=== PATIENT | female | born 1940 | race Caucasian/White ===

== ENCOUNTER → 2016-09-28 | Outpatient (CLI) | payer MEDICARE, OTHER ==
[2015-06-23 10:56] VITALS: BP 130/72
[~2016-09-28] MED LIST: APIX5TAB PO; ASPI-482 PO; BREO ELLIPTA 21 EACH IH; CLOP75TA PO; DILT120C97 PO; FLUT9.9S NS; HYDR12.58 PO; INSU100V8 SQ; LEVO112T4 PO; LOSA25TA4 PO; METF10002 PO; MULT-246 PO; NIAC250C2 PO; OMEG1CAP38 PO; SIMV40TA3 PO; VENL37.56 PO
--- NOTE | 2016-09-28 15:00 | KCIC ---
PROCEDURE Two-view chest. HISTORY Shortness of air, interstitial lung disease COMPARISON April 13, 2016 FINDINGS Two views of the chest are submitted. There again has been a median sternotomy. Pericardial cardiac silhouette is unchanged, borderline enlarged. There is atherosclerotic calcification near the aortic arch. There is again interstitial opacity of the mid to inferior hemithoraces bilaterally not convincingly changed. There is no new lobar infiltrate, pleural fluid, or pneumothorax. IMPRESSION Radiographic findings are similar, interstitial opacity bilaterally which may be due to the provided history of interstitial lung disease. Electronically signed by: Jagjit Beltran MD (Sep 28, 2016 14:58:50)
--- NOTE | 2016-09-28 21:33 | KCIC ---
Bilateral digital screening mammograms with CAD: HISTORY Routine screening. COMPARISON Comparison is made to previous studies dated 10/22/2014 and 08/08/2013. FINDINGS Breast density category B. The skin and nipples show no abnormalities. No abnormal lymph nodes are seen in the axilla. The breast parenchyma shows scattered fibroglandular density. There are no dominant masses, suspicious calcifications or architectural distortions. IMPRESSION No evidence of malignancy. Recommend routine annual mammographic screening. This study was interpreted with the benefit of Computerized Aided Detection (CAD). Mammography is not 100% sensitive in detecting breast cancer. Therefore, a self breast exam and a clinical breast exam are very important. A negative mammogram does not negate a clinically suspicious finding and should not result in a delay in biopsying a clinically suspicious abnormality. BI-RADS category 1. Negative. This patient's information has been entered into a reminder system for the patient to be notified with the results of this examination and a target date for her next mammograms. Electronically signed by: Slaina Mustafa MD (Sep 28, 2016 21:32:40)
== END | disposition home or self-care (01) ==
LOC: KCIC MAMMO 13:48
PROVIDERS: ATTEND Internal Medicine
DX: Z12.31 Encounter for screening mammogram for malignant neoplasm of breast (principal); R06.02 Shortness of breath; J84.9 Interstitial pulmonary disease, unspecified
CPT/HCPCS: 71020; G0202; 77067

== ENCOUNTER → 2016-09-28 | Outpatient (CLI) | payer MEDICARE, OTHER ==
[2015-06-23 10:56] VITALS: BP 130/72
--- NOTE | 2016-09-28 16:52 | CARD ---
APPROVED REPORT EXAM: Two-dimensional and M-mode echocardiogram with Doppler and color Doppler. Other Information Quality : GoodHR: 63bpm Rhythm : NSR INDICATION Cardiac Disease: CAD 2D DIMENSIONS RVDd3.5 (2.9-3.5cm)Left Atrium(2D)4.0 (1.6-4.0cm) IVSd0.9 (0.7-1.1cm)Aortic Root(2D)3.2 (2.0-3.7cm) LVDd4.9 (3.9-5.9cm)LVOT Diameter2.1 (1.8-2.4cm) PWd1.0 (0.7-1.1cm)LVDs3.5 (2.5-4.0cm) FS (%) 29.9 %SV65.3 ml LVEF(%)56.9 (>50%) Aortic Valve AoV Peak Winston.122.6cm/sAoV VTI28.1cm AO Peak GR.6.0mmHgLVOT Peak Winston.89.8cm/s LVOT VTI 21.30cmAO Mean GR.3mmHg SAEID (VMAX)2.95ri9FQV (VTI)2.67cm2 Mitral Valve MV E Uvfqrxou16.8cm/sMV DECEL ZSUX713ac MV A Zzsqjdwk75.2cm/sMV E Mean Gr.1mmHg MV IFI36lhY/A Ratio0.9 MV A Wpcgoxye671rxYLF (PHT)2.93cm2 TDI E/Lateral E'8.6E/Medial E'11.2 Pulmonary Valve PV Peak Zqcaokbu72.6cm/sPV Peak Grad.4mmHg RVOT VTI15.7cm Tricuspid Valve TR P. Gkfqsyxd734xl/sRAP HTXUEICY9liZd TR Peak Gr.54hzVsXEXK03tbBe Pulmonary Vein S1 Xnyfmotp07.3cm/sD2 Ltdjqmnc40.7cm/s PVa yunbvmlw637cjoc LEFT VENTRICLE The left ventricle is normal size. There is normal left ventricular wall thickness. Left ventricle sy stolic function is normal. The Ejection Fraction is 55-60%. There is normal LV segmental wall motion. Transmitral Doppler flow pattern is Grade I-abnormal relaxation pattern. There is no ventricular sep omega defect visualized. RIGHT VENTRICLE The right ventricle is normal size. There is normal right ventricular wall thickness. The right ventr icular systolic function is normal. Fat pad noted over right ventricular apex. ATRIA The left atrium size is normal. The right atrium size is normal. The interatrial septum is intact wit h no evidence for an atrial septal defect or patent foramen ovale as noted on 2-D or Doppler imaging. AORTIC VALVE The aortic valve is normal in structure and function. The aortic valve is trileaflet. Doppler and Col or Flow revealed no significant aortic regurgitation. There is no significant aortic valvular stenosi s. MITRAL VALVE The mitral valve is normal in structure. There is no evidence of mitral valve prolapse. There is no m itral valve stenosis. Doppler and Color Flow revealed mild mitral regurgitation. TRICUSPID VALVE The tricuspid valve is normal in structure. Doppler and Color Flow revealed mild tricuspid regurgitat ion. There is mild pulmonary hypertension. The PA pressure was estimated at 39 mmHg. There is no tric uspid valve stenosis. PULMONIC VALVE The pulmonary valve is normal in structure. Doppler and Color Flow revealed trace pulmonic valvular r egurgitation. There is no pulmonic valvular stenosis. GREAT VESSELS The aortic root is normal in size. The ascending aorta is normal in size. Normal pulmonary venous matthew w (Doppler). The IVC is normal in size and collapses >50% with inspiration. PERICARDIAL EFFUSION There is no pleural effusion. There is no evidence of significant pericardial effusion. Critical Notification Critical Value: No <Conclusion> Left ventricle systolic function is normal. The Ejection Fraction is 55-60%. There is normal LV segmental wall motion. Transmitral Doppler flow pattern is Grade I-abnormal relaxation pattern. Mild mitral regurgitation. Mild tricuspid regurgitation. The PA pressure was estimated at 39 mmHg. There is no evidence of significant pericardial effusion.
== END | disposition home or self-care (01) ==
LOC: ECHO 10:03
PROVIDERS: ATTEND Internal Medicine Cardiovascular Disease
DX: I25.10 Atherosclerotic heart disease of native coronary artery without angina pectoris (principal); I34.0 Nonrheumatic mitral (valve) insufficiency; I27.2 Other secondary pulmonary hypertension; I37.1 Nonrheumatic pulmonary valve insufficiency
CPT/HCPCS: 93306

== ENCOUNTER → 2016-10-10 | Outpatient (CLI) | payer MEDICARE, OTHER ==
[2015-06-23 10:56] VITALS: BP 130/72
== END | disposition home or self-care (01) ==
LOC: PF 07:53
PROVIDERS: ATTEND Internal Medicine Pulmonary Disease
DX: R06.00 Dyspnea, unspecified (principal)
CPT/HCPCS: 94010; 94729

== ENCOUNTER → 2016-10-19 | Outpatient (CLI) | payer MEDICARE, OTHER ==
[2015-06-23 10:56] VITALS: BP 130/72
[~2016-10-19] MED LIST changes: +CEFAZOLIN 1GM IVPB FOR OMNI 50 ML IV ONE; +REGADENOSON 0.4 MG/5 ML DISP.SYRIN. IV ONE
--- NOTE | 2016-10-19 12:38 | RAD ---
APPROVED REPORT Test Type: Pharmacological Stress Nurse/Tech: Cate Swan R.N. Test Indications: chest pain Cardiac History: cabg 2007, stents, htn Medications: see attached list Medical History: see ehr Resting ECG: SR Resting Heart Rate: 73 bpm Resting Blood Pressure: 143/65mmHg Pretest Chest Pain: No chest pain Nurse/Tech Notes lungs cta, heart tones regular, good radial pulse Consent: The procedure was explained to the patient in lay terms. Informed consent was witnessed. Raj eout was entered into [employer]. History and Stress Test performed by Cate Swan R.N. Pharm. Details Pharmacologic stress testing was performed using 0.4mg per 5ml of regadenoson given intravenously ove r 7-10 seconds. Stress Symptoms No chest pain or symptoms. pt c/o chest tightness in 3/10- during minute 4 of recovery, resolved POST EXERCISE Reason for Termination: Infusion complete Max HR: 96 bpm Max Blood Pressure: 155/66mmHg Chest Pain: Yes. see above Arrhythmia: No. ST Change: No. INTERPRETATION Stress EKG Conclusion: Baseline EKG showed sinus rhythm. No ischemic changes at peak stress. No arr hythmias. Imaging Protocol IMAGE PROTOCOL: Rest Tc-99m/stress Tc-99m 1 day Rest: Stress: Viability: Radiopharm.Tc99m HguohsjlgQt05a Sestamibi Vopd08lOt 33mCi Duration 15min. 10min. Img Date 10/19/2016 10/19/2016 Inj-Img Bnrb58tjr. 60min. Rest Admin Site:IV - Left HandAdministrator:CURTIS Padgett, ARRT (R)(N) Stress Admin Site: IV - Left HandAdministrator: CURTIS Padgett, ARRT (R)(N) STRESS DATA End Diast. Vol.68.0mlAv. Heart Rate77.0bpm End Syst. Vol.19.0mlCO Index BSA0.0L/min Myocardial Reot282.0gEject. Fbbxfohz21.0% Stress Rates Pk. Fill Rate3.50EDV/secLVtime Pk. Fill 213.73msec Pk. Empty Rate4.79ESV/secLVtime Pk. Blzqn785.98msec 08/02 Pk. Fill1.26EDV/sec Stress Scores Regional WT0.00Summed WT0.00 Regional WM0.00Summed WM0.00 Study quality was good. Left Ventricular size was Normal at Rest and Stress. Lung uptake was Normal. Left Ventricular ejection fraction is 72%. The rest and stress images show normal perfusion, normal contraction and thickening. LV Perf. Quant 17 Seg. SSS3.00 17 Seg. SRS2.00 17 Seg. SDS2.00 Stress Defect Extent (% LAD)0.00Rest Defect Extent (% LAD)0.00Rev. Defect Extent (% LAD)0.00 Stress Defect Extent (% LCX) 31.30Rest Defect Extent (% LCX)5.00Rev. Defect Extent (% LCX)22.50 Stress Defect Extent (% RCA)0.00Rest Defect Extent (% RCA)0.00Rev. Defect Extent (% RCA)0.00 Stress Defect Extent (% ANY)5.40Rest Defect Extent (% ANY)0.90Rev. Defect Extent (% ANY)3.90 Conclusion 1. Regadenoson cardioisotope stress test did not show any evidence of ischemia or infarct. 2. Normal left ventricular systolic function with ejection fraction calculated at 72%. 3. Low risk for cardiac events.
== END | disposition home or self-care (01) ==
LOC: NM 08:33
PROVIDERS: ATTEND Nurse Practitioner
DX: I25.10 Atherosclerotic heart disease of native coronary artery without angina pectoris (principal)
CPT/HCPCS: 78452; 93017; 96374; 96375; 96376; A9500; J2785

== ENCOUNTER 2017-07-29 17:28 | Inpatient (IN) | payer MEDICARE, OTHER ==
[2017-07-29 17:51] LABS: POC GLUCOSE 165 mg/dL (70-99)
[2017-07-29 18:20] LABS: ADD MAN DIFF? NO
[2017-07-29 18:22] LABS: BASO % 1 % (0-3); BILIRUBIN,URINE NEGATIVE (NEG); CLARITY,URINE CLEAR; COLOR,URINE YELLOW; EOS % 1 % (0-3); GLUCOSE,URINE NEGATIVE (NEG); HEMATOCRIT 40.5 % (36.0-47.0); HEMOGLOBIN 13.1 g/dL (12.0-15.5); LYMPH # 1.1 x10^3/uL (1.0-4.8); LYMPH % 19 % (24-48); MEAN CORPUSCULAR HEMOGLOBIN 29 pg (25-35); MEAN CORPUSCULAR HGB CONC 32 g/dL (31-37); MEAN CORPUSCULAR VOLUME 89 fL (79-100); MONO # 0.8 x10^3/uL (0.0-1.1); MONO % 15 % (0-9); NEUT # 3.5 x10^3uL (1.8-7.7); NEUT % 65 % (31-73); NITRITE,URINE NEGATIVE (NEG); PH,URINE 6.5; PLATELET COUNT 113 x10^3/uL (140-400); PROTEIN,URINE NEGATIVE (NEG-TRACE); RED BLOOD COUNT 4.53 x10^6/uL (3.50-5.40); RED CELL DISTRIBUTION WIDTH 14.4 % (11.5-14.5); UROBILINOGEN,URINE 0.2 mg/dL (0.2 mg/dL); WHITE BLOOD COUNT 5.5 x10^3/uL (4.0-11.0)
[2017-07-29 18:28] LABS: BACTERIA,URINE FEW /HPF (0-FEW); HYALINE CASTS, URINE FEW /HPF; SQUAMOUS EPITHELIAL CELL,UR FEW /LPF
[2017-07-29 18:32] LABS: ANION GAP 11 (6-14); BLOOD UREA NITROGEN 12 mg/dL (7-20); BUN/CREATININE RATIO 12 (6-20); CALCIUM 9.2 mg/dL (8.5-10.1); CARBON DIOXIDE 27 mmol/L (21-32); CHLORIDE 101 mmol/L (98-107); GFR 54.2; GLUCOSE 187 mg/dL (70-99); SODIUM 139 mmol/L (136-145)
[2017-07-29 18:38] LABS: ALBUMIN 3.7 g/dL (3.4-5.0); ALK PHOS 75 U/L (46-116); ALT (SGPT) 31 U/L (14-59); AST (SGOT) 51 U/L (15-37); TOTAL BILIRUBIN 0.4 mg/dL (0.2-1.0); TOTAL PROTEIN 7.4 g/dL (6.4-8.2)
[2017-07-29 18:42] LABS: TROPONINI < 0.017 ng/mL (0.000-0.055)
[2017-07-29] MEDS ORDERED: ACETAMINOPHEN 325 MG TABLET. PO (19:30)
[2017-07-29] MEDS ORDERED: ONDANSETRON PF 4 MG/2 ML VIAL. IV (19:30)
[2017-07-29 20:40] LABS: POC GLUCOSE 114 mg/dL (70-99)
[2017-07-30] MEDS ORDERED: FLUTICASONE 50MCG/NASAL SPRAY 16GM BOTTLE. NS
[2017-07-30] MEDS: INSULIN DETEMIR 300 UNITS/3 ML INSULN.PEN. SQ ×2 (01:36→21:00)
[2017-07-30 04:24] LABS: ADD MAN DIFF? NO
[2017-07-30 04:35] LABS: BASO % 1 % (0-3); EOS # 0.1 x10^3/uL (0.0-0.7); EOS % 1 % (0-3); HEMATOCRIT 39.5 % (36.0-47.0); HEMOGLOBIN 12.9 g/dL (12.0-15.5); LYMPH # 1.3 x10^3/uL (1.0-4.8); LYMPH % 22 % (24-48); MEAN CORPUSCULAR HEMOGLOBIN 29 pg (25-35); MEAN CORPUSCULAR HGB CONC 33 g/dL (31-37); MEAN CORPUSCULAR VOLUME 90 fL (79-100); MONO # 0.9 x10^3/uL (0.0-1.1); MONO % 16 % (0-9); NEUT # 3.5 x10^3uL (1.8-7.7); NEUT % 60 % (31-73); PLATELET COUNT 115 x10^3/uL (140-400); RED CELL DISTRIBUTION WIDTH 14.4 % (11.5-14.5); WHITE BLOOD COUNT 5.8 x10^3/uL (4.0-11.0)
[2017-07-30 04:57] LABS: ANION GAP 11 (6-14); BLOOD UREA NITROGEN 14 mg/dL (7-20); CALCIUM 8.6 mg/dL (8.5-10.1); CARBON DIOXIDE 27 mmol/L (21-32); CHLORIDE 103 mmol/L (98-107); CREATININE 0.9 mg/dL (0.6-1.0); GFR 61.2; GLUCOSE 129 mg/dL (70-99); POTASSIUM 3.8 mmol/L (3.5-5.1); SODIUM 141 mmol/L (136-145)
[2017-07-30] MEDS: fentaNYL PF VIAL 100 MCG/2 ML VIAL IV ×2 (05:16→12:55)
[2017-07-30] MEDS: LEVOTHYROXINE 112 MCG TABLET PO (06:07)
[2017-07-30] MEDS: ASPIRIN ENTERIC COATED 81 MG TABLET.DR. PO (08:03)
[2017-07-30] MEDS: VENLAFAXINE XR 37.5 MG CAP.ER.24H. PO (08:03)
[2017-07-30] MEDS: MULTIVITAMIN with MINERAL TABLET. PO (08:03)
[2017-07-30] MEDS: APIXABAN 5 MG TABLET. PO ×2 (08:03→21:32)
[2017-07-30] MEDS: LOSARTAN POTASSIUM 25 MG TABLET. PO (08:04)
[2017-07-30] MEDS: OMEGA-3 FATTY ACIDS/FISH OIL 1,000 MG CAPSULE. PO (08:04)
[2017-07-30] MEDS ORDERED: VILANTEROL IH (13:45)
[2017-07-30] MEDS ORDERED: DEXTROSE 50% 25 GM / 50ML DISP.SYRIN. IV (13:45)
[2017-07-30] MEDS ORDERED: ACETAMINOPHEN 500 MG TABLET PO (13:45)
[2017-07-30] MEDS ORDERED: FLUTICASONE IH (13:45)
[2017-07-30] MEDS ORDERED: ONDANSETRON PF 4 MG/2 ML VIAL. IV (13:45)
[2017-07-30] MEDS ORDERED: HYDROcodone/APAP 5/325MG 1 TAB TABLET PO (16:00)
[2017-07-30] MEDS: GABAPENTIN 400 MG CAPSULE. PO (16:04)
[2017-07-30] MEDS: ALLOPURINOL 100 MG TABLET. PO (16:06)
[2017-07-30] MEDS: ALBUTEROL SULFATE 2.5 MG/3 ML NEBU. NEB ×2 (16:18→19:24)
[2017-07-30] MEDS: INSULIN ASPART 300 UNITS/3 ML INSULN.PEN SQ (17:00)
[2017-07-30] MEDS: BUDESONIDE 0.5 MG/2 ML NEBU. NEB (19:24)
[2017-07-30] MEDS: NIACIN ER 250 MG TABLET.ER PO (21:31)
[2017-07-30] MEDS: SIMVASTATIN 40 MG TABLET. PO (21:32)
[2017-07-30 21:37] LABS: POC GLUCOSE 101 mg/dL (70-99)
[2017-07-31] MEDS: LEVOTHYROXINE 112 MCG TABLET PO ×2 (05:51→05:55)
[2017-07-31 07:35] LABS: POC GLUCOSE 125 mg/dL (70-99)
[2017-07-31] MEDS: INSULIN ASPART 300 UNITS/3 ML INSULN.PEN SQ ×3 (08:00→16:18)
[2017-07-31] MEDS: ALBUTEROL SULFATE 2.5 MG/3 ML NEBU. NEB ×4 (08:32→20:20)
[2017-07-31] MEDS: BUDESONIDE 0.5 MG/2 ML NEBU. NEB ×2 (08:33→20:20)
[2017-07-31] MEDS: GABAPENTIN 400 MG CAPSULE. PO (09:30)
[2017-07-31] MEDS: OMEGA-3 FATTY ACIDS/FISH OIL 1,000 MG CAPSULE. PO (09:31)
[2017-07-31] MEDS: ASPIRIN ENTERIC COATED 81 MG TABLET.DR. PO (09:31)
[2017-07-31] MEDS: MULTIVITAMIN with MINERAL TABLET. PO (09:31)
[2017-07-31] MEDS: APIXABAN 5 MG TABLET. PO ×2 (09:31→20:43)
[2017-07-31] MEDS: ALLOPURINOL 100 MG TABLET. PO (09:31)
[2017-07-31] MEDS: VENLAFAXINE XR 37.5 MG CAP.ER.24H. PO (09:31)
[2017-07-31] MEDS: LOSARTAN POTASSIUM 25 MG TABLET. PO (10:43)
[2017-07-31 11:34] LABS: POC GLUCOSE 120 mg/dL (70-99)
[2017-07-31] MEDS: guaiFENesin DM 200MG/20MG 10 ML SYRUP PO ×2 (15:22→23:40)
[2017-07-31] MEDS: CETIRIZINE HCL 10 MG TABLET. PO (15:22)
[2017-07-31 16:10] LABS: POC GLUCOSE 119 mg/dL (70-99)
[2017-07-31] MEDS: NIACIN ER 250 MG TABLET.ER PO (20:43)
[2017-07-31] MEDS: SIMVASTATIN 40 MG TABLET. PO (20:43)
[2017-07-31] MEDS: INSULIN DETEMIR 300 UNITS/3 ML INSULN.PEN. SQ (20:49)
[2017-07-31 20:51] LABS: POC GLUCOSE 111 mg/dL (70-99)
[2017-08-01 04:58] LABS: POC GLUCOSE 130 mg/dL (70-99)
[2017-08-01] MEDS: LEVOTHYROXINE 112 MCG TABLET PO (05:46)
[2017-08-01 07:43] LABS: POC GLUCOSE 122 mg/dL (70-99)
[2017-08-01] MEDS: BUDESONIDE 0.5 MG/2 ML NEBU. NEB (07:51)
[2017-08-01] MEDS: ALBUTEROL SULFATE 2.5 MG/3 ML NEBU. NEB ×2 (07:51→11:31)
[2017-08-01] MEDS: INSULIN ASPART 300 UNITS/3 ML INSULN.PEN SQ ×2 (08:00→12:00)
[2017-08-01] MEDS: MULTIVITAMIN with MINERAL TABLET. PO (08:25)
[2017-08-01] MEDS: ALLOPURINOL 100 MG TABLET. PO (08:26)
[2017-08-01] MEDS: ASPIRIN ENTERIC COATED 81 MG TABLET.DR. PO (08:27)
[2017-08-01] MEDS: GABAPENTIN 400 MG CAPSULE. PO (08:27)
[2017-08-01] MEDS: VENLAFAXINE XR 37.5 MG CAP.ER.24H. PO (08:27)
[2017-08-01] MEDS: LOSARTAN POTASSIUM 25 MG TABLET. PO (08:27)
[2017-08-01] MEDS: CETIRIZINE HCL 10 MG TABLET. PO (08:27)
[2017-08-01] MEDS: APIXABAN 5 MG TABLET. PO (08:28)
[2017-08-01] MEDS: OMEGA-3 FATTY ACIDS/FISH OIL 1,000 MG CAPSULE. PO (09:00)
[2017-08-01 11:51] LABS: POC GLUCOSE 122 mg/dL (70-99)
[2017-08-01] MEDS: ANTI-COAG MONITOR BY PHARMACY. MC (14:48)
== END 2017-08-01 16:07 | disposition home or self-care (01) | DRG 638 ==
LOC: ER 17:28 → 5 SOUTH 19:19
PROVIDERS: Internal Medicine Hematology & Oncology
DX: E11.65 Type 2 diabetes mellitus with hyperglycemia (principal); N39.0 Urinary tract infection, site not specified; I48.0 Paroxysmal atrial fibrillation; M48.02 Spinal stenosis, cervical region; E03.9 Hypothyroidism, unspecified; E78.5 Hyperlipidemia, unspecified; I10 Essential (primary) hypertension; I25.10 Atherosclerotic heart disease of native coronary artery without angina pectoris; M50.222 Other cervical disc displacement at C5-C6 level; E78.00 Pure hypercholesterolemia, unspecified; Z79.4 Long term (current) use of insulin; Z82.49 Family history of ischemic heart disease and other diseases of the circulatory system; Z87.891 Personal history of nicotine dependence; Z90.710 Acquired absence of both cervix and uterus; Z95.1 Presence of aortocoronary bypass graft; Z90.49 Acquired absence of other specified parts of digestive tract; Z90.89 Acquired absence of other organs
CPT/HCPCS: 36415; 70450; 71010; 72125; 80048; 80053; 81001; 82962; 84484; 85025; 87086; 93005; 94640; 94760; 97116-GP; 97161-GP; 97166-GO; 99285; 99285-25; J0690; J1815; J3010; J7613; J7626

== ENCOUNTER → 2017-08-22 | Outpatient (CLI) | payer MEDICARE, OTHER ==
[2017-08-22] MEDS: REGADENOSON 0.4 MG/5 ML DISP.SYRIN. IV (11:25)
== END | disposition home or self-care (01) ==
LOC: NM 09:26
DX: R06.00 Dyspnea, unspecified (principal)
CPT/HCPCS: 78452; 93017; 96374; 96375; 96376; A9500; J2785

== ENCOUNTER → 2017-11-22 | Outpatient (CLI) | payer MEDICARE, OTHER ==
[2017-11-22] MEDS: IOHEXOL 240 MG/ML 50ML VIAL. PO (13:18)
[2017-11-22] MEDS: IOHEXOL 300 MG/ML 100ML VIAL. IV (13:18)
== END | disposition home or self-care (01) ==
LOC: KCIC CT 11:45
DX: Z12.31 Encounter for screening mammogram for malignant neoplasm of breast (principal); I70.0 Atherosclerosis of aorta; R74.8 Abnormal levels of other serum enzymes
CPT/HCPCS: 74160; 77063; 77067; Q9966; Q9967

== ENCOUNTER 2018-01-12 10:46 | Emergency (ER) | payer MEDICARE, OTHER ==
[2018-01-12 11:13] LABS: BILIRUBIN,URINE NEGATIVE (NEG); CLARITY,URINE CLEAR; COLOR,URINE YELLOW; GLUCOSE,URINE NEGATIVE (NEG); NITRITE,URINE NEGATIVE (NEG); PH,URINE 5.5; PROTEIN,URINE 30 mg/dL (NEG-TRACE); UROBILINOGEN,URINE 0.2 mg/dL (0.2 mg/dL)
[2018-01-12 11:19] LABS: BACTERIA,URINE MODERATE /HPF (0-FEW); SQUAMOUS EPITHELIAL CELL,UR MOD /LPF
[2018-01-12 11:29] LABS: ADD MAN DIFF? NO
[2018-01-12] MEDS ORDERED: CONTRAST GIVEN. MC (11:30)
[2018-01-12 11:32] LABS: BASO # 0.1 x10^3/uL (0.0-0.2); BASO % 1 % (0-3); EOS # 0.1 x10^3/uL (0.0-0.7); EOS % 1 % (0-3); HEMATOCRIT 36.6 % (36.0-47.0); HEMOGLOBIN 12.4 g/dL (12.0-15.5); LYMPH # 1.9 x10^3/uL (1.0-4.8); LYMPH % 18 % (24-48); MEAN CORPUSCULAR HEMOGLOBIN 31 pg (25-35); MEAN CORPUSCULAR HGB CONC 34 g/dL (31-37); MEAN CORPUSCULAR VOLUME 91 fL (79-100); MONO # 0.9 x10^3/uL (0.0-1.1); MONO % 9 % (0-9); NEUT # 7.5 x10^3uL (1.8-7.7); NEUT % 72 % (31-73); PLATELET COUNT 135 x10^3/uL (140-400); RED BLOOD COUNT 4.04 x10^6/uL (3.50-5.40); RED CELL DISTRIBUTION WIDTH 13.7 % (11.5-14.5); WHITE BLOOD COUNT 10.5 x10^3/uL (4.0-11.0)
[2018-01-12 11:39] LABS: ANION GAP 8 (6-14); BLOOD UREA NITROGEN 14 mg/dL (7-20); BUN/CREATININE RATIO 16 (6-20); CARBON DIOXIDE 28 mmol/L (21-32); CHLORIDE 98 mmol/L (98-107); CREATININE 0.9 mg/dL (0.6-1.0); GLUCOSE 136 mg/dL (70-99); SODIUM 134 mmol/L (136-145)
[2018-01-12 11:47] LABS: ALBUMIN 3.5 g/dL (3.4-5.0); ALBUMIN/GLOBULIN RATIO 0.9 (1.0-1.7); ALK PHOS 79 U/L (46-116); ALT (SGPT) 27 U/L (14-59); AST (SGOT) 29 U/L (15-37); LIPASE 172 U/L (73-393); TOTAL BILIRUBIN 0.7 mg/dL (0.2-1.0); TOTAL PROTEIN 7.4 g/dL (6.4-8.2)
[2018-01-12] MEDS: IOHEXOL 300 MG/ML 100ML VIAL. IV (11:49)
== END 2018-01-12 13:00 | disposition home or self-care (01) ==
LOC: ER 10:46
DX: K52.9 Noninfective gastroenteritis and colitis, unspecified (principal); N39.0 Urinary tract infection, site not specified; E78.00 Pure hypercholesterolemia, unspecified; E03.9 Hypothyroidism, unspecified; E11.40 Type 2 diabetes mellitus with diabetic neuropathy, unspecified; E11.9 Type 2 diabetes mellitus without complications; I25.10 Atherosclerotic heart disease of native coronary artery without angina pectoris; Z90.49 Acquired absence of other specified parts of digestive tract; Z90.710 Acquired absence of both cervix and uterus; Z98.890 Other specified postprocedural states; Z95.5 Presence of coronary angioplasty implant and graft
CPT/HCPCS: 36415; 74177; 80053; 81001; 83690; 85025; 87086; 99285-25; Q9967

== ENCOUNTER 2018-10-16 06:56 | Outpatient (CLI) | payer MEDICARE, OTHER ==
[2018-10-16] VITALS (12 sets, daily range): BP systolic 123–163; BP diastolic 61–74
[~2018-10-16] VITALS: Ht 170.2 cm; Wt 85.3 kg
[~2018-10-16 06:56] MED LIST changes: +ALLO100T PO; -CEFAZOLIN 1GM IVPB FOR OMNI 50 ML IV ONE; +CIPR250T30 PO; +CIPR500T94 PO; +DILT120C85 PO; -DILT120C97 PO; +DILT30TA PO; +GABA-689 PO; -LOSA25TA4 PO; +LOSA25TA54 PO; -METF10002 PO; +METF10007 PO; +METR500T PO; -REGADENOSON 0.4 MG/5 ML DISP.SYRIN. IV ONE
[2018-10-16] MEDS ORDERED: LEVO200T5 PO (07:28)
[2018-10-16] MEDS ORDERED: DILT30TA26 PO (07:28)
[2018-10-16] MEDS ORDERED: INSU100I13 SQ (07:28)
[2018-10-16] MEDS ORDERED: METF500T16 PO (07:28)
[2018-10-16] MEDS ORDERED: IODIXANOL 320 MG/ML 100 ML VIAL. ONE ×2 (07:43→09:34)
[2018-10-16] MEDS ORDERED: HEPARIN for ARTERIAL LINE 1,500 ML ONE (07:43)
[2018-10-16] MEDS ORDERED: LIDOCAINE 1% PF 2 ML VIAL. ONE (07:43)
[2018-10-16 07:47] LABS: HEMATOCRIT 36.8 % (36.0-47.0); HEMOGLOBIN 12.2 g/dL (12.0-15.5); RED BLOOD COUNT 4.07 x10^6/uL (3.50-5.40); RED CELL DISTRIBUTION WIDTH 13.9 % (11.5-14.5); WHITE BLOOD COUNT 6.6 x10^3/uL (4.0-11.0)
[2018-10-16 07:58] LABS: PROTHROMBIN TIME PATIENT 14.1 SEC (11.7-14.0)
[2018-10-16] MEDS ORDERED: fentaNYL PF VIAL 100 MCG/2 ML VIAL ONE (08:32)
[2018-10-16] MEDS ORDERED: LIDOCAINE 1% Multi-Dose 20 ML VIAL. ONE (08:32)
[2018-10-16] MEDS ORDERED: MIDAZOLAM HCL/PF 2 MG/2 ML VIAL. ONE (08:32)
[2018-10-16 08:34] LABS: CALCIUM 8.9 mg/dL (8.5-10.1); CREATININE 0.8 mg/dL (0.6-1.0); GFR 69.7
[2018-10-16] MEDS ORDERED: LIDOCAINE 1% Multi-Dose 20 ML VIAL. INJ ONE (09:15)
[2018-10-16] MEDS ORDERED: IODIXANOL 320 MG/ML 100 ML VIAL. IART ONE (09:15)
[2018-10-16] MEDS ORDERED: MIDAZOLAM HCL/PF 2 MG/2 ML VIAL. IV ONE (09:15)
[2018-10-16] MEDS ORDERED: fentaNYL PF VIAL 100 MCG/2 ML VIAL IV ONE (09:15)
--- NOTE | 2018-10-16 11:05 | CARD ---
MR#: [id number] Date of Study: 10/16/2018 Ordering Physician: MARIE BALES, Referring Physician: MARIE BALES, Tech: YUNG TERRY RTR APPROVED REPORT Technologist: YUNG TERRY RTR Nurse: Cate Swan R.N. Procedure(s) performed: MODERATE SEDATION TIME: 55 MINUTES LHC, Coronary angiography, Bypass angiography HISTORY The patient is a 78 year-old female with a history of : coronary artery disease, tobacco history() , hypertension, dyslipidemia. INDICATION The indication(s) include : positive stress test, atypical chest pain . CSHA Clinical Frailty Scale CS Clinical Frailty Scale: Managing Well Heart Failure Heart Failure: No If Yes, Newly Diagnosed: No PROCEDURE NARRATIVE After explaining the risks and benefits of the procedure and alternatives, informed consent was obtai princess. The patient was brought electively to the cardiac catheterization lab in a fasting state. A sridhar eout was performed confirming the patient's name, date of , procedure, and site of procedure. A ll necessary personnel were wearing the appropriate protective equipment and radiation monitor device s. (See nursing notes for medications administered). The right groin was sterilely prepped and drap ed in the usual fashion. The right groin was infiltrated with 10 mL of 2% lidocaine for subcutaneous anesthesia. A 6 F sheath was inserted into the right femoral artery without difficulty. Right and left coronary angiography was performed using a JR4 and JL4 catheter. Bypass angiography was perform ed with a CRUZ, JR4 and AR1 catheters. Left ventricular end diastolic pressure was obtained with a p igtail catheter and pullback was performed. Next, a supravalvular aortography was performed. All cat heter exchanges and advancements were performed over a guidewire. At case completion the right femor al sheath was removed and hemostasis was achieved with an Angioseal Device after limited femoral juan ramon ography confirmed adequate vessel size and anatomy. There were no acute complications. HEMODYNAMICS: AO: 160/80 LVEDP 15 mm Hg No gradient on LV to aortic pullback. LEFT VENTRICULOGRAM: Deferred due to known normal EF. SUPRAVALVULAR AORTOGRAPHY: No significant dilation. No significant aortic insufficiency. CORONARY ANGIOGRAPHY: LM is a small to moderate sized vessel with a proximal to mid 50% stenosis. LAD is a large caliber vessel with an ostial 100% occlusion. The mid to distal vessel is seen to fill via a robust CRUZ graft. Ramus is a small caliber vessel with normal angiographic appearance. LCx is a small to moderate caliber non-dominant vessel with a proximal 50% stenosis. OM1 is a moderate caliber vessel with a proxmial 70% stenosis. The distal vessel is also seen to fill via a patent SVG graft. RCA is a large caliber dominant vessel with proximal to mid 70% stenosis. The distal RCA is occluded. RPDA and RPL are small caliber vessels that fill via SVG. BYPASS ANGIOGRAPHY: CRUZ to LAD - Widely patent without anastomotic stenosis. SVG to OM1 - Widely patent without anastomotic stenosis. SVG to RCA - Distal 90% stenosis at the RCA crux involving small caliber PDA/RPL vessels. Due to small caliber RPDA/RPL vessels and need for possible bifurcation stenting a discussion was hel d with the patient regarding her lifestyle limitations. 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 Will plan for medical therapy for next several weeks, determine life style limitations and consider complex PCI of the SVG graft in the future if symptoms are lifestyle l imiting. Conclusion 1. Normal left sided filling pressures. 2. Severe 3V CAD 3. 3/3 grafts patent with severe SVG to RCA distal anastomotic stenosis Recommendations See discussion above Plan for trial of medical therapy, if still with lifestyle symptoms, consider complex SVG PCI. Signed by : Marie Bales, Electronically Approved : 10/16/2018 11:04:24
--- NOTE | 2018-10-16 12:57 | NUR ---
Discharge Note: SARIKA HOLLEY [facility] Discharge instructions and discharge home medications reviewed with Patient and a copy given. All questions have been answered and understanding verbalized. The following instructions and handouts were given: education was given to patient regarding groin site care and moderate sedation. Pt was also instructed to continue home medications as directed. Pt and spouse verbalized understanding. Discontinued lines and drains: peripheral iv was discontinued with no complications. Catheter tip was intact. Patient discharged to home with self care via wheelchair. Pt was accompanied by spouse.
--- NOTE | 2018-10-16 17:28 | PDOC ---
MODERATE SEDATION ASSESSMENT RISKS/ALTERNATIVES Risks/Alternatives Risks and alternatives of this type of sedation and procedure discussed with: RISK/ALTERNATIVES: Patient H & P ON CHART H & P H & P on chart and reviewed for co-morbid conditions and appropriate labs. H&P ON CHART: Yes STATUS PREG STATUS ASSESSED: N/A MEDS/ALLERGIES REVIEWED Meds/Allergies Reviewed Medications and Allergies including time and route of recently administered narcotics and sedatives. MEDS/ALLERGIES REVIEWED: Yes ASA RATING ASA RATING: II AIRWAY ASSESSMENT Airway Assessment Airway patency, oral function limitations, presence of caps, crowns, dentures, partials, and ability to extend neck assessed. AIRWAY ASSESSMENT: Yes MALLAMPATI SCORE MALLAMPATI SCORE: II PRE-SEDATION ASSESSMENT PRE-SEDATION ASSESSMENT: Yes (late entry) MARIE SHARMA MD Oct 16, 2018 17:28
[2018-10-16] MEDS ORDERED: 0.9 % SODIUM CHLORIDE 10 ML DISP.SYRIN. IV PRN (17:30)
[2018-10-16] MEDS ORDERED: NITROGLYCERIN SUBLINGUAL 0.4 MG BOTTLE OF 25. SL PRN (17:30)
== END 2018-10-16 13:07 | disposition home or self-care (01) ==
LOC: CCL 06:56
PROVIDERS: ATTEND Internal Medicine Cardiovascular Disease
DX: I25.10 Atherosclerotic heart disease of native coronary artery without angina pectoris (principal); I10 Essential (primary) hypertension; E78.5 Hyperlipidemia, unspecified; F32.9 Major depressive disorder, single episode, unspecified; E11.9 Type 2 diabetes mellitus without complications; Z86.19 Personal history of other infectious and parasitic diseases; Z90.49 Acquired absence of other specified parts of digestive tract; Z90.710 Acquired absence of both cervix and uterus; Z98.890 Other specified postprocedural states; Z79.899 Other long term (current) drug therapy; Z79.84 Long term (current) use of oral hypoglycemic drugs; Z95.1 Presence of aortocoronary bypass graft; Z83.3 Family history of diabetes mellitus; Z82.49 Family history of ischemic heart disease and other diseases of the circulatory system; Z82.3 Family history of stroke; Z87.891 Personal history of nicotine dependence; Z72.89 Other problems related to lifestyle; I48.91 Unspecified atrial fibrillation
CPT/HCPCS: 36415; 80048; 85027; 85610; 93459; 93567; 99152; 99153; C1769; C1892; J1644; J2250; J3010; C1760; G0269; Q9967; C1771

== ENCOUNTER → 2018-11-20 | Outpatient (CLI) | payer MEDICARE, OTHER ==
[2018-10-16 12:35] VITALS: BP 123/61
[~2018-11-20] MED LIST changes: +DILT30TA26 PO; +INSU100I13 SQ; +LEVO200T5 PO; +METF500T16 PO
--- NOTE | 2018-11-21 10:36 | KCIC ---
Bilateral digital screening mammograms with 3-D tomosynthesis: Reason for examination: Routine screening. Comparison is made to previous studies dated 11/22/2017 and 09/28/2016. Bilateral mammograms in CC and oblique projections were obtained with 2-D imaging and 3-D tomosynthesis imaging on a Siemens Inspiration unit and reviewed on the workstation. Interpretation was made with the benefit of CAD. The skin and nipples show no abnormalities. No abnormal axillary lymph nodes are seen. The breast parenchyma shows scattered fatty and fibroglandular density. (Breast density: Category B.) There are no dominant masses, suspicious calcifications or architectural distortion. Benign calcifications are present. Impression: No evidence of malignancy. Recommend routine screening. BI-RAD Category 2: Benign. "Our facility is accredited by the [employer] Mammography Program." This patient's information has been entered into a reminder system for the patient to be notified with the results of her examination and a target date for the next mammogram. Electronically signed by: Haylie Mustafa MD (11/21/2018 10:32 AM) [id number]
== END | disposition home or self-care (01) ==
LOC: KCIC MAMMO 11:03
PROVIDERS: ATTEND Internal Medicine
DX: Z12.31 Encounter for screening mammogram for malignant neoplasm of breast (principal); R92.8 Other abnormal and inconclusive findings on diagnostic imaging of breast
CPT/HCPCS: 77063; 77067

== ENCOUNTER → 2019-05-27 | Outpatient (CLI) | payer MEDICARE, OTHER ==
[2018-10-16 12:35] VITALS: BP 123/61
[~2019-05-27] MED LIST changes: -DILT120C85 PO; +DILT120C99 PO; +IOHEXOL 240 MG/ML 50ML VIAL. PO ONE; +IOHEXOL 300 MG/ML 100ML VIAL. IV ONE
--- NOTE | 2019-05-28 11:09 | KCIC ---
CT ABD PELV W/ORAL IV CONTRAST Indication: Abdominal and pelvic pain, right lower quadrant pain for months Technique: Postcontrast CT imaging was performed of the abdomen pelvis, multiplanar reconstruction images submitted. Oral contrast was also given. One or more of the following individualized dose reduction techniques were utilized for this examination: 1. Automated exposure control 2. Adjustment of the mA and/or kV according to patient size 3. Use of iterative reconstruction technique. Comparison: January 12, 2018 Findings: There again has been a median sternotomy. There is again degree of septal thickening and groundglass density at the periphery of the visualized lung bases bilaterally, likely component of fibrotic change. There is probable hepatic steatosis. No new focal abnormality is identified of the liver, spleen, pancreas. There is similar mild splenomegaly. There again has been cholecystectomy. There is no right adrenal nodularity. There is similar somewhat nodular appearance of the left adrenal gland up to about 1.4 cm. Both kidneys enhance, no hydronephrosis. Bowel is not significantly dilated. There is no free fluid or free air. There is scattered colonic diverticulosis of the sigmoid and descending colon. Colon is not opacified with oral contrast during exam. There may be a degree of mild sigmoid colonic wall thickening of the poorly characterized on this exam. Normal appendix is believed to be visualized. 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 There is L4-5 degenerative disc disease and spondylosis. There is multilevel lumbar facet degenerative change. There is variable lateral recess stenosis of lumbar spine greatest on the left at L3-4. There is likely mlui-uk-ugctbotx narrowing the left L4-5 neural foramen, to lesser degree on the left at L5-S1. There are some similar foci of nonspecific density of the ventral abdominal pelvic subcutaneous fat greater on the right. There is some scattered plaque of the abdominal aorta and iliac arteries. There has been hysterectomy. IMPRESSION: 1. There is colonic diverticulosis greatest of the sigmoid colon, degree of mild sigmoid colonic wall thickening not excludable as could be seen with underlying inflammatory change such as from diverticulitis although poorly characterized as no oral contrast in the colon during exam. Otherwise no significant acute abnormality is identified. 2. There is likely hepatic steatosis. There is similar mild splenomegaly. Electronically signed by: Steve Beltran MD (05/28/2019 11:06 AM) [facility]
== END | disposition home or self-care (01) ==
LOC: KCIC CT 10:32
PROVIDERS: ATTEND Internal Medicine
DX: K57.30 Diverticulosis of large intestine without perforation or abscess without bleeding (principal); R16.1 Splenomegaly, not elsewhere classified; I70.0 Atherosclerosis of aorta; I70.8 Atherosclerosis of other arteries; M16.0 Bilateral primary osteoarthritis of hip; M51.36 Other intervertebral disc degeneration, lumbar region; M47.816 Spondylosis without myelopathy or radiculopathy, lumbar region; M48.061 Spinal stenosis, lumbar region without neurogenic claudication; Z90.710 Acquired absence of both cervix and uterus; Z90.49 Acquired absence of other specified parts of digestive tract
CPT/HCPCS: 74177; 82565; Q9966; Q9967

== ENCOUNTER 2019-10-03 06:53 | Day surgery (SDC) | payer MEDICARE, OTHER ==
[~2019-10-03 06:53] MED LIST changes: +ATOR40TA59 PO; +BENZOCAINE ONE 20% MUCOSAL SPRAY. MM; +GABA600T7 PO; -IOHEXOL 240 MG/ML 50ML VIAL. PO ONE; -IOHEXOL 300 MG/ML 100ML VIAL. IV ONE; +ISOS30TA4 PO; +LEVO150T PO; +LIDOCAINE 2% TOPICAL JELLY 30GM TUBE. TP ONE; +LIDOCAINE 2% VISCOUS 15 ML SOLUTION. SWSW ONE; +SIMV40TA18 PO; -SIMV40TA3 PO
[2019-10-03] MEDS ORDERED: MORPHINE SULFATE 2 MG/ML VIAL. IV PRN (07:00)
[2019-10-03] MEDS ORDERED: ONDANSETRON PF 4 MG/2 ML VIAL. IV PRN (07:00)
[2019-10-03] MEDS ORDERED: HYDROmorphone 2 MG/ML VIAL IV PRN (07:00)
[2019-10-03] MEDS ORDERED: IV RINGERS,LACTATED 1000ML 1,000 ML IV SCH (07:00)
[2019-10-03] MEDS ORDERED: PROCHLORPERAZINE 10 MG/2 ML VIAL. IV PRN (07:00)
[2019-10-03] MEDS ORDERED: LIDOCAINE 1% PF 2 ML VIAL. ID PRN (07:00)
[2019-10-03] MEDS ORDERED: fentaNYL PF VIAL 100 MCG/2 ML VIAL IV PRN ×2 (07:00)
[2019-10-03] MEDS ORDERED: FURO40TA4 PO (07:29)
[2019-10-03] MEDS ORDERED: LIDOCAINE 2% TOPICAL JELLY 30GM TUBE. TP ONE (07:53)
--- NOTE | 2019-10-03 07:54 | EKG ---
[facility] [address] [place] [address] Test Date: 2019-10-03 Test Time: 07:51:11 Pat Name: SARIKA HOLLEY Department: Room: Gender: F Instruction Assistant Principal: RUBIA : 1940 Requested By: MARIE SHARMA Order Number: [id number] Reading MD: Measurements Intervals Porter Rate: 97 P: IA: QRS: 30 QRSD: 82 T: 137 QT: 364 QTc: 467 Interpretive Statements IRREGULAR RHYTHM, NO P-WAVE FOUND ST & T ABNORMALITY, CONSIDER HIGH LATERAL ISCHEMIA OR LEFT VENTRICULAR STRAIN ABNORMAL ECG RI6.01 Compared to ECG 08/08/2019 13:55:57 T-wave abnormality now present Possible ischemia now present Atrial fibrillation no longer present
[2019-10-03] MEDS ORDERED: LIDOCAINE 2% PF 5 ML VIAL. ONE (08:05)
[2019-10-03] MEDS ORDERED: PHENYLEPHRINE in 0.9% NACL PF 1 MG/10 ML SYRINGE. IV ONE (08:05)
[2019-10-03] MEDS ORDERED: PROPOFOL 20 ML IV ONE (08:05)
[2019-10-03 08:07] LABS: HEMATOCRIT 37.2 % (36.0-47.0); HEMOGLOBIN 12.2 g/dL (12.0-15.5); RED BLOOD COUNT 4.27 x10^6/uL (3.50-5.40); RED CELL DISTRIBUTION WIDTH 14.8 % (11.5-14.5); WHITE BLOOD COUNT 7.8 x10^3/uL (4.0-11.0)
[2019-10-03 08:20] LABS: CALCIUM 9.1 mg/dL (8.5-10.1); GFR 53.8; POTASSIUM 3.7 mmol/L (3.5-5.1)
--- NOTE | 2019-10-03 09:00 | EKG ---
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
[2019-10-03] MEDS ORDERED: METO50TA4 PO (09:34)
[2019-10-03] MEDS ORDERED: SACU1TAB7 PO (09:36)
[2019-10-03 09:40] VITALS: BP 141/70
--- NOTE | 2019-10-03 11:03 | CARD ---
MR#: [id number] Date of Study: 10/03/2019 Ordering Physician: MARIE BALES, Referring Physician: MARIE BALES, Tech: Marianna Hughes APPROVED REPORT EXAM: Two-dimensional and M-mode echocardiogram with Doppler and color Doppler. INDICATION Atrial Fibrillation Convsersion RISK FACTORS Hypertension Hyperlipidemia Diabetes Tricuspid Valve TR P. Ilawhgyl632wx/sTR Peak Gr.43mmHg Reason For Test : Rule out Intracardiac Thrombus. PROCEDURE Type of Sedation : General Anesthesia Sedation was administered by Nataliya Franks. Sedation was achieved with Propofol 120mg intravenously. Transesophageal probe was inserted and advanced into esophagus by Seamus Bales MD. The PAWEL was performed without complications. Synchronized Cardioversion attempted: Successful Synchronized Cardioversion acheived with 200 Joules after 1 attempt(s). Rhythm following Synchronized Cardioversion: Normal Sinus Rhythm Throughout the procedure, the blood pressure, pulse oximetry, cardiac rhythm, and rate were monitored . The patient tolerated the procedure without adverse effects. Recovery from general anesthesia was une ventful and vital signs were stable. LEFT VENTRICLE The left ventricle is normal size. There is normal left ventricular wall thickness. The systolic func tion is moderately impaired. The Ejection Fraction is 35-40%. There is global hypokinesis of the left ventricle. No left ventricle thrombus noted on this study. RIGHT VENTRICLE The right ventricle is normal size. There is normal right ventricular wall thickness. The right ventr icular systolic function is normal. ATRIA The left atrium size is normal. The right atrium size is normal. The interatrial septum is intact wit h no evidence for an atrial septal defect or patent foramen ovale as noted on 2-D or Doppler imaging. There is no thrombus noted in the left atrial appendage. AORTIC VALVE The aortic valve is normal in structure and function. Doppler and Color Flow revealed trace aortic re gurgitation. There is no significant aortic valvular stenosis. MITRAL VALVE The posterior mitral leaflet is restricted. There is no mitral valve stenosis. Doppler and Color-flow revealed moderate to severe mitral regurgitation. TRICUSPID VALVE The tricuspid valve is normal in structure and function. Doppler and Color Flow revealed mild tricusp id regurgitation with an estimated PAP of 45 mmHg. There is no tricuspid valve stenosis. PULMONIC VALVE The pulmonic valve is not well visualized. Doppler and Color Flow revealed no pulmonic valvular regur gitation. There is no pulmonic valvular stenosis. GREAT VESSELS The aortic root is normal in size. The ascending aorta is normal in size. The IVC is normal in size a nd collapses >50% with inspiration. Critical Notification Critical Value: No <Conclusion> The systolic function is moderately impaired. The Ejection Fraction is 35-40%. There is global hypokinesis of the left ventricle. Doppler and Color-flow revealed moderate to severe mitral regurgitation. Doppler and Color Flow revealed mild tricuspid regurgitation with an estimated PAP of 45 mmHg. Successful CVN to SR Signed by : Marie Bales, Electronically Approved : 10/03/2019 11:03:23
== END 2019-10-03 10:05 | disposition home or self-care (01) ==
LOC: SURG 06:53
PROVIDERS: ATTEND Internal Medicine Cardiovascular Disease
DX: I48.91 Unspecified atrial fibrillation (principal); I08.3 Combined rheumatic disorders of mitral, aortic and tricuspid valves; I10 Essential (primary) hypertension; E78.00 Pure hypercholesterolemia, unspecified; I25.10 Atherosclerotic heart disease of native coronary artery without angina pectoris; I25.2 Old myocardial infarction; G47.30 Sleep apnea, unspecified; E03.9 Hypothyroidism, unspecified; D64.9 Anemia, unspecified; E66.9 Obesity, unspecified; E11.9 Type 2 diabetes mellitus without complications; Z79.84 Long term (current) use of oral hypoglycemic drugs; Z68.27 Body mass index [BMI] 27.0-27.9, adult; Z86.718 Personal history of other venous thrombosis and embolism; Z95.1 Presence of aortocoronary bypass graft; Z95.5 Presence of coronary angioplasty implant and graft; Z90.49 Acquired absence of other specified parts of digestive tract; Z87.440 Personal history of urinary (tract) infections; Z90.710 Acquired absence of both cervix and uterus; Z85.828 Personal history of other malignant neoplasm of skin
CPT/HCPCS: 36415; 76376; 80048; 85027; 85610; 92960; 93005; 93312; 93320; 93325; J2001; J2704; J2370; J3490

== ENCOUNTER 2019-12-11 16:48 | Emergency (ER) | payer MEDICARE, OTHER ==
[~2019-12-11] VITALS: Ht 170.2 cm; Wt 79.5 kg
[~2019-12-11 16:48] MED LIST changes: +AMOX1TAB10 PO; -BENZOCAINE ONE 20% MUCOSAL SPRAY. MM; +FURO40TA4 PO; +LACT1CAP19 PO; -LEVO112T4 PO; +LEVO112T49 PO; -LIDOCAINE 2% TOPICAL JELLY 30GM TUBE. TP ONE; -LIDOCAINE 2% VISCOUS 15 ML SOLUTION. SWSW ONE; +METO50TA4 PO; +SACU1TAB7 PO
[2019-12-11] MEDS ORDERED: IV NORMAL SALINE 1000ML BAG 1,000 ML IV ONE (17:30)
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
[2019-12-11 17:45] LABS: BILIRUBIN,URINE NEGATIVE (NEG); CLARITY,URINE CLEAR; COLOR,URINE YELLOW; NITRITE,URINE NEGATIVE (NEG); PH,URINE 5.5 (<5.0-8.0); PROTEIN,URINE NEGATIVE (NEG-TRACE); UROBILINOGEN,URINE 0.2 mg/dL (0.2 mg/dL)
[2019-12-11 17:46] LABS: BACTERIA,URINE 0 /HPF (0-FEW)
[2019-12-11 17:52] LABS: BASO # 0.1 x10^3/uL (0.0-0.2); BASO % 1 % (0-3); EOS # 0.1 x10^3/uL (0.0-0.7); EOS % 2 % (0-3); HEMATOCRIT 37.8 % (36.0-47.0); HEMOGLOBIN 12.5 g/dL (12.0-15.5); LYMPH # 0.6 x10^3/uL (1.0-4.8); LYMPH % 8 % (24-48); MEAN CORPUSCULAR HEMOGLOBIN 29 pg (25-35); MEAN CORPUSCULAR HGB CONC 33 g/dL (31-37); MEAN CORPUSCULAR VOLUME 86 fL (79-100); MONO # 0.6 x10^3/uL (0.0-1.1); MONO % 8 % (0-9); NEUT # 6.8 x10^3/uL (1.8-7.7); NEUT % 82 % (31-73); PLATELET COUNT 130 x10^3/uL (140-400); RED BLOOD COUNT 4.39 x10^6/uL (3.50-5.40); RED CELL DISTRIBUTION WIDTH 15.5 % (11.5-14.5); WHITE BLOOD COUNT 8.3 x10^3/uL (4.0-11.0)
[2019-12-11 18:10] VITALS: BP 177/81
[2019-12-11 18:11] LABS: ALBUMIN 3.5 g/dL (3.4-5.0); ALBUMIN/GLOBULIN RATIO 0.9 (1.0-1.7); CALCIUM 8.9 mg/dL (8.5-10.1); CREATININE 1.1 mg/dL (0.6-1.0); GFR 48.2; POTASSIUM 4.2 mmol/L (3.5-5.1); TOTAL BILIRUBIN 0.9 mg/dL (0.2-1.0); TOTAL PROTEIN 7.4 g/dL (6.4-8.2)
--- NOTE | 2019-12-12 06:30 | EKG ---
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
== END 2019-12-11 18:41 | disposition home or self-care (01) ==
LOC: ER 16:48
DX: N39.0 Urinary tract infection, site not specified (principal); R42 Dizziness and giddiness; I48.20 Chronic atrial fibrillation, unspecified; I11.9 Hypertensive heart disease without heart failure; E78.00 Pure hypercholesterolemia, unspecified; E03.9 Hypothyroidism, unspecified; E11.40 Type 2 diabetes mellitus with diabetic neuropathy, unspecified; Z90.49 Acquired absence of other specified parts of digestive tract; Z90.710 Acquired absence of both cervix and uterus; Z98.890 Other specified postprocedural states; Z87.891 Personal history of nicotine dependence
CPT/HCPCS: 36415; 80053; 81001; 82962; 84484; 85025; 87086; 93005; 96360; 99284; J7030

== ENCOUNTER 2020-01-03 06:02 | Inpatient (IN) | payer MEDICARE, OTHER ==
[2020-01-03] VITALS (17 sets, daily range): BP systolic 78–133; BP diastolic 46–73
[~2020-01-03] VITALS: Ht 170.2 cm; Wt 86.1 kg
[~2020-01-03 06:02] MED LIST changes: +LEVO137T3 PO; +NITR100C6 PO
--- NOTE | 2020-01-03 06:33 | EKG ---
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
[2020-01-03 06:52] LABS: BILIRUBIN,URINE NEGATIVE (NEG); CLARITY,URINE CLOUDY; COLOR,URINE YELLOW; NITRITE,URINE POSITIVE (NEG); PROTEIN,URINE 100 mg/dL (NEG-TRACE)
[2020-01-03] MEDS ORDERED: ONDANSETRON PF 4 MG/2 ML VIAL. IVP ONE (07:00)
[2020-01-03] MEDS ORDERED: IBUPROFEN 400 MG TABLET. PO ONE (07:00)
[2020-01-03] MEDS ORDERED: ACETAMINOPHEN 500 MG TABLET PO ONE (07:00)
[2020-01-03] MEDS ORDERED: IV NORMAL SALINE 1000ML BAG 1,000 ML IV ONE ×3 (07:00→09:00)
--- NOTE | 2020-01-03 07:12 | RAD ---
AP chest. HISTORY: Fever, suspected Covid 19 AP view was taken of the chest. The heart is enlarged. Patient had previous bypass. There is no effusion. There are mild interstitial changes which appear chronic. An acute infiltrate is not definitively identified. IMPRESSION: 1. Cardiomegaly. 2. Mild chronic interstitial changes. 3. No new infiltrates. Electronically signed by: Jonathan Whelan MD (01/03/2020 7:10 AM) [id number]
[2020-01-03 07:30] LABS: CALCIUM 8.7 mg/dL (8.5-10.1); CREATININE 1.5 mg/dL (0.6-1.0); GFR 33.7; POTASSIUM 3.2 mmol/L (3.5-5.1)
[2020-01-03 07:36] LABS: ALBUMIN 3.3 g/dL (3.4-5.0); ALBUMIN/GLOBULIN RATIO 0.9 (1.0-1.7); MAGNESIUM 1.2 mg/dL (1.8-2.4); TOTAL BILIRUBIN 0.6 mg/dL (0.2-1.0); TOTAL PROTEIN 6.9 g/dL (6.4-8.2)
[2020-01-03 07:37] LABS: AMORPHOUS SEDIMENT,UR PRESENT /HPF; BACTERIA,URINE MODERATE /HPF (0-FEW); GRANULAR CASTS,URINE FEW /HPF; HYALINE CASTS, URINE MODERATE /HPF
[2020-01-03 07:44] LABS: FREE T4 1.63 ng/dL (0.76-1.46); THYROID STIM HORMONE (TSH) 0.053 uIU/mL (0.358-3.74)
[2020-01-03] MEDS ORDERED: cefTRIAXone IV Push 1 GM VIAL. IVP ONE (07:45)
[2020-01-03 07:59] LABS: PROTHROMBIN TIME PATIENT 18.9 SEC (11.7-14.0)
[2020-01-03] MEDS ORDERED: MAGNESIUM SULFATE 2GM 50 ML IV ONE (08:00)
[2020-01-03 08:09] LABS: BASO % 0 % (0-3); EOS % 0 % (0-3); HEMATOCRIT 42.8 % (36.0-47.0); HEMOGLOBIN 14.1 g/dL (12.0-15.5); LYMPH # 0.1 x10^3/uL (1.0-4.8); LYMPH % 4 % (24-48); MEAN CORPUSCULAR HEMOGLOBIN 29 pg (25-35); MEAN CORPUSCULAR HGB CONC 33 g/dL (31-37); MEAN CORPUSCULAR VOLUME 87 fL (79-100); MONO % 1 % (0-9); NEUT # 2.8 x10^3/uL (1.8-7.7); NEUT % 94 % (31-73); PLATELET COUNT 134 x10^3/uL (140-400); RED BLOOD COUNT 4.94 x10^6/uL (3.50-5.40); RED CELL DISTRIBUTION WIDTH 15.7 % (11.5-14.5); WHITE BLOOD COUNT 2.9 x10^3/uL (4.0-11.0)
[2020-01-03 08:11] LABS: D-DIMER 1.21 ug/mlFEU (0.00-0.50)
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
[2020-01-03] MEDS ORDERED: IV NORMAL SALINE 1000ML BAG 1,860 ML IV SCH (09:19)
[2020-01-03] MEDS ORDERED: IV NORMAL SALINE 1000ML BAG 1,000 ML IV SCH (09:20)
[2020-01-03] MEDS ORDERED: MORPHINE SULFATE 2 MG/ML VIAL. IV PRN (09:30)
[2020-01-03] MEDS ORDERED: ONDANSETRON PF 4 MG/2 ML VIAL. IVP PRN (09:30)
[2020-01-03] MEDS ORDERED: ONDANSETRON PF 4 MG/2 ML VIAL. IV PRN (09:30)
[2020-01-03] MEDS ORDERED: 0.9 % SODIUM CHLORIDE 10 ML DISP.SYRIN. IV PRN (09:30)
[2020-01-03] MEDS ORDERED: LACTULOSE 20 GM/30 ML SOLUTION. PO PRN (09:30)
[2020-01-03] MEDS ORDERED: IV NORMAL SALINE 500ML BAG 500 ML IV PRN (09:30)
[2020-01-03] MEDS ORDERED: BISACODYL 10 MG SUPP.RECT. PR PRN (09:30)
[2020-01-03] MEDS ORDERED: ZOLPIDEM 5 MG TABLET. PO PRN (09:30)
[2020-01-03] MEDS ORDERED: ACETAMINOPHEN 325 MG TABLET. PO PRN (09:30)
[2020-01-03 11:00] LABS: % BANDS 32 % (0-9); % EOS 1 % (0-5); % LYMPHS 12 % (24-48); % SEGS 55 % (35-66); ANISOCYTOSIS PRESENT; PLT ESTIMATE DECREASED (ADEQUATE)
--- NOTE | 2020-01-03 11:12 | NUR ---
Patient admitted to ICU room 115 from ED w/ Ruma RN at bedside. RN called lab and verified that patient's LA repeat and COVID testing were done-- Darline in lab stated that both specimens were collected in ED. Patient is A/O, able to answer admission questions. Was here in late November. See assessments, VS.
[2020-01-03] MEDS ORDERED: PIPERACILLIN/TAZOBACTAM 2.25 GM in IV NORMAL SALINE 100ML 100 ML IV SCH (12:00)
[2020-01-03] MEDS: IV NORMAL SALINE 1000ML BAG 1,000 ML IV SCH (12:23)
[2020-01-03] MEDS ORDERED: NOREPINEPHRINE VIAL 8 MG in IV DEXTROSE 5% 250 ML IV PRN (12:30)
[2020-01-03] MEDS: PIPERACILLIN/TAZOBACTAM 2.25 GM in IV NORMAL SALINE 50ML 50 ML IV SCH ×3 (12:36→23:46)
[2020-01-03] MEDS: NOREPINEPHRINE VIAL 8 MG in IV DEXTROSE 5% 250 ML IV PRN (12:37)
--- NOTE | 2020-01-03 13:38 | NUR ---
Updated patient's daughter. She discussed with me patients hypotension. She expressed to me that the patient has been having low BP for awhile now. I will pass this onto the
[2020-01-03] MEDS: POTASSIUM CHLORIDE 10MEQ 100 ML IV SCH ×4 (14:27→18:29)
[2020-01-03] MEDS: ATORVASTATIN CALCIUM 40 MG TABLET. PO SCH (20:33)
[2020-01-03] MEDS: APIXABAN 5 MG TABLET. PO SCH (20:33)
[2020-01-03] MEDS: GABAPENTIN 300 MG CAPSULE. PO SCH (20:33)
[2020-01-03] MEDS: LACTOBACILLUS RHAMNOSUS GG 1 CAPSULE. PO SCH (20:33)
[2020-01-03] MEDS: INSULIN GLARGINE SYRINGE. SQ SCH (20:46)
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
[2020-01-03] MEDS ORDERED: METOPROLOL SUCC 24HR ER 50 MG TAB.ER.24H. PO SCH (21:00)
[2020-01-04] VITALS (24 sets, daily range): BP systolic 55–132; BP diastolic 41–91
[2020-01-04] MEDS: NOREPINEPHRINE VIAL 8 MG in IV DEXTROSE 5% 250 ML IV PRN (02:53)
[2020-01-04] MEDS: PIPERACILLIN/TAZOBACTAM 2.25 GM in IV NORMAL SALINE 50ML 50 ML IV SCH ×4 (05:41→23:40)
[2020-01-04] MEDS: LEVOTHYROXINE 137 MCG TABLET PO SCH ×2 (06:38→08:29)
[2020-01-04] MEDS: IV NORMAL SALINE 1000ML BAG 1,000 ML IV SCH ×2 (06:38→15:40)
[2020-01-04] MEDS: APIXABAN 5 MG TABLET. PO SCH ×2 (08:29→20:46)
[2020-01-04] MEDS: LACTOBACILLUS RHAMNOSUS GG 1 CAPSULE. PO SCH ×2 (08:29→20:46)
[2020-01-04] MEDS: ASPIRIN ENTERIC COATED 81 MG TABLET.DR. PO SCH (08:30)
[2020-01-04] MEDS: VENLAFAXINE 75 MG TABLET. PO SCH (08:30)
[2020-01-04] MEDS: ELECTROLYTE (ICU) PROTOCOL. MC SCH (09:00)
[2020-01-04] MEDS ORDERED: LOSARTAN POTASSIUM 25 MG TABLET. PO SCH (09:00)
--- NOTE | 2020-01-04 09:55 | CONS ---
DATE OF CONSULTATION: PULMONARY CONSULTATION ATTENDING PHYSICIAN: Mauro Medellin MD REASON FOR CONSULTATION: Urosepsis. HISTORY OF PRESENT ILLNESS: The patient is a 79-year-old female who has past medical history of chronic atrial fibrillation, on chronic anticoagulation; history of CAD; diabetes type 2. Very minimal tobacco history, quit 40 years ago. She was brought into the hospital with complaint of chills and had some diaphoresis. She denies any cough, no chest pain. She had some nausea and vomiting. The patient has been on chronic antibiotics for recurrent UTI. She had no focal weakness. She was hypotensive and despite receiving IV fluids, required a low-dose Levophed. The Levophed is currently off. She is on 2 liters nasal cannula with 100% saturations. Her chest x-ray was reviewed by me. There appears to be some faint chronic interstitial changes at the bases. No definite infiltrates seen. The patient was started on antibiotics for urosepsis and I have been asked to see her for further evaluation. PAST MEDICAL HISTORY: Significant for chronic atrial fibrillation, history of CAD, type 2 diabetes, dyslipidemia, hypertension, hypothyroidism, history of vertigo. PAST SURGICAL HISTORY: Cholecystectomy, coronary artery bypass surgery, hysterectomy, tonsillectomy, hernia repair and skin grafts. SOCIAL HISTORY: Quit tobacco 40 years ago. Rarely alcohol use. ALLERGIES: None. REVIEW OF SYSTEMS: Twelve-point system obtained. Pertinent positives discussed in my present illness, otherwise noncontributory. All systems that were negative were reviewed as well. MEDICATIONS: All reviewed as listed in the MRAD including antibiotic, Zosyn. FAMILY HISTORY: Noncontributory to lungs. PHYSICAL EXAMINATION: GENERAL: She is awake, following commands. VITAL SIGNS: Blood pressure in the 90s, afebrile, pulse ox 100% on 2 L. NECK: Supple, no JVD. LUNGS: With diminished breath sounds posteriorly. CARDIOVASCULAR: Irregular rate. ABDOMEN: Soft, nontender. EXTREMITIES: With no pitting edema. LABORATORY DATA: Reviewed. White cell count 2.9, hemoglobin 14.1 and platelets are 134. COVID-19 was negative. Her urine had moderate leukocyte esterase and bacteria. Cultures pending. Lactic acid was 5.0. D-dimer 1.21. INR 1.6. Her BUN and creatinine 19 and 1.5. IMPRESSION: 1. Septic shock secondary to urinary tract infection. 2. Lactic acidosis secondary to sepsis. 3. Abnormal chest x-ray with chronic mild interstitial changes. She had a previous CT abdomen and pelvis in July and it shows mild fibrotic changes at the bases. Clinically insignificant. We will continue to monitor with a CT in 6 months. 4. Acute kidney injury related to sepsis. 5. Chronic atrial fibrillation, on Eliquis. 6. Mild leukopenia. 7. COVID-19 negative. RECOMMENDATIONS: 1. The patient is currently off of Levophed and blood pressure is stable. We will monitor closely. 2. Keep saturation 92 and above. 3. Continue broad-spectrum antibiotics, Zosyn. 4. Follow urine culture. 5. Monitor renal function post IV fluids. 6. Monitor white cell count. 7. Continue Eliquis for chronic AFib. 8. The patient is currently stable, off the pressors and if she remains stable, she could move out of the ICU later today. Critical care time 35 minutes including review of the labs, chest x-rays and decision making. Discussed with RN. NIDA ROSE MD DR: CURRY/odalys JOB#: [id number] / [id number]
[2020-01-04 10:00] LABS: BASO # 0.1 x10^3/uL (0.0-0.2); BASO % 0 % (0-3); EOS # 0.1 x10^3/uL (0.0-0.7); EOS % 1 % (0-3); HEMATOCRIT 38.6 % (36.0-47.0); HEMOGLOBIN 12.3 g/dL (12.0-15.5); LYMPH # 0.7 x10^3/uL (1.0-4.8); LYMPH % 5 % (24-48); MEAN CORPUSCULAR HEMOGLOBIN 28 pg (25-35); MEAN CORPUSCULAR HGB CONC 32 g/dL (31-37); MEAN CORPUSCULAR VOLUME 89 fL (79-100); MONO # 0.3 x10^3/uL (0.0-1.1); MONO % 2 % (0-9); NEUT # 12.9 x10^3/uL (1.8-7.7); NEUT % 92 % (31-73); PLATELET COUNT 114 x10^3/uL (140-400); RED BLOOD COUNT 4.35 x10^6/uL (3.50-5.40); RED CELL DISTRIBUTION WIDTH 16.3 % (11.5-14.5)
[2020-01-04 10:04] LABS: CALCIUM 7.6 mg/dL (8.5-10.1); CREATININE 1.8 mg/dL (0.6-1.0); GFR 27.3; POTASSIUM 4.1 mmol/L (3.5-5.1)
--- NOTE | 2020-01-04 11:16 | PDOC ---
GENERAL General: Patient examined chart reviewed today is hospital day 2 for this patient with monthly admissions over the last several months with generalized decline at home. She was admitted with near syncope found to be hypotensive and tachycardic. She has chronic atrial fibrillation and chronic systolic congestive heart failure with an ejection fraction of 35% last measured in September of this year. She follows with Dr. Gilma Owens of [facility] and Dr. Nii velazquez at [place]. She has been dealing with recurrent urinary tract infection and was recently started on prolonged Macrobid 100 mg daily. She felt like she was tolerating that though did have increased nausea. She has not had any increase in urinary symptoms. She denies any chest pain. Her baseline functional status is poor with her chronic disease. She was read mitted last night with marked hypotension requiring pressors on top of intravenous fluids. She is feeling much better this morning and blood pressures are more stable now off of the pressors. She has not been up and moving about but tells me she had a good breakfast. She has no new complaints otherwise. I discussed case with nursing and we will move her to a telemetry bed upstairs if one is available. We will remove her Ruiz catheter and continue to follow cultures. She has been started on broad-spectrum antibiotic and we will continue those at this point. We have also consulted physical therapy, Occupational Therapy, and social work to help with discharge planning to hopefully avoid readmission. Total time today is 30 minutes with greater than 50% in counseling and coordination of care. Problems: (1) Hypotension (2) Atrial fibrillation with RVR (3) UTI (urinary tract infection) (4) Syncope VITAL SIGNS Vital Signs/I&O: Vital Signs Date Time Temp Pulse Resp B/P (MAP) Pulse Ox O2 Delivery O2 Flow Rate FiO2 01/04/20 08:30 106 16 87/62 (70) Room Air 01/04/20 08:00 98.2 100 98.2 01/04/20 07:00 2.0 I & O 01/03/20 01/03/20 01/04/20 15:00 23:00 07:00 Intake Total 3100 ml 1492 ml 1302 ml Output Total 195 ml 145 ml 765 ml Balance 2905 ml 1347 ml 537 ml In general the patient is pleasant alert and oriented x3 in no acute distress. HEENT exam is unremarkable Chest bilateral equal air entry though diminished throughout no crackles or wheezes are noted Heart S1-S2 normal irregularly irregular tachycardic no murmurs or gallops are noted Abdomen bowel sounds are present though diminished soft nontender nondistended no masses organomegaly noted Extremity exam is unremarkable for acute abnormality ALLERGIES Allergies: Allergies Coded Allergies Type Severity Reaction Last Updated Verified No Known Drug Allergies 10/03/19 No MEDS Medications: Current Medications Medications (Trade) Dose Ordered Sig/Ronal Route PRN Reason Start Time Stop Time Status Last Admin Dose Admin Apixaban (Eliquis) 5 mg BID PO 01/03/20 21:00 01/04/20 08:29 Aspirin (Ecotrin) 81 mg DAILY PO 01/04/20 09:00 01/04/20 08:30 Atorvastatin Calcium (Lipitor) 40 mg QHS PO 01/03/20 21:00 01/03/20 20:33 Lactobacillus Rhamnosus (Culturelle) 1 cap BID PO 01/03/20 21:00 01/04/20 08:29 Levothyroxine Sodium (Synthroid) 137 mcg DAILY07 PO 01/04/20 07:00 01/04/20 08:29 Gabapentin (Neurontin) 600 mg QHS PO 01/03/20 21:00 01/03/20 20:33 Insulin Glargine (Lantus Syringe) 12 unit QHS SQ 01/03/20 21:00 01/03/20 20:46 Venlafaxine HCl (Effexor) 37.5 mg DAILY PO 01/04/20 09:00 01/04/20 08:30 Piperacillin Sod/ Tazobactam Sod 2.25 gm/Sodium Chloride 50 ml @ 100 mls/hr Q6HRS IV 01/03/20 12:00 01/04/20 05:41 Potassium Chloride/Water 100 ml @ 100 mls/hr Q1H IV 01/03/20 15:00 01/03/20 18:59 DC 01/03/20 18:29 LAB Lab: Laboratory Tests Test 01/03/20 18:26 01/03/20 20:38 01/04/20 09:30 Glucose (Fingerstick) 177 mg/dL (70-99) H 165 mg/dL (70-99) H White Blood Count 14.0 x10^3/uL (4.0-11.0) H Red Blood Count 4.35 x10^6/uL (3.50-5.40) Hemoglobin 12.3 g/dL (12.0-15.5) Hematocrit 38.6 % (36.0-47.0) Mean Corpuscular Volume 89 fL (79-100) Mean Corpuscular Hemoglobin 28 pg (25-35) Mean Corpuscular Hemoglobin Concent 32 g/dL (31-37) Red Cell Distribution Width 16.3 % (11.5-14.5) H Platelet Count 114 x10^3/uL (140-400) L Neutrophils (%) (Auto) 92 % (31-73) H Lymphocytes (%) (Auto) 5 % (24-48) L Monocytes (%) (Auto) 2 % (0-9) Eosinophils (%) (Auto) 1 % (0-3) Basophils (%) (Auto) 0 % (0-3) Neutrophils # (Auto) 12.9 x10^3/uL (1.8-7.7) H Lymphocytes # (Auto) 0.7 x10^3/uL (1.0-4.8) L Monocytes # (Auto) 0.3 x10^3/uL (0.0-1.1) Eosinophils # (Auto) 0.1 x10^3/uL (0.0-0.7) Basophils # (Auto) 0.1 x10^3/uL (0.0-0.2) Sodium Level 139 mmol/L (136-145) Potassium Level 4.1 mmol/L (3.5-5.1) Chloride Level 109 mmol/L (98-107) H Carbon Dioxide Level 21 mmol/L (21-32) Anion Gap 9 (6-14) Blood Urea Nitrogen 25 mg/dL (7-20) H Creatinine 1.8 mg/dL (0.6-1.0) H Estimated GFR (Cockcroft-Gault) 27.3 Glucose Level 115 mg/dL (70-99) H Calcium Level 7.6 mg/dL (8.5-10.1) L Laboratory Tests 01/04/20 09:30 Laboratory Tests 01/04/20 09:30 IMAGING Imaging: PATIENT: SARIKA HOLLEY ACCOUNT: [id number] : 1940 LOCATION: ER AGE: 79 SEX: F EXAM STATUS: REG ER ORD. PHYSICIAN: YRIS HAWKINS DO REASON: fever,suspected COVID-19 INFECTION PROCEDURE: CHEST AP ONLY AP chest. HISTORY: Fever, suspected Covid 19 AP view was taken of the chest. The heart is enlarged. Patient had previous bypass. There is no effusion. There are mild interstitial changes which appear chronic. An acute infiltrate is not definitively identified. IMPRESSION: 1. Cardiomegaly. 2. Mild chronic interstitial changes. 3. No new infiltrates. Electronically signed by: Jonathan Whelan MD (01/03/2020 7:10 AM) [id number] DICTATED and SIGNED BY: JONATHAN WHELAN MD DATE: 01/03/20 0710 ASSESSMENT & PLAN A&P Plan as noted above Dictation was created using [employer] and there may be inconsistencies and errors due to the nature of real-time dictation Problem Qualifiers (1) Hypotension: Hypotension type: orthostatic hypotension Qualified Codes: I95.1 - Orthostatic hypotension (2) UTI (urinary tract infection): Urinary tract infection type: acute cystitis (3) Syncope: Encounter type: MARCUS Crowley MD Jan 04, 2020 11:16
[2020-01-04] MEDS: ALLOPURINOL 100 MG TABLET. PO SCH (12:06)
--- NOTE | 2020-01-04 13:15 | PDOC2 ---
CONSULT Date of Consult Date of Consult DATE: 01/04/20 TIME: 13:09 Reason for Consult Reason for Consult: Rapid atrial fibrillation Referring Physician Referring Physician: Dr. Medellin Identification/Chief Complaint Chief Complaint Nausea and vomiting Source Source: Chart review, Patient History of Present Illness Reason for Visit: The patient is a 79-year-old female with multiple medical problems who presented to the emergency room with episodes of nausea and vomiting as well as some mild abdominal pain. Patient had been recently treated for urinary tract infection and EKG on admission showed a rapid atrial fibrillation at 140. Chest x-ray showed cardiomegaly. Patient has been treated with fluids and antibiotics and this morning is feeling much better. She denies chest pain. Her nausea and vomiting have largely resolved. She has been treated overnight for sepsis secondary to urinary tract infection. Past Medical History Cardiovascular: AFIB, CAD, HTN, Hyperlipidemia, Other Pulmonary: Other CENTRAL NERVOUS SYSTEM: Periperal neuropathy GI: Other Heme/Onc: No pertinent hx Hepatobiliary: No pertinent hx Psych: Depression Musculoskeletal: Osteoarthritis Rheumatologic: Gout Infectious disease: No pertinent hx Renal/: UTI Endocrine: Diabetes, Hypothyroidism Past Surgical History Past Surgical History: Cholecystectomy, CABG, Cataract Removal, Hernia Repair, Tonsillectomy, Other Family History Family History: Diabetes Social History Quit ALCOHOL: rare Drugs: None Lives: with Family Current Problem List Problem List Problems Medical Problems: (1) Nausea & vomiting Status: Acute (2) Severe sepsis Status: Acute (3) UTI (urinary tract infection) Status: Acute Current Medications Current Medications Current Medications Sodium Chloride 1,000 ml @ 1,000 mls/hr 1X ONCE IV Last administered on 01/03/20at 06:35; Start 01/03/20 at 07:00; Stop 01/03/20 at 07:59; Status DC Acetaminophen (Tylenol) 1,000 mg 1X ONCE PO Last administered on 01/03/20at 06:48; Start 01/03/20 at 07:00; Stop 01/03/20 at 07:01; Status DC Ibuprofen (Motrin) 800 mg 1X ONCE PO Last administered on 01/03/20at 06:49; Start 01/03/20 at 07:00; Stop 01/03/20 at 07:01; Status DC Ondansetron HCl (Zofran) 8 mg 1X ONCE IVP Last administered on 01/03/20at 06:36; Start 01/03/20 at 07:00; Stop 01/03/20 at 07:01; Status DC Ceftriaxone Sodium (Rocephin) 1 gm 1X ONCE IVP Last administered on 01/03/20at 08:14; Start 01/03/20 at 07:45; Stop 01/03/20 at 07:46; Status DC Sodium Chloride 1,000 ml @ 1,000 mls/hr 1X ONCE IV Last administered on 01/03/20at 08:15; Start 01/03/20 at 08:00; Stop 01/03/20 at 08:59; Status DC Magnesium Sulfate 50 ml @ 25 mls/hr 1X ONCE IV Last administered on 01/03/20at 08:15; Start 01/03/20 at 08:00; Stop 01/03/20 at 09:59; Status DC Sodium Chloride 1,000 ml @ 1,000 mls/hr 1X ONCE IV Last administered on at 09:15; Start 01/03/20 at 09:00; Stop 01/03/20 at 09:59; Status DC Ondansetron HCl (Zofran) 4 mg PRN Q8HRS PRN IV NAUSEA/VOMITING; Start 01/03/20 at 09:30; Stop 01/03/20 at 14:48; Status DC Sodium Chloride 1,000 ml @ 125 mls/hr Q8H IV ; Start 01/03/20 at 09:20; Stop 01/04/20 at 09:19; Status DC Acetaminophen (Tylenol) 650 mg PRN Q6HRS PRN PO Headaches, Temp > 101.5'; Start 01/03/20 at 09:30 Lorazepam (Ativan Inj) 0.5 mg PRN Q6HRS PRN IVP ANXIETY / AGITATION; Start 01/03/20 at 09:30 Ondansetron HCl (Zofran) 4 mg PRN Q6HRS PRN IVP NAUSEA/VOMITING; Start 01/03/20 at 09:30 Zolpidem Tartrate (Ambien) 5 mg PRN QHS PRN PO INSOMNIA, MAY REPEAT IN 1HR; Start 01/03/20 at 09:30 Info ([facility] Electrolyte Protocol) 1 ea DAILY MC ; Start 01/04/20 at 09:00 Sodium Chloride (Normal Saline Flush) 3 ml QSHIFT PRN IV AFTER MEDS AND BLOOD DRAWS; Start 01/03/20 at 09:30 Sodium Chloride 1,000 ml @ 100 mls/hr Q10H IV Last administered on 01/04/20at 06:38; Start 01/03/20 at 09:19 Oxycodone/ Acetaminophen (Percocet 5/325) 1 tab PRN Q4HRS PRN PO PAIN; Start 01/03/20 at 09:30 Morphine Sulfate (Morphine Sulfate) 2 mg PRN Q1HR PRN IV PAIN; Start 01/03/20 at 09:30 Lactulose (Lactulose) 20 gm PRN Q12HR PRN PO CONSTIPATION; Start 01/03/20 at 09:30 Bisacodyl (Dulcolax Supp) 10 mg PRN DAILY PRN PA CONSTIPATION; Start 01/03/20 at 09:30 Sodium Chloride 1,860 ml @ 1,860 mls/hr Q1H IV ; Start 01/03/20 at 09:19; Stop 01/04/20 at 11:12; Status DC Sodium Chloride 500 ml @ 1,000 mls/hr PRN Q30MIN PRN IV MAP less than 65; Start 01/03/20 at 09:30 Piperacillin Sod/ Tazobactam Sod 2.25 gm/Sodium Chloride 100 ml @ 200 mls/hr Q6HRS IV ; Start 01/03/20 at 12:00; Stop 01/03/20 at 12:28; Status DC Norepinephrine Bitartrate 8 mg/ Dextrose 258 ml @ 0 mls/hr CONT PRN IV map less than 65 Last administered on 01/04/20at 02:53; Start 01/03/20 at 09:30 Dobutamine HCl/ Dextrose 250 ml @ 0 mls/hr CONT PRN IV map less than 65; Start 01/03/20 at 09:30 Allopurinol (Zyloprim) 100 mg DAILY PO Last administered on 01/04/20at 12:06; Start 01/04/20 at 09:00 Apixaban (Eliquis) 5 mg BID PO Last administered on 01/04/20at 08:29; Start 01/03/20 at 21:00 Aspirin (Ecotrin) 81 mg DAILY PO Last administered on 01/04/20at 08:30; Start 01/04/20 at 09:00 Atorvastatin Calcium (Lipitor) 40 mg QHS PO Last administered on 01/03/20at 20:33; Start 01/03/20 at 21:00 Lactobacillus Rhamnosus (Culturelle) 1 cap BID PO Last administered on 01/04/20at 08:29; Start 01/03/20 at 21:00 Levothyroxine Sodium (Synthroid) 137 mcg DAILY07 PO Last administered on 01/04/20at 08:29; Start 01/04/20 at 07:00 Losartan Potassium (Cozaar) 25 mg DAILY PO ; Start 01/04/20 at 09:00; Stop 01/03/20 at 14:37; Status DC Metoprolol Succinate (Toprol Xl) 50 mg HS PO ; Start 01/03/20 at 21:00; Stop 01/03/20 at 14:37; Status DC Gabapentin (Neurontin) 600 mg QHS PO Last administered on 01/03/20at 20:33; Start 01/03/20 at 21:00 Insulin Glargine (Lantus Syringe) 12 unit QHS SQ Last administered on 01/03/20at 20:46; Start 01/03/20 at 21:00 Venlafaxine HCl (Effexor) 37.5 mg DAILY PO Last administered on 01/04/20at 08:30; Start 01/04/20 at 09:00 Norepinephrine Bitartrate 8 mg/ Dextrose 258 ml @ 14.571 mls/ hr CONT PRN IV PER PROTOCOL; Start 01/03/20 at 12:30; Status UNV Piperacillin Sod/ Tazobactam Sod 2.25 gm/Sodium Chloride 50 ml @ 100 mls/hr Q6HRS IV Last administered on 01/04/20at 12:06; Start 01/03/20 at 12:00 Potassium Chloride/Water 100 ml @ 100 mls/hr Q1H IV Last administered on 01/03/20at 18:29; Start 01/03/20 at 15:00; Stop 01/03/20 at 18:59; Status DC Active Scripts Active Culturelle (Lactobacillus Rhamnosus Gg) 1 Each Cap.sprink 1 Cap PO BID 30 Days Losartan Potassium (Losartan Potassium) 25 Mg Tablet 25 Mg PO DAILY 30 Days Reported Toprol XL (Metoprolol Succinate) 50 Mg Tab.er.24h 50 Mg PO HS Levothyroxine Sodium 137 Mcg Tablet 1 Tab PO DAILY Atorvastatin Calcium 40 Mg Tablet 1 Tab PO QHS Gabapentin 600 Mg Tablet 600 Mg PO HS Lantus Solostar (Insulin Glargine,Hum.rec.anlog) 100 Unit/1 Ml Insuln.pen 12 Unit SQ QHS Allopurinol 100 Mg Tablet 1 Tab PO DAILY Eliquis (Apixaban) 5 Mg Tablet 5 Mg PO BID Venlafaxine Hcl 37.5 Mg Tablet 1 Tab PO DAILY Aspir 81 (Aspirin) 81 Mg Tablet.dr 1 Tab PO DAILY Allergies Allergies: Coded Allergies: No Known Drug Allergies (Unverified , 10/03/19) ROS General: YES: Fatigue Gastrointestinal: Yes Nausea, Yes Vomiting Physical Exam General: mild distress HEENT: Atraumatic Lungs: Other (Mildly decreased breath sounds) Heart: Other (Irregularly irregular) Abdomen: Normal bowel sounds Vitals VITALS Vital Signs Date Time Temp Pulse Resp B/P (MAP) Pulse Ox O2 Delivery O2 Flow Rate FiO2 01/04/20 12:00 Room Air 01/04/20 12:00 116 20 95/54 (68) 98 01/04/20 08:00 98.2 98.2 01/04/20 07:00 2.0 Labs Labs Laboratory Tests Test 01/03/20 06:30 01/03/20 06:48 01/03/20 10:45 01/03/20 18:26 Urine Collection Type Unknown Urine Color Yellow Urine Clarity Cloudy Urine pH 5.0 (<5.0-8.0) Urine Specific Elroy 1.015 (1.000-1.030) Urine Protein 100 mg/dL (NEG-TRACE) Urine Glucose (UA) Negative mg/dL (NEG) Urine Ketones (Stick) Negative mg/dL (NEG) Urine Blood Moderate (NEG) Urine Nitrite Positive (NEG) Urine Bilirubin Negative (NEG) Urine Urobilinogen Dipstick 1.0 mg/dL (0.2 mg/dL) Urine Leukocyte Esterase Moderate (NEG) Urine RBC 3-5 /HPF (0-2) Urine WBC 11-20 /HPF (0-4) Urine Amorphous Sediment Present /HPF Urine Bacteria Moderate /HPF (0-FEW) Urine Hyaline Casts Moderate /HPF Urine Granular Casts Few /HPF Coronavirus (COVID-19)(PCR) Not detected (NOT DETECT.) White Blood Count 2.9 x10^3/uL (4.0-11.0) Red Blood Count 4.94 x10^6/uL (3.50-5.40) Hemoglobin 14.1 g/dL (12.0-15.5) Hematocrit 42.8 % (36.0-47.0) Mean Corpuscular Volume 87 fL (79-100) Mean Corpuscular Hemoglobin 29 pg (25-35) Mean Corpuscular Hemoglobin Concent 33 g/dL (31-37) Red Cell Distribution Width 15.7 % (11.5-14.5) Platelet Count 134 x10^3/uL (140-400) Neutrophils (%) (Auto) 94 % (31-73) Lymphocytes (%) (Auto) 4 % (24-48) Monocytes (%) (Auto) 1 % (0-9) Eosinophils (%) (Auto) 0 % (0-3) Basophils (%) (Auto) 0 % (0-3) Neutrophils # (Auto) 2.8 x10^3/uL (1.8-7.7) Lymphocytes # (Auto) 0.1 x10^3/uL (1.0-4.8) Monocytes # (Auto) 0.0 x10^3/uL (0.0-1.1) Eosinophils # (Auto) 0.0 x10^3/uL (0.0-0.7) Basophils # (Auto) 0.0 x10^3/uL (0.0-0.2) Segmented Neutrophils % 55 % (35-66) Band Neutrophils % 32 % (0-9) Lymphocytes % 12 % (24-48) Eosinophils % 1 % (0-5) Platelet Estimate Decreased (ADEQUATE) Large Platelets Occ Anisocytosis Present Prothrombin Time 18.9 SEC (11.7-14.0) Prothromb Time International Ratio 1.6 (0.8-1.1) Activated Partial Thromboplast Time 31 SEC (24-38) Fibrinogen 400 mg/dL (200-440) D-Dimer (Brittany) 1.21 ug/mlFEU (0.00-0.50) Sodium Level 139 mmol/L (136-145) Potassium Level 3.2 mmol/L (3.5-5.1) Chloride Level 102 mmol/L (98-107) Carbon Dioxide Level 29 mmol/L (21-32) Anion Gap 8 (6-14) Blood Urea Nitrogen 19 mg/dL (7-20) Creatinine 1.5 mg/dL (0.6-1.0) Estimated GFR (Cockcroft-Gault) 33.7 BUN/Creatinine Ratio 13 (6-20) Glucose Level 159 mg/dL (70-99) Lactic Acid Level 5.0 mmol/L (0.4-2.0) 5.0 mmol/L (0.4-2.0) Calcium Level 8.7 mg/dL (8.5-10.1) Magnesium Level 1.2 mg/dL (1.8-2.4) Total Bilirubin 0.6 mg/dL (0.2-1.0) Aspartate Amino Transf (AST/SGOT) 226 U/L (15-37) Alanine Aminotransferase (ALT/SGPT) 86 U/L (14-59) Alkaline Phosphatase 161 U/L (46-116) Troponin I Quantitative 0.059 ng/mL (0.000-0.055) XB-Ist-P-Type Natriuretic Peptide 2840 pg/mL (0-449) Total Protein 6.9 g/dL (6.4-8.2) Albumin 3.3 g/dL (3.4-5.0) Albumin/Globulin Ratio 0.9 (1.0-1.7) Lipase 140 U/L (73-393) Procalcitonin 4.00 ng/mL (0.00-0.10) Thyroid Stimulating Hormone (TSH) 0.053 uIU/mL (0.358-3.74) Free Thyroxine 1.63 ng/dL (0.76-1.46) Glucose (Fingerstick) 177 mg/dL (70-99) Test 01/03/20 20:38 01/04/20 09:30 Glucose (Fingerstick) 165 mg/dL (70-99) White Blood Count 14.0 x10^3/uL (4.0-11.0) Red Blood Count 4.35 x10^6/uL (3.50-5.40) Hemoglobin 12.3 g/dL (12.0-15.5) Hematocrit 38.6 % (36.0-47.0) Mean Corpuscular Volume 89 fL (79-100) Mean Corpuscular Hemoglobin 28 pg (25-35) Mean Corpuscular Hemoglobin Concent 32 g/dL (31-37) Red Cell Distribution Width 16.3 % (11.5-14.5) Platelet Count 114 x10^3/uL (140-400) Neutrophils (%) (Auto) 92 % (31-73) Lymphocytes (%) (Auto) 5 % (24-48) Monocytes (%) (Auto) 2 % (0-9) Eosinophils (%) (Auto) 1 % (0-3) Basophils (%) (Auto) 0 % (0-3) Neutrophils # (Auto) 12.9 x10^3/uL (1.8-7.7) Lymphocytes # (Auto) 0.7 x10^3/uL (1.0-4.8) Monocytes # (Auto) 0.3 x10^3/uL (0.0-1.1) Eosinophils # (Auto) 0.1 x10^3/uL (0.0-0.7) Basophils # (Auto) 0.1 x10^3/uL (0.0-0.2) Sodium Level 139 mmol/L (136-145) Potassium Level 4.1 mmol/L (3.5-5.1) Chloride Level 109 mmol/L (98-107) Carbon Dioxide Level 21 mmol/L (21-32) Anion Gap 9 (6-14) Blood Urea Nitrogen 25 mg/dL (7-20) Creatinine 1.8 mg/dL (0.6-1.0) Estimated GFR (Cockcroft-Gault) 27.3 Glucose Level 115 mg/dL (70-99) Calcium Level 7.6 mg/dL (8.5-10.1) Laboratory Tests Test 01/03/20 18:26 01/03/20 20:38 01/04/20 09:30 Glucose (Fingerstick) 177 mg/dL (70-99) 165 mg/dL (70-99) White Blood Count 14.0 x10^3/uL (4.0-11.0) Red Blood Count 4.35 x10^6/uL (3.50-5.40) Hemoglobin 12.3 g/dL (12.0-15.5) Hematocrit 38.6 % (36.0-47.0) Mean Corpuscular Volume 89 fL (79-100) Mean Corpuscular Hemoglobin 28 pg (25-35) Mean Corpuscular Hemoglobin Concent 32 g/dL (31-37) Red Cell Distribution Width 16.3 % (11.5-14.5) Platelet Count 114 x10^3/uL (140-400) Neutrophils (%) (Auto) 92 % (31-73) Lymphocytes (%) (Auto) 5 % (24-48) Monocytes (%) (Auto) 2 % (0-9) Eosinophils (%) (Auto) 1 % (0-3) Basophils (%) (Auto) 0 % (0-3) Neutrophils # (Auto) 12.9 x10^3/uL (1.8-7.7) Lymphocytes # (Auto) 0.7 x10^3/uL (1.0-4.8) Monocytes # (Auto) 0.3 x10^3/uL (0.0-1.1) Eosinophils # (Auto) 0.1 x10^3/uL (0.0-0.7) Basophils # (Auto) 0.1 x10^3/uL (0.0-0.2) Sodium Level 139 mmol/L (136-145) Potassium Level 4.1 mmol/L (3.5-5.1) Chloride Level 109 mmol/L (98-107) Carbon Dioxide Level 21 mmol/L (21-32) Anion Gap 9 (6-14) Blood Urea Nitrogen 25 mg/dL (7-20) Creatinine 1.8 mg/dL (0.6-1.0) Estimated GFR (Cockcroft-Gault) 27.3 Glucose Level 115 mg/dL (70-99) Calcium Level 7.6 mg/dL (8.5-10.1) Images Images Chest x-ray with cardiomegaly. Assessment/Plan Assessment/Plan 1. Sepsis secondary to urinary tract infection. Treated with antibiotics and fluids overnight. Improved today. Nausea and vomiting has resolved. We will continue present treatment. 2. Atrial fibrillation. Chronic atrial fibrillation with the patient on anticoagulation. Rate is under much better control today. We will continue present treatment with monitoring. 3. History of coronary artery disease/CABG. No chest pain. Minimally elevated troponin at 0.059. We will continue to treat underlying condition. 4. Hyperlipidemia. Will check lab. Thank you for allowing us to participate in the care of your patient. RAMILA SARAH MD Jan 04, 2020 13:15
[2020-01-04] MEDS: oxyCODONE/APAP 5/325 1 TAB TABLET PO PRN (15:41)
[2020-01-04] MEDS: ATORVASTATIN CALCIUM 40 MG TABLET. PO SCH (20:46)
[2020-01-04] MEDS: GABAPENTIN 300 MG CAPSULE. PO SCH (20:46)
[2020-01-04] MEDS: INSULIN GLARGINE SYRINGE. SQ SCH (20:53)
[2020-01-05] VITALS (17 sets, daily range): BP systolic 90–184; BP diastolic 54–85
[2020-01-05] MEDS: IV NORMAL SALINE 1000ML BAG 1,000 ML IV SCH ×3 (03:35→22:43)
[2020-01-05] MEDS: PIPERACILLIN/TAZOBACTAM 2.25 GM in IV NORMAL SALINE 50ML 50 ML IV SCH (05:39)
[2020-01-05 05:43] LABS: BASO % 1 % (0-3); EOS # 0.3 x10^3/uL (0.0-0.7); EOS % 4 % (0-3); HEMATOCRIT 35.4 % (36.0-47.0); HEMOGLOBIN 11.5 g/dL (12.0-15.5); LYMPH # 1.1 x10^3/uL (1.0-4.8); LYMPH % 16 % (24-48); MEAN CORPUSCULAR HEMOGLOBIN 29 pg (25-35); MEAN CORPUSCULAR HGB CONC 32 g/dL (31-37); MEAN CORPUSCULAR VOLUME 89 fL (79-100); MONO # 0.3 x10^3/uL (0.0-1.1); MONO % 5 % (0-9); NEUT # 5.2 x10^3/uL (1.8-7.7); NEUT % 75 % (31-73); PLATELET COUNT 81 x10^3/uL (140-400)
[2020-01-05 06:03] LABS: ALBUMIN/GLOBULIN RATIO 0.7 (1.0-1.7); CALCIUM 8.1 mg/dL (8.5-10.1); GFR 24.2; POTASSIUM 4.6 mmol/L (3.5-5.1); TOTAL BILIRUBIN 0.8 mg/dL (0.2-1.0)
[2020-01-05] MEDS: ELECTROLYTE (ICU) PROTOCOL. MC SCH (09:00)
--- NOTE | 2020-01-05 09:06 | PDOC ---
PULMONARY PROGRESS NOTES Subjective Pt. is feeling much better today, on room air. Denies SOA or cough Wants to know when she can go home Vitals Vital Signs Date Time Temp Pulse Resp B/P (MAP) Pulse Ox O2 Delivery O2 Flow Rate FiO2 01/05/20 07:00 113 14 115/75 (88) 96 Room Air 01/05/20 04:00 98.2 98.2 01/04/20 07:00 2.0 ROS: No Nausea, No Chest Pain, No Abdominal Pain, No Increase Cough General: Alert, Oriented X4 Lungs: Clear Cardiovascular: Other (afib ) Abdomen: Soft Neuro Exam: Alert, Oriented Extremities: No Edema Skin: Warm, Dry Labs Laboratory Tests Test 01/03/20 10:45 01/03/20 18:26 01/03/20 20:38 01/04/20 09:30 Lactic Acid Level 5.0 mmol/L (0.4-2.0) Glucose (Fingerstick) 177 mg/dL (70-99) 165 mg/dL (70-99) White Blood Count 14.0 x10^3/uL (4.0-11.0) Red Blood Count 4.35 x10^6/uL (3.50-5.40) Hemoglobin 12.3 g/dL (12.0-15.5) Hematocrit 38.6 % (36.0-47.0) Mean Corpuscular Volume 89 fL (79-100) Mean Corpuscular Hemoglobin 28 pg (25-35) Mean Corpuscular Hemoglobin Concent 32 g/dL (31-37) Red Cell Distribution Width 16.3 % (11.5-14.5) Platelet Count 114 x10^3/uL (140-400) Neutrophils (%) (Auto) 92 % (31-73) Lymphocytes (%) (Auto) 5 % (24-48) Monocytes (%) (Auto) 2 % (0-9) Eosinophils (%) (Auto) 1 % (0-3) Basophils (%) (Auto) 0 % (0-3) Neutrophils # (Auto) 12.9 x10^3/uL (1.8-7.7) Lymphocytes # (Auto) 0.7 x10^3/uL (1.0-4.8) Monocytes # (Auto) 0.3 x10^3/uL (0.0-1.1) Eosinophils # (Auto) 0.1 x10^3/uL (0.0-0.7) Basophils # (Auto) 0.1 x10^3/uL (0.0-0.2) Sodium Level 139 mmol/L (136-145) Potassium Level 4.1 mmol/L (3.5-5.1) Chloride Level 109 mmol/L (98-107) Carbon Dioxide Level 21 mmol/L (21-32) Anion Gap 9 (6-14) Blood Urea Nitrogen 25 mg/dL (7-20) Creatinine 1.8 mg/dL (0.6-1.0) Estimated GFR (Cockcroft-Gault) 27.3 Glucose Level 115 mg/dL (70-99) Calcium Level 7.6 mg/dL (8.5-10.1) Test 01/04/20 20:49 01/05/20 05:00 Glucose (Fingerstick) 105 mg/dL (70-99) White Blood Count 7.0 x10^3/uL (4.0-11.0) Red Blood Count 4.00 x10^6/uL (3.50-5.40) Hemoglobin 11.5 g/dL (12.0-15.5) Hematocrit 35.4 % (36.0-47.0) Mean Corpuscular Volume 89 fL (79-100) Mean Corpuscular Hemoglobin 29 pg (25-35) Mean Corpuscular Hemoglobin Concent 32 g/dL (31-37) Red Cell Distribution Width 17.0 % (11.5-14.5) Platelet Count 81 x10^3/uL (140-400) Neutrophils (%) (Auto) 75 % (31-73) Lymphocytes (%) (Auto) 16 % (24-48) Monocytes (%) (Auto) 5 % (0-9) Eosinophils (%) (Auto) 4 % (0-3) Basophils (%) (Auto) 1 % (0-3) Neutrophils # (Auto) 5.2 x10^3/uL (1.8-7.7) Lymphocytes # (Auto) 1.1 x10^3/uL (1.0-4.8) Monocytes # (Auto) 0.3 x10^3/uL (0.0-1.1) Eosinophils # (Auto) 0.3 x10^3/uL (0.0-0.7) Basophils # (Auto) 0.0 x10^3/uL (0.0-0.2) Sodium Level 138 mmol/L (136-145) Potassium Level 4.6 mmol/L (3.5-5.1) Chloride Level 106 mmol/L (98-107) Carbon Dioxide Level 23 mmol/L (21-32) Anion Gap 9 (6-14) Blood Urea Nitrogen 30 mg/dL (7-20) Creatinine 2.0 mg/dL (0.6-1.0) Estimated GFR (Cockcroft-Gault) 24.2 BUN/Creatinine Ratio 15 (6-20) Glucose Level 85 mg/dL (70-99) Lactic Acid Level 2.2 mmol/L (0.4-2.0) Calcium Level 8.1 mg/dL (8.5-10.1) Total Bilirubin 0.8 mg/dL (0.2-1.0) Aspartate Amino Transf (AST/SGOT) 84 U/L (15-37) Alanine Aminotransferase (ALT/SGPT) 75 U/L (14-59) Alkaline Phosphatase 144 U/L (46-116) Total Protein 5.0 g/dL (6.4-8.2) Albumin 2.0 g/dL (3.4-5.0) Albumin/Globulin Ratio 0.7 (1.0-1.7) Laboratory Tests Test 01/04/20 09:30 01/04/20 20:49 01/05/20 05:00 White Blood Count 14.0 x10^3/uL (4.0-11.0) 7.0 x10^3/uL (4.0-11.0) Red Blood Count 4.35 x10^6/uL (3.50-5.40) 4.00 x10^6/uL (3.50-5.40) Hemoglobin 12.3 g/dL (12.0-15.5) 11.5 g/dL (12.0-15.5) Hematocrit 38.6 % (36.0-47.0) 35.4 % (36.0-47.0) Mean Corpuscular Volume 89 fL (79-100) 89 fL (79-100) Mean Corpuscular Hemoglobin 28 pg (25-35) 29 pg (25-35) Mean Corpuscular Hemoglobin Concent 32 g/dL (31-37) 32 g/dL (31-37) Red Cell Distribution Width 16.3 % (11.5-14.5) 17.0 % (11.5-14.5) Platelet Count 114 x10^3/uL (140-400) 81 x10^3/uL (140-400) Neutrophils (%) (Auto) 92 % (31-73) 75 % (31-73) Lymphocytes (%) (Auto) 5 % (24-48) 16 % (24-48) Monocytes (%) (Auto) 2 % (0-9) 5 % (0-9) Eosinophils (%) (Auto) 1 % (0-3) 4 % (0-3) Basophils (%) (Auto) 0 % (0-3) 1 % (0-3) Neutrophils # (Auto) 12.9 x10^3/uL (1.8-7.7) 5.2 x10^3/uL (1.8-7.7) Lymphocytes # (Auto) 0.7 x10^3/uL (1.0-4.8) 1.1 x10^3/uL (1.0-4.8) Monocytes # (Auto) 0.3 x10^3/uL (0.0-1.1) 0.3 x10^3/uL (0.0-1.1) Eosinophils # (Auto) 0.1 x10^3/uL (0.0-0.7) 0.3 x10^3/uL (0.0-0.7) Basophils # (Auto) 0.1 x10^3/uL (0.0-0.2) 0.0 x10^3/uL (0.0-0.2) Sodium Level 139 mmol/L (136-145) 138 mmol/L (136-145) Potassium Level 4.1 mmol/L (3.5-5.1) 4.6 mmol/L (3.5-5.1) Chloride Level 109 mmol/L (98-107) 106 mmol/L (98-107) Carbon Dioxide Level 21 mmol/L (21-32) 23 mmol/L (21-32) Anion Gap 9 (6-14) 9 (6-14) Blood Urea Nitrogen 25 mg/dL (7-20) 30 mg/dL (7-20) Creatinine 1.8 mg/dL (0.6-1.0) 2.0 mg/dL (0.6-1.0) Estimated GFR (Cockcroft-Gault) 27.3 24.2 Glucose Level 115 mg/dL (70-99) 85 mg/dL (70-99) Calcium Level 7.6 mg/dL (8.5-10.1) 8.1 mg/dL (8.5-10.1) Glucose (Fingerstick) 105 mg/dL (70-99) BUN/Creatinine Ratio 15 (6-20) Lactic Acid Level 2.2 mmol/L (0.4-2.0) Total Bilirubin 0.8 mg/dL (0.2-1.0) Aspartate Amino Transf (AST/SGOT) 84 U/L (15-37) Alanine Aminotransferase (ALT/SGPT) 75 U/L (14-59) Alkaline Phosphatase 144 U/L (46-116) Total Protein 5.0 g/dL (6.4-8.2) Albumin 2.0 g/dL (3.4-5.0) Albumin/Globulin Ratio 0.7 (1.0-1.7) Medications Active Scripts Medications Dose Route/Sig Max Daily Dose Days Date Category Toprol XL (Metoprolol Succinate) 50 Mg Tab.er.24h 50 Mg PO HS 12/15/19 Reported Levothyroxine Sodium 137 Mcg Tablet 1 Tab PO DAILY 12/15/19 Reported Culturelle (Lactobacillus Rhamnosus Gg) 1 Each Cap.sprink 1 Cap PO BID 30 11/15/19 Rx Losartan Potassium (Losartan Potassium) 25 Mg Tablet 25 Mg PO DAILY 30 11/15/19 Rx Atorvastatin Calcium 40 Mg Tablet 1 Tab PO QHS 08/08/19 Reported Gabapentin 600 Mg Tablet 600 Mg PO HS 08/08/19 Reported Lantus Solostar (Insulin Glargine,Hum.rec.anlog) 100 Unit/1 Ml Insuln.pen 12 Unit SQ QHS 10/16/18 Reported Allopurinol 100 Mg Tablet 1 Tab PO DAILY 07/30/17 Reported Eliquis (Apixaban) 5 Mg Tablet 5 Mg PO BID 06/23/15 Reported Venlafaxine Hcl 37.5 Mg Tablet 1 Tab PO DAILY 06/21/15 Reported Aspir 81 (Aspirin) 81 Mg Tablet.dr 1 Tab PO DAILY 06/21/15 Reported Impression . IMPRESSION: 1. Septic shock secondary to urinary tract infection. 100,000 CFU/ML GRAM NEGATIVE RODS on 01/04/20 at 0917 FINAL ID= [KLEBSIELLA [email or web address]] 2. Lactic acidosis secondary to sepsis-- improved 3. Abnormal chest x-ray with chronic mild interstitial changes. She had a previous CT abdomen and pelvis in July and it shows mild fibrotic changes at the bases. Clinically insignificant. We will continue to monitor with a CT in 6 months. 4. Acute kidney injury related to sepsis-- worsening 5. Chronic atrial fibrillation, on Eliquis. 6. Mild leukopenia. 7. COVID-19 negative. Plan . RECOMMENDATIONS: Covid-19 (-) Continue broad-spectrum antibiotics, Zosyn.-- follow cultures for sensitivity, consult ID to manage ABX Follow urine culture--- 100,000 CFU/ML GRAM NEGATIVE RODS on 01/04/20 at 0917 FINAL ID= [KLEBSIELLA [email or web address]] Monitor renal function post IV fluids-- cr. is worsening today now cr. 2.0will consult nephrology Continue Eliquis for chronic AFib. PT/OT OOB as tolerated Recommended to repeat CT in 6 months. Critical care time 35 minutes including review of the labs, chest x-rays and decision making. Discussed with RN. Sony to transfer out of ICU today if ok with other consults NIDA ROSE MD Jan 05, 2020 09:06
[2020-01-05] MEDS: APIXABAN 5 MG TABLET. PO SCH ×2 (09:30→22:48)
[2020-01-05] MEDS: LACTOBACILLUS RHAMNOSUS GG 1 CAPSULE. PO SCH ×2 (09:30→22:48)
[2020-01-05] MEDS: ASPIRIN ENTERIC COATED 81 MG TABLET.DR. PO SCH (09:30)
[2020-01-05] MEDS: VENLAFAXINE 75 MG TABLET. PO SCH (09:30)
[2020-01-05] MEDS: ALLOPURINOL 100 MG TABLET. PO SCH (09:30)
--- NOTE | 2020-01-05 11:30 | PDOC ---
GENERAL General: Patient examined chart reviewed she is feeling a little stronger today but still overall weak and her biggest complaint remains ongoing dizziness. She has not had any hypotension since her admission 48 hours ago blood pressure has been stable in the 1 teens and 120s. She remains tachycardic but does not claim to feel symptomatic when her heart rate is high. She has started working with physical therapy and Occupational Therapy and their assistance is appreciated. Perhaps a stay in rehab would help to optimize her situation. She does occasio tru feel like she is having double vision did have an eye exam recently that she believes was on target. She has not had an eyeglasses prescription change in some time. CT head on the October admission was unremarkable. We appreciate subspecialty support. She can move out of the intensive care unit. We will switch her antibiotics to oral Cipro which has the best sensitivity profile for this Klebsiella. She may need a urology consult as an outpatient to help curb the frequency of these infections. Certainly do appear to be impacting her functional status along with her other chronic issues. Total time today is 30 minutes with greater than 50% in counseling and coordination of care most of which in discussion with patient and nursing at bedside. We will defer to cardiology on this decision but the Eliquis should probably be decreased to 2.5 twice daily in light of her stage III renal failure baseline creatinine appears to stay around 1.8-2. Problems: (1) Stage 3 chronic kidney disease (2) UTI (urinary tract infection) (3) Hypotension (4) Atrial fibrillation with RVR VITAL SIGNS Vital Signs/I&O: Vital Signs Date Time Temp Pulse Resp B/P (MAP) Pulse Ox O2 Delivery O2 Flow Rate FiO2 01/05/20 11:00 100 14 123/66 (85) 99 Room Air 01/05/20 08:00 98.2 98.2 01/04/20 07:00 2.0 I & O 01/04/20 01/04/20 01/05/20 15:00 23:00 07:00 Intake Total 50 ml 1456 ml 1280 ml Output Total 110 ml 625 ml 660 ml Balance -60 ml 831 ml 620 ml In general the patient is pleasant alert and oriented x3 no acute distress other than feeling weak Neck is soft and supple no adenopathy or thyromegaly noted Chest is clear to auscultation Heart S1-S2 normal irregularly irregular tachycardic no murmurs or gallops are noted Abdomen is soft nontender nondistended no masses organomegaly noted Extremity exam is unremarkable for acute abnormality ALLERGIES Allergies: Allergies Coded Allergies Type Severity Reaction Last Updated Verified No Known Drug Allergies 10/03/19 No MEDS Medications: Current Medications Medications (Trade) Dose Ordered Sig/Ronal Start Time Stop Time Status Last Admin Dose Admin Acetaminophen (Tylenol) 650 mg PRN Q6HRS PRN 01/03/20 09:30 Allopurinol (Zyloprim) 100 mg DAILY 01/04/20 09:00 01/05/20 09:30 Apixaban (Eliquis) 5 mg BID 01/03/20 21:00 01/05/20 09:30 Aspirin (Ecotrin) 81 mg DAILY 01/04/20 09:00 01/05/20 09:30 Atorvastatin Calcium (Lipitor) 40 mg QHS 01/03/20 21:00 01/04/20 20:46 Bisacodyl (Dulcolax Supp) 10 mg PRN DAILY PRN 01/03/20 09:30 Ceftriaxone Sodium (Rocephin) 1 gm 1X ONCE 01/03/20 07:45 01/03/20 07:46 DC 01/03/20 08:14 Ciprofloxacin (Cipro) 250 mg BID 01/05/20 21:00 Dobutamine HCl/ Dextrose 250 ml @ 0 mls/hr CONT PRN 01/03/20 09:30 01/05/20 08:59 DC Gabapentin (Neurontin) 600 mg QHS 01/03/20 21:00 01/04/20 20:46 Ibuprofen (Motrin) 800 mg 1X ONCE 01/03/20 07:00 01/03/20 07:01 DC 01/03/20 06:49 Info (Icu Electrolyte Protocol) 1 ea DAILY 01/04/20 09:00 Insulin Glargine (Lantus Syringe) 12 unit QHS 01/03/20 21:00 01/04/20 20:53 Lactobacillus Rhamnosus (Culturelle) 1 cap BID 01/03/20 21:00 01/05/20 09:30 Lactulose (Lactulose) 20 gm PRN Q12HR PRN 01/03/20 09:30 Levothyroxine Sodium (Synthroid) 137 mcg DAILY07 01/04/20 07:00 01/04/20 08:29 Lorazepam (Ativan Inj) 0.5 mg PRN Q6HRS PRN 01/03/20 09:30 Losartan Potassium (Cozaar) 25 mg DAILY 01/04/20 09:00 01/03/20 14:37 DC Magnesium Sulfate 50 ml @ 25 mls/hr 1X ONCE 01/03/20 08:00 01/03/20 09:59 DC 01/03/20 08:15 Metoprolol Succinate (Toprol Xl) 50 mg HS 01/03/20 21:00 01/03/20 14:37 DC Morphine Sulfate (Morphine Sulfate) 2 mg PRN Q1HR PRN 01/03/20 09:30 01/05/20 08:59 DC 01/04/20 16:23 Norepinephrine Bitartrate 8 mg/ Dextrose 258 ml @ 14.571 mls/ hr CONT PRN 01/03/20 12:30 UNV Ondansetron HCl (Zofran) 4 mg PRN Q6HRS PRN 01/03/20 09:30 Oxycodone/ Acetaminophen (Percocet 5/325) 1 tab PRN Q4HRS PRN 01/03/20 09:30 01/04/20 15:41 Piperacillin Sod/ Tazobactam Sod 2.25 gm/Sodium Chloride 50 ml @ 100 mls/hr Q6HRS 01/03/20 12:00 01/05/20 11:06 DC 01/05/20 05:39 Potassium Chloride/Water 100 ml @ 100 mls/hr Q1H 01/03/20 15:00 01/03/20 18:59 DC 01/03/20 18:29 Sodium Chloride 500 ml @ 1,000 mls/hr PRN Q30MIN PRN 01/03/20 09:30 Sodium Chloride (Normal Saline Flush) 3 ml QSHIFT PRN 01/03/20 09:30 Venlafaxine HCl (Effexor) 37.5 mg DAILY 01/04/20 09:00 01/05/20 09:30 Zolpidem Tartrate (Ambien) 5 mg PRN QHS PRN 01/03/20 09:30 LAB Lab: Laboratory Tests Test 01/04/20 20:49 01/05/20 05:00 01/05/20 09:45 Glucose (Fingerstick) 105 mg/dL (70-99) H White Blood Count 7.0 x10^3/uL (4.0-11.0) Red Blood Count 4.00 x10^6/uL (3.50-5.40) Hemoglobin 11.5 g/dL (12.0-15.5) L Hematocrit 35.4 % (36.0-47.0) L Mean Corpuscular Volume 89 fL (79-100) Mean Corpuscular Hemoglobin 29 pg (25-35) Mean Corpuscular Hemoglobin Concent 32 g/dL (31-37) Red Cell Distribution Width 17.0 % (11.5-14.5) H Platelet Count 81 x10^3/uL (140-400) L Neutrophils (%) (Auto) 75 % (31-73) H Lymphocytes (%) (Auto) 16 % (24-48) L Monocytes (%) (Auto) 5 % (0-9) Eosinophils (%) (Auto) 4 % (0-3) H Basophils (%) (Auto) 1 % (0-3) Neutrophils # (Auto) 5.2 x10^3/uL (1.8-7.7) Lymphocytes # (Auto) 1.1 x10^3/uL (1.0-4.8) Monocytes # (Auto) 0.3 x10^3/uL (0.0-1.1) Eosinophils # (Auto) 0.3 x10^3/uL (0.0-0.7) Basophils # (Auto) 0.0 x10^3/uL (0.0-0.2) Sodium Level 138 mmol/L (136-145) Potassium Level 4.6 mmol/L (3.5-5.1) Chloride Level 106 mmol/L (98-107) Carbon Dioxide Level 23 mmol/L (21-32) Anion Gap 9 (6-14) Blood Urea Nitrogen 30 mg/dL (7-20) H Creatinine 2.0 mg/dL (0.6-1.0) H Estimated GFR (Cockcroft-Gault) 24.2 BUN/Creatinine Ratio 15 (6-20) Glucose Level 85 mg/dL (70-99) Lactic Acid Level 2.2 mmol/L (0.4-2.0) H 2.5 mmol/L (0.4-2.0) H Calcium Level 8.1 mg/dL (8.5-10.1) L Total Bilirubin 0.8 mg/dL (0.2-1.0) Aspartate Amino Transferase (AST) 84 U/L (15-37) H Alanine Aminotransferase (ALT) 75 U/L (14-59) H Alkaline Phosphatase 144 U/L (46-116) H Total Protein 5.0 g/dL (6.4-8.2) L Albumin 2.0 g/dL (3.4-5.0) L Albumin/Globulin Ratio 0.7 (1.0-1.7) L Laboratory Tests 01/05/20 05:00 Laboratory Tests 01/05/20 05:00 ASSESSMENT & PLAN A&P Plan as noted above This note was created using Proviation and may have omissions and/or errors due to the nature of real-time voice screen stretcher. Problem Qualifiers (1) UTI (urinary tract infection): Urinary tract infection type: acute cystitis (2) Hypotension: Hypotension type: orthostatic hypotension Qualified Codes: I95.1 - Orthostat ic hypotension MARCUS ZELAYA MD Jan 05, 2020 11:30
--- NOTE | 2020-01-05 12:19 | PDOC2 ---
CONSULT Date of Consult Date of Consult DATE: 01/05/20 TIME: 12:12 Reason for Consult Reason for Consult: DEMETRIUS Referring Physician Referring Physician: OSMAN Identification/Chief Complaint Chief Complaint WEAKNESS Source Source: Chart review, Patient History of Present Illness Reason for Visit: THIS IS A 79 YR OLD WF WITH C/O CHILLS, N/V AND RIGHT FLANK PAIN. NOTED TO HAVE AN UTI. SHE IS ALSO HYPOTENSIVE ON ADMIT. HAS HAD UTI IN THE PAST BUT NEVER ANY FLANK PAINS. PT UNAWARE OF ANY CKD BUT CR OF 1.1 IN THE PAST AND FGR C/W STAGE 3 A CKD. CR OF 2.0 NOW. UO ADEQUATE. URINE IS RED TINGED BUT ONLY AFTER FRIAS INSERTION. NO OTHER HX REPORTED Past Medical History Cardiovascular: AFIB, CAD, HTN, Hyperlipidemia, Other Pulmonary: Other CENTRAL NERVOUS SYSTEM: Periperal neuropathy GI: Other Heme/Onc: No pertinent hx Hepatobiliary: No pertinent hx Psych: Depression Musculoskeletal: Osteoarthritis Rheumatologic: Gout Infectious disease: No pertinent hx Renal/: Chronic renal insuff, UTI Endocrine: Diabetes, Hypothyroidism Past Surgical History Past Surgical History: Cholecystectomy, CABG, Cataract Removal, Hernia Repair, Tonsillectomy, Other Family History Family History: Diabetes Social History Quit ALCOHOL: rare Drugs: None Lives: with Family Current Problem List Problem List Problems Medical Problems: (1) Nausea & vomiting Status: Acute (2) Severe sepsis Status: Acute (3) UTI (urinary tract infection) Status: Acute Current Medications Current Medications Current Medications Sodium Chloride 1,000 ml @ 1,000 mls/hr 1X ONCE IV Last administered on 01/03/20at 06:35; Start 01/03/20 at 07:00; Stop 01/03/20 at 07:59; Status DC Acetaminophen (Tylenol) 1,000 mg 1X ONCE PO Last administered on 01/03/20at 06:48; Start 01/03/20 at 07:00; Stop 01/03/20 at 07:01; Status DC Ibuprofen (Motrin) 800 mg 1X ONCE PO Last administered on 01/03/20at 06:49; Start 01/03/20 at 07:00; Stop 01/03/20 at 07:01; Status DC Ondansetron HCl (Zofran) 8 mg 1X ONCE IVP Last administered on 01/03/20at 06:36; Start 01/03/20 at 07:00; Stop 01/03/20 at 07:01; Status DC Ceftriaxone Sodium (Rocephin) 1 gm 1X ONCE IVP Last administered on 01/03/20at 08:14; Start 01/03/20 at 07:45; Stop 01/03/20 at 07:46; Status DC Sodium Chloride 1,000 ml @ 1,000 mls/hr 1X ONCE IV Last administered on 01/03/20at 08:15; Start 01/03/20 at 08:00; Stop 01/03/20 at 08:59; Status DC Magnesium Sulfate 50 ml @ 25 mls/hr 1X ONCE IV Last administered on 01/03/20at 08:15; Start 01/03/20 at 08:00; Stop 01/03/20 at 09:59; Status DC Sodium Chloride 1,000 ml @ 1,000 mls/hr 1X ONCE IV Last administered on 01/03/20at 09:15; Start 01/03/20 at 09:00; Stop 01/03/20 at 09:59; Status DC Ondansetron HCl (Zofran) 4 mg PRN Q8HRS PRN IV NAUSEA/VOMITING; Start 01/03/20 at 09:30; Stop 01/03/20 at 14:48; Status DC Sodium Chloride 1,000 ml @ 125 mls/hr Q8H IV ; Start 01/03/20 at 09:20; Stop 01/04/20 at 09:19; Status DC Acetaminophen (Tylenol) 650 mg PRN Q6HRS PRN PO Headaches, Temp > 101.5'; S tart 01/03/20 at 09:30 Lorazepam (Ativan Inj) 0.5 mg PRN Q6HRS PRN IVP ANXIETY / AGITATION; Start 01/03/20 at 09:30 Ondansetron HCl (Zofran) 4 mg PRN Q6HRS PRN IVP NAUSEA/VOMITING; Start 01/03/20 at 09:30 Zolpidem Tartrate (Ambien) 5 mg PRN QHS PRN PO INSOMNIA, MAY REPEAT IN 1HR; Start 01/03/20 at 09:30 Info (Icu Electrolyte Protocol) 1 ea DAILY MC ; Start 01/04/20 at 09:00 Sodium Chloride (Normal Saline Flush) 3 ml QSHIFT PRN IV AFTER MEDS AND BLOOD DRAWS; Start 01/03/20 at 09:30 Sodium Chloride 1,000 ml @ 100 mls/hr Q10H IV Last administered on 01/05/20at 03:35; Start 01/03/20 at 09:19 Oxycodone/ Acetaminophen (Percocet 5/325) 1 tab PRN Q4HRS PRN PO PAIN Last administered on 01/04/20at 15:41; Start 01/03/20 at 09:30 Morphine Sulfate (Morphine Sulfate) 2 mg PRN Q1HR PRN IV PAIN Last administered on 01/04/20at 16:23; Start 01/03/20 at 09:30; Stop 01/05/20 at 08:59; Status DC Lactulose (Lactulose) 20 gm PRN Q12HR PRN PO CONSTIPATION; Start 01/03/20 at 09:30 Bisacodyl (Dulcolax Supp) 10 mg PRN DAILY PRN OR CONSTIPATION; Start 01/03/20 at 09:30 Sodium Chloride 1,860 ml @ 1,860 mls/hr Q1H IV ; Start 01/03/20 at 09:19; Stop 01/04/20 at 11:12; Status DC Sodium Chloride 500 ml @ 1,000 mls/hr PRN Q30MIN PRN IV MAP less than 65; Start 01/03/20 at 09:30 Piperacillin Sod/ Tazobactam Sod 2.25 gm/Sodium Chloride 100 ml @ 200 mls/hr Q6HRS IV ; Start 01/03/20 at 12:00; Stop 01/03/20 at 12:28; Status DC Norepinephrine Bitartrate 8 mg/ Dextrose 258 ml @ 0 mls/hr CONT PRN IV map less than 65 Last administered on 01/04/20at 02:53; Start 01/03/20 at 09:30; Stop 01/05/20 at 08:59; Status DC Dobutamine HCl/ Dextrose 250 ml @ 0 mls/hr CONT PRN IV map less than 65; Start 01/03/20 at 09:30; Stop 01/05/20 at 08:59; Status DC Allopurinol (Zyloprim) 100 mg DAILY PO Last administered on 01/05/20at 09:30; Start 01/04/20 at 09:00 Apixaban (Eliquis) 5 mg BID PO Last administered on 01/05/20 09:30; Start 01/03/20 at 21:00 Aspirin (Ecotrin) 81 mg DAILY PO Last administered on 01/05/20 09:30; Start 01/04/20 at 09:00 Atorvastatin Calcium (Lipitor) 40 mg QHS PO Last administered on 01/04/20 20:46; Start 01/03/20 at 21:00 Lactobacillus Rhamnosus (Culturelle) 1 cap BID PO Last administered on 01/05/20 09:30; Start 01/03/20 at 21:00 Levothyroxine Sodium (Synthroid) 137 mcg DAILY07 PO Last administered on 01/04/20 08:29; Start 01/04/20 at 07:00 Losartan Potassium (Cozaar) 25 mg DAILY PO ; Start 01/04/20 at 09:00; Stop 01/03/20 at 14:37; Status DC Metoprolol Succinate (Toprol Xl) 50 mg HS PO ; Start 01/03/20 at 21:00; Stop 01/03/20 at 14:37; Status DC Gabapentin (Neurontin) 600 mg QHS PO Last administered on 01/04/20 20:46; Start 01/03/20 at 21:00 Insulin Glargine (Lantus Syringe) 12 unit QHS SQ Last administered on 01/04/20 20:53; Start 01/03/20 at 21:00 Venlafaxine HCl (Effexor) 37.5 mg DAILY PO Last administered on 01/05/20 09:30; Start 01/04/20 at 09:00 Norepinephrine Bitartrate 8 mg/ Dextrose 258 ml @ 14.571 mls/ hr CONT PRN IV PER PROTOCOL; Start 01/03/20 at 12:30; Status UNV Piperacillin Sod/ Tazobactam Sod 2.25 gm/Sodium Chloride 50 ml @ 100 mls/hr Q6HRS IV Last administered on 01/05/20 05:39; Start 01/03/20 at 12:00; Stop 01/05/20 at 11:06; Status DC Potassium Chloride/Water 100 ml @ 100 mls/hr Q1H IV Last administered on 01/03/20 18:29; Start 01/03/20 at 15:00; Stop 01/03/20 at 18:59; Status DC Ciprofloxacin (Cipro) 250 mg BID PO ; Start 01/05/20 at 21:00 Active Scripts Active Culturelle (Lactobacillus Rhamnosus Gg) 1 Each Cap.sprink 1 Cap PO BID 30 Days Losartan Potassium (Losartan Potassium) 25 Mg Tablet 25 Mg PO DAILY 30 Days Reported Toprol XL (Metoprolol Succinate) 50 Mg Tab.er.24h 50 Mg PO HS Levothyroxine Sodium 137 Mcg Tablet 1 Tab PO DAILY Atorvastatin Calcium 40 Mg Tablet 1 Tab PO QHS Gabapentin 600 Mg Tablet 600 Mg PO HS Lantus Solostar (Insulin Glargine,Hum.rec.anlog) 100 Unit/1 Ml Insuln.pen 12 Unit SQ QHS Allopurinol 100 Mg Tablet 1 Tab PO DAILY Eliquis (Apixaban) 5 Mg Tablet 5 Mg PO BID Venlafaxine Hcl 37.5 Mg Tablet 1 Tab PO DAILY Aspir 81 (Aspirin) 81 Mg Tablet.dr 1 Tab PO DAILY Allergies Allergies: Coded Allergies: No Known Drug Allergies (Unverified , 10/03/19) ROS General: YES: Fatigue, Malaise PSYCHOLOGICAL ROS: YES: Anxiety Eyes: Yes Decreased vision ALLERGY AND IMMUNOLOGY: YES: Seasonal Allergies Respiratory: YES: Cough Gastrointestinal: Yes Nausea, Yes Vomiting Genitourinary: YES Flank Pain Musculoskeletal: Yes Muscular Weakness Neurological: Yes Weakness Skin: Yes Dry Skin Physical Exam General: Alert, Oriented X3, Cooperative, No acute distress HEENT: Atraumatic Lungs: Clear to auscultation Heart: Regular rate, Normal S1 Abdomen: Normal bowel sounds, Soft, No tenderness Skin: No rashes Neuro: Normal speech, Sensation intact Psych/Mental Status: Mental status NL, Mood NL MUSCULOSKELETAL: No joint tenderness, No deformity, No swelling Vitals VITALS Vital Signs Date Time Temp Pulse Resp B/P (MAP) Pulse Ox O2 Delivery O2 Flow Rate FiO2 01/05/20 11:00 100 14 123/66 (85) 99 Room Air 01/05/20 08:00 98.2 98.2 01/04/20 07:00 2.0 Labs Labs Laboratory Tests Test 01/03/20 18:26 01/03/20 20:38 01/04/20 09:30 01/04/20 20:49 Glucose (Fingerstick) 177 mg/dL (70-99) 165 mg/dL (70-99) 105 mg/dL (70-99) White Blood Count 14.0 x10^3/uL (4.0-11.0) Red Blood Count 4.35 x10^6/uL (3.50-5.40) Hemoglobin 12.3 g/dL (12.0-15.5) Hematocrit 38.6 % (36.0-47.0) Mean Corpuscular Volume 89 fL (79-100) Mean Corpuscular Hemoglobin 28 pg (25-35) Mean Corpuscular Hemoglobin Concent 32 g/dL (31-37) Red Cell Distribution Width 16.3 % (11.5-14.5) Platelet Count 114 x10^3/uL (140-400) Neutrophils (%) (Auto) 92 % (31-73) Lymphocytes (%) (Auto) 5 % (24-48) Monocytes (%) (Auto) 2 % (0-9) Eosinophils (%) (Auto) 1 % (0-3) Basophils (%) (Auto) 0 % (0-3) Neutrophils # (Auto) 12.9 x10^3/uL (1.8-7.7) Lymphocytes # (Auto) 0.7 x10^3/uL (1.0-4.8) Monocytes # (Auto) 0.3 x10^3/uL (0.0-1.1) Eosinophils # (Auto) 0.1 x10^3/uL (0.0-0.7) Basophils # (Auto) 0.1 x10^3/uL (0.0-0.2) Sodium Level 139 mmol/L (136-145) Potassium Level 4.1 mmol/L (3.5-5.1) Chloride Level 109 mmol/L (98-107) Carbon Dioxide Level 21 mmol/L (21-32) Anion Gap 9 (6-14) Blood Urea Nitrogen 25 mg/dL (7-20) Creatinine 1.8 mg/dL (0.6-1.0) Estimated GFR (Cockcroft-Gault) 27.3 Glucose Level 115 mg/dL (70-99) Calcium Level 7.6 mg/dL (8.5-10.1) Test 01/05/20 05:00 01/05/20 09:45 White Blood Count 7.0 x10^3/uL (4.0-11.0) Red Blood Count 4.00 x10^6/uL (3.50-5.40) Hemoglobin 11.5 g/dL (12.0-15.5) Hematocrit 35.4 % (36.0-47.0) Mean Corpuscular Volume 89 fL (79-100) Mean Corpuscular Hemoglobin 29 pg (25-35) Mean Corpuscular Hemoglobin Concent 32 g/dL (31-37) Red Cell Distribution Width 17.0 % (11.5-14.5) Platelet Count 81 x10^3/uL (140-400) Neutrophils (%) (Auto) 75 % (31-73) Lymphocytes (%) (Auto) 16 % (24-48) Monocytes (%) (Auto) 5 % (0-9) Eosinophils (%) (Auto) 4 % (0-3) Basophils (%) (Auto) 1 % (0-3) Neutrophils # (Auto) 5.2 x10^3/uL (1.8-7.7) Lymphocytes # (Auto) 1.1 x10^3/uL (1.0-4.8) Monocytes # (Auto) 0.3 x10^3/uL (0.0-1.1) Eosinophils # (Auto) 0.3 x10^3/uL (0.0-0.7) Basophils # (Auto) 0.0 x10^3/uL (0.0-0.2) Sodium Level 138 mmol/L (136-145) Potassium Level 4.6 mmol/L (3.5-5.1) Chloride Level 106 mmol/L (98-107) Carbon Dioxide Level 23 mmol/L (21-32) Anion Gap 9 (6-14) Blood Urea Nitrogen 30 mg/dL (7-20) Creatinine 2.0 mg/dL (0.6-1.0) Estimated GFR (Cockcroft-Gault) 24.2 BUN/Creatinine Ratio 15 (6-20) Glucose Level 85 mg/dL (70-99) Lactic Acid Level 2.2 mmol/L (0.4-2.0) 2.5 mmol/L (0.4-2.0) Calcium Level 8.1 mg/dL (8.5-10.1) Total Bilirubin 0.8 mg/dL (0.2-1.0) Aspartate Amino Transf (AST/SGOT) 84 U/L (15-37) Alanine Aminotransferase (ALT/SGPT) 75 U/L (14-59) Alkaline Phosphatase 144 U/L (46-116) Total Protein 5.0 g/dL (6.4-8.2) Albumin 2.0 g/dL (3.4-5.0) Albumin/Globulin Ratio 0.7 (1.0-1.7) Laboratory Tests Test 01/04/20 20:49 01/05/20 05:00 01/05/20 09:45 Glucose (Fingerstick) 105 mg/dL (70-99) White Blood Count 7.0 x10^3/uL (4.0-11.0) Red Blood Count 4.00 x10^6/uL (3.50-5.40) Hemoglobin 11.5 g/dL (12.0-15.5) Hematocrit 35.4 % (36.0-47.0) Mean Corpuscular Volume 89 fL (79-100) Mean Corpuscular Hemoglobin 29 pg (25-35) Mean Corpuscular Hemoglobin Concent 32 g/dL (31-37) Red Cell Distribution Width 17.0 % (11.5-14.5) Platelet Count 81 x10^3/uL (140-400) Neutrophils (%) (Auto) 75 % (31-73) Lymphocytes (%) (Auto) 16 % (24-48) Monocytes (%) (Auto) 5 % (0-9) Eosinophils (%) (Auto) 4 % (0-3) Basophils (%) (Auto) 1 % (0-3) Neutrophils # (Auto) 5.2 x10^3/uL (1.8-7.7) Lymphocytes # (Auto) 1.1 x10^3/uL (1.0-4.8) Monocytes # (Auto) 0.3 x10^3/uL (0.0-1.1) Eosinophils # (Auto) 0.3 x10^3/uL (0.0-0.7) Basophils # (Auto) 0.0 x10^3/uL (0.0-0.2) Sodium Level 138 mmol/L (136-145) Potassium Level 4.6 mmol/L (3.5-5.1) Chloride Level 106 mmol/L (98-107) Carbon Dioxide Level 23 mmol/L (21-32) Anion Gap 9 (6-14) Blood Urea Nitrogen 30 mg/dL (7-20) Creatinine 2.0 mg/dL (0.6-1.0) Estimated GFR (Cockcroft-Gault) 24.2 BUN/Creatinine Ratio 15 (6-20) Glucose Level 85 mg/dL (70-99) Lactic Acid Level 2.2 mmol/L (0.4-2.0) 2.5 mmol/L (0.4-2.0) Calcium Level 8.1 mg/dL (8.5-10.1) Total Bilirubin 0.8 mg/dL (0.2-1.0) Aspartate Amino Transf (AST/SGOT) 84 U/L (15-37) Alanine Aminotransferase (ALT/SGPT) 75 U/L (14-59) Alkaline Phosphatase 144 U/L (46-116) Total Protein 5.0 g/dL (6.4-8.2) Albumin 2.0 g/dL (3.4-5.0) Albumin/Globulin Ratio 0.7 (1.0-1.7) Assessment/Plan Assessment/Plan IMP DEMETRIUS-CR OF 2.0 HYPOKALEMIA CKD STAGE 3 WITH CR OF 1.1 UTI-PROB PYELONEPHRITIS SEPSIS HYPOTENSION DEHYDRATION DIARRHEA HEMATURIA DUE TO FRIAS PLAN HYDRATION ANTIBIOTICS PRESSORS NEEDED MONITOR UO WILL FOLLOW GRUPO WOODS MD Jan 05, 2020 12:19
--- NOTE | 2020-01-05 13:15 | PDOC ---
PROGRESS NOTES Subjective Subjective Patient seen and examined Objective Objective Vital Signs Date Time Temp Pulse Resp B/P (MAP) Pulse Ox O2 Delivery O2 Flow Rate FiO2 01/05/20 11:00 100 14 123/66 (85) 99 Room Air 01/05/20 08:00 98.2 98.2 01/04/20 07:00 2.0 Intake and Output 01/05/20 07:00 Intake Total 2786 ml Output Total 1395 ml Balance 1391 ml IV Total 2786 ml Output Urine Total 1395 ml Physical Exam Abdomen: Normal bowel sounds Heart: Other (Irregular rhythm) General: mild distress Lungs: Other (Mildly decreased breath sounds) Assessment Assessment Problems Medical Problems: (1) Nausea & vomiting Status: Acute (2) Severe sepsis Status: Acute (3) UTI (urinary tract infection) Status: Acute 1. Sepsis. Improved. Continuing on antibiotics and fluids. Nausea and vomiting has resolved. Treated with antibiotics and fluids. 2. Atrial fibrillation. Chronic atrial fibrillation with the patient on anticoagulation. Rate is under much better control today. We will continue present treatment with monitoring. 3. History of coronary artery disease/CABG. No chest pain. Minimally elevated troponin at 0.059. We will continue to treat underlying condition. 4. Hyperlipidemia. Continue medications. Comment Review of Relevant I have reviewed the following items priyank (where applicable) has been applied. Labs Laboratory Tests Test 01/03/20 18:26 01/03/20 20:38 01/04/20 09:30 01/04/20 20:49 Glucose (Fingerstick) 177 mg/dL (70-99) 165 mg/dL (70-99) 105 mg/dL (70-99) White Blood Count 14.0 x10^3/uL (4.0-11.0) Red Blood Count 4.35 x10^6/uL (3.50-5.40) Hemoglobin 12.3 g/dL (12.0-15.5) Hematocrit 38.6 % (36.0-47.0) Mean Corpuscular Volume 89 fL (79-100) Mean Corpuscular Hemoglobin 28 pg (25-35) Mean Corpuscular Hemoglobin Concent 32 g/dL (31-37) Red Cell Distribution Width 16.3 % (11.5-14.5) Platelet Count 114 x10^3/uL (140-400) Neutrophils (%) (Auto) 92 % (31-73) Lymphocytes (%) (Auto) 5 % (24-48) Monocytes (%) (Auto) 2 % (0-9) Eosinophils (%) (Auto) 1 % (0-3) Basophils (%) (Auto) 0 % (0-3) Neutrophils # (Auto) 12.9 x10^3/uL (1.8-7.7) Lymphocytes # (Auto) 0.7 x10^3/uL (1.0-4.8) Monocytes # (Auto) 0.3 x10^3/uL (0.0-1.1) Eosinophils # (Auto) 0.1 x10^3/uL (0.0-0.7) Basophils # (Auto) 0.1 x10^3/uL (0.0-0.2) Sodium Level 139 mmol/L (136-145) Potassium Level 4.1 mmol/L (3.5-5.1) Chloride Level 109 mmol/L (98-107) Carbon Dioxide Level 21 mmol/L (21-32) Anion Gap 9 (6-14) Blood Urea Nitrogen 25 mg/dL (7-20) Creatinine 1.8 mg/dL (0.6-1.0) Estimated GFR (Cockcroft-Gault) 27.3 Glucose Level 115 mg/dL (70-99) Calcium Level 7.6 mg/dL (8.5-10.1) Test 01/05/20 05:00 01/05/20 09:45 White Blood Count 7.0 x10^3/uL (4.0-11.0) Red Blood Count 4.00 x10^6/uL (3.50-5.40) Hemoglobin 11.5 g/dL (12.0-15.5) Hematocrit 35.4 % (36.0-47.0) Mean Corpuscular Volume 89 fL (79-100) Mean Corpuscular Hemoglobin 29 pg (25-35) Mean Corpuscular Hemoglobin Concent 32 g/dL (31-37) Red Cell Distribution Width 17.0 % (11.5-14.5) Platelet Count 81 x10^3/uL (140-400) Neutrophils (%) (Auto) 75 % (31-73) Lymphocytes (%) (Auto) 16 % (24-48) Monocytes (%) (Auto) 5 % (0-9) Eosinophils (%) (Auto) 4 % (0-3) Basophils (%) (Auto) 1 % (0-3) Neutrophils # (Auto) 5.2 x10^3/uL (1.8-7.7) Lymphocytes # (Auto) 1.1 x10^3/uL (1.0-4.8) Monocytes # (Auto) 0.3 x10^3/uL (0.0-1.1) Eosinophils # (Auto) 0.3 x10^3/uL (0.0-0.7) Basophils # (Auto) 0.0 x10^3/uL (0.0-0.2) Sodium Level 138 mmol/L (136-145) Potassium Level 4.6 mmol/L (3.5-5.1) Chloride Level 106 mmol/L (98-107) Carbon Dioxide Level 23 mmol/L (21-32) Anion Gap 9 (6-14) Blood Urea Nitrogen 30 mg/dL (7-20) Creatinine 2.0 mg/dL (0.6-1.0) Estimated GFR (Cockcroft-Gault) 24.2 BUN/Creatinine Ratio 15 (-20) Glucose Level 85 mg/dL (70-99) Lactic Acid Level 2.2 mmol/L (0.4-2.0) 2.5 mmol/L (0.4-2.0) Calcium Level 8.1 mg/dL (8.5-10.1) Total Bilirubin 0.8 mg/dL (0.2-1.0) Aspartate Amino Transf (AST/SGOT) 84 U/L (15-37) Alanine Aminotransferase (ALT/SGPT) 75 U/L (14-59) Alkaline Phosphatase 144 U/L (46-116) Total Protein 5.0 g/dL (6.4-8.2) Albumin 2.0 g/dL (3.4-5.0) Albumin/Globulin Ratio 0.7 (1.0-1.7) Laboratory Tests Test 01/04/20 20:49 01/05/20 05:00 01/05/20 09:45 Glucose (Fingerstick) 105 mg/dL (70-99) White Blood Count 7.0 x10^3/uL (4.0-11.0) Red Blood Count 4.00 x10^6/uL (3.50-5.40) Hemoglobin 11.5 g/dL (12.0-15.5) Hematocrit 35.4 % (36.0-47.0) Mean Corpuscular Volume 89 fL (79-100) Mean Corpuscular Hemoglobin 29 pg (25-35) Mean Corpuscular Hemoglobin Concent 32 g/dL (31-37) Red Cell Distribution Width 17.0 % (11.5-14.5) Platelet Count 81 x10^3/uL (140-400) Neutrophils (%) (Auto) 75 % (31-73) Lymphocytes (%) (Auto) 16 % (24-48) Monocytes (%) (Auto) 5 % (0-9) Eosinophils (%) (Auto) 4 % (0-3) Basophils (%) (Auto) 1 % (0-3) Neutrophils # (Auto) 5.2 x10^3/uL (1.8-7.7) Lymphocytes # (Auto) 1.1 x10^3/uL (1.0-4.8) Monocytes # (Auto) 0.3 x10^3/uL (0.0-1.1) Eosinophils # (Auto) 0.3 x10^3/uL (0.0-0.7) Basophils # (Auto) 0.0 x10^3/uL (0.0-0.2) Sodium Level 138 mmol/L (136-145) Potassium Level 4.6 mmol/L (3.5-5.1) Chloride Level 106 mmol/L (98-107) Carbon Dioxide Level 23 mmol/L (21-32) Anion Gap 9 (6-14) Blood Urea Nitrogen 30 mg/dL (7-20) Creatinine 2.0 mg/dL (0.6-1.0) Estimated GFR (Cockcroft-Gault) 24.2 BUN/Creatinine Ratio 15 (6-20) Glucose Level 85 mg/dL (70-99) Lactic Acid Level 2.2 mmol/L (0.4-2.0) 2.5 mmol/L (0.4-2.0) Calcium Level 8.1 mg/dL (8.5-10.1) Total Bilirubin 0.8 mg/dL (0.2-1.0) Aspartate Amino Transf (AST/SGOT) 84 U/L (15-37) Alanine Aminotransferase (ALT/SGPT) 75 U/L (14-59) Alkaline Phosphatase 144 U/L (46-116) Total Protein 5.0 g/dL (6.4-8.2) Albumin 2.0 g/dL (3.4-5.0) Albumin/Globulin Ratio 0.7 (1.0-1.7) Microbiology 01/03/20 Urine Culture - Final, Complete 01/03/20 Antimicrobic Susceptibility - Final, Complete 01/03/20 Blood Culture - Preliminary, Resulted NO GROWTH AFTER 2 DAYS Medications Current Medications Sodium Chloride 1,000 ml @ 1,000 mls/hr 1X ONCE IV Last administered on 01/03/20at 06:35; Start 01/03/20 at 07:00; Stop 01/03/20 at 07:59; Status DC Acetaminophen (Tylenol) 1,000 mg 1X ONCE PO Last administered on 01/03/20at 06:48; Start 01/03/20 at 07:00; Stop 01/03/20 at 07:01; Status DC Ibuprofen (Motrin) 800 mg 1X ONCE PO Last administered on 01/03/20at 06:49; Start 01/03/20 at 07:00; Stop 01/03/20 at 07:01; Status DC Ondansetron HCl (Zofran) 8 mg 1X ONCE IVP Last administered on 01/03/20at 06:36; Start 01/03/20 at 07:00; Stop 01/03/20 at 07:01; Status DC Ceftriaxone Sodium (Rocephin) 1 gm 1X ONCE IVP Last administered on 01/03/20at 08:14; Start 01/03/20 at 07:45; Stop 01/03/20 at 07:46; Status DC Sodium Chloride 1,000 ml @ 1,000 mls/hr 1X ONCE IV Last administered on 01/03/20at 08:15; Start 01/03/20 at 08:00; Stop 01/03/20 at 08:59; Status DC Magnesium Sulfate 50 ml @ 25 mls/hr 1X ONCE IV Last administered on 01/03/20at 08:15; Start 01/03/20 at 08:00; Stop 01/03/20 at 09:59; Status DC Sodium Chloride 1,000 ml @ 1,000 mls/hr 1X ONCE IV Last administered on 01/03/20at 09:15; Start 01/03/20 at 09:00; Stop 01/03/20 at 09:59; Status DC Ondansetron HCl (Zofran) 4 mg PRN Q8HRS PRN IV NAUSEA/VOMITING; Start 01/03/20 at 09:30; Stop 01/03/20 at 14:48; Status DC Sodium Chloride 1,000 ml @ 125 mls/hr Q8H IV ; Start 01/03/20 at 09:20; Stop 01/04/20 at 09:19; Status DC Acetaminophen (Tylenol) 650 mg PRN Q6HRS PRN PO Headaches, Temp > 101.5'; Start 01/03/20 at 09:30 Lorazepam (Ativan Inj) 0.5 mg PRN Q6HRS PRN IVP ANXIETY / AGITATION; Start 01/03/20 at 09:30 Ondansetron HCl (Zofran) 4 mg PRN Q6HRS PRN IVP NAUSEA/VOMITING; Start 01/03/20 at 09:30 Zolpidem Tartrate (Ambien) 5 mg PRN QHS PRN PO INSOMNIA, MAY REPEAT IN 1HR; Start 01/03/20 at 09:30 Info (Icu Electrolyte Protocol) 1 ea DAILY MC ; Start 01/04/20 at 09:00 Sodium Chloride (Normal Saline Flush) 3 ml QSHIFT PRN IV AFTER MEDS AND BLOOD DRAWS; Start 01/03/20 at 09:30 Sodium Chloride 1,000 ml @ 100 mls/hr Q10H IV Last administered on 01/05/20at 03:35; Start 01/03/20 at 09:19 Oxycodone/ Acetaminophen (Percocet 5/325) 1 tab PRN Q4HRS PRN PO PAIN Last administered on 01/04/20at 15:41; Start 01/03/20 at 09:30 Morphine Sulfate (Morphine Sulfate) 2 mg PRN Q1HR PRN IV PAIN Last administered on 01/04/20at 16:23; Start 01/03/20 at 09:30; Stop 01/05/20 at 08:59; Status DC Lactulose (Lactulose) 20 gm PRN Q12HR PRN PO CONSTIPATION; Start 01/03/20 at 09:30 Bisacodyl (Dulcolax Supp) 10 mg PRN DAILY PRN SD CONSTIPATION; Start 01/03/20 at 09:30 Sodium Chloride 1,860 ml @ 1,860 mls/hr Q1H IV ; Start 01/03/20 at 09:19; Stop 01/04/20 at 11:12; Status DC Sodium Chloride 500 ml @ 1,000 mls/hr PRN Q30MIN PRN IV MAP less than 65; Start 01/03/20 at 09:30 Piperacillin Sod/ Tazobactam Sod 2.25 gm/Sodium Chloride 100 ml @ 200 mls/hr Q6HRS IV ; Start 01/03/20 at 12:00; Stop 01/03/20 at 12:28; Status DC Norepinephrine Bitartrate 8 mg/ Dextrose 258 ml @ 0 mls/hr CONT PRN IV map less than 65 Last administered on 01/04/20at 02:53; Start 01/03/20 at 09:30; Stop 01/05/20 at 08:59; Status DC Dobutamine HCl/ Dextrose 250 ml @ 0 mls/hr CONT PRN IV map less than 65; Start 01/03/20 at 09:30; Stop 01/05/20 at 08:59; Status DC Allopurinol (Zyloprim) 100 mg DAILY PO Last administered on 01/05/20at 09:30; Start 01/04/20 at 09:00 Apixaban (Eliquis) 5 mg BID PO Last administered on 01/05/20at 09:30; Start 01/03/20 at 21:00 Aspirin (Ecotrin) 81 mg DAILY PO Last administered on 01/05/20at 09:30; Start 01/04/20 at 09:00 Atorvastatin Calcium (Lipitor) 40 mg QHS PO Last administered on 01/04/20at 20:46; Start 01/03/20 at 21:00 Lactobacillus Rhamnosus (Culturelle) 1 cap BID PO Last administered on 01/05/20at 09:30; Start 01/03/20 at 21:00 Levothyroxine Sodium (Synthroid) 137 mcg DAILY07 PO Last administered on 01/04/20at 08:29; Start 01/04/20 at 07:00 Losartan Potassium (Cozaar) 25 mg DAILY PO ; Start 01/04/20 at 09:00; Stop 01/03/20 at 14:37; Status DC Metoprolol Succinate (Toprol Xl) 50 mg HS PO ; Start 01/03/20 at 21:00; Stop 01/03/20 at 14:37; Status DC Gabapentin (Neurontin) 600 mg QHS PO Last administered on 01/04/20at 20:46; Start 01/03/20 at 21:00 Insulin Glargine (Lantus Syringe) 12 unit QHS SQ Last administered on 01/04/20at 20:53; Start 01/03/20 at 21:00 Venlafaxine HCl (Effexor) 37.5 mg DAILY PO Last administered on 01/05/20at 09:30; Start 01/04/20 at 09:00 Norepinephrine Bitartrate 8 mg/ Dextrose 258 ml @ 14.571 mls/ hr CONT PRN IV PER PROTOCOL; Start 01/03/20 at 12:30; Status UNV Piperacillin Sod/ Tazobactam Sod 2.25 gm/Sodium Chloride 50 ml @ 100 mls/hr Q6HRS IV Last administered on 01/05/20at 05:39; Start 01/03/20 at 12:00; Stop 01/05/20 at 11:06; Status DC Potassium Chloride/Water 100 ml @ 100 mls/hr Q1H IV Last administered on 01/03/20at 18:29; Start 01/03/20 at 15:00; Stop 01/03/20 at 18:59; Status DC Ciprofloxacin (Cipro) 250 mg BID PO ; Start 01/05/20 at 21:00 Active Scripts Active Culturelle (Lactobacillus Rhamnosus Gg) 1 Each Cap.sprink 1 Cap PO BID 30 Days Losartan Potassium (Losartan Potassium) 25 Mg Tablet 25 Mg PO DAILY 30 Days Reported Toprol XL (Metoprolol Succinate) 50 Mg Tab.er.24h 50 Mg PO HS Levothyroxine Sodium 137 Mcg Tablet 1 Tab PO DAILY Atorvastatin Calcium 40 Mg Tablet 1 Tab PO QHS Gabapentin 600 Mg Tablet 600 Mg PO HS Lantus Solostar (Insulin Glargine,Hum.rec.anlog) 100 Unit/1 Ml Insuln.pen 12 Unit SQ QHS Allopurinol 100 Mg Tablet 1 Tab PO DAILY Eliquis (Apixaban) 5 Mg Tablet 5 Mg PO BID Venlafaxine Hcl 37.5 Mg Tablet 1 Tab PO DAILY Aspir 81 (Aspirin) 81 Mg Tablet. 1 Tab PO DAILY Vitals/I & O Vital Sign - Last 24 Hours 01/04/20 01/04/20 01/04/20 01/04/20 14:00 15:00 15:41 15:43 Pulse 118 105 Resp 18 20 22 B/P (MAP) 78/59 (65) 94/51 (65) Pulse Ox 98 97 98 O2 Delivery Room Air Room Air Room Air Room Air 01/04/20 01/04/20 01/04/20 01/04/20 16:00 16:23 16:41 16:53 Temp 98.4 98.4 Pulse 106 Resp 16 18 18 20 B/P (MAP) 120/65 (83) Pulse Ox 98 96 97 98 O2 Delivery Room Air Room Air Room Air Room Air 01/04/20 01/04/20 01/04/20 01/04/20 17:00 18:00 19:00 20:00 Temp 97.8 97.8 Pulse 117 114 107 Resp 20 18 17 B/P (MAP) 94/50 (65) 71/41 (51) 103/61 (75) Pulse Ox 96 96 97 O2 Delivery Room Air Room Air Room Air Room Air 01/04/20 01/04/20 01/04/20 01/04/20 20:00 21:00 22:00 23:00 Temp 98.2 98.2 Pulse 124 114 107 107 Resp 22 14 15 16 B/P (MAP) 110/65 (80) 132/68 (89) 109/67 (81) 119/73 (88) Pulse Ox 95 96 98 98 O2 Delivery Room Air Room Air Room Air Room Air 01/05/20 01/05/20 01/05/20 01/05/20 00:00 00:00 01:00 02:00 Pulse 107 109 118 Resp 18 17 18 B/P (MAP) 124/85 (98) 125/71 (89) 150/71 (97) Pulse Ox 97 96 97 O2 Delivery Room Air Room Air Room Air Room Air 01/05/20 01/05/20 01/05/20 01/05/20 03:00 04:00 04:00 05:00 Temp 98.2 98.2 Pulse 109 120 115 Resp 15 22 17 B/P (MAP) 115/72 (86) 90/63 (72) 91/61 (71) Pulse Ox 97 97 98 O2 Delivery Room Air Room Air Room Air Room Air 01/05/20 01/05/20 01/05/20 01/05/20 06:00 07:00 08:00 08:00 Temp 98.2 98.2 Pulse 108 113 108 Resp 14 14 22 B/P (MAP) 111/56 (74) 115/75 (88) 117/54 (75) Pulse Ox 96 96 97 O2 Delivery Room Air Room Air Room Air Room Air 01/05/20 01/05/20 01/05/20 09:00 10:03 11:00 Pulse 110 105 100 Resp 14 14 14 B/P (MAP) 113/61 (78) 117/57 (77) 123/66 (85) Pulse Ox 99 96 99 O2 Delivery Room Air Room Air Room Air Intake and Output 01/04/20 01/04/20 01/05/20 15:00 23:00 07:00 Intake Total 50 ml 1456 ml 1280 ml Output Total 110 ml 625 ml 660 ml Balance -60 ml 831 ml 620 ml RAMILA SARAH MD Jan 05, 2020 13:15
[2020-01-05] MEDS ORDERED: DIGOXIN IV 500 MCG/2 ML AMPUL. IV ONE ×2 (18:30→21:30)
[2020-01-05] MEDS: oxyCODONE/APAP 5/325 1 TAB TABLET PO PRN (18:42)
[2020-01-05] MEDS: GABAPENTIN 300 MG CAPSULE. PO SCH (22:47)
[2020-01-05] MEDS: CIPROFLOXACIN HCL 250 MG TABLET. PO SCH (22:49)
[2020-01-05] MEDS: ATORVASTATIN CALCIUM 40 MG TABLET. PO SCH (22:49)
[2020-01-05] MEDS: INSULIN GLARGINE SYRINGE. SQ SCH (23:04)
[2020-01-06 03:00] VITALS: BP 142/89
[2020-01-06] MEDS: IV NORMAL SALINE 1000ML BAG 1,000 ML IV SCH ×2 (04:16→22:12)
[2020-01-06] MEDS: LEVOTHYROXINE 137 MCG TABLET PO SCH (06:30)
[2020-01-06] MEDS: ELECTROLYTE (ICU) PROTOCOL. MC SCH (07:36)
[2020-01-06 07:47] LABS: BASO % 0 % (0-3); EOS # 0.2 x10^3/uL (0.0-0.7); EOS % 5 % (0-3); HEMATOCRIT 35.6 % (36.0-47.0); HEMOGLOBIN 11.5 g/dL (12.0-15.5); LYMPH # 0.9 x10^3/uL (1.0-4.8); LYMPH % 20 % (24-48); MEAN CORPUSCULAR HEMOGLOBIN 28 pg (25-35); MEAN CORPUSCULAR HGB CONC 32 g/dL (31-37); MEAN CORPUSCULAR VOLUME 88 fL (79-100); MONO # 0.2 x10^3/uL (0.0-1.1); MONO % 5 % (0-9); NEUT % 70 % (31-73); PLATELET COUNT 68 x10^3/uL (140-400); RED BLOOD COUNT 4.07 x10^6/uL (3.50-5.40); RED CELL DISTRIBUTION WIDTH 16.4 % (11.5-14.5); WHITE BLOOD COUNT 4.3 x10^3/uL (4.0-11.0)
[2020-01-06 07:48] LABS: MAGNESIUM 1.6 mg/dL (1.8-2.4); PHOSPHORUS 3.7 mg/dL (2.6-4.7)
[2020-01-06 07:50] LABS: ALBUMIN/GLOBULIN RATIO 0.6 (1.0-1.7); CALCIUM 8.5 mg/dL (8.5-10.1); CREATININE 1.7 mg/dL (0.6-1.0); GFR 29.1; POTASSIUM 4.7 mmol/L (3.5-5.1); TOTAL BILIRUBIN 0.7 mg/dL (0.2-1.0); TOTAL PROTEIN 5.2 g/dL (6.4-8.2)
[2020-01-06 08:41] VITALS: BP 171/80
[2020-01-06] MEDS ORDERED: LOSARTAN POTASSIUM 25 MG TABLET. PO SCH (09:30)
[2020-01-06] MEDS: METOPROLOL TART IMMED RELEASE 25 MG TABLET. PO SCH ×2 (10:48→20:23)
[2020-01-06] MEDS: LACTOBACILLUS RHAMNOSUS GG 1 CAPSULE. PO SCH ×2 (10:48→20:22)
[2020-01-06] MEDS: ASPIRIN ENTERIC COATED 81 MG TABLET.DR. PO SCH (10:48)
[2020-01-06] MEDS: VENLAFAXINE 75 MG TABLET. PO SCH (10:49)
[2020-01-06] MEDS: APIXABAN 5 MG TABLET. PO SCH ×2 (10:49→20:22)
[2020-01-06] MEDS: ALLOPURINOL 100 MG TABLET. PO SCH (10:49)
[2020-01-06] MEDS: CIPROFLOXACIN HCL 250 MG TABLET. PO SCH ×2 (10:49→20:23)
--- NOTE | 2020-01-06 11:31 | NUR ---
MAAME following for discharge planning. Reviewed pt's record. Met with pt. Pt a/o and able to make needs known. pt stated she lives with her and would like to return home when stronger. Pt stated she does have [facility] but would like a referral sent for SNU. MAAME completed Patient Choice of Vendor form. MAAME phoned and faxed a referral to [facility], , (fax) per approval from patient. Pt on room air. MAAME to continue following. Addendum: 01/06/20 at 1234 by TREVON ISABEL Spoke with Kelsie from [facility]. Pt accepted at [facility] SNU when ready for discharge. MAAME notified Dr. Alfaro. Pt's COVID results are negative. Addendum: 01/06/20 at 1638 by TREVON ISABEL Discharge orders faxed to [facility]. [facility] to coordinate transfer. SW to continue following. RN notified.
--- NOTE | 2020-01-06 11:33 | PDOC ---
Renal-Progress Notes Subjective Notes Notes FEELING BETTER History of Present Illness Hx of present illness STABLE Vitals Vitals Vital Signs Date Time Temp Pulse Resp B/P (MAP) Pulse Ox O2 Delivery O2 Flow Rate FiO2 01/06/20 10:48 101 171/80 01/06/20 08:41 97.9 18 96 Room Air 97.9 Weight Weight [ ] I.O. Intake and Output Intake and Output 01/06/20 07:00 Intake Total 1100 ml Output Total 2175 ml Balance -1075 ml Intake Oral 1100 ml Output Urine Total 2175 ml # Voids 1 Labs Labs Laboratory Tests Test 01/05/20 21:32 01/06/20 05:45 01/06/20 07:21 Glucose (Fingerstick) 79 mg/dL (70-99) 72 mg/dL (70-99) White Blood Count 4.3 x10^3/uL (4.0-11.0) Red Blood Count 4.07 x10^6/uL (3.50-5.40) Hemoglobin 11.5 g/dL (12.0-15.5) Hematocrit 35.6 % (36.0-47.0) Mean Corpuscular Volume 88 fL (79-100) Mean Corpuscular Hemoglobin 28 pg (25-35) Mean Corpuscular Hemoglobin Concent 32 g/dL (31-37) Red Cell Distribution Width 16.4 % (11.5-14.5) Platelet Count 68 x10^3/uL (140-400) Neutrophils (%) (Auto) 70 % (31-73) Lymphocytes (%) (Auto) 20 % (24-48) Monocytes (%) (Auto) 5 % (0-9) Eosinophils (%) (Auto) 5 % (0-3) Basophils (%) (Auto) 0 % (0-3) Neutrophils # (Auto) 3.0 x10^3/uL (1.8-7.7) Lymphocytes # (Auto) 0.9 x10^3/uL (1.0-4.8) Monocytes # (Auto) 0.2 x10^3/uL (0.0-1.1) Eosinophils # (Auto) 0.2 x10^3/uL (0.0-0.7) Basophils # (Auto) 0.0 x10^3/uL (0.0-0.2) Sodium Level 141 mmol/L (136-145) Potassium Level 4.7 mmol/L (3.5-5.1) Chloride Level 111 mmol/L (98-107) Carbon Dioxide Level 20 mmol/L (21-32) Anion Gap 10 (6-14) Blood Urea Nitrogen 32 mg/dL (7-20) Creatinine 1.7 mg/dL (0.6-1.0) Estimated GFR (Cockcroft-Gault) 29.1 BUN/Creatinine Ratio 19 (6-20) Glucose Level 78 mg/dL (70-99) Calcium Level 8.5 mg/dL (8.5-10.1) Phosphorus Level 3.7 mg/dL (2.6-4.7) Magnesium Level 1.6 mg/dL (1.8-2.4) Total Bilirubin 0.7 mg/dL (0.2-1.0) Aspartate Amino Transf (AST/SGOT) 50 U/L (15-37) Alanine Aminotransferase (ALT/SGPT) 54 U/L (14-59) Alkaline Phosphatase 175 U/L (46-116) Total Protein 5.2 g/dL (6.4-8.2) Albumin 2.0 g/dL (3.4-5.0) Albumin/Globulin Ratio 0.6 (1.0-1.7) Micro Micro Microbiology 01/03/20 Urine Culture - Final, Complete 01/03/20 Antimicrobic Susceptibility - Final, Complete 01/03/20 Blood Culture - Preliminary, Resulted NO GROWTH AFTER 3 DAYS Physical Exam Musculoskeletal: Osteoarthritis Assessment Assessment IMP DEMETRIUS-CR DOWN TO 1.1 HYPOKALEMIA-BETTER LOW MAG CKD STAGE 3 WITH CR OF 1.1 UTI-PROB PYELONEPHRITIS SEPSIS HYPOTENSION DEHYDRATION DIARRHEA HEMATURIA DUE TO FRIAS-BETTER PLAN HYDRATION ANTIBIOTICS MONITOR UO REPLACE MG WILL FOLLOW GRUPO WOODS MD Jan 06, 2020 11:32
[2020-01-06] MEDS ORDERED: MAGNESIUM SULFATE 2GM 50 ML IV ONE (12:00)
[2020-01-06 12:07] VITALS: BP 166/90
--- NOTE | 2020-01-06 12:29 | PDOC ---
PULMONARY PROGRESS NOTES Subjective Pt. is feeling much better today, on room air. Denies SOA or cough Wants to know when she can go home Vitals Vital Signs Date Time Temp Pulse Resp B/P (MAP) Pulse Ox O2 Delivery O2 Flow Rate FiO2 01/06/20 12:07 98.6 124 18 166/90 (115) 96 Room Air 98.6 ROS: No Nausea, No Chest Pain, No Abdominal Pain, No Increase Cough General: Alert, Oriented X4 Lungs: Clear Cardiovascular: Other (afib ) Abdomen: Soft Neuro Exam: Alert, Oriented Extremities: No Edema Skin: Warm, Dry Labs Laboratory Tests Test 01/04/20 20:49 01/05/20 05:00 01/05/20 09:45 01/05/20 21:32 Glucose (Fingerstick) 105 mg/dL (70-99) 79 mg/dL (70-99) White Blood Count 7.0 x10^3/uL (4.0-11.0) Red Blood Count 4.00 x10^6/uL (3.50-5.40) Hemoglobin 11.5 g/dL (12.0-15.5) Hematocrit 35.4 % (36.0-47.0) Mean Corpuscular Volume 89 fL (79-100) Mean Corpuscular Hemoglobin 29 pg (25-35) Mean Corpuscular Hemoglobin Concent 32 g/dL (31-37) Red Cell Distribution Width 17.0 % (11.5-14.5) Platelet Count 81 x10^3/uL (140-400) Neutrophils (%) (Auto) 75 % (31-73) Lymphocytes (%) (Auto) 16 % (24-48) Monocytes (%) (Auto) 5 % (0-9) Eosinophils (%) (Auto) 4 % (0-3) Basophils (%) (Auto) 1 % (0-3) Neutrophils # (Auto) 5.2 x10^3/uL (1.8-7.7) Lymphocytes # (Auto) 1.1 x10^3/uL (1.0-4.8) Monocytes # (Auto) 0.3 x10^3/uL (0.0-1.1) Eosinophils # (Auto) 0.3 x10^3/uL (0.0-0.7) Basophils # (Auto) 0.0 x10^3/uL (0.0-0.2) Sodium Level 138 mmol/L (136-145) Potassium Level 4.6 mmol/L (3.5-5.1) Chloride Level 106 mmol/L (98-107) Carbon Dioxide Level 23 mmol/L (21-32) Anion Gap 9 (6-14) Blood Urea Nitrogen 30 mg/dL (7-20) Creatinine 2.0 mg/dL (0.6-1.0) Estimated GFR (Cockcroft-Gault) 24.2 BUN/Creatinine Ratio 15 (6-20) Glucose Level 85 mg/dL (70-99) Lactic Acid Level 2.2 mmol/L (0.4-2.0) 2.5 mmol/L (0.4-2.0) Calcium Level 8.1 mg/dL (8.5-10.1) Total Bilirubin 0.8 mg/dL (0.2-1.0) Aspartate Amino Transf (AST/SGOT) 84 U/L (15-37) Alanine Aminotransferase (ALT/SGPT) 75 U/L (14-59) Alkaline Phosphatase 144 U/L (46-116) Total Protein 5.0 g/dL (6.4-8.2) Albumin 2.0 g/dL (3.4-5.0) Albumin/Globulin Ratio 0.7 (1.0-1.7) Test 01/06/20 05:45 01/06/20 07:21 01/06/20 10:48 White Blood Count 4.3 x10^3/uL (4.0-11.0) Red Blood Count 4.07 x10^6/uL (3.50-5.40) Hemoglobin 11.5 g/dL (12.0-15.5) Hematocrit 35.6 % (36.0-47.0) Mean Corpuscular Volume 88 fL (79-100) Mean Corpuscular Hemoglobin 28 pg (25-35) Mean Corpuscular Hemoglobin Concent 32 g/dL (31-37) Red Cell Distribution Width 16.4 % (11.5-14.5) Platelet Count 68 x10^3/uL (140-400) Neutrophils (%) (Auto) 70 % (31-73) Lymphocytes (%) (Auto) 20 % (24-48) Monocytes (%) (Auto) 5 % (0-9) Eosinophils (%) (Auto) 5 % (0-3) Basophils (%) (Auto) 0 % (0-3) Neutrophils # (Auto) 3.0 x10^3/uL (1.8-7.7) Lymphocytes # (Auto) 0.9 x10^3/uL (1.0-4.8) Monocytes # (Auto) 0.2 x10^3/uL (0.0-1.1) Eosinophils # (Auto) 0.2 x10^3/uL (0.0-0.7) Basophils # (Auto) 0.0 x10^3/uL (0.0-0.2) Sodium Level 141 mmol/L (136-145) Potassium Level 4.7 mmol/L (3.5-5.1) Chloride Level 111 mmol/L (98-107) Carbon Dioxide Level 20 mmol/L (21-32) Anion Gap 10 (6-14) Blood Urea Nitrogen 32 mg/dL (7-20) Creatinine 1.7 mg/dL (0.6-1.0) Estimated GFR (Cockcroft-Gault) 29.1 BUN/Creatinine Ratio 19 (6-20) Glucose Level 78 mg/dL (70-99) Calcium Level 8.5 mg/dL (8.5-10.1) Phosphorus Level 3.7 mg/dL (2.6-4.7) Magnesium Level 1.6 mg/dL (1.8-2.4) Total Bilirubin 0.7 mg/dL (0.2-1.0) Aspartate Amino Transf (AST/SGOT) 50 U/L (15-37) Alanine Aminotransferase (ALT/SGPT) 54 U/L (14-59) Alkaline Phosphatase 175 U/L (46-116) Total Protein 5.2 g/dL (6.4-8.2) Albumin 2.0 g/dL (3.4-5.0) Albumin/Globulin Ratio 0.6 (1.0-1.7) Glucose (Fingerstick) 72 mg/dL (70-99) 103 mg/dL (70-99) Laboratory Tests Test 01/05/20 21:32 01/06/20 05:45 01/06/20 07:21 01/06/20 10:48 Glucose (Fingerstick) 79 mg/dL (70-99) 72 mg/dL (70-99) 103 mg/dL (70-99) White Blood Count 4.3 x10^3/uL (4.0-11.0) Red Blood Count 4.07 x10^6/uL (3.50-5.40) Hemoglobin 11.5 g/dL (12.0-15.5) Hematocrit 35.6 % (36.0-47.0) Mean Corpuscular Volume 88 fL (79-100) Mean Corpuscular Hemoglobin 28 pg (25-35) Mean Corpuscular Hemoglobin Concent 32 g/dL (31-37) Red Cell Distribution Width 16.4 % (11.5-14.5) Platelet Count 68 x10^3/uL (140-400) Neutrophils (%) (Auto) 70 % (31-73) Lymphocytes (%) (Auto) 20 % (24-48) Monocytes (%) (Auto) 5 % (0-9) Eosinophils (%) (Auto) 5 % (0-3) Basophils (%) (Auto) 0 % (0-3) Neutrophils # (Auto) 3.0 x10^3/uL (1.8-7.7) Lymphocytes # (Auto) 0.9 x10^3/uL (1.0-4.8) Monocytes # (Auto) 0.2 x10^3/uL (0.0-1.1) Eosinophils # (Auto) 0.2 x10^3/uL (0.0-0.7) Basophils # (Auto) 0.0 x10^3/uL (0.0-0.2) Sodium Level 141 mmol/L (136-145) Potassium Level 4.7 mmol/L (3.5-5.1) Chloride Level 111 mmol/L (98-107) Carbon Dioxide Level 20 mmol/L (21-32) Anion Gap 10 (6-14) Blood Urea Nitrogen 32 mg/dL (7-20) Creatinine 1.7 mg/dL (0.6-1.0) Estimated GFR (Cockcroft-Gault) 29.1 BUN/Creatinine Ratio 19 (6-20) Glucose Level 78 mg/dL (70-99) Calcium Level 8.5 mg/dL (8.5-10.1) Phosphorus Level 3.7 mg/dL (2.6-4.7) Magnesium Level 1.6 mg/dL (1.8-2.4) Total Bilirubin 0.7 mg/dL (0.2-1.0) Aspartate Amino Transf (AST/SGOT) 50 U/L (15-37) Alanine Aminotransferase (ALT/SGPT) 54 U/L (14-59) Alkaline Phosphatase 175 U/L (46-116) Total Protein 5.2 g/dL (6.4-8.2) Albumin 2.0 g/dL (3.4-5.0) Albumin/Globulin Ratio 0.6 (1.0-1.7) Medications Active Scripts Medications Dose Route/Sig Max Daily Dose Days Date Category Toprol XL (Metoprolol Succinate) 50 Mg Tab.er.24h 50 Mg PO HS 12/15/19 Reported Levothyroxine Sodium 137 Mcg Tablet 1 Tab PO DAILY 12/15/19 Reported Culturelle (Lactobacillus Rhamnosus Gg) 1 Each Cap.sprink 1 Cap PO BID 30 11/15/19 Rx Losartan Potassium (Losartan Potassium) 25 Mg Tablet 25 Mg PO DAILY 30 11/15/19 Rx Atorvastatin Calcium 40 Mg Tablet 1 Tab PO QHS 08/08/19 Reported Gabapentin 600 Mg Tablet 600 Mg PO HS 08/08/19 Reported Lantus Solostar (Insulin Glargine,Hum.rec.anlog) 100 Unit/1 Ml Insuln.pen 12 Unit SQ QHS 10/16/18 Reported Allopurinol 100 Mg Tablet 1 Tab PO DAILY 07/30/17 Reported Eliquis (Apixaban) 5 Mg Tablet 5 Mg PO BID 06/23/15 Reported Venlafaxine Hcl 37.5 Mg Tablet 1 Tab PO DAILY 06/21/15 Reported Aspir 81 (Aspirin) 81 Mg Tablet.dr 1 Tab PO DAILY 06/21/15 Reported Comments MICRO CHARGES KLEBSIELLA OXYTOCA RAOULTELLA KLEBSIELLA OXYTOCA ANTIMICROBIAL SUSCEPTIBILITY Final Comment NEG MICHAEL 56 KLEBSIELLA OXYTOCA RAOULTELLA ANTIBIOTIC RESULT INTERPRETATION AMPICILLIN/SULBACTAM 8/4 S AMIKACIN <=16 S AMPICILLIN >16 R AMOXICILLIN/K CLAVULANATE <=8/4 S AZTREONAM <=4 S CEFTRIAXONE <=1 S CEFTAZIDIME <=1 S CEFOTAXIME <=2 S CEFOXITIN <=8 S CIPROFLOXACIN <=0.25 S CEFEPIME <=2 S CEFUROXIME <=4 S ERTAPENEM <=0.5 S NITROFURANTOIN <=32 S GENTAMICIN <=2 S LEVOFLOXACIN <=0.5 S MEROPENEM <=1 S PIPERACILLIN/TAZOBACTAM <=8 S TRIMETHOPRIM/SULFAMETHOXAZOLE <=0.5/9.5 S TETRACYCLINE <=4 S TOBRAMYCIN <=2 S Unless otherwise specified, Testing Performed by: Impression . IMPRESSION: 1. Septic shock secondary to urinary tract infection. 100,000 CFU/ML GRAM NEGATIVE RODS on 01/04/20 at 0917 FINAL ID= [KLEBSIELLA OXYTOCA] 2. Lactic acidosis secondary to sepsis-- improved 3. Abnormal chest x-ray with chronic mild interstitial changes. She had a previous CT abdomen and pelvis in July and it shows mild fibrotic changes at the bases. Clinically insignificant. We will continue to monitor with a CT in 6 months. 4. Acute kidney injury related to sepsis-- improving on IVF 5. Chronic atrial fibrillation, on Eliquis. 6. Mild leukopenia. 7. COVID-19 negative. Plan . RECOMMENDATIONS: Covid-19 (-) Continue cipro.-- PCP managing abx Follow urine culture--- 100,000 CFU/ML GRAM NEGATIVE RODS on 01/04/20 at 0917 FINAL ID= [KLEBSIELLA OXYTOCA] Monitor renal function post IV fluids-- cr. is improving Continue Eliquis for chronic AFib. PT/OT OOB as tolerated Recommended to repeat CT in 6 months. NIDA ROSE MD Jan 06, 2020 12:29
--- NOTE | 2020-01-06 13:51 | PDOC3 ---
Discharge Summary Visit Information Date of Admission: Jan 03, 2020 Date of Discharge: Jan 06, 2020 Admitting Diagnosis Comment: Sepsis secondary to UTI Diarrhea, patient has been on chronic antibiotics. Will test for C diff History of atrial fibrillation on chronic anticoagulation Transaminitis secondary to sepsis picture Thrombocytopenia secondary to sepsis picture elevated troponin secondary to demand ischemia, NSTEMI type 2, will treat underlying etiology of septic picture Essential hypertension CAD currently asymptomatic Diabetes-Type II, Dyslidpidemia Hypothyroidism acquired. CKD stage 3a Final Diagnosis Problems Medical Problems: Sepsis secondary to UTI, resolved UTI secondary to Klebsiella oxytoca Acute renal failure vasomotor etiology most likely Diarrhea, resolved History of atrial fibrillation on chronic anticoagulation Transaminitis secondary to sepsis picture Thrombocytopenia secondary to sepsis elevated troponin secondary to demand ischemia, NSTEMI type 2, will treat underlying etiology of septic picture Essential hypertension CAD currently asymptomatic Diabetes-Type II, Dyslidpidemia Hypothyroidism acquired. CKD stage 3a Brief Hospital Course Allergies Allergies Coded Allergies Type Severity Reaction Last Updated Verified No Known Drug Allergies 10/03/19 No Vital Signs Vital Signs Date Time Temp Pulse Resp B/P (MAP) Pulse Ox O2 Delivery O2 Flow Rate FiO2 01/06/20 12:07 98.6 124 18 166/90 (115) 96 Room Air 98.6 Lab Results Laboratory Tests Test 01/04/20 20:49 01/05/20 05:00 01/05/20 09:45 01/05/20 21:32 Glucose (Fingerstick) 105 mg/dL (70-99) 79 mg/dL (70-99) White Blood Count 7.0 x10^3/uL (4.0-11.0) Red Blood Count 4.00 x10^6/uL (3.50-5.40) Hemoglobin 11.5 g/dL (12.0-15.5) Hematocrit 35.4 % (36.0-47.0) Mean Corpuscular Volume 89 fL (79-100) Mean Corpuscular Hemoglobin 29 pg (25-35) Mean Corpuscular Hemoglobin Concent 32 g/dL (31-37) Red Cell Distribution Width 17.0 % (11.5-14.5) Platelet Count 81 x10^3/uL (140-400) Neutrophils (%) (Auto) 75 % (31-73) Lymphocytes (%) (Auto) 16 % (24-48) Monocytes (%) (Auto) 5 % (0-9) Eosinophils (%) (Auto) 4 % (0-3) Basophils (%) (Auto) 1 % (0-3) Neutrophils # (Auto) 5.2 x10^3/uL (1.8-7.7) Lymphocytes # (Auto) 1.1 x10^3/uL (1.0-4.8) Monocytes # (Auto) 0.3 x10^3/uL (0.0-1.1) Eosinophils # (Auto) 0.3 x10^3/uL (0.0-0.7) Basophils # (Auto) 0.0 x10^3/uL (0.0-0.2) Sodium Level 138 mmol/L (136-145) Potassium Level 4.6 mmol/L (3.5-5.1) Chloride Level 106 mmol/L (98-107) Carbon Dioxide Level 23 mmol/L (21-32) Anion Gap 9 (6-14) Blood Urea Nitrogen 30 mg/dL (7-20) Creatinine 2.0 mg/dL (0.6-1.0) Estimated GFR (Cockcroft-Gault) 24.2 BUN/Creatinine Ratio 15 (6-20) Glucose Level 85 mg/dL (70-99) Lactic Acid Level 2.2 mmol/L (0.4-2.0) 2.5 mmol/L (0.4-2.0) Calcium Level 8.1 mg/dL (8.5-10.1) Total Bilirubin 0.8 mg/dL (0.2-1.0) Aspartate Amino Transf (AST/SGOT) 84 U/L (15-37) Alanine Aminotransferase (ALT/SGPT) 75 U/L (14-59) Alkaline Phosphatase 144 U/L (46-116) Total Protein 5.0 g/dL (6.4-8.2) Albumin 2.0 g/dL (3.4-5.0) Albumin/Globulin Ratio 0.7 (1.0-1.7) Test 01/06/20 05:45 01/06/20 07:21 01/06/20 10:48 White Blood Count 4.3 x10^3/uL (4.0-11.0) Red Blood Count 4.07 x10^6/uL (3.50-5.40) Hemoglobin 11.5 g/dL (12.0-15.5) Hematocrit 35.6 % (36.0-47.0) Mean Corpuscular Volume 88 fL (79-100) Mean Corpuscular Hemoglobin 28 pg (25-35) Mean Corpuscular Hemoglobin Concent 32 g/dL (31-37) Red Cell Distribution Width 16.4 % (11.5-14.5) Platelet Count 68 x10^3/uL (140-400) Neutrophils (%) (Auto) 70 % (31-73) Lymphocytes (%) (Auto) 20 % (24-48) Monocytes (%) (Auto) 5 % (0-9) Eosinophils (%) (Auto) 5 % (0-3) Basophils (%) (Auto) 0 % (0-3) Neutrophils # (Auto) 3.0 x10^3/uL (1.8-7.7) Lymphocytes # (Auto) 0.9 x10^3/uL (1.0-4.8) Monocytes # (Auto) 0.2 x10^3/uL (0.0-1.1) Eosinophils # (Auto) 0.2 x10^3/uL (0.0-0.7) Basophils # (Auto) 0.0 x10^3/uL (0.0-0.2) Sodium Level 141 mmol/L (136-145) Potassium Level 4.7 mmol/L (3.5-5.1) Chloride Level 111 mmol/L (98-107) Carbon Dioxide Level 20 mmol/L (21-32) Anion Gap 10 (6-14) Blood Urea Nitrogen 32 mg/dL (7-20) Creatinine 1.7 mg/dL (0.6-1.0) Estimated GFR (Cockcroft-Gault) 29.1 BUN/Creatinine Ratio 19 (6-20) Glucose Level 78 mg/dL (70-99) Calcium Level 8.5 mg/dL (8.5-10.1) Phosphorus Level 3.7 mg/dL (2.6-4.7) Magnesium Level 1.6 mg/dL (1.8-2.4) Total Bilirubin 0.7 mg/dL (0.2-1.0) Aspartate Amino Transf (AST/SGOT) 50 U/L (15-37) Alanine Aminotransferase (ALT/SGPT) 54 U/L (14-59) Alkaline Phosphatase 175 U/L (46-116) Total Protein 5.2 g/dL (6.4-8.2) Albumin 2.0 g/dL (3.4-5.0) Albumin/Globulin Ratio 0.6 (1.0-1.7) Glucose (Fingerstick) 72 mg/dL (70-99) 103 mg/dL (70-99) Laboratory Tests Test 01/05/20 21:32 01/06/20 05:45 01/06/20 07:21 01/06/20 10:48 Glucose (Fingerstick) 79 mg/dL (70-99) 72 mg/dL (70-99) 103 mg/dL (70-99) White Blood Count 4.3 x10^3/uL (4.0-11.0) Red Blood Count 4.07 x10^6/uL (3.50-5.40) Hemoglobin 11.5 g/dL (12.0-15.5) Hematocrit 35.6 % (36.0-47.0) Mean Corpuscular Volume 88 fL (79-100) Mean Corpuscular Hemoglobin 28 pg (25-35) Mean Corpuscular Hemoglobin Concent 32 g/dL (31-37) Red Cell Distribution Width 16.4 % (11.5-14.5) Platelet Count 68 x10^3/uL (140-400) Neutrophils (%) (Auto) 70 % (31-73) Lymphocytes (%) (Auto) 20 % (24-48) Monocytes (%) (Auto) 5 % (0-9) Eosinophils (%) (Auto) 5 % (0-3) Basophils (%) (Auto) 0 % (0-3) Neutrophils # (Auto) 3.0 x10^3/uL (1.8-7.7) Lymphocytes # (Auto) 0.9 x10^3/uL (1.0-4.8) Monocytes # (Auto) 0.2 x10^3/uL (0.0-1.1) Eosinophils # (Auto) 0.2 x10^3/uL (0.0-0.7) Basophils # (Auto) 0.0 x10^3/uL (0.0-0.2) Sodium Level 141 mmol/L (136-145) Potassium Level 4.7 mmol/L (3.5-5.1) Chloride Level 111 mmol/L (98-107) Carbon Dioxide Level 20 mmol/L (21-32) Anion Gap 10 (6-14) Blood Urea Nitrogen 32 mg/dL (7-20) Creatinine 1.7 mg/dL (0.6-1.0) Estimated GFR (Cockcroft-Gault) 29.1 BUN/Creatinine Ratio 19 (6-20) Glucose Level 78 mg/dL (70-99) Calcium Level 8.5 mg/dL (8.5-10.1) Phosphorus Level 3.7 mg/dL (2.6-4.7) Magnesium Level 1.6 mg/dL (1.8-2.4) Total Bilirubin 0.7 mg/dL (0.2-1.0) Aspartate Amino Transf (AST/SGOT) 50 U/L (15-37) Alanine Aminotransferase (ALT/SGPT) 54 U/L (14-59) Alkaline Phosphatase 175 U/L (46-116) Total Protein 5.2 g/dL (6.4-8.2) Albumin 2.0 g/dL (3.4-5.0) Albumin/Globulin Ratio 0.6 (1.0-1.7) Brief Hospital Course Mrs Negro was admitted to the intensive care unit due to the sepsis that was reported upon admission. She was started on broad-spectrum antibiotics, and remained in the ICU for 2 days Patient examined chart reviewed she is feeling a little stronger today but still overall weak and her biggest complaint remains ongoing dizziness. She has not had any hypotension since her admission 48 hours ago blood pressure has been stable in the 1 teens and 120s. She remains tachycardic but does not claim to feel symptomatic when her heart rate is high. She has started working with physical therapy and Occupational Therapy and their assistance is appreciated. Perhaps a stay in rehab would help to optimize her situation. She does occasionally feel like she is having double vision did have an eye exam recently that she believes was on target. She has not had an eyeglasses prescription change in some time. CT head on the October admission was unremarkable. We appreciate subspecialty support. She can move out of the intensive care unit. We will switch her antibiotics to oral Cipro which has the best sensitivity profile for this Klebsiella. She may need a urology consult as an outpatient to help curb the frequency of these infections. Certainly do appear to be impacting her functional status along with her other chronic issues. Total time today is 30 minutes with greater than 50% in counseling and coordination of care most of which in discussion with patient and nursing at bedside. We will defer to cardiology on this decision but the Eliquis should probably be decreased to 2.5 twice daily in light of her stage III renal failure baseline creatinine appears to stay around 1.8-2.. She was given Rocephin at the beginning of her hospital stay and transitioned to ciprofloxacin 250 mg p.o. twice daily on the evening prior to her discharge. The patient was moved to the regular floor where she had no acute events overnight and given her debilitated status the patient will require care home facility prior to returning to her usual household. She was in no acute distress on the day of discharge no fevers overnight hemodynamically stable. Discharge Information Condition at Discharge: Improved Follow Up: Weeks Disposition/Orders: D/C to Another Facility Scheduled Allopurinol (Allopurinol) 100 Mg Tablet, 1 TAB PO DAILY, #30 Ref 5 (Reported) Entered as Reported by: JUDAH DO on 07/30/17 1431 Last Action: Continued on 01/03/20926 by RANJEET BREWER MD Apixaban (Eliquis) 5 Mg Tablet, 5 MG PO BID, (Reported) Entered as Reported by: PACO HART on 06/23/15 1146 Last Action: Continued on 01/03/20926 by RANJEET BREWER MD Aspirin (Aspir 81) 81 Mg Tablet.dr, 1 TAB PO DAILY, #30 Ref 5 (Reported) Entered as Reported by: HORACIO CUELLO on 06/21/15 1900 Last Action: Continued on 01/03/20928 by RANJEET BREWER MD Atorvastatin Calcium (Atorvastatin Calcium) 40 Mg Tablet, 1 TAB PO QHS for HLD, #90 Ref 3 (Reported) Entered as Reported by: ELIAS SKY on 08/08/192017 Last Action: Continued on 01/03/20928 by RANJEET BREWER MD Gabapentin (Gabapentin) 600 Mg Tablet, 600 MG PO HS for NEUROGENIC PAIN, (Reported) Entered as Reported by: ELIAS SKY on 08/08/192017 Last Action: Converted on 01/03/20928 by RANJEET BREWER MD Insulin Glargine,Hum.rec.anlog (Lantus Solostar) 100 Unit/1 Ml Insuln.pen, 12 UNIT SQ QHS for DM, #15 Ref 3 (Reported) Entered as Reported by: JULIAN STACEY on 10/16/18727 Last Action: Converted on 01/03/20928 by RANJEET BREWER MD Lactobacillus Rhamnosus Gg (Culturelle) 1 Each Cap.sprink, 1 CAP PO BID for SUPPLEMENT for 30 Days, #60 Prescribed by: ELIAS VILLARREAL MD on 11/15/191346 Last Action: Continued on 01/03/20928 by RANJEET BREWER MD Levothyroxine Sodium (Levothyroxine Sodium) 137 Mcg Tablet, 1 TAB PO DAILY for Hypothyroid, #30 Ref 5 (Reported) Entered as Reported by: LUIS FERRARO on 12/15/191727 Last Action: Continued on 01/03/20928 by RANJEET BREWER MD Losartan Potassium (Losartan Potassium ) 25 Mg Tablet, 25 MG PO DAILY for HEART for 30 Days, #30 Prescribed by: ELIAS VILLARREAL MD on 11/15/191346 Last Action: Continued on 01/03/20928 by RANJEET BREWER MD Metoprolol Succinate (Toprol XL) 50 Mg Tab.er.24h, 50 MG PO HS for FOR HYPERTENSION, (Reported) Entered as Reported by: Felix Mims on 12/15/192030 Last Action: Continued on 01/03/20928 by RANJEET BREWER MD Venlafaxine Hcl (Venlafaxine Hcl) 37.5 Mg Tablet, 1 TAB PO DAILY, #60 Ref 1 (Reported) Entered as Reported by: HORACIO CUELLO on 06/21/151899 Last Action: Converted on 01/03/20928 by RANJEET BREWER MD Justicifation of Admission Dx: Justifications for Admission: Justification of Admission Dx: Yes Sepsis: Infection RANJEET BREWER MD Jan 06, 2020 13:51
[2020-01-06 16:04] VITALS: BP 143/75
[2020-01-06] MEDS ORDERED: CIPR250T30 PO (16:04)
--- NOTE | 2020-01-06 16:05 | SNU/HH DC ---
DISCHARGE ORDERS DISCHARGE INFORMATION: DISCHARGE DATE: Jan 06, 2020 FINAL DIAGNOSIS Problems Medical Problems: (1) Nausea & vomiting Status: Acute (2) Severe sepsis Status: Acute (3) UTI (urinary tract infection) Status: Acute CONDITION ON DISCHARGE: Stable CODE STATUS: Code Status: Full [facility]: SNF STAY <30 DAYS: Yes POST DISCHARGE ORDERS: ACTIVITY ORDERS: Activity as tolerated WEIGHT BEARING STATUS: As tolerated DIET AFTER DISCHARGE: ADA WOUND/INCISION CARE: Keep wound/cast CDI CHECKS AFTER DISCHARGE: CHECKS AFTER DISCHARGE: Check blood press - daily, Check blood sugar, ac/hs TREATMENT/EQUIPMENT ORDERS: ADAPTIVE EQUIPMENT NEEDED: None Physical Therapy For: Evalulation/Treatment Occupational Therapy For: Evaluation/Treatment Speech Language Pathology For: Evaluation/Treatment DISCHARGE MEDICATIONS: Home Meds Active Scripts Ciprofloxacin Hcl (CIPRO) 250 Mg Tablet, 250 MG PO BID for UTI for 5 Days, #10 TAB Prov:RANJEET BREWER MD 01/06/20 Lactobacillus Rhamnosus Gg (CULTURELLE) 1 Each Cap.sprink, 1 CAP PO BID for SUPPLEMENT for 30 Days, #60 CAP Prov:ELIAS VILLARREAL MD 11/15/19 Losartan Potassium (LOSARTAN POTASSIUM ) 25 Mg Tablet, 25 MG PO DAILY for HEART for 30 Days, #30 TAB Prov:ELIAS VILLARREAL MD 11/15/19 Reported Medications Metoprolol Succinate (Toprol XL) 50 Mg Tab.er.24h, 50 MG PO HS for FOR HYPERTENSION, TAB.SR 12/15/19 Levothyroxine Sodium (LEVOTHYROXINE SODIUM) 137 Mcg Tablet, 1 TAB PO DAILY for Hypothyroid, #30 TAB 5 Refills 12/15/19 Atorvastatin Calcium (ATORVASTATIN CALCIUM) 40 Mg Tablet, 1 TAB PO QHS for HLD, #90 TAB 3 Refills 08/08/19 Gabapentin (GABAPENTIN) 600 Mg Tablet, 600 MG PO HS for NEUROGENIC PAIN, TAB 08/08/19 Insulin Glargine,Hum.rec.anlog (LANTUS SOLOSTAR) 100 Unit/1 Ml Insuln.pen, 12 UNIT SQ QHS for DM, #15 ML 3 Refills 10/16/18 Allopurinol (ALLOPURINOL) 100 Mg Tablet, 1 TAB PO DAILY, #30 TAB 5 Refills 07/30/17 Apixaban (ELIQUIS) 5 Mg Tablet, 5 MG PO BID 11/24/15 Venlafaxine Hcl (VENLAFAXINE HCL) 37.5 Mg Tablet, 1 TAB PO DAILY, #60 TAB 1 Refi ll 06/21/15 Aspirin (ASPIR 81) 81 Mg Tablet., 1 TAB PO DAILY, #30 TAB 5 Refills 06/21/15 RANJEET BREWER MD Jan 06, 2020 16:05
[2020-01-06 19:00] VITALS: BP 164/94
[2020-01-06] MEDS: ATORVASTATIN CALCIUM 40 MG TABLET. PO SCH (20:22)
[2020-01-06] MEDS: GABAPENTIN 300 MG CAPSULE. PO SCH (20:22)
[2020-01-06] MEDS: INSULIN GLARGINE SYRINGE. SQ SCH (20:29)
[2020-01-06 23:00] VITALS: BP 164/76
--- NOTE | 2020-01-06 23:30 | PDOC ---
CARDIOLOGY PROGRESS NOTE SUBJECTIVE: Feels tired. Denies any cardiac symptoms. No palpitations or chest pain. No syncope or PND. OBJECTIVE: Vital Signs/I&O: Vital Signs Date Time Temp Pulse Resp B/P (MAP) Pulse Ox O2 Delivery O2 Flow Rate FiO2 01/06/20 20:23 92 164/94 01/06/20 20:00 Room Air 01/06/20 19:00 98.3 18 98 98.3 01/06/20 08:30 2.0 I & O 01/05/20 01/05/20 01/06/20 15:00 23:00 07:00 Intake Total 500 ml 600 ml Output Total 250 ml 600 ml 1325 ml Balance 250 ml -600 ml -725 ml Objective: she has edema of the right arm > left 1+ LE edema. Irregular heart tones. Lungs clr Soft abd CURRENT MEDICATIONS: Current Medications Medications (Trade) Dose Ordered Sig/Ronal Route PRN Reason Start Time Stop Time Status Last Admin Dose Admin Metoprolol Tartrate (Lopressor) 25 mg BID PO 01/06/20 09:30 01/06/20 20:23 Losartan Potassium (Cozaar) 25 mg DAILY PO 01/06/20 09:30 01/06/20 10:48 Magnesium Sulfate 50 ml @ 25 mls/hr 1X ONCE IV 01/06/20 12:00 01/06/20 13:59 DC 01/06/20 12:21 DIAGNOSTIC TESTING: Labs: Laboratory Tests 01/06/20 05:45 Laboratory Tests Test 01/06/20 05:45 01/06/20 07:21 01/06/20 10:48 01/06/20 16:54 White Blood Count 4.3 x10^3/uL (4.0-11.0) Red Blood Count 4.07 x10^6/uL (3.50-5.40) Hemoglobin 11.5 g/dL (12.0-15.5) L Hematocrit 35.6 % (36.0-47.0) L Mean Corpuscular Volume 88 fL (79-100) Mean Corpuscular Hemoglobin 28 pg (25-35) Mean Corpuscular Hemoglobin Concent 32 g/dL (31-37) Red Cell Distribution Width 16.4 % (11.5-14.5) H Platelet Count 68 x10^3/uL (140-400) L Neutrophils (%) (Auto) 70 % (31-73) Lymphocytes (%) (Auto) 20 % (24-48) L Monocytes (%) (Auto) 5 % (0-9) Eosinophils (%) (Auto) 5 % (0-3) H Basophils (%) (Auto) 0 % (0-3) Neutrophils # (Auto) 3.0 x10^3/uL (1.8-7.7) Lymphocytes # (Auto) 0.9 x10^3/uL (1.0-4.8) L Monocytes # (Auto) 0.2 x10^3/uL (0.0-1.1) Eosinophils # (Auto) 0.2 x10^3/uL (0.0-0.7) Basophils # (Auto) 0.0 x10^3/uL (0.0-0.2) Sodium Level 141 mmol/L (136-145) Potassium Level 4.7 mmol/L (3.5-5.1) Chloride Level 111 mmol/L (98-107) H Carbon Dioxide Level 20 mmol/L (21-32) L Anion Gap 10 (6-14) Blood Urea Nitrogen 32 mg/dL (7-20) H Creatinine 1.7 mg/dL (0.6-1.0) H Estimated GFR (Cockcroft-Gault) 29.1 BUN/Creatinine Ratio 19 (6-20) Glucose Level 78 mg/dL (70-99) Calcium Level 8.5 mg/dL (8.5-10.1) Phosphorus Level 3.7 mg/dL (2.6-4.7) Total Bilirubin 0.7 mg/dL (0.2-1.0) Aspartate Amino Transf (AST/SGOT) 50 U/L (15-37) H Alkaline Phosphatase 175 U/L (46-116) H Total Protein 5.2 g/dL (6.4-8.2) L Albumin 2.0 g/dL (3.4-5.0) L Albumin/Globulin Ratio 0.6 (1.0-1.7) L Glucose (Fingerstick) 72 mg/dL (70-99) 103 mg/dL (70-99) H 111 mg/dL (70-99) H Test 01/06/20 19:39 Glucose (Fingerstick) 136 mg/dL (70-99) H ASSESSMENT: 1. CAD s/p CABG 2. Chronic atrial fibrillation 3. HTN 4. DLP 5. Tachy-dong syndrome. 6. Acute sepsis from UTI, POA PLAN: 1. Continue asa, atorvastatin, eliquis, losartan and metoprolol 2. Will re-evaluate renal function on an outpt basis and redose eliquis prn. Ok to DC home on 2.5mg bid. Stable from CV perspective. Thanks Justicifation of Admission Dx: Justifications for Admission: Justification of Admission Dx: Yes Sepsis: Infection MARIE SHARMA MD Jan 06, 2020 23:30
[2020-01-07 03:00] VITALS: BP 176/99
[2020-01-07] MEDS: IV NORMAL SALINE 1000ML BAG 1,000 ML IV SCH (03:19)
[2020-01-07 05:06] LABS: CALCIUM 8.6 mg/dL (8.5-10.1); CREATININE 1.5 mg/dL (0.6-1.0); GFR 33.7; MAGNESIUM 2.1 mg/dL (1.8-2.4); POTASSIUM 5.3 mmol/L (3.5-5.1)
[2020-01-07 07:20] VITALS: BP 174/95
[2020-01-07] MEDS: ELECTROLYTE (ICU) PROTOCOL. MC SCH (09:00)
[2020-01-07 09:23] VITALS: BP 174/95
[2020-01-07] MEDS: ALLOPURINOL 100 MG TABLET. PO SCH (09:23)
[2020-01-07] MEDS: METOPROLOL TART IMMED RELEASE 25 MG TABLET. PO SCH (09:23)
[2020-01-07] MEDS: LACTOBACILLUS RHAMNOSUS GG 1 CAPSULE. PO SCH (09:23)
[2020-01-07] MEDS: APIXABAN 5 MG TABLET. PO SCH (09:23)
[2020-01-07] MEDS: ASPIRIN ENTERIC COATED 81 MG TABLET.DR. PO SCH (09:23)
[2020-01-07] MEDS: VENLAFAXINE 75 MG TABLET. PO SCH (09:24)
[2020-01-07] MEDS: LEVOTHYROXINE 137 MCG TABLET PO SCH (09:24)
[2020-01-07] MEDS: CIPROFLOXACIN HCL 250 MG TABLET. PO SCH (09:24)
--- NOTE | 2020-01-07 09:45 | NUR ---
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 SALINE LOCKS REMOVED FROM LEFT AC AND RIGHT AC AREAS, DIRECT PRESSURE APPLIED AND GAUZE/ COBAN APPLIED DUE TO BLEEDING (PATIENT TAKES ELIQUIS).
--- NOTE | 2020-01-07 10:00 | NUR ---
MAAME following for discharge planning. MAAME reviewed chart. Pt to discharge via w[facility] transport to [facility]. Confirmed discharge with Kelsie from [facility]. MAAME phoned and faxed final discharge orders, , (fax). MAAME met with pt who communicated understanding and acceptance of the discharge plan. Family notified of discharge per RN. Coordinated discharge with RN and Dr. Medellin. No additional SW needs at this time. Addendum: 01/07/20 at 1032 by TREVON ISABEL Confirmed transport time of 10:20am with RN and Kelsie and [facility]
--- NOTE | 2020-01-07 10:15 | NUR ---
REPORT CALLED TO GALLITO AT [facility], QUESTIONS AND CONCERNS ANSWERED, TRANSPORT HER TO TRANSPORT PATIENT, PATIENT LEAVES THE UNIT PER W/C, EMOTIONAL SUPPORT GIVEN, FOLLOW UP APPOINTMENTS ENCOURAGED.
[2020-01-07] MEDS ORDERED: APIX2.5T PO (11:21)
--- NOTE | 2020-01-07 11:21 | PDOC3 ---
Discharge Summary Visit Information Date of Admission: Jan 03, 2020 Date of Discharge: Jan 07, 2020 Admitting Diagnosis Comment: Sepsis secondary to UTI Diarrhea, patient has been on chronic antibiotics. Will test for C diff History of atrial fibrillation on chronic anticoagulation Transaminitis secondary to sepsis picture Thrombocytopenia secondary to sepsis picture elevated troponin secondary to demand ischemia, NSTEMI type 2, will treat underlying etiology of septic picture Essential hypertension CAD currently asymptomatic Diabetes-Type II, Dyslidpidemia Hypothyroidism acquired. CKD stage 3a Final Diagnosis Problems Medical Problems: (1) Nausea & vomiting Status: Acute (2) Severe sepsis Status: Acute (3) UTI (urinary tract infection) Status: Acute Sepsis secondary to UTI, resolved UTI secondary to Klebsiella oxytoca Acute renal failure vasomotor etiology most likely Diarrhea, resolved History of atrial fibrillation on chronic anticoagulation Transaminitis secondary to sepsis picture Thrombocytopenia secondary to sepsis elevated troponin secondary to demand ischemia, NSTEMI type 2, will treat underlying etiology of septic picture Essential hypertension CAD currently asymptomatic Diabetes-Type II, Dyslidpidemia Hypothyroidism acquired. CKD stage 3a Brief Hospital Course Allergies Allergies Coded Allergies Type Severity Reaction Last Updated Verified No Known Drug Allergies 10/03/19 No Vital Signs Vital Signs Date Time Temp Pulse Resp B/P (MAP) Pulse Ox O2 Delivery O2 Flow Rate FiO2 01/07/20 09:23 81 174/95 01/07/20 08:00 Room Air 01/07/20 07:20 98.1 16 98 98.1 01/06/20 08:30 2.0 Lab Results Laboratory Tests Test 01/05/20 21:32 01/06/20 05:45 01/06/20 07:21 01/06/20 10:48 Glucose (Fingerstick) 79 mg/dL (70-99) 72 mg/dL (70-99) 103 mg/dL (70-99) White Blood Count 4.3 x10^3/uL (4.0-11.0) Red Blood Count 4.07 x10^6/uL (3.50-5.40) Hemoglobin 11.5 g/dL (12.0-15.5) Hematocrit 35.6 % (36.0-47.0) Mean Corpuscular Volume 88 fL (79-100) Mean Corpuscular Hemoglobin 28 pg (25-35) Mean Corpuscular Hemoglobin Concent 32 g/dL (31-37) Red Cell Distribution Width 16.4 % (11.5-14.5) Platelet Count 68 x10^3/uL (140-400) Neutrophils (%) (Auto) 70 % (31-73) Lymphocytes (%) (Auto) 20 % (24-48) Monocytes (%) (Auto) 5 % (0-9) Eosinophils (%) (Auto) 5 % (0-3) Basophils (%) (Auto) 0 % (0-3) Neutrophils # (Auto) 3.0 x10^3/uL (1.8-7.7) Lymphocytes # (Auto) 0.9 x10^3/uL (1.0-4.8) Monocytes # (Auto) 0.2 x10^3/uL (0.0-1.1) Eosinophils # (Auto) 0.2 x10^3/uL (0.0-0.7) Basophils # (Auto) 0.0 x10^3/uL (0.0-0.2) Sodium Level 141 mmol/L (136-145) Potassium Level 4.7 mmol/L (3.5-5.1) Chloride Level 111 mmol/L (98-107) Carbon Dioxide Level 20 mmol/L (21-32) Anion Gap 10 (6-14) Blood Urea Nitrogen 32 mg/dL (7-20) Creatinine 1.7 mg/dL (0.6-1.0) Estimated GFR (Cockcroft-Gault) 29.1 BUN/Creatinine Ratio 19 (6-20) Glucose Level 78 mg/dL (70-99) Calcium Level 8.5 mg/dL (8.5-10.1) Phosphorus Level 3.7 mg/dL (2.6-4.7) Magnesium Level 1.6 mg/dL (1.8-2.4) Total Bilirubin 0.7 mg/dL (0.2-1.0) Aspartate Amino Transf (AST/SGOT) 50 U/L (15-37) Alanine Aminotransferase (ALT/SGPT) 54 U/L (14-59) Alkaline Phosphatase 175 U/L (46-116) Total Protein 5.2 g/dL (6.4-8.2) Albumin 2.0 g/dL (3.4-5.0) Albumin/Globulin Ratio 0.6 (1.0-1.7) Test 01/06/20 16:54 01/06/20 19:39 01/07/20 03:20 01/07/20 07:22 Glucose (Fingerstick) 111 mg/dL (70-99) 136 mg/dL (70-99) 96 mg/dL (70-99) Sodium Level 141 mmol/L (136-145) Potassium Level 5.3 mmol/L (3.5-5.1) Chloride Level 111 mmol/L (98-107) Carbon Dioxide Level 20 mmol/L (21-32) Anion Gap 10 (6-14) Blood Urea Nitrogen 27 mg/dL (7-20) Creatinine 1.5 mg/dL (0.6-1.0) Estimated GFR (Cockcroft-Gault) 33.7 Glucose Level 115 mg/dL (70-99) Calcium Level 8.6 mg/dL (8.5-10.1) Magnesium Level 2.1 mg/dL (1.8-2.4) Laboratory Tests Test 01/06/20 16:54 01/06/20 19:39 01/07/20 03:20 01/07/20 07:22 Glucose (Fingerstick) 111 mg/dL (70-99) 136 mg/dL (70-99) 96 mg/dL (70-99) Sodium Level 141 mmol/L (136-145) Potassium Level 5.3 mmol/L (3.5-5.1) Chloride Level 111 mmol/L (98-107) Carbon Dioxide Level 20 mmol/L (21-32) Anion Gap 10 (6-14) Blood Urea Nitrogen 27 mg/dL (7-20) Creatinine 1.5 mg/dL (0.6-1.0) Estimated GFR (Cockcroft-Gault) 33.7 Glucose Level 115 mg/dL (70-99) Calcium Level 8.6 mg/dL (8.5-10.1) Magnesium Level 2.1 mg/dL (1.8-2.4) Brief Hospital Course Mrs Negro was admitted to the intensive care unit due to the sepsis that was reported upon admission. She was started on broad-spectrum antibiotics, and remained in the ICU for 2 days Patient examined chart reviewed she is feeling a little stronger today but still overall weak and her biggest complaint remains ongoing dizziness. She has not had any hypotension since her admission 48 hours ago blood pressure has been stable in the 1 teens and 120s. She remains tachycardic but does not claim to feel symptomatic when her heart rate is high. She has started working with physical therapy and Occupational Therapy and their assistance is appreciated. Perhaps a stay in rehab would help to optimize her situation. She does occasionally feel like she is having double vision did have an eye exam recently that she believes was on target. She has not had an eyeglasses prescription change in some time. CT head on the October admission was unremarkable. We appreciate subspecialty support. She can move out of the intensive care unit. We will switch her antibiotics to oral Cipro which has the best sensitivity profile for this Klebsiella. She may need a urology consult as an outpatient to help curb the frequency of these infections. Certainly do appear to be impacting her functional status along with her other chronic issues. Total time today is 30 minutes with greater than 50% in counseling and coordination of care most of which in discussion with patient and nursing at bedside. We will defer to cardiology on this decision but the Eliquis should probably be decreased to 2.5 twice daily in light of her stage III renal failure baseline creatinine appears to stay around 1.8-2.. She was given Rocephin at the beginning of her hospital stay and transitioned to ciprofloxacin 250 mg p.o. twice daily on the evening prior to her discharge. The patient was moved to the regular floor where she had no acute events overnight and given her debilitated status the patient will require snf facility prior to returning to her usual household. She was in no acute distress on the day of discharge no fevers overnight hemodynamically stable. Discharge Information Condition at Discharge: Improved Follow Up: Weeks Disposition/Orders: D/C to Another Facility Scheduled Allopurinol (Allopurinol) 100 Mg Tablet, 1 TAB PO DAILY, #30 Ref 5 (Reported) Entered as Reported by: JUDAH DO on 07/30/17 1431 Last Action: Continued on 01/03/20926 by RANJEET BREWER MD Apixaban (Eliquis) 5 Mg Tablet, 5 MG PO BID, (Reported) Entered as Reported by: PACO HART on 06/23/15 1146 Last Action: Continued on 01/03/20926 by RANJEET BREWER MD Aspirin (Aspir 81) 81 Mg Tablet., 1 TAB PO DAILY, #30 Ref 5 (Reported) Entered as Reported by: HORACIO CUELLO on 06/21/15 1900 Last Action: Continued on 01/03/20928 by RANJEET BREWER MD Atorvastatin Calcium (Atorvastatin Calcium) 40 Mg Tablet, 1 TAB PO QHS for HLD, #90 Ref 3 (Reported) Entered as Reported by: ELIAS SKY on 08/08/192017 Last Action: Continued on 01/03/20928 by RANJEET BREWER MD Ciprofloxacin Hcl (Cipro) 250 Mg Tablet, 250 MG PO BID for UTI for 5 Days, #10 Prescribed by: RANJEET BREWER MD on 01/06/20 1604 Gabapentin (Gabapentin) 600 Mg Tablet, 600 MG PO HS for NEUROGENIC PAIN, (Reported) Entered as Reported by: ELIAS SKY on 08/08/192017 Last Action: Converted on 01/03/20928 by RANJEET BREWER MD Insulin Glargine,Hum.rec.anlog (Lantus Solostar) 100 Unit/1 Ml Insuln.pen, 12 UNIT SQ QHS for DM, #15 Ref 3 (Reported) Entered as Reported by: JULIAN IBARRA on 10/16/18727 Last Action: Converted on 01/03/20928 by RANJEET BREWER MD Lactobacillus Rhamnosus Gg (Culturelle) 1 Each Cap.sprink, 1 CAP PO BID for SUPPLEMENT for 30 Days, #60 Prescribed by: ELIAS VILLARREAL MD on 11/15/19 1347 Last Action: Continued on 01/03/20928 by RANJEET BREWER MD Levothyroxine Sodium (Levothyroxine Sodium) 137 Mcg Tablet, 1 TAB PO DAILY for Hypothyroid, #30 Ref 5 (Reported) Entered as Reported by: LUIS FERRARO on 12/15/19 1728 Last Action: Continued on 01/03/20928 by RANJEET BREWER MD Losartan Potassium (Losartan Potassium ) 25 Mg Tablet, 25 MG PO DAILY for HEART for 30 Days, #30 Prescribed by: ELIAS VILLARREAL MD on 11/15/19 1347 Last Action: Continued on 01/03/20928 by RANJEET BREWER MD Metoprolol Succinate (Toprol XL) 50 Mg Tab.er.24h, 50 MG PO HS for FOR HYPER TENSION, (Reported) Entered as Reported by: Felix Mims on 12/15/192030 Last Action: Continued on 01/03/20928 by RANJEET BREWER MD Venlafaxine Hcl (Venlafaxine Hcl) 37.5 Mg Tablet, 1 TAB PO DAILY, #60 Ref 1 (Reported) Entered as Reported by: HORACIO CUELLO on 06/21/151899 Last Action: Converted on 01/03/20928 by RANJEET BREWER MD Justicifation of Admission Dx: Justifications for Admission: Justification of Admission Dx: Yes Sepsis: Infection RANJEET BREWER MD Jan 07, 2020 11:21
== END 2020-01-07 10:35 | DRG 871 ==
LOC: ER 06:02 → 1 WEST ICU 11:08 → 6 SOUTH 01-05 17:25
PROVIDERS: ADMIT Internal Medicine; ATTEND Internal Medicine
DX: A41.9 Sepsis, unspecified organism (principal); I21.A1 Myocardial infarction type 2; R65.21 Severe sepsis with septic shock; I48.20 Chronic atrial fibrillation, unspecified; N12 Tubulo-interstitial nephritis, not specified as acute or chronic; N17.9 Acute kidney failure, unspecified; B96.1 Klebsiella pneumoniae [K. pneumoniae] as the cause of diseases classified elsewhere; D69.59 Other secondary thrombocytopenia; E03.9 Hypothyroidism, unspecified; E11.22 Type 2 diabetes mellitus with diabetic chronic kidney disease; E78.00 Pure hypercholesterolemia, unspecified; R31.9 Hematuria, unspecified; E78.5 Hyperlipidemia, unspecified; E86.0 Dehydration; E87.6 Hypokalemia; I13.10 Hypertensive heart and chronic kidney disease without heart failure, with stage 1 through stage 4 chronic kidney disease, or unspecified chronic kidney disease; I25.10 Atherosclerotic heart disease of native coronary artery without angina pectoris; I49.5 Sick sinus syndrome; N18.3 Chronic kidney disease, stage 3 (moderate); Z20.828 Contact with and (suspected) exposure to other viral communicable diseases; Z79.2 Long term (current) use of antibiotics; Z79.01 Long term (current) use of anticoagulants; Z83.3 Family history of diabetes mellitus; Z87.440 Personal history of urinary (tract) infections; Z87.891 Personal history of nicotine dependence; Z90.710 Acquired absence of both cervix and uterus; Z95.1 Presence of aortocoronary bypass graft; F32.9 Major depressive disorder, single episode, unspecified; M10.9 Gout, unspecified; M19.90 Unspecified osteoarthritis, unspecified site
CPT/HCPCS: 36415; 71045; 80048; 80053; 81001; 82962; 83605; 83690; 83735; 83880; 84100; 84145; 84439; 84443; 84484; 85007; 85025; 85379; 85384; 85610; 85730; 87040; 87086; 93005; 96365; 96366; 96375; 99285; J0696; J1160; J1815; J2270; J2405; J2543; J3475; J3480; J3490; J7030; J7060; 97110-GP; 97116-GP; 97530-GP; G0378; U0003-CS

== ENCOUNTER → 2020-01-28 | Outpatient (CLI) | payer MEDICARE ==
[2020-01-07 09:23] VITALS: BP 174/95
[~2020-01-28] MED LIST changes: +APIX2.5T PO; +LEVO150T5 PO; +POTA10TA12 PO
--- NOTE | 2020-01-28 16:27 | CARD ---
MR#: [id number] Date of Study: 01/28/2020 Ordering Physician: MARIE SHARMA, Referring Physician: MARIE SHARMA, Tech: APPROVED REPORT Please see separate report in [facility]. <Conclusion> THIS IS A LINQ Signed by : Marie Sharma, Electronically Approved : 01/28/2020 16:26:22
== END ==
LOC: LINQ 10:49
PROVIDERS: ATTEND Internal Medicine Cardiovascular Disease
DX: Z45.09 Encounter for adjustment and management of other cardiac device (principal)
CPT/HCPCS: 33285; C1764

== ENCOUNTER 2020-02-04 07:54 | Inpatient (IN) | payer MEDICARE ==
[~2020-02-04] VITALS: Ht 170.2 cm; Wt 79.8 kg
[2020-02-04] VITALS (11 sets, daily range): BP systolic 72–111; BP diastolic 44–67
[~2020-02-04 07:54] MED LIST changes: -LEVO150T5 PO; -POTA10TA12 PO
[2020-02-04] MEDS ORDERED: IV NORMAL SALINE 1000ML BAG 1,000 ML IV ONE ×2 (08:15→08:30)
[2020-02-04] MEDS ORDERED: ACETAMINOPHEN 500 MG TABLET PO ONE (08:15)
[2020-02-04] MEDS ORDERED: ONDANSETRON PF 4 MG/2 ML VIAL. ONE (08:21)
[2020-02-04 08:26] LABS: BASO % 0 % (0-3); EOS % 0 % (0-3); HEMOGLOBIN 12.7 g/dL (12.0-15.5); LYMPH # 0.2 x10^3/uL (1.0-4.8); LYMPH % 2 % (24-48); MEAN CORPUSCULAR HEMOGLOBIN 29 pg (25-35); MEAN CORPUSCULAR HGB CONC 33 g/dL (31-37); MEAN CORPUSCULAR VOLUME 89 fL (79-100); MONO # 0.4 x10^3/uL (0.0-1.1); MONO % 3 % (0-9); NEUT # 11.3 x10^3/uL (1.8-7.7); NEUT % 95 % (31-73); PLATELET COUNT 88 x10^3/uL (140-400); RED BLOOD COUNT 4.39 x10^6/uL (3.50-5.40); RED CELL DISTRIBUTION WIDTH 16.6 % (11.5-14.5); WHITE BLOOD COUNT 11.8 x10^3/uL (4.0-11.0)
[2020-02-04 08:35] LABS: CALCIUM 8.7 mg/dL (8.5-10.1); CREATININE 1.8 mg/dL (0.6-1.0); GFR 27.3; POTASSIUM 3.6 mmol/L (3.5-5.1)
[2020-02-04 08:38] LABS: PROTHROMBIN TIME PATIENT 21.1 SEC (11.7-14.0)
[2020-02-04 08:40] LABS: ALBUMIN 3.2 g/dL (3.4-5.0); TOTAL BILIRUBIN 0.9 mg/dL (0.2-1.0); TOTAL PROTEIN 6.4 g/dL (6.4-8.2)
[2020-02-04 08:47] LABS: BILIRUBIN,URINE SMALL (NEG); CLARITY,URINE CLOUDY; COLOR,URINE AMBER; NITRITE,URINE NEGATIVE (NEG); PROTEIN,URINE 30 mg/dL (NEG-TRACE)
--- NOTE | 2020-02-04 08:58 | RAD ---
PORTABLE CHEST 1V History: Reason: SOA / Spl. Instructions: / History: Comparison: January 03, 2020 Findings: Increased patchy left basilar opacity. Bilateral interstitial thickening, unchanged and may relate to chronic interstitial changes. No pleural effusion. Enlarged cardiac size. Prior median sternotomy. Cardiac monitoring device noted. No pneumothorax. Impression: 1. Increased patchy left basilar opacity, may represent atelectasis or developing consolidation. Recommend follow-up. Electronically signed by: Tj Acuna DO (02/04/2020 8:56 AM) [id number]
[2020-02-04 08:59] LABS: BACTERIA,URINE FEW /HPF (0-FEW); RBC,URINE 20-40 /HPF (0-2); SQUAMOUS EPITHELIAL CELL,UR OCC /LPF
[2020-02-04 09:00] LABS: HYALINE CASTS, URINE FEW /HPF
[2020-02-04] MEDS ORDERED: PIPERACILLIN/TAZOBACTAM 3.375 GM in IV NORMAL SALINE 50ML 50 ML IV ONE (09:00)
--- NOTE | 2020-02-04 10:03 | EKG ---
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
[2020-02-04] MEDS ORDERED: IV NORMAL SALINE 1000ML BAG 1,000 ML IV SCH (10:10)
[2020-02-04 10:13] LABS: % BANDS 2 % (0-9); % LYMPHS 1 % (24-48); % MONOS 3 % (0-10); % SEGS 94 % (35-66); PLT ESTIMATE DECREASED (ADEQUATE)
[2020-02-04 10:14] LABS: POLYCHROMASIA SLIGHT
[2020-02-04] MEDS ORDERED: MAGNESIUM SULFATE 2GM 50 ML IV ONE (10:15)
[2020-02-04] MEDS ORDERED: PIP/TAZO PER PHARMACY MC PRN (10:15)
[2020-02-04] MEDS ORDERED: ONDANSETRON PF 4 MG/2 ML VIAL. IV PRN (10:15)
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
--- NOTE | 2020-02-04 12:41 | RAD ---
CT ABDOMEN PELVIS WO CONTRAST History: Reason: n/v, abdmominal pain, constipation / Spl. Instructions: / History: Technique: Noncontrast examination of the abdomen and pelvis. Coronal and sagittal reconstructions were performed. Exposure: One or more of the following individualized dose reduction techniques were utilized for this examination: 1. Automated exposure control 2. Adjustment of the mA and/or kV according to patient size 3. Use of iterative reconstruction technique. Comparison: August 08, 2019 Findings: Lower chest: Right basilar chronic interstitial changes. No pleural effusion. Coronary artery calcification. Abdomen and pelvis: Nodular contour of the liver. The spleen is mildly enlarged measures 13.5 cm. The adrenal glands and pancreas are unremarkable. Prior cholecystectomy. Biliary ducts within normal limits for post cholecystectomy state. Bilateral perinephric stranding compared to prior. No hydronephrosis. Punctate nonobstructing left renal calculus. Mild edema and unorganized fluid within the region of the gallbladder fossa and along the right inferior edge of the liver. Colonic diverticulosis. Normal appendix. No evidence of bowel obstruction. No pathologic lymphadenopathy. No ascites. Atheromatous plaque throughout the nonaneurysmal abdominal aorta. Prior hysterectomy. Bones: No pathologic osseous lesions. Impression: 1. New bilateral perinephric stranding, concerning for pyelonephritis. No hydronephrosis. 2. Small nonspecific fluid within the region of the gallbladder fossa. 3. Nodular morphology of the liver, may indicate chronic liver disease. 4. Mild splenomegaly. 5. Punctate nonobstructing left renal calculus. 6. Prior cholecystectomy. Electronically signed by: Tj Acuna DO (02/04/2020 12:38 PM) [id number]
--- NOTE | 2020-02-04 13:13 | NUR ---
SW following. SW notified by Dustin CROFT, , (fax) that pt is a current HH patient and will want resumption of HH on discharge.
--- NOTE | 2020-02-04 13:43 | PDOC1 ---
History and Physical Date of Admission Date of Admission DATE: 02/04/20 TIME: 13:43 History of Present Illness History of Present Illness Ms. Craft is a 79 year old female admit for sepsis, was brought for weakness, confusion, fever, nausea and constipation. Patient had not have a bowel movement for a week. Patient also has nonproductive cough for several days. Patient was recently admitted to the hospital due to severe sepsis, atrial fibrillation, had a loop recorder placed. Patient had neuropathy in her leg so she been having bilateral legs pain, denies any leg swelling. Past Medical History Cardiovascular: AFIB, CAD, HTN, Hyperlipidemia, Other Pulmonary: Other CENTRAL NERVOUS SYSTEM: Periperal neuropathy GI: Other Heme/Onc: No pertinent hx Hepatobiliary: No pertinent hx Psych: Depression Musculoskeletal: Osteoarthritis Rheumatologic: Gout Infectious disease: No pertinent hx Renal/: Chronic renal insuff, UTI Endocrine: Diabetes, Hypothyroidism Past Surgical History Past Surgical History: Cholecystectomy, CABG, Cataract Removal, Hernia Repair, Tonsillectomy, Other Family History Family History: Diabetes Social History Smoke: No ALCOHOL: rare Drugs: None Current Problem List Problem List Problems Medical Problems: (1) Afib Status: Acute (2) Hypomagnesemia Status: Acute (3) Pneumonia Status: Acute (4) Severe sepsis Status: Acute (5) Suspected 2019-nCoV infection Status: Acute (6) UTI (urinary tract infection) Status: Acute Current Medications Current Medications Current Medications Acetaminophen (Tylenol) 1,000 mg 1X ONCE PO Last administered on 02/04/20at 08:25; Start 02/04/20 at 08:15; Stop 02/04/20 at 08:19; Status DC Sodium Chloride 1,000 ml @ 1,000 mls/hr 1X ONCE IV Last administered on 02/04/20at 08:26; Start 02/04/20 at 08:15; Stop 02/04/20 at 09:14; Status DC Ondansetron HCl (Zofran) 4 mg STK-MED ONCE .ROUTE ; Start 02/04/20 at 08:21; Stop 02/04/20 at 08:21; Status DC Sodium Chloride 1,000 ml @ 1,000 mls/hr 1X ONCE IV Last administered on 02/04/20at 08:26; Start 02/04/20 at 08:30; Stop 02/04/20 at 09:29; Status DC Piperacillin Sod/ Tazobactam Sod 3.375 gm/Sodium Chloride 50 ml @ 100 mls/hr 1X ONCE IV Last administered on 02/04/20at 09:34; Start 02/04/20 at 09:00; Stop 02/04/20 at 09:29; Status DC Magnesium Sulfate 50 ml @ 25 mls/hr 1X ONCE IV Last administered on 02/04/20at 11:06; Start 02/04/20 at 10:15; Stop 02/04/20 at 12:14; Status DC Ondansetron HCl (Zofran) 4 mg PRN Q8HRS PRN IV NAUSEA/VOMITING; Start 02/04/20 at 10:15; Stop 02/05/20 at 10:14 Sodium Chloride 1,000 ml @ 125 mls/hr Q8H IV Last administered on 02/04/20at 11:06; Start 02/04/20 at 10:10; Stop 02/05/20 at 10:09 Piperacillin Sod/ Tazobactam Sod (Zosyn Per Pharmacy) 1 each PRN DAILY PRN MC SEE COMMENTS; Start 02/04/20 at 10:15 Piperacillin Sod/ Tazobactam Sod 3.375 gm/Sodium Chloride 50 ml @ 100 mls/hr Q6HRS IV ; Start 02/04/20 at 18:00 Active Scripts Active Eliquis (Apixaban) 2.5 Mg Tablet 2.5 Mg PO BID 30 Days Cipro (Ciprofloxacin Hcl) 250 Mg Tablet 250 Mg PO BID 5 Days Culturelle (Lactobacillus Rhamnosus Gg) 1 Each Cap.sprink 1 Cap PO BID 30 Days Losartan Potassium (Losartan Potassium) 25 Mg Tablet 25 Mg PO DAILY 30 Days Reported Toprol XL (Metoprolol Succinate) 50 Mg Tab.er.24h 50 Mg PO HS Levothyroxine Sodium 137 Mcg Tablet 1 Tab PO DAILY Atorvastatin Calcium 40 Mg Tablet 1 Tab PO QHS Gabapentin 600 Mg Tablet 600 Mg PO HS Lantus Solostar (Insulin Glargine,Hum.rec.anlog) 100 Unit/1 Ml Insuln.pen 12 Unit SQ QHS Allopurinol 100 Mg Tablet 1 Tab PO DAILY Venlafaxine Hcl 37.5 Mg Tablet 1 Tab PO DAILY Aspir 81 (Aspirin) 81 Mg Tablet.dr 1 Tab PO DAILY Allergies Allergies: Coded Allergies: No Known Drug Allergies (Unverified , 3/5/20) ROS General: YES: Chills, Fatigue, Malaise; No: Night Sweats, Appetite, Other PSYCHOLOGICAL ROS: No: Anxiety, Behavioral Disorder, Concentration difficultie, Decreased libido, Depression, Disorientation, Hallucinations, Hostility, Irritablity, Memory difficulties, Mood Swings, Obsessive thoughts, Other Eyes: No Blurry vision, No Decreased vision, No Double vision, No Dry eyes, No Excessive tearing, No Eye Pain, No Itchy Eyes, No Loss of vision, No Photophobia, No Scotomata, No Uses contacts, No Uses glasses, No Other HEENT: No: Heacaches, Visual Changes, Hearing change, Nasal congestion, Nasal discharge, Oral lesions, Sinus pain, Sore Throat, Epistaxis, Sneezing, Snoring, Tinnitus, Vertigo, Vocal changes, Other Respiratory: YES: Shortness of breath, SOB with excertion, Tachypnea; No: Cough, Hemoptysis, Orthopnea, Pleuritic Pain, Sputum Changes, Stridor, Wheezing, Other Cardiovascular: No Chest Pain, No Palpitations, No Orthopnea, No Paroxysmal Noc. Dyspnea, No Edema, No Lt Headedness, No Other Gastrointestinal: Yes Nausea; No Vomiting, No Abdominal Pain, No Diarrhea, No Constipation, No Melena, No Hematochezia, No Other Genitourinary: No Dysuria, No Frequency, No Incontinence, No Hematuria, No Retention, No Discharge, No Urgency, No Pain, No Flank Pain, No Other, No , No , No , No , No , No , No Musculoskeletal: Yes Joint Pain, Yes Joint Stiffness Neurological: No Behavorial Changes, No Bowel/Bladder ControlChng, No Confusi on, No Dizziness, No Gait Disturbance, No Headaches, No Impaired Coord/balance, No Memory Loss, No Numbness/Tingling, No Seizures, No Speech Problems, No Tremors, No Visual Changes, No Weakness, No Other Skin: No Dry Skin, No Eczema, No Hair Changes, No Lumps, No Mole Changes, No Mottling, No Nail Changes, No Pruritus, No Rash, No Skin Lesion Changes, No Other, No Acne Physical Exam General: Alert, Oriented X3, Cooperative, mild distress HEENT: PERRLA, EOMI Lungs: Clear to auscultation, Normal air movement Heart: S1S2 Abdomen: Normal bowel sounds, Soft Extremities: No clubbing, No edema Skin: No rashes, No breakdown Neuro: Normal speech, Sensation intact Psych/Mental Status: Mood NL Vitals Vitals Vital Signs Date Time Temp Pulse Resp B/P (MAP) Pulse Ox O2 Delivery O2 Flow Rate FiO2 02/04/20 12:52 94 20 90/54 (66) 100 Nasal Cannula 2.0 02/04/20 11:05 100.2 100.2 Labs Labs Laboratory Tests Test 02/04/20 07:59 02/04/20 08:10 02/04/20 08:40 02/04/20 12:10 Glucose (Fingerstick) 179 mg/dL (70-99) White Blood Count 11.8 x10^3/uL (4.0-11.0) Red Blood Count 4.39 x10^6/uL (3.50-5.40) Hemoglobin 12.7 g/dL (12.0-15.5) Hematocrit 39.0 % (36.0-47.0) Mean Corpuscular Volume 89 fL (79-100) Mean Corpuscular Hemoglobin 29 pg (25-35) Mean Corpuscular Hemoglobin Concent 33 g/dL (31-37) Red Cell Distribution Width 16.6 % (11.5-14.5) Platelet Count 88 x10^3/uL (140-400) Neutrophils (%) (Auto) 95 % (31-73) Lymphocytes (%) (Auto) 2 % (24-48) Monocytes (%) (Auto) 3 % (0-9) Eosinophils (%) (Auto) 0 % (0-3) Basophils (%) (Auto) 0 % (0-3) Neutrophils # (Auto) 11.3 x10^3/uL (1.8-7.7) Lymphocytes # (Auto) 0.2 x10^3/uL (1.0-4.8) Monocytes # (Auto) 0.4 x10^3/uL (0.0-1.1) Eosinophils # (Auto) 0.0 x10^3/uL (0.0-0.7) Basophils # (Auto) 0.0 x10^3/uL (0.0-0.2) Segmented Neutrophils % 94 % (35-66) Band Neutrophils % 2 % (0-9) Lymphocytes % 1 % (24-48) Monocytes % 3 % (0-10) Platelet Estimate Decreased (ADEQUATE) Large Platelets Few Polychromasia Slight Prothrombin Time 21.1 SEC (11.7-14.0) Prothromb Time International Ratio 1.9 (0.8-1.1) Activated Partial Thromboplast Time 32 SEC (24-38) Sodium Level 139 mmol/L (136-145) Potassium Level 3.6 mmol/L (3.5-5.1) Chloride Level 102 mmol/L (98-107) Carbon Dioxide Level 19 mmol/L (21-32) Anion Gap 18 (6-14) Blood Urea Nitrogen 21 mg/dL (7-20) Creatinine 1.8 mg/dL (0.6-1.0) Estimated GFR (Cockcroft-Gault) 27.3 BUN/Creatinine Ratio 12 (6-20) Glucose Level 187 mg/dL (70-99) Lactic Acid Level 5.7 mmol/L (0.4-2.0) 4.2 mmol/L (0.4-2.0) Calcium Level 8.7 mg/dL (8.5-10.1) Magnesium Level 1.4 mg/dL (1.8-2.4) Total Bilirubin 0.9 mg/dL (0.2-1.0) Aspartate Amino Transf (AST/SGOT) 246 U/L (15-37) Alanine Aminotransferase (ALT/SGPT) 104 U/L (14-59) Alkaline Phosphatase 141 U/L (46-116) Troponin I Quantitative < 0.017 ng/mL (0.000-0.055) Total Protein 6.4 g/dL (6.4-8.2) Albumin 3.2 g/dL (3.4-5.0) Albumin/Globulin Ratio 1.0 (1.0-1.7) Urine Collection Type U cath Urine Color [place] Urine Clarity Cloudy Urine pH 5.0 (<5.0-8.0) Urine Specific [place] 1.015 (1.000-1.030) Urine Protein 30 mg/dL (NEG-TRACE) Urine Glucose (UA) Negative mg/dL (NEG) Urine Ketones (Stick) Trace mg/dL (NEG) Urine Blood Large (NEG) Urine Nitrite Negative (NEG) Urine Bilirubin Small (NEG) Urine Urobilinogen Dipstick 1.0 mg/dL (0.2 mg/dL) Urine Leukocyte Esterase Small (NEG) Urine RBC 20-40 /HPF (0-2) Urine WBC 1-4 /HPF (0-4) Urine Squamous Epithelial Cells Occ /LPF Urine Bacteria Few /HPF (0-FEW) Urine Hyaline Casts Few /HPF Test 02/04/20 13:02 Glucose (Fingerstick) 173 mg/dL (70-99) Laboratory Tests Test 02/04/20 07:59 02/04/20 08:10 02/04/20 08:40 02/04/20 12:10 Glucose (Fingerstick) 179 mg/dL (70-99) White Blood Count 11.8 x10^3/uL (4.0-11.0) Red Blood Count 4.39 x10^6/uL (3.50-5.40) Hemoglobin 12.7 g/dL (12.0-15.5) Hematocrit 39.0 % (36.0-47.0) Mean Corpuscular Volume 89 fL (79-100) Mean Corpuscular Hemoglobin 29 pg (25-35) Mean Corpuscular Hemoglobin Concent 33 g/dL (31-37) Red Cell Distribution Width 16.6 % (11.5-14.5) Platelet Count 88 x10^3/uL (140-400) Neutrophils (%) (Auto) 95 % (31-73) Lymphocytes (%) (Auto) 2 % (24-48) Monocytes (%) (Auto) 3 % (0-9) Eosinophils (%) (Auto) 0 % (0-3) Basophils (%) (Auto) 0 % (0-3) Neutrophils # (Auto) 11.3 x10^3/uL (1.8-7.7) Lymphocytes # (Auto) 0.2 x10^3/uL (1.0-4.8) Monocytes # (Auto) 0.4 x10^3/uL (0.0-1.1) Eosinophils # (Auto) 0.0 x10^3/uL (0.0-0.7) Basophils # (Auto) 0.0 x10^3/uL (0.0-0.2) Segmented Neutrophils % 94 % (35-66) Band Neutrophils % 2 % (0-9) Lymphocytes % 1 % (24-48) Monocytes % 3 % (0-10) Platelet Estimate Decreased (ADEQUATE) Large Platelets Few Polychromasia Slight Prothrombin Time 21.1 SEC (11.7-14.0) Prothromb Time International Ratio 1.9 (0.8-1.1) Activated Partial Thromboplast Time 32 SEC (24-38) Sodium Level 139 mmol/L (136-145) Potassium Level 3.6 mmol/L (3.5-5.1) Chloride Level 102 mmol/L (98-107) Carbon Dioxide Level 19 mmol/L (21-32) Anion Gap 18 (6-14) Blood Urea Nitrogen 21 mg/dL (7-20) Creatinine 1.8 mg/dL (0.6-1.0) Estimated GFR (Cockcroft-Gault) 27.3 BUN/Creatinine Ratio 12 (6-20) Glucose Level 187 mg/dL (70-99) Lactic Acid Level 5.7 mmol/L (0.4-2.0) 4.2 mmol/L (0.4-2.0) Calcium Level 8.7 mg/dL (8.5-10.1) Magnesium Level 1.4 mg/dL (1.8-2.4) Total Bilirubin 0.9 mg/dL (0.2-1.0) Aspartate Amino Transf (AST/SGOT) 246 U/L (15-37) Alanine Aminotransferase (ALT/SGPT) 104 U/L (14-59) Alkaline Phosphatase 141 U/L (46-116) Troponin I Quantitative < 0.017 ng/mL (0.000-0.055) Total Protein 6.4 g/dL (6.4-8.2) Albumin 3.2 g/dL (3.4-5.0) Albumin/Globulin Ratio 1.0 (1.0-1.7) Urine Collection Type U cath Urine Color [place] Urine Clarity Cloudy Urine pH 5.0 (<5.0-8.0) Urine Specific [place] 1.015 (1.000-1.030) Urine Protein 30 mg/dL (NEG-TRACE) Urine Glucose (UA) Negative mg/dL (NEG) Urine Ketones (Stick) Trace mg/dL (NEG) Urine Blood Large (NEG) Urine Nitrite Negative (NEG) Urine Bilirubin Small (NEG) Urine Urobilinogen Dipstick 1.0 mg/dL (0.2 mg/dL) Urine Leukocyte Esterase Small (NEG) Urine RBC 20-40 /HPF (0-2) Urine WBC 1-4 /HPF (0-4) Urine Squamous Epithelial Cells Occ /LPF Urine Bacteria Few /HPF (0-FEW) Urine Hyaline Casts Few /HPF Test 02/04/20 13:02 Glucose (Fingerstick) 173 mg/dL (70-99) VTE Prophylaxis Ordered VTE Prophylaxis Devices: Yes VTE Pharmacological Prophylaxi: Yes Assessment/Plan Assessment/Plan hypoxia sepsis, severe sepsis, IV fluid given, r/o COVID19 weakness History of atrial fibrillation on chronic anticoagulation Diabetes-Type II, htn, dm2, lipids Hypothyroidism CKD 3 Justicifation of Admission Dx: Justifications for Admission: Justification of Admission Dx: Yes Sepsis: Infection ELSA BAILEY MD Feb 04, 2020 13:43
--- NOTE | 2020-02-04 14:18 | PDOC ---
PULMONARY PROGRESS NOTES Vitals Vital Signs Date Time Temp Pulse Resp B/P (MAP) Pulse Ox O2 Delivery O2 Flow Rate FiO2 02/04/20 12:52 94 20 90/54 (66) 100 Nasal Cannula 2.0 02/04/20 11:05 100.2 100.2 General: Alert, Oriented X4 Lungs: Clear Cardiovascular: Other Abdomen: Soft Extremities: No Edema Labs Laboratory Tests Test 02/04/20 07:59 02/04/20 08:10 02/04/20 08:40 02/04/20 12:10 Glucose (Fingerstick) 179 mg/dL (70-99) White Blood Count 11.8 x10^3/uL (4.0-11.0) Red Blood Count 4.39 x10^6/uL (3.50-5.40) Hemoglobin 12.7 g/dL (12.0-15.5) Hematocrit 39.0 % (36.0-47.0) Mean Corpuscular Volume 89 fL (79-100) Mean Corpuscular Hemoglobin 29 pg (25-35) Mean Corpuscular Hemoglobin Concent 33 g/dL (31-37) Red Cell Distribution Width 16.6 % (11.5-14.5) Platelet Count 88 x10^3/uL (140-400) Neutrophils (%) (Auto) 95 % (31-73) Lymphocytes (%) (Auto) 2 % (24-48) Monocytes (%) (Auto) 3 % (0-9) Eosinophils (%) (Auto) 0 % (0-3) Basophils (%) (Auto) 0 % (0-3) Neutrophils # (Auto) 11.3 x10^3/uL (1.8-7.7) Lymphocytes # (Auto) 0.2 x10^3/uL (1.0-4.8) Monocytes # (Auto) 0.4 x10^3/uL (0.0-1.1) Eosinophils # (Auto) 0.0 x10^3/uL (0.0-0.7) Basophils # (Auto) 0.0 x10^3/uL (0.0-0.2) Segmented Neutrophils % 94 % (35-66) Band Neutrophils % 2 % (0-9) Lymphocytes % 1 % (24-48) Monocytes % 3 % (0-10) Platelet Estimate Decreased (ADEQUATE) Large Platelets Few Polychromasia Slight Prothrombin Time 21.1 SEC (11.7-14.0) Prothromb Time International Ratio 1.9 (0.8-1.1) Activated Partial Thromboplast Time 32 SEC (24-38) Sodium Level 139 mmol/L (136-145) Potassium Level 3.6 mmol/L (3.5-5.1) Chloride Level 102 mmol/L (98-107) Carbon Dioxide Level 19 mmol/L (21-32) Anion Gap 18 (6-14) Blood Urea Nitrogen 21 mg/dL (7-20) Creatinine 1.8 mg/dL (0.6-1.0) Estimated GFR (Cockcroft-Gault) 27.3 BUN/Creatinine Ratio 12 (6-20) Glucose Level 187 mg/dL (70-99) Lactic Acid Level 5.7 mmol/L (0.4-2.0) 4.2 mmol/L (0.4-2.0) Calcium Level 8.7 mg/dL (8.5-10.1) Magnesium Level 1.4 mg/dL (1.8-2.4) Total Bilirubin 0.9 mg/dL (0.2-1.0) Aspartate Amino Transf (AST/SGOT) 246 U/L (15-37) Alanine Aminotransferase (ALT/SGPT) 104 U/L (14-59) Alkaline Phosphatase 141 U/L (46-116) Troponin I Quantitative < 0.017 ng/mL (0.000-0.055) Total Protein 6.4 g/dL (6.4-8.2) Albumin 3.2 g/dL (3.4-5.0) Albumin/Globulin Ratio 1.0 (1.0-1.7) Urine Collection Type U cath Urine Color [place] Urine Clarity Cloudy Urine pH 5.0 (<5.0-8.0) Urine Specific [place] 1.015 (1.000-1.030) Urine Protein 30 mg/dL (NEG-TRACE) Urine Glucose (UA) Negative mg/dL (NEG) Urine Ketones (Stick) Trace mg/dL (NEG) Urine Blood Large (NEG) Urine Nitrite Negative (NEG) Urine Bilirubin Small (NEG) Urine Urobilinogen Dipstick 1.0 mg/dL (0.2 mg/dL) Urine Leukocyte Esterase Small (NEG) Urine RBC 20-40 /HPF (0-2) Urine WBC 1-4 /HPF (0-4) Urine Squamous Epithelial Cells Occ /LPF Urine Bacteria Few /HPF (0-FEW) Urine Hyaline Casts Few /HPF Test 02/04/20 13:02 Glucose (Fingerstick) 173 mg/dL (70-99) Laboratory Tests Test 02/04/20 07:59 02/04/20 08:10 02/04/20 08:40 02/04/20 12:10 Glucose (Fingerstick) 179 mg/dL (70-99) White Blood Count 11.8 x10^3/uL (4.0-11.0) Red Blood Count 4.39 x10^6/uL (3.50-5.40) Hemoglobin 12.7 g/dL (12.0-15.5) Hematocrit 39.0 % (36.0-47.0) Mean Corpuscular Volume 89 fL (79-100) Mean Corpuscular Hemoglobin 29 pg (25-35) Mean Corpuscular Hemoglobin Concent 33 g/dL (31-37) Red Cell Distribution Width 16.6 % (11.5-14.5) Platelet Count 88 x10^3/uL (140-400) Neutrophils (%) (Auto) 95 % (31-73) Lymphocytes (%) (Auto) 2 % (24-48) Monocytes (%) (Auto) 3 % (0-9) Eosinophils (%) (Auto) 0 % (0-3) Basophils (%) (Auto) 0 % (0-3) Neutrophils # (Auto) 11.3 x10^3/uL (1.8-7.7) Lymphocytes # (Auto) 0.2 x10^3/uL (1.0-4.8) Monocytes # (Auto) 0.4 x10^3/uL (0.0-1.1) Eosinophils # (Auto) 0.0 x10^3/uL (0.0-0.7) Basophils # (Auto) 0.0 x10^3/uL (0.0-0.2) Segmented Neutrophils % 94 % (35-66) Band Neutrophils % 2 % (0-9) Lymphocytes % 1 % (24-48) Monocytes % 3 % (0-10) Platelet Estimate Decreased (ADEQUATE) Large Platelets Few Polychromasia Slight Prothrombin Time 21.1 SEC (11.7-14.0) Prothromb Time International Ratio 1.9 (0.8-1.1) Activated Partial Thromboplast Time 32 SEC (24-38) Sodium Level 139 mmol/L (136-145) Potassium Level 3.6 mmol/L (3.5-5.1) Chloride Level 102 mmol/L (98-107) Carbon Dioxide Level 19 mmol/L (21-32) Anion Gap 18 (6-14) Blood Urea Nitrogen 21 mg/dL (7-20) Creatinine 1.8 mg/dL (0.6-1.0) Estimated GFR (Cockcroft-Gault) 27.3 BUN/Creatinine Ratio 12 (6-20) Glucose Level 187 mg/dL (70-99) Lactic Acid Level 5.7 mmol/L (0.4-2.0) 4.2 mmol/L (0.4-2.0) Calcium Level 8.7 mg/dL (8.5-10.1) Magnesium Level 1.4 mg/dL (1.8-2.4) Total Bilirubin 0.9 mg/dL (0.2-1.0) Aspartate Amino Transf (AST/SGOT) 246 U/L (15-37) Alanine Aminotransferase (ALT/SGPT) 104 U/L (14-59) Alkaline Phosphatase 141 U/L (46-116) Troponin I Quantitative < 0.017 ng/mL (0.000-0.055) Total Protein 6.4 g/dL (6.4-8.2) Albumin 3.2 g/dL (3.4-5.0) Albumin/Globulin Ratio 1.0 (1.0-1.7) Urine Collection Type U cath Urine Color [place] Urine Clarity Cloudy Urine pH 5.0 (<5.0-8.0) Urine Specific [place] 1.015 (1.000-1.030) Urine Protein 30 mg/dL (NEG-TRACE) Urine Glucose (UA) Negative mg/dL (NEG) Urine Ketones (Stick) Trace mg/dL (NEG) Urine Blood Large (NEG) Urine Nitrite Negative (NEG) Urine Bilirubin Small (NEG) Urine Urobilinogen Dipstick 1.0 mg/dL (0.2 mg/dL) Urine Leukocyte Esterase Small (NEG) Urine RBC 20-40 /HPF (0-2) Urine WBC 1-4 /HPF (0-4) Urine Squamous Epithelial Cells Occ /LPF Urine Bacteria Few /HPF (0-FEW) Urine Hyaline Casts Few /HPF Test 02/04/20 13:02 Glucose (Fingerstick) 173 mg/dL (70-99) Medications Active Scripts Medications Dose Route/Sig Max Daily Dose Days Date Category Eliquis (Apixaban) 2.5 Mg Tablet 2.5 Mg PO BID 30 01/07/20 Rx Cipro (Ciprofloxacin Hcl) 250 Mg Tablet 250 Mg PO BID 5 01/06/20 Rx Toprol XL (Metoprolol Succinate) 50 Mg Tab.er.24h 50 Mg PO HS 12/15/19 Reported Levothyroxine Sodium 137 Mcg Tablet 1 Tab PO DAILY 12/15/19 Reported Culturelle (Lactobacillus Rhamnosus Gg) 1 Each Cap.sprink 1 Cap PO BID 30 11/15/19 Rx Losartan Potassium (Losartan Potassium) 25 Mg Tablet 25 Mg PO DAILY 30 11/15/19 Rx Atorvastatin Calcium 40 Mg Tablet 1 Tab PO QHS 08/08/19 Reported Gabapentin 600 Mg Tablet 600 Mg PO HS 08/08/19 Reported Lantus Solostar (Insulin Glargine,Hum.rec.anlog) 100 Unit/1 Ml Insuln.pen 12 Unit SQ QHS 10/16/18 Reported Allopurinol 100 Mg Tablet 1 Tab PO DAILY 07/30/17 Reported Venlafaxine Hcl 37.5 Mg Tablet 1 Tab PO DAILY 06/21/15 Reported Aspir 81 (Aspirin) 81 Mg Tablet. 1 Tab PO DAILY 06/21/15 Reported Impression . Full note dictated sepsis etiology of sepsis unclear at this time COVID-19 suspect JUSTINE GARCIA MD Feb 04, 2020 14:18
[2020-02-04] MEDS ORDERED: ENOXAPARIN 40 MG/0.4 ML SYRINGE. SQ SCH (14:30)
--- NOTE | 2020-02-04 14:44 | CONS ---
DATE OF CONSULTATION: 02/04/2020 ATTENDING PHYSICIAN: Rubina Hdz MD REASON FOR CONSULTATION: The patient seen in pulmonary consultation at the request of Dr. Hdz for hypoxemia, acute hypoxemic respiratory failure. HISTORY OF PRESENT ILLNESS: The patient is a 79-year-old that was admitted approximately a month ago with sepsis related to urinary tract infection. Yesterday, she had fever. Last night, she had some shaking chills. She presented with weakness, confusion, fever, nausea, and constipation. Apparently, the patient has not had a BM in the past week. She had a nonproductive cough for approximately several days. She presented and had a T-max of 100.2. Chest x-ray revealed some basilar opacity on the left side. She also had a CT abdomen and pelvis, which revealed new bilateral perinephric stranding concerning for pyelonephritis. There was nonspecific fluid within the region of the gallbladder fossa. I was asked to see her as a consequence of her hypoxemia. The patient denies any productive cough. She quit tobacco several years ago. No exposures to anyone with COVID-19. She was tested for [id number] virus last admission and was negative. PAST MEDICAL HISTORY: Remarkable for chronic AFib, coronary artery disease, type 2 diabetes, dyslipidemia, hypertension, hypothyroidism, history of vertigo. PAST SURGICAL HISTORY: Status post coronary artery bypass grafting, cholecystectomy, hysterectomy, tonsillectomy, hernia repair, skin graft. SOCIAL HISTORY: She quit tobacco many years ago. Rarely uses alcohol. ALLERGIES: No known drug allergies. REVIEW OF SYSTEMS: As indicated above, otherwise, a 10-point system was reviewed and negative. Of note, the patient kept falling asleep throughout my evaluation, but was able to answer questions appropriately. FAMILY HISTORY: Noncontributory to the lungs. PHYSICAL EXAMINATION: GENERAL: The patient was in no respiratory distress. VITAL SIGNS: Blood pressure was in the low range of normal. She was given some IV fluids. T-max as indicated above was 100.2. HEENT: Eyes, the sclerae were nonicteric. NECK: Jugular venous distention was not elevated. No lymphadenopathy. CHEST: Full expansion. LUNGS: Adequate flow, no wheezes. CARDIOVASCULAR: Regular rate and rhythm with S1, S2, no S3. ABDOMEN: Soft, nontender. EXTREMITIES: No clubbing, cyanosis or edema. LABORATORY DATA: White count 11,000, hemoglobin and hematocrit were noted. She had an elevated lactic acid level. BUN was 21, creatinine was 1.8. AST and ALT were elevated. Alkaline phosphatase was elevated. IMPRESSION: 1. Acute hypoxemic respiratory failure. 2. Abnormal x-ray, possible pneumonia, gram-negative, possible gram-positive. 3. Leukocytosis. 4. Lactic acidosis from possible sepsis. 5. Metabolic toxic encephalopathy. 6. Fever. 7. COVID-19 suspect. PLAN: 1. IV fluids. 2. Empiric antibiotics. 3. Follow up on [id number] testing. 4. Cultures for both gram-positive and gram-negative organisms. 5. Check blood cultures. 6. UA. I do appreciate the privilege in sharing in the patient's care. JUSTINE GARCIA MD DR: MAXIME/odalys JOB#: [id number] / [id number]
[2020-02-04] MEDS ORDERED: VANCOMYCIN 1.75 GM in IV NORMAL SALINE 500ML BAG 500 ML IV ONE (16:00)
--- NOTE | 2020-02-04 16:03 | PDOC2 ---
CAMERON HERNANDEZ HVAC JOURNEYMAN 02/04/20 1603: CARDIAC CONSULT DATE OF CONSULT Date of Consult DATE: 02/04/20 TIME: 15:48 REASON FOR CONSULT Reason for Consult: AFIB REFERRING PHYSICIAN Referring Physician: Juvenal SOURCE Source: Chart review, Patient HISTORY OF PRESENT ILLNESS HISTORY OF PRESENT ILLNESS This is a pleasant 79 yo female admitted for complains of weakness, dizziness and right side abdominal pain. She just started having fever and has not been drinking well and no appetite. No chest pain, palpitations or SOA. She has been compliant with her medications. No leg edema. She lives with her spouse and recently had an ILR due to syncope, no further episodes. Presently she is on AFIB and was on RVR and now rate controlled. PAST MEDICAL HISTORY Past Medical History Cardiovascular: AFIB, CAD, HTN, Hyperlipidemia, cardiomyopathy, syncope Pulmonary: Other (GLADIS) GI: Diverticulosis Heme/Onc: No pertinent hx Hepatobiliary: No pertinent hx Psych: Depression Musculoskeletal: Osteoarthritis Rheumatologic: Gout Infectious disease: urosepsis ENT: No pertinent hx Renal/: UTI Endocrine: Diabetes (2), Hypothyroidism Dermatology: No pertinent hx PAST SURGICAL HISTORY Past Surgical History Cholecystectomy, CABG, Hernia Repair, Hysterectomy, Other (skin grafting; LHC; laminectomy), 01/28/20 ILR FAMILY HISTORY Family History: Diabetes SOCIAL HISTORY Social History Smoke: Quit ALCOHOL: occasional Drugs: None Lives: with Family (spouse) CURRENT MEDICATIONS CURRENT MEDICATIONS Current Medications Medications (Trade) Dose Ordered Sig/Ronal Route PRN Reason Start Time Stop Time Status Last Admin Dose Admin Acetaminophen (Tylenol) 1,000 mg 1X ONCE PO 02/04/20 08:15 02/04/20 08:19 DC 02/04/20 08:25 Sodium Chloride 1,000 ml @ 1,000 mls/hr 1X ONCE IV 02/04/20 08:15 02/04/20 09:14 DC 02/04/20 08:26 Sodium Chloride 1,000 ml @ 1,000 mls/hr 1X ONCE IV 02/04/20 08:30 02/04/20 09:29 DC 02/04/20 08:26 Piperacillin Sod/ Tazobactam Sod 3.375 gm/Sodium Chloride 50 ml @ 100 mls/hr 1X ONCE IV 02/04/20 09:00 02/04/20 09:29 DC 02/04/20 09:34 Magnesium Sulfate 50 ml @ 25 mls/hr 1X ONCE IV 02/04/20 10:15 02/04/20 12:14 DC 02/04/20 11:06 Sodium Chloride 1,000 ml @ 125 mls/hr Q8H IV 02/04/20 10:10 02/05/20 10:09 02/04/20 11:06 ALLERGIES ALLERGIES: Coded Allergies: No Known Drug Allergies (Unverified , 10/03/19) ROS Review of System 14 point ROS evaluated with pertinent positives noted per HPI PHYSICAL EXAM General: Alert, Oriented X3, Cooperative, No acute distress HEENT: Atraumatic, Mucous membr. moist/pink Lungs: Other (diminished) Heart: Other (AFIB) Abdomen: Soft Extremities: No cyanosis, No edema Skin: No breakdown Neuro: Normal speech, Sensation intact Psych/Mental Status: Mental status NL, Mood NL MUSCULOSKELETAL: Osteoarthritic changes both hands VITALS/I&O VITALS/I&O: Vital Signs Date Time Temp Pulse Resp B/P (MAP) Pulse Ox O2 Delivery O2 Flow Rate FiO2 02/04/20 12:52 94 20 90/54 (66) 100 Nasal Cannula 2.0 02/04/20 11:05 100.2 100.2 LABS Lab: Laboratory Tests Test 02/04/20 07:59 02/04/20 08:10 02/04/20 08:40 02/04/20 12:10 Glucose (Fingerstick) 179 mg/dL (70-99) H White Blood Count 11.8 x10^3/uL (4.0-11.0) H Red Blood Count 4.39 x10^6/uL (3.50-5.40) Hemoglobin 12.7 g/dL (12.0-15.5) Hematocrit 39.0 % (36.0-47.0) Mean Corpuscular Volume 89 fL (79-100) Mean Corpuscular Hemoglobin 29 pg (25-35) Mean Corpuscular Hemoglobin Concent 33 g/dL (31-37) Red Cell Distribution Width 16.6 % (11.5-14.5) H Platelet Count 88 x10^3/uL (140-400) L Neutrophils (%) (Auto) 95 % (31-73) H Lymphocytes (%) (Auto) 2 % (24-48) L Monocytes (%) (Auto) 3 % (0-9) Eosinophils (%) (Auto) 0 % (0-3) Basophils (%) (Auto) 0 % (0-3) Neutrophils # (Auto) 11.3 x10^3/uL (1.8-7.7) H Lymphocytes # (Auto) 0.2 x10^3/uL (1.0-4.8) L Monocytes # (Auto) 0.4 x10^3/uL (0.0-1.1) Eosinophils # (Auto) 0.0 x10^3/uL (0.0-0.7) Basophils # (Auto) 0.0 x10^3/uL (0.0-0.2) Segmented Neutrophils % 94 % (35-66) H Band Neutrophils % 2 % (0-9) Lymphocytes % 1 % (24-48) L Monocytes % 3 % (0-10) Platelet Estimate Decreased (ADEQUATE) Large Platelets Few Polychromasia Slight Prothrombin Time 21.1 SEC (11.7-14.0) H Prothrombin Time INR 1.9 (0.8-1.1) H Activated Partial Thromboplast Time 32 SEC (24-38) Sodium Level 139 mmol/L (136-145) Potassium Level 3.6 mmol/L (3.5-5.1) Chloride Level 102 mmol/L (98-107) Carbon Dioxide Level 19 mmol/L (21-32) L Anion Gap 18 (6-14) H Blood Urea Nitrogen 21 mg/dL (7-20) H Creatinine 1.8 mg/dL (0.6-1.0) H Estimated GFR (Cockcroft-Gault) 27.3 BUN/Creatinine Ratio 12 (6-20) Glucose Level 187 mg/dL (70-99) H Lactic Acid Level 5.7 mmol/L (0.4-2.0) *H 4.2 mmol/L (0.4-2.0) *H Calcium Level 8.7 mg/dL (8.5-10.1) Magnesium Level 1.4 mg/dL (1.8-2.4) L Total Bilirubin 0.9 mg/dL (0.2-1.0) Aspartate Amino Transferase (AST) 246 U/L (15-37) H Alanine Aminotransferase (ALT) 104 U/L (14-59) H Alkaline Phosphatase 141 U/L (46-116) H Troponin I Quantitative < 0.017 ng/mL (0.000-0.055) Total Protein 6.4 g/dL (6.4-8.2) Albumin 3.2 g/dL (3.4-5.0) L Albumin/Globulin Ratio 1.0 (1.0-1.7) Urine Collection Type U cath Urine Color [place] Urine Clarity Cloudy Urine pH 5.0 (<5.0-8.0) Urine Specific [place] 1.015 (1.000-1.030) Urine Protein 30 mg/dL (NEG-TRACE) Urine Glucose (UA) Negative mg/dL (NEG) Urine Ketones (Stick) Trace mg/dL (NEG) Urine Blood Large (NEG) Urine Nitrite Negative (NEG) Urine Bilirubin Small (NEG) Urine Urobilinogen Dipstick 1.0 mg/dL (0.2 mg/dL) Urine Leukocyte Esterase Small (NEG) Urine RBC 20-40 /HPF (0-2) Urine WBC 1-4 /HPF (0-4) Urine Squamous Epithelial Cells Occ /LPF Urine Bacteria Few /HPF (0-FEW) Urine Hyaline Casts Few /HPF Test 02/04/20 13:02 Glucose (Fingerstick) 173 mg/dL (70-99) H Laboratory Tests 02/04/20 08:10 Laboratory Tests 02/04/20 08:10 ECHOCARDIOGRAM ECHOCARDIOGRAM <Conclusion> The systolic function is moderately impaired. The Ejection Fraction is 35-40%. There is global hypokinesis of the left ventricle. Doppler and Color-flow revealed moderate to severe mitral regurgitation. Doppler and Color Flow revealed mild tricuspid regurgitation with an estimated PAP of 45 mmHg. Successful CVN to SR DATE: 10/03/19 1042 HEART CATH HEART CATH CORONARY ANGIOGRAPHY: LM is a small to moderate sized vessel with a proximal to mid 50% stenosis. LAD is a large caliber vessel with an ostial 100% occlusion. The mid to distal vessel is seen to fill via a robust CRUZ graft. Ramus is a small caliber vessel with normal angiographic appearance. LCx is a small to moderate caliber non-dominant vessel with a proximal 50% stenosis. OM1 is a moderate caliber vessel with a proxmial 70% stenosis. The distal vessel is also seen to fill via a patent SVG graft. RCA is a large caliber dominant vessel with proximal to mid 70% stenosis. The distal RCA is occluded. RPDA and RPL are small caliber vessels that fill via SVG. BYPASS ANGIOGRAPHY: CRUZ to LAD - Widely patent without anastomotic stenosis. SVG to OM1 - Widely patent without anastomotic stenosis. SVG to RCA - Distal 90% stenosis at the RCA crux involving small caliber PDA/RPL vessels. Due to small caliber RPDA/RPL vessels and need for possible bifurcation stenting a discussion was held with the patient regarding her lifestyle limitations. She does not have excellent CASINO ASSISTANT MANAGER recanalization options as her re-entry site is at a bifurcation and retrograde approach would be through a CRUZ graft as there is also an LAD CASINO ASSISTANT MANAGER. Will plan for medical therapy for next several weeks, determine lifestyle limitations and consider complex PCI of the SVG graft in the future if symptoms are lifestyle limiting. Conclusion 1. Normal left sided filling pressures. 2. Severe 3V CAD 3. 3/3 grafts patent with severe SVG to RCA distal anastomotic stenosis Recommendations See discussion above Plan for trial of medical therapy, if still with lifestyle symptoms, consider complex SVG PCI. DATE: 10/16/18 1104 ASSESSMENT/PLAN ASSESSMENT/PLAN 1. Sepsis/fever: likely due to pyelo 2. Persistent UTI with possible pyelonephritis and left nonobstructive calculi 3. Recent ILR placement: Medtr[employer] placed due to syncope. 01/28/2020. ILR site with no s/s of infection 4. DEMETRIUS 5. Hypomagnesemia 6. AFIB RVR: paroxysmal by hx. now rate controlled 7. PUI 8. CAD: past CABG, clincially stable. CP free. 9. Chronic systolic CHF: appears compensated 10. Cardiomyopathy: possibly combined ICM/NICM 11. Hx of GLADIS with CPAP use 12. DM2 13. Hypothyroidism: on replacement recently noted supratherapeutic per PCP Recommendations 1. On low dose eliquis. INR is at 1.9. Will obtain INR tomorrow. 2. IV hydration with caution 3. Replace Mg. Antibiotics per PCP 4. Will resume secondary prevention measures as tolerated. May hold BP meds if BP is low marginal until pt is euvolemic. MARIE SHARMA MD 02/05/20 2251: CARDIAC CONSULT ASSESSMENT/PLAN ASSESSMENT/PLAN Late entry for 02/04/2020. Pt. seen and examined. Agree with above AMMONIA DISTILLER note. CAMERON HERNANDEZ APRN Feb 04, 2020 16:03 MARIE SHARMA MD Feb 05, 2020 22:51
[2020-02-04] MEDS: POLYETHYLENE GLYCOL 3350 17 GM PACKET. PO SCH (16:51)
[2020-02-04] MEDS: ASCORBIC ACID 500 MG TABLET PO SCH (16:52)
[2020-02-04] MEDS: VENLAFAXINE 75 MG TABLET. PO SCH (16:52)
[2020-02-04] MEDS: ZINC SULFATE 220 MG CAPSULE. PO SCH (16:52)
--- NOTE | 2020-02-04 17:10 | NUR ---
Admission: Patient admitted to 6th floor from ER. [place] alert and oriented. Oriented patient to room. Vitals assessed, blood pressure reported to physician. Home medication list provided by [facility]
[2020-02-04] MEDS ORDERED: PHENYLEPHRINE INJ 50 MG in IV NORMAL SALINE 250ML 250 ML IV PRN (17:15)
--- NOTE | 2020-02-04 17:16 | NUR ---
Transfer: Patient transferred to ICU. Belongings with patient. JUAN A Pratt to complete admission.
[2020-02-04] MEDS: PIPERACILLIN/TAZOBACTAM 3.375 GM in IV NORMAL SALINE 50ML 50 ML IV SCH (18:35)
[2020-02-04] MEDS: VANCOMYCIN PER PHARMACY MC PRN (18:48)
--- NOTE | 2020-02-04 18:58 | NUR ---
Pharmacy Vancomycin Dosing Note S:Consulted to monitor and dose vancomycin started 02/04/20. O:SARIKA HOLLEY is a 79 year old F with HCAP . Height: 5 feet, 7 inches Weight: 75.0 kg Alexander Body Weight: 61.60 Adjusted Body Weight: 66.96 Dosing Weight: Actual Other Antibiotics: ZOSYN LABS: Last BUN: 21 Last Creatinine: 1.8 Creatinine Clearance: 28 mL/min Last WBC: 11.8 Last Procalcitonin: Tmax (past 24 hours): Microbiology: I/O: Drug Levels: Last level: on at Last dose given at Vancomycin Dosing: Loading Dose: 1750 mg x1 Dosing Weight: Actual Target Trough: 15-20 A: Based on: HT, WT AND RENAL FUNCTION P: 1. Begin Vancomycin 750 mg IV q24h 2. Follow up Trough level on 02/06/20 at 1630 3. Pharmacy will continue to monitor, follow and adjust therapy as needed. MIR ESCALANTE, [facility], 02/04/20 [id number]
[2020-02-04] MEDS ORDERED: FURO40TA4 PO (19:21)
[2020-02-04] MEDS ORDERED: POTA10TA12 PO (19:21)
[2020-02-04] MEDS ORDERED: LEVO150T5 PO (19:21)
[2020-02-04] MEDS ORDERED: APIX5TAB PO (19:21)
--- NOTE | 2020-02-04 19:21 | NUR ---
Patient arrived to unit at 1630 with JUAN A Curtis. Patient was hypotensive and drowsy upon arrival but oxygen was WNL on 2L NC. Patient appeared to look comfortable and stated she had some mild discomfort to her right abdomen that was radiating to her back but did not say she had pain. Patients has been notified of her transfer and her current status. Patient is now sleeping comfortably. Patients BP ran a little low when Dr. Bales was at bedside. I asked him what his thoughts were if her BP stayed low. He gave an order to start her on phenylepherine if her MAP was <65. He also did not want to give her anymore fluid after the current bag running was complete. After an hour her MAP was sustaining in the mid 50's so she was started on phenylepherine. MAP is now above 65 on the medication. Report given to JUAN A Beck. Patients asked if we could get a consultation to Dr. Mcdaniel for symptoms relating to increasing dementia at home. I told him that I would pass along his wishes but that it was not for certain that Dr. Mcdaniel would be consulted on her case. He acknowledged this and had no more further questions for me. Patients VS are now WNL and she is comfortably resting.
[2020-02-04] MEDS: ATORVASTATIN CALCIUM 40 MG TABLET. PO SCH (20:35)
[2020-02-04] MEDS: METOPROLOL SUCC 24HR ER 50 MG TAB.ER.24H. PO SCH (20:36)
[2020-02-04] MEDS: LACTOBACILLUS RHAMNOSUS GG 1 CAPSULE. PO SCH (20:36)
[2020-02-04] MEDS: INSULIN GLARGINE SYRINGE. SQ SCH (20:37)
[2020-02-04] MEDS ORDERED: APIXABAN 2.5 MG TABLET. PO SCH (21:00)
[2020-02-05] VITALS (24 sets, daily range): BP systolic 85–116; BP diastolic 52–77
[2020-02-05] MEDS: PIPERACILLIN/TAZOBACTAM 3.375 GM in IV NORMAL SALINE 50ML 50 ML IV SCH ×4 (00:14→18:18)
[2020-02-05] MEDS: LEVOTHYROXINE 137 MCG TABLET PO SCH (06:08)
[2020-02-05 06:28] LABS: CREATININE 1.5 mg/dL (0.6-1.0); GFR 33.7
[2020-02-05 08:31] LABS: HEMATOCRIT 32.8 % (36.0-47.0); HEMOGLOBIN 10.9 g/dL (12.0-15.5); RED BLOOD COUNT 3.71 x10^6/uL (3.50-5.40); RED CELL DISTRIBUTION WIDTH 16.1 % (11.5-14.5); WHITE BLOOD COUNT 10.6 x10^3/uL (4.0-11.0)
[2020-02-05] MEDS: VANCOMYCIN PER PHARMACY MC PRN (08:39)
--- NOTE | 2020-02-05 08:39 | PDOC ---
PULMONARY PROGRESS NOTES Subjective Patient with no new complaints feels better Vitals Vital Signs Date Time Temp Pulse Resp B/P (MAP) Pulse Ox O2 Delivery O2 Flow Rate FiO2 02/05/20 07:00 98.5 99 92/59 (70) 95 Room Air 2.0 98.5 02/04/20 18:00 12 Comments Patient seen the COVID- pandemic visual exam no respiratory distress, no change in mental status Labs Laboratory Tests Test 02/04/20 07:59 02/04/20 08:10 02/04/20 08:40 02/04/20 12:10 Glucose (Fingerstick) 179 mg/dL (70-99) White Blood Count 11.8 x10^3/uL (4.0-11.0) Red Blood Count 4.39 x10^6/uL (3.50-5.40) Hemoglobin 12.7 g/dL (12.0-15.5) Hematocrit 39.0 % (36.0-47.0) Mean Corpuscular Volume 89 fL (79-100) Mean Corpuscular Hemoglobin 29 pg (25-35) Mean Corpuscular Hemoglobin Concent 33 g/dL (31-37) Red Cell Distribution Width 16.6 % (11.5-14.5) Platelet Count 88 x10^3/uL (140-400) Neutrophils (%) (Auto) 95 % (31-73) Lymphocytes (%) (Auto) 2 % (24-48) Monocytes (%) (Auto) 3 % (0-9) Eosinophils (%) (Auto) 0 % (0-3) Basophils (%) (Auto) 0 % (0-3) Neutrophils # (Auto) 11.3 x10^3/uL (1.8-7.7) Lymphocytes # (Auto) 0.2 x10^3/uL (1.0-4.8) Monocytes # (Auto) 0.4 x10^3/uL (0.0-1.1) Eosinophils # (Auto) 0.0 x10^3/uL (0.0-0.7) Basophils # (Auto) 0.0 x10^3/uL (0.0-0.2) Segmented Neutrophils % 94 % (35-66) Band Neutrophils % 2 % (0-9) Lymphocytes % 1 % (24-48) Monocytes % 3 % (0-10) Platelet Estimate Decreased (ADEQUATE) Large Platelets Few Polychromasia Slight Prothrombin Time 21.1 SEC (11.7-14.0) Prothromb Time International Ratio 1.9 (0.8-1.1) Activated Partial Thromboplast Time 32 SEC (24-38) Sodium Level 139 mmol/L (136-145) Potassium Level 3.6 mmol/L (3.5-5.1) Chloride Level 102 mmol/L (98-107) Carbon Dioxide Level 19 mmol/L (21-32) Anion Gap 18 (6-14) Blood Urea Nitrogen 21 mg/dL (7-20) Creatinine 1.8 mg/dL (0.6-1.0) Estimated GFR (Cockcroft-Gault) 27.3 BUN/Creatinine Ratio 12 (6-20) Glucose Level 187 mg/dL (70-99) Lactic Acid Level 5.7 mmol/L (0.4-2.0) 4.2 mmol/L (0.4-2.0) Calcium Level 8.7 mg/dL (8.5-10.1) Magnesium Level 1.4 mg/dL (1.8-2.4) Total Bilirubin 0.9 mg/dL (0.2-1.0) Aspartate Amino Transf (AST/SGOT) 246 U/L (15-37) Alanine Aminotransferase (ALT/SGPT) 104 U/L (14-59) Alkaline Phosphatase 141 U/L (46-116) Troponin I Quantitative < 0.017 ng/mL (0.000-0.055) Total Protein 6.4 g/dL (6.4-8.2) Albumin 3.2 g/dL (3.4-5.0) Albumin/Globulin Ratio 1.0 (1.0-1.7) Urine Collection Type U cath Urine Color [place] Urine Clarity Cloudy Urine pH 5.0 (<5.0-8.0) Urine Specific [place] 1.015 (1.000-1.030) Urine Protein 30 mg/dL (NEG-TRACE) Urine Glucose (UA) Negative mg/dL (NEG) Urine Ketones (Stick) Trace mg/dL (NEG) Urine Blood Large (NEG) Urine Nitrite Negative (NEG) Urine Bilirubin Small (NEG) Urine Urobilinogen Dipstick 1.0 mg/dL (0.2 mg/dL) Urine Leukocyte Esterase Small (NEG) Urine RBC 20-40 /HPF (0-2) Urine WBC 1-4 /HPF (0-4) Urine Squamous Epithelial Cells Occ /LPF Urine Bacteria Few /HPF (0-FEW) Urine Hyaline Casts Few /HPF Test 02/04/20 13:02 02/05/20 05:50 Glucose (Fingerstick) 173 mg/dL (70-99) Sodium Level 142 mmol/L (136-145) Potassium Level 4.0 mmol/L (3.5-5.1) Chloride Level 110 mmol/L (98-107) Carbon Dioxide Level 25 mmol/L (21-32) Anion Gap 7 (6-14) Blood Urea Nitrogen 24 mg/dL (7-20) Creatinine 1.5 mg/dL (0.6-1.0) Estimated GFR (Cockcroft-Gault) 33.7 Glucose Level 107 mg/dL (70-99) Calcium Level 8.0 mg/dL (8.5-10.1) Procalcitonin 17.40 ng/mL (0.00-0.10) Laboratory Tests Test 02/04/20 08:40 02/04/20 12:10 02/04/20 13:02 02/05/20 05:50 Urine Collection Type U cath Urine Color [place] Urine Clarity Cloudy Urine pH 5.0 (<5.0-8.0) Urine Specific [place] 1.015 (1.000-1.030) Urine Protein 30 mg/dL (NEG-TRACE) Urine Glucose (UA) Negative mg/dL (NEG) Urine Ketones (Stick) Trace mg/dL (NEG) Urine Blood Large (NEG) Urine Nitrite Negative (NEG) Urine Bilirubin Small (NEG) Urine Urobilinogen Dipstick 1.0 mg/dL (0.2 mg/dL) Urine Leukocyte Esterase Small (NEG) Urine RBC 20-40 /HPF (0-2) Urine WBC 1-4 /HPF (0-4) Urine Squamous Epithelial Cells Occ /LPF Urine Bacteria Few /HPF (0-FEW) Urine Hyaline Casts Few /HPF Lactic Acid Level 4.2 mmol/L (0.4-2.0) Glucose (Fingerstick) 173 mg/dL (70-99) Sodium Level 142 mmol/L (136-145) Potassium Level 4.0 mmol/L (3.5-5.1) Chloride Level 110 mmol/L (98-107) Carbon Dioxide Level 25 mmol/L (21-32) Anion Gap 7 (6-14) Blood Urea Nitrogen 24 mg/dL (7-20) Creatinine 1.5 mg/dL (0.6-1.0) Estimated GFR (Cockcroft-Gault) 33.7 Glucose Level 107 mg/dL (70-99) Calcium Level 8.0 mg/dL (8.5-10.1) Procalcitonin 17.40 ng/mL (0.00-0.10) Medications Active Scripts Medications Dose Route/Sig Max Daily Dose Days Date Category Eliquis (Apixaban) 2.5 Mg Tablet 2.5 Mg PO BID 30 01/07/20 Rx Cipro (Ciprofloxacin Hcl) 250 Mg Tablet 250 Mg PO BID 5 01/06/20 Rx Toprol XL (Metoprolol Succinate) 50 Mg Tab.er.24h 50 Mg PO HS 12/15/19 Reported Levothyroxine Sodium 137 Mcg Tablet 1 Tab PO DAILY 12/15/19 Reported Culturelle (Lactobacillus Rhamnosus Gg) 1 Each Cap.sprink 1 Cap PO BID 30 11/15/19 Rx Losartan Potassium (Losartan Potassium) 25 Mg Tablet 25 Mg PO DAILY 30 11/15/19 Rx Atorvastatin Calcium 40 Mg Tablet 1 Tab PO QHS 08/08/19 Reported Gabapentin 600 Mg Tablet 600 Mg PO HS 08/08/19 Reported Lantus Solostar (Insulin Glargine,Hum.rec.anlog) 100 Unit/1 Ml Insuln.pen 12 Unit SQ QHS 10/16/18 Reported Allopurinol 100 Mg Tablet 1 Tab PO DAILY 07/30/17 Reported Venlafaxine Hcl 37.5 Mg Tablet 1 Tab PO DAILY 06/21/15 Reported Aspir 81 (Aspirin) 81 Mg Tablet.dr 1 Tab PO DAILY 06/21/15 Reported Impression . IMPRESSION: 1. Acute hypoxemic respiratory failure. 2. Abnormal x-ray, possible pneumonia, gram-negative, possible gram-positive. 3. Leukocytosis. 4. Lactic acidosis from possible sepsis. 5. Metabolic toxic encephalopathy. 6. Fever. 7. COVID-19 suspect. Plan . We will continue current support 1. IV fluids. 2. Empiric antibiotics. 3. Follow up on [id number] testing. 4. Cultures for both gram-positive and gram-negative organisms. 5. Check blood cultures. 6. UA. JUSTINE GARCIA MD Feb 05, 2020 08:39
[2020-02-05] MEDS: ANTI-COAG MONITOR BY PHARMACY. MC PRN ×2 (08:47→08:52)
[2020-02-05] MEDS ORDERED: APIXABAN 5 MG TABLET. PO SCH (09:00)
[2020-02-05] MEDS ORDERED: LOSARTAN POTASSIUM 25 MG TABLET. PO SCH (09:00)
[2020-02-05] MEDS: POLYETHYLENE GLYCOL 3350 17 GM PACKET. PO SCH (09:03)
[2020-02-05] MEDS: LACTOBACILLUS RHAMNOSUS GG 1 CAPSULE. PO SCH ×2 (09:03→21:50)
[2020-02-05] MEDS: ZINC SULFATE 220 MG CAPSULE. PO SCH (09:03)
[2020-02-05] MEDS: ASCORBIC ACID 500 MG TABLET PO SCH (09:03)
[2020-02-05] MEDS: DOCUSATE SODIUM 100 MG CAPSULE. PO SCH (09:04)
[2020-02-05] MEDS: ALLOPURINOL 100 MG TABLET. PO SCH (09:04)
[2020-02-05] MEDS: VENLAFAXINE 75 MG TABLET. PO SCH (09:04)
[2020-02-05 09:13] LABS: PROTHROMBIN TIME PATIENT 23.1 SEC (11.7-14.0)
[2020-02-05] MEDS: ASPIRIN ENTERIC COATED 81 MG TABLET.DR. PO SCH (11:45)
--- NOTE | 2020-02-05 12:54 | PDOC ---
PROGRESS NOTES Chief Complaint Chief Complaint A/P: Hypoxia Severe sepsis Thrombocytopenia weakness History of atrial fibrillation on chronic anticoagulation, rate controlled Diabetes-Type II, htn, dm2, lipids Hypothyroidism CKD 3 Persistent UTI with possible pyelonephritis and left nonobstructive calculi Recent ILR placement: Medtronic placed due to syncope. 01/28/2020. ILR site with no s/s of infection DEMETRIUS - likely vasomotor nephropathy Hypomagnesemia AFIB RVR: paroxysmal by hx. now rate controlled CAD: past CABG, clincially stable. CP free. 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 Patient had not have a bowel movement for a week. Patient also has nonproductive cough for several days. With elevated creatinine and elevated transaminases lactate 5.7 hypotensive, admitted to ICU Patient was recently admitted to the hospital due to severe sepsis, atrial fibrillation, had a loop recorder placed. Patient had neuropathy in her leg so she been having bilateral legs pain, denies any leg swelling. Lactate down from 5.7, LFTs improved creatinine improved. Still somewhat co nfused Vitals Vitals Vital Signs Date Time Temp Pulse Resp B/P (MAP) Pulse Ox O2 Delivery O2 Flow Rate FiO2 02/05/20 12:00 Nasal Cannula 2.0 02/05/20 12:00 99 18 102/55 (71) 100 02/05/20 11:00 97.9 97.9 Physical Exam General: Alert, Oriented X3, Cooperative, No acute distress Heart: Other (AFIB) Lungs: Clear Abdomen: Soft Extremities: No cyanosis, No edema Skin: No breakdown Labs LABS Laboratory Tests Test 02/04/20 13:02 02/05/20 05:50 02/05/20 08:55 02/05/20 09:19 Glucose (Fingerstick) 173 mg/dL (70-99) 99 mg/dL (70-99) White Blood Count 10.6 x10^3/uL (4.0-11.0) Red Blood Count 3.71 x10^6/uL (3.50-5.40) Hemoglobin 10.9 g/dL (12.0-15.5) Hematocrit 32.8 % (36.0-47.0) Mean Corpuscular Volume 89 fL (79-100) Mean Corpuscular Hemoglobin 29 pg (25-35) Mean Corpuscular Hemoglobin Concent 33 g/dL (31-37) Red Cell Distribution Width 16.1 % (11.5-14.5) Platelet Count 70 x10^3/uL (140-400) Sodium Level 142 mmol/L (136-145) Potassium Level 4.0 mmol/L (3.5-5.1) Chloride Level 110 mmol/L (98-107) Carbon Dioxide Level 25 mmol/L (21-32) Anion Gap 7 (6-14) Blood Urea Nitrogen 24 mg/dL (7-20) Creatinine 1.5 mg/dL (0.6-1.0) Estimated GFR (Cockcroft-Gault) 33.7 Glucose Level 107 mg/dL (70-99) Calcium Level 8.0 mg/dL (8.5-10.1) Magnesium Level 2.2 mg/dL (1.8-2.4) Procalcitonin 17.40 ng/mL (0.00-0.10) Prothrombin Time 23.1 SEC (11.7-14.0) Prothromb Time International Ratio 2.1 (0.8-1.1) Lactic Acid Level 2.5 mmol/L (0.4-2.0) Test 02/05/20 11:49 Glucose (Fingerstick) 151 mg/dL (70-99) Assessment and Plan Assessmemt and Plan Problems Medical Problems: (1) Afib Status: Acute (2) Hypomagnesemia Status: Acute (3) Pneumonia Status: Acute (4) Severe sepsis Status: Acute (5) Suspected 2019-nCoV infection Status: Acute (6) UTI (urinary tract infection) Status: Acute Comment Review of Relevant I have reviewed the following items priyank (where applicable) has been applied. Labs Laboratory Tests Test 02/04/20 07:59 02/04/20 08:10 02/04/20 08:40 02/04/20 12:10 Glucose (Fingerstick) 179 mg/dL (70-99) White Blood Count 11.8 x10^3/uL (4.0-11.0) Red Blood Count 4.39 x10^6/uL (3.50-5.40) Hemoglobin 12.7 g/dL (12.0-15.5) Hematocrit 39.0 % (36.0-47.0) Mean Corpuscular Volume 89 fL (79-100) Mean Corpuscular Hemoglobin 29 pg (25-35) Mean Corpuscular Hemoglobin Concent 33 g/dL (31-37) Red Cell Distribution Width 16.6 % (11.5-14.5) Platelet Count 88 x10^3/uL (140-400) Neutrophils (%) (Auto) 95 % (31-73) Lymphocytes (%) (Auto) 2 % (24-48) Monocytes (%) (Auto) 3 % (0-9) Eosinophils (%) (Auto) 0 % (0-3) Basophils (%) (Auto) 0 % (0-3) Neutrophils # (Auto) 11.3 x10^3/uL (1.8-7.7) Lymphocytes # (Auto) 0.2 x10^3/uL (1.0-4.8) Monocytes # (Auto) 0.4 x10^3/uL (0.0-1.1) Eosinophils # (Auto) 0.0 x10^3/uL (0.0-0.7) Basophils # (Auto) 0.0 x10^3/uL (0.0-0.2) Segmented Neutrophils % 94 % (35-66) Band Neutrophils % 2 % (0-9) Lymphocytes % 1 % (24-48) Monocytes % 3 % (0-10) Platelet Estimate Decreased (ADEQUATE) Large Platelets Few Polychromasia Slight Prothrombin Time 21.1 SEC (11.7-14.0) Prothromb Time International Ratio 1.9 (0.8-1.1) Activated Partial Thromboplast Time 32 SEC (24-38) Sodium Level 139 mmol/L (136-145) Potassium Level 3.6 mmol/L (3.5-5.1) Chloride Level 102 mmol/L (98-107) Carbon Dioxide Level 19 mmol/L (21-32) Anion Gap 18 (6-14) Blood Urea Nitrogen 21 mg/dL (7-20) Creatinine 1.8 mg/dL (0.6-1.0) Estimated GFR (Cockcroft-Gault) 27.3 BUN/Creatinine Ratio 12 (6-20) Glucose Level 187 mg/dL (70-99) Lactic Acid Level 5.7 mmol/L (0.4-2.0) 4.2 mmol/L (0.4-2.0) Calcium Level 8.7 mg/dL (8.5-10.1) Magnesium Level 1.4 mg/dL (1.8-2.4) Total Bilirubin 0.9 mg/dL (0.2-1.0) Aspartate Amino Transf (AST/SGOT) 246 U/L (15-37) Alanine Aminotransferase (ALT/SGPT) 104 U/L (14-59) Alkaline Phosphatase 141 U/L (46-116) Troponin I Quantitative < 0.017 ng/mL (0.000-0.055) Total Protein 6.4 g/dL (6.4-8.2) Albumin 3.2 g/dL (3.4-5.0) Albumin/Globulin Ratio 1.0 (1.0-1.7) Urine Collection Type U cath Urine Color [place] Urine Clarity Cloudy Urine pH 5.0 (<5.0-8.0) Urine Specific [place] 1.015 (1.000-1.030) Urine Protein 30 mg/dL (NEG-TRACE) Urine Glucose (UA) Negative mg/dL (NEG) Urine Ketones (Stick) Trace mg/dL (NEG) Urine Blood Large (NEG) Urine Nitrite Negative (NEG) Urine Bilirubin Small (NEG) Urine Urobilinogen Dipstick 1.0 mg/dL (0.2 mg/dL) Urine Leukocyte Esterase Small (NEG) Urine RBC 20-40 /HPF (0-2) Urine WBC 1-4 /HPF (0-4) Urine Squamous Epithelial Cells Occ /LPF Urine Bacteria Few /HPF (0-FEW) Urine Hyaline Casts Few /HPF Test 02/04/20 13:02 02/05/20 05:50 02/05/20 08:55 02/05/20 09:19 Glucose (Fingerstick) 173 mg/dL (70-99) 99 mg/dL (70-99) White Blood Count 10.6 x10^3/uL (4.0-11.0) Red Blood Count 3.71 x10^6/uL (3.50-5.40) Hemoglobin 10.9 g/dL (12.0-15.5) Hematocrit 32.8 % (36.0-47.0) Mean Corpuscular Volume 89 fL (79-100) Mean Corpuscular Hemoglobin 29 pg (25-35) Mean Corpuscular Hemoglobin Concent 33 g/dL (31-37) Red Cell Distribution Width 16.1 % (11.5-14.5) Platelet Count 70 x10^3/uL (140-400) Sodium Level 142 mmol/L (136-145) Potassium Level 4.0 mmol/L (3.5-5.1) Chloride Level 110 mmol/L (98-107) Carbon Dioxide Level 25 mmol/L (21-32) Anion Gap 7 (6-14) Blood Urea Nitrogen 24 mg/dL (7-20) Creatinine 1.5 mg/dL (0.6-1.0) Estimated GFR (Cockcroft-Gault) 33.7 Glucose Level 107 mg/dL (70-99) Calcium Level 8.0 mg/dL (8.5-10.1) Magnesium Level 2.2 mg/dL (1.8-2.4) Procalcitonin 17.40 ng/mL (0.00-0.10) Prothrombin Time 23.1 SEC (11.7-14.0) Prothromb Time International Ratio 2.1 (0.8-1.1) Lactic Acid Level 2.5 mmol/L (0.4-2.0) Test 02/05/20 11:49 Glucose (Fingerstick) 151 mg/dL (70-99) Laboratory Tests Test 02/04/20 13:02 02/05/20 05:50 02/05/20 08:55 02/05/20 09:19 Glucose (Fingerstick) 173 mg/dL (70-99) 99 mg/dL (70-99) White Blood Count 10.6 x10^3/uL (4.0-11.0) Red Blood Count 3.71 x10^6/uL (3.50-5.40) Hemoglobin 10.9 g/dL (12.0-15.5) Hematocrit 32.8 % (36.0-47.0) Mean Corpuscular Volume 89 fL (79-100) Mean Corpuscular Hemoglobin 29 pg (25-35) Mean Corpuscular Hemoglobin Concent 33 g/dL (31-37) Red Cell Distribution Width 16.1 % (11.5-14.5) Platelet Count 70 x10^3/uL (140-400) Sodium Level 142 mmol/L (136-145) Potassium Level 4.0 mmol/L (3.5-5.1) Chloride Level 110 mmol/L (98-107) Carbon Dioxide Level 25 mmol/L (21-32) Anion Gap 7 (6-14) Blood Urea Nitrogen 24 mg/dL (7-20) Creatinine 1.5 mg/dL (0.6-1.0) Estimated GFR (Cockcroft-Gault) 33.7 Glucose Level 107 mg/dL (70-99) Calcium Level 8.0 mg/dL (8.5-10.1) Magnesium Level 2.2 mg/dL (1.8-2.4) Procalcitonin 17.40 ng/mL (0.00-0.10) Prothrombin Time 23.1 SEC (11.7-14.0) Prothromb Time International Ratio 2.1 (0.8-1.1) Lactic Acid Level 2.5 mmol/L (0.4-2.0) Test 02/05/20 11:49 Glucose (Fingerstick) 151 mg/dL (70-99) Microbiology 02/04/20 Blood Culture - Preliminary, Resulted NO GROWTH AFTER 1 DAY Medications Current Medications Acetaminophen (Tylenol) 1,000 mg 1X ONCE PO Last administered on 02/04/20at 08:25; Start 02/04/20 at 08:15; Stop 02/04/20 at 08:19; Status DC Sodium Chloride 1,000 ml @ 1,000 mls/hr 1X ONCE IV Last administered on 02/04/20at 08:26; Start 02/04/20 at 08:15; Stop 02/04/20 at 09:14; Status DC Ondansetron HCl (Zofran) 4 mg STK-MED ONCE .ROUTE ; Start 02/04/20 at 08:21; Stop 02/04/20 at 08:21; Status DC Sodium Chloride 1,000 ml @ 1,000 mls/hr 1X ONCE IV Last administered on 02/04/20at 08:26; Start 02/04/20 at 08:30; Stop 02/04/20 at 09:29; Status DC Piperacillin Sod/ Tazobactam Sod 3.375 gm/Sodium Chloride 50 ml @ 100 mls/hr 1X ONCE IV Last administered on 02/04/20at 09:34; Start 02/04/20 at 09:00; Stop 02/04/20 at 09:29; Status DC Magnesium Sulfate 50 ml @ 25 mls/hr 1X ONCE IV Last administered on 02/04/20at 11:06; Start 02/04/20 at 10:15; Stop 02/04/20 at 12:14; Status DC Ondansetron HCl (Zofran) 4 mg PRN Q8HRS PRN IV NAUSEA/VOMITING; Start 02/04/20 at 10:15; Stop 02/05/20 at 10:14; Status DC Sodium Chloride 1,000 ml @ 125 mls/hr Q8H IV Last administered on 02/04/20at 11:06; Start 02/04/20 at 10:10; Stop 02/04/20 at 18:35; Status DC Piperacillin Sod/ Tazobactam Sod (Zosyn Per Pharmacy) 1 each PRN DAILY PRN MC SEE COMMENTS; Start 02/04/20 at 10:15 Piperacillin Sod/ Tazobactam Sod 3.375 gm/Sodium Chloride 50 ml @ 100 mls/hr Q6HRS IV Last administered on 02/05/20at 11:45; Start 02/04/20 at 18:00 Zinc Sulfate (Orazinc) 220 mg DAILY PO Last administered on 02/05/20at 09:03; Start 02/04/20 at 14:00 Ascorbic Acid (Vitamin C) 500 mg DAILY PO Last administered on 02/05/20at 09:03; Start 02/04/20 at 14:00 Allopurinol (Zyloprim) 100 mg DAILY PO Last administered on 02/05/20at 09:04; Start 02/05/20 at 09:00 Apixaban (Eliquis) 2.5 mg BID PO Last administered on 02/04/20at 20:35; Start 02/04/20 at 21:00; Stop 02/05/20 at 08:45; Status DC Aspirin (Ecotrin) 81 mg DAILY PO Last administered on 02/05/20at 11:45; Start 02/05/20 at 09:00 Atorvastatin Calcium (Lipitor) 40 mg QHS PO Last administered on 02/04/20 20:35; Start 02/04/20 at 21:00 Lactobacillus Rhamnosus (Culturelle) 1 cap BID PO Last administered on 02/05/20 09:03; Start 02/04/20 at 21:00 Levothyroxine Sodium (Synthroid) 137 mcg DAILY06 PO Last administered on 02/04 06:08; Start 02/05/20 at 06:00 Losartan Potassium (Cozaar) 25 mg DAILY PO ; Start 02/05/20 at 09:00; Stop 02/04/20 at 16:57; Status DC Metoprolol Succinate (Toprol Xl) 50 mg HS PO Last administered on 02/04/20at 20:36; Start 02/04/20 at 21:00 Insulin Glargine (Lantus Syringe) 12 unit QHS SQ Last administered on 02/04/20 20:37; Start 02/04/20 at 21:00 Venlafaxine HCl (Effexor) 37.5 mg DAILY PO Last administered on 02/05/20 09:04; Start 02/04/20 at 14:45 Polyethylene Glycol (miraLAX PACKET) 17 gm DAILY PO Last administered on 02/05/20 09:03; Start 02/04/20 at 15:00 Docusate Sodium (Colace) 100 mg DAILY PO Last administered on 02/05/20 09:04; Start 02/05/20 at 09:00 Vancomycin HCl (Vanco Per Pharmacy) 1 each PRN DAILY PRN MC SEE COMMENTS Last administered on 02/05/20at 08:39; Start 02/04/20 at 14:15 Enoxaparin Sodium (Lovenox 40mg Syringe) 40 mg BID SQ ; Start 02/04/20 at 14:30; Stop 02/04/20 at 16:21; Status DC Vancomycin HCl 1.75 gm/Sodium Chloride 500 ml @ 250 mls/hr 1X ONCE IV Last administered on 02/04/20at 16:52; Start 02/04/20 at 16:00; Stop 02/04/20 at 17:59; Status DC Phenylephrine HCl 50 mg/Sodium Chloride 255 ml @ 11.475 mls/ hr CONT PRN IV SEE I/O RECORD Last administered on 02/04/20at 17:51; Start 02/04/20 at 17:15 Vancomycin HCl 750 mg/Sodium Chloride 250 ml @ 250 mls/hr Q24H IV ; Start 02/05/20 at 17:00 Vancomycin HCl (Vancomycin Trough Level) 1 each 1X ONCE MC ; Start 02/06/20 at 16:30; Stop 02/06/20 at 16:31 Info (Anti-Coagulation Monitoring By Pharmacy) 1 each PRN DAILY PRN MC SEE COMMENTS Last administered on 02/05/20at 08:52; Start 02/05/20 at 08:00; Stop 02/05/20 at 12:22; Status DC Apixaban (Eliquis) 5 mg BID PO Last administered on 02/05/20at 09:06; Start 02/05/20 at 09:00; Stop 02/05/20 at 12:21; Status DC Active Scripts Active Culturelle (Lactobacillus Rhamnosus Gg) 1 Each Cap.sprink 1 Cap PO BID 30 Days Reported Klor-Con 10 (Potassium Chloride) 10 Meq Tablet.er 1 Tab PO DAILY 30 Days Furosemide 40 Mg Tablet 40 Mg PO QMWFSA Levothyroxine Sodium 150 Mcg Tablet 1 Tab PO DAILY Eliquis (Apixaban) 5 Mg Tablet 5 Mg PO BID Toprol XL (Metoprolol Succinate) 50 Mg Tab.er.24h 50 Mg PO HS Atorvastatin Calcium 40 Mg Tablet 1 Tab PO QHS Gabapentin 600 Mg Tablet 600 Mg PO HS Lantus Solostar (Insulin Glargine,Hum.rec.anlog) 100 Unit/1 Ml Insuln.pen 12 Unit SQ QHS Allopurinol 100 Mg Tablet 1 Tab PO DAILY Venlafaxine Hcl 37.5 Mg Tablet 1 Tab PO DAILY Aspir 81 (Aspirin) 81 Mg Tablet. 1 Tab PO DAILY Vitals/I & O Vital Sign - Last 24 Hours 02/04/20 02/04/20 02/04/20 02/04/20 12:52 16:15 16:15 17:00 Temp 97.8 97.8 Pulse 94 82 84 Resp 20 16 14 B/P (MAP) 90/54 (66) 92/50 (64) 73/44 (54) Pulse Ox 100 97 97 O2 Delivery Nasal Cannula Nasal Cannula Nasal Cannula Nasal Cannula O2 Flow Rate 2.0 2.0 2.0 2.0 02/04/20 02/04/20 02/04/20 02/04/20 17:30 17:45 18:00 18:15 Pulse 91 86 84 82 Resp 12 12 B/P (MAP) 72/48 (56) 86/50 (62) 85/51 (62) 90/54 (66) Pulse Ox 100 99 O2 Delivery Nasal Cannula Nasal Cannula O2 Flow Rate 2.0 2.0 02/04/20 02/04/20 02/04/20 02/04/20 18:30 20:00 20:03 20:36 Temp 97.6 97.6 Pulse 82 85 85 B/P (MAP) 91/51 (64) 105/60 (75) 105/60 Pulse Ox 96 O2 Delivery Nasal Cannula Nasal Cannula O2 Flow Rate 2.0 2.0 02/04/20 02/04/20 02/04/20 02/05/20 21:00 22:00 23:00 00:00 Temp 97.8 97.8 Pulse 97 92 114 99 B/P (MAP) 111/67 (82) 100/59 (73) 106/64 (78) 97/54 (68) Pulse Ox 96 96 98 96 O2 Delivery Nasal Cannula Nasal Cannula Nasal Cannula Nasal Cannula O2 Flow Rate 2.0 2.0 2.0 2.0 02/05/20 02/05/20 02/05/20 02/05/20 00:00 01:06 02:00 03:03 Pulse 114 93 100 B/P (MAP) 85/59 (68) 101/57 (72) 96/59 (71) Pulse Ox 98 98 98 O2 Delivery Nasal Cannula Nasal Cannula Nasal Cannula Nasal Cannula O2 Flow Rate 2.0 2.0 2.0 2.0 02/05/20 02/05/20 02/05/20 02/05/20 04:00 04:03 05:03 06:10 Temp 98.5 98.5 Pulse 98 98 91 B/P (MAP) 92/54 (67) 108/57 (74) 110/60 (77) Pulse Ox 98 98 98 O2 Delivery Nasal Cannula Nasal Cannula Nasal Cannula Nasal Cannula O2 Flow Rate 2.0 2.0 2.0 2.0 02/05/20 02/05/20 02/05/20 02/05/20 07:00 08:00 08:00 09:00 Temp 98.5 98.5 98.5 98.5 Pulse 99 99 88 Resp 20 18 B/P (MAP) 92/59 (70) 101/54 (70) 104/58 (73) Pulse Ox 95 100 100 O2 Delivery Room Air Nasal Cannula Nasal Cannula Nasal Cannula O2 Flow Rate 2.0 2.0 2.0 2.0 02/05/20 02/05/20 02/05/20 02/05/20 10:00 11:00 12:00 12:00 Temp 97.9 97.9 Pulse 88 88 99 Resp 18 18 18 B/P (MAP) 106/52 (70) 96/57 (70) 102/55 (71) Pulse Ox 100 100 100 O2 Delivery Nasal Cannula Nasal Cannula Nasal Cannula Nasal Cannula O2 Flow Rate 2.0 2.0 2.0 2.0 Intake and Output 02/04/20 02/04/20 02/05/20 15:00 23:00 07:00 Intake Total 2100 ml 630 ml 180 ml Balance 2100 ml 630 ml 180 ml Justicifation of Admission Dx: Justifications for Admission: Justification of Admission Dx: Yes Sepsis: Infection RADHA WEBB MD Feb 05, 2020 12:54
--- NOTE | 2020-02-05 13:57 | NUR ---
SS following for discharge planning. SS reviewed pt chart and discussed with pt RN. Pt is from home and is currently requiring oxygen. Pt on IV Vancomycin and Zosyn. COVID19 test pending. Pt was on services with [facility], [place], ; fax [phone]. SS will continue to follow for discharge planning.
--- NOTE | 2020-02-05 14:56 | PDOC ---
RAE JENSEN [employer] 02/05/20 1456: CARDIO Progress Notes Date and Time Date of Service 02/05/20 Time of Evaluation 1145 Subjective Subjective: No Chest Pain, No Palpitations, No Dizziness Vitals Vitals Vital Signs Date Time Temp Pulse Resp B/P (MAP) Pulse Ox O2 Delivery O2 Flow Rate FiO2 02/05/20 14:17 83 18 95/58 (70) 94 Nasal Cannula 2.0 02/05/20 11:00 97.9 97.9 Weight Weight [ ] Input and Output Intake and Output Intake and Output 02/05/20 07:00 Intake Total 2910 ml Balance 2910 ml Intake Oral 810 ml IV Total 2100 ml # Voids 4 # Bowel Movements 1 Laboratory Labs Laboratory Tests Test 02/05/20 05:50 02/05/20 08:55 02/05/20 09:19 02/05/20 11:49 White Blood Count 10.6 x10^3/uL (4.0-11.0) Red Blood Count 3.71 x10^6/uL (3.50-5.40) Hemoglobin 10.9 g/dL (12.0-15.5) Hematocrit 32.8 % (36.0-47.0) Mean Corpuscular Volume 89 fL (79-100) Mean Corpuscular Hemoglobin 29 pg (25-35) Mean Corpuscular Hemoglobin Concent 33 g/dL (31-37) Red Cell Distribution Width 16.1 % (11.5-14.5) Platelet Count 70 x10^3/uL (140-400) Sodium Level 142 mmol/L (136-145) Potassium Level 4.0 mmol/L (3.5-5.1) Chloride Level 110 mmol/L (98-107) Carbon Dioxide Level 25 mmol/L (21-32) Anion Gap 7 (6-14) Blood Urea Nitrogen 24 mg/dL (7-20) Creatinine 1.5 mg/dL (0.6-1.0) Estimated GFR (Cockcroft-Gault) 33.7 Glucose Level 107 mg/dL (70-99) Calcium Level 8.0 mg/dL (8.5-10.1) Magnesium Level 2.2 mg/dL (1.8-2.4) Procalcitonin 17.40 ng/mL (0.00-0.10) Prothrombin Time 23.1 SEC (11.7-14.0) Prothromb Time International Ratio 2.1 (0.8-1.1) Lactic Acid Level 2.5 mmol/L (0.4-2.0) Glucose (Fingerstick) 99 mg/dL (70-99) 151 mg/dL (70-99) Test 02/05/20 12:20 Lactic Acid Level 2.4 mmol/L (0.4-2.0) Microbiology Micro Microbiology 02/04/20 Blood Culture - Preliminary, Resulted NO GROWTH AFTER 1 DAY Physical Exam HEENT: Neck Supple W Full Motion Chest: Symmetric LUNGS: Other (diminished ) Heart: S1S2, irregularly irregular (AFIB, rate controlled) Abdomen: Soft N/T Extremities: Other (1+ bilateral LE edema ) Neurology: alert, oriented, follow commands Assessment Assessment 1. Sepsis/fever/lactic acidosis. Off pressor support. COVID pending 2. Recurrent UTI with possible pyelonephritis and left nonobstructive calculi 3. Recent ILR placement: Medtronic placed due to syncope. 01/28/2020. 4. DEMETRIUS 5. Hypomagnesemia; replaced 6. AFIB RVR: paroxysmal by hx. now rate controlled 7. CAD: past CABG, clincially stable. CP free. 8. Chronic systolic CHF: appears compensated 9. 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 Hx of GLADIS with CPAP use 11. Diabetes, II 12. Hypothyroidism 13. Coagulopathy, thrombocytopenia Recommendations Discontinue Eliquis with #13 Continue with ASA. Monitor PLTs Metoprolol for rate control Antibiotic therapy. Follow cultures Secondary prevention measures as tolerated. Supportive care Justicifation of Admission Dx: Justifications for Admission: Justification of Admission Dx: Yes Sepsis: Infection MARIE SHARMA MD 02/05/20 2254: CARDIO Progress Notes Attending Co-Sign The patient was seen and interviewed as well as examined at the bedside. The chart was reviewed. The case was discussed. Agree with the plan of care. RAE JENSEN APRN Feb 05, 2020 14:56 MARIE SHARMA MD Feb 05, 2020 22:54
[2020-02-05] MEDS ORDERED: VANCOMYCIN 750 MG in IV NORMAL SALINE 250ML 250 ML IV SCH (17:00)
[2020-02-05] MEDS: ATORVASTATIN CALCIUM 40 MG TABLET. PO SCH (21:49)
[2020-02-05] MEDS: INSULIN GLARGINE SYRINGE. SQ SCH (21:49)
[2020-02-05] MEDS: METOPROLOL SUCC 24HR ER 50 MG TAB.ER.24H. PO SCH (21:49)
[2020-02-06] VITALS (20 sets, daily range): BP systolic 101–142; BP diastolic 49–82
[2020-02-06] MEDS: PIPERACILLIN/TAZOBACTAM 3.375 GM in IV NORMAL SALINE 50ML 50 ML IV SCH ×4 (00:03→18:26)
[2020-02-06 05:37] LABS: BASO % 1 % (0-3); EOS # 0.3 x10^3/uL (0.0-0.7); EOS % 4 % (0-3); HEMATOCRIT 35.4 % (36.0-47.0); HEMOGLOBIN 11.5 g/dL (12.0-15.5); LYMPH # 1.7 x10^3/uL (1.0-4.8); LYMPH % 19 % (24-48); MEAN CORPUSCULAR HEMOGLOBIN 29 pg (25-35); MEAN CORPUSCULAR HGB CONC 33 g/dL (31-37); MEAN CORPUSCULAR VOLUME 89 fL (79-100); MONO # 0.5 x10^3/uL (0.0-1.1); MONO % 5 % (0-9); NEUT # 6.6 x10^3/uL (1.8-7.7); NEUT % 72 % (31-73); PLATELET COUNT 80 x10^3/uL (140-400); RED BLOOD COUNT 3.98 x10^6/uL (3.50-5.40); RED CELL DISTRIBUTION WIDTH 17.4 % (11.5-14.5); WHITE BLOOD COUNT 9.2 x10^3/uL (4.0-11.0)
[2020-02-06 05:45] LABS: PROTHROMBIN TIME PATIENT 17.6 SEC (11.7-14.0)
[2020-02-06] MEDS: LEVOTHYROXINE 137 MCG TABLET PO SCH (05:53)
[2020-02-06 05:56] LABS: ALBUMIN 2.5 g/dL (3.4-5.0); ALBUMIN/GLOBULIN RATIO 0.7 (1.0-1.7); CALCIUM 8.5 mg/dL (8.5-10.1); CREATININE 1.5 mg/dL (0.6-1.0); GFR 33.7; POTASSIUM 4.2 mmol/L (3.5-5.1); TOTAL BILIRUBIN 0.5 mg/dL (0.2-1.0); TOTAL PROTEIN 6.1 g/dL (6.4-8.2)
--- NOTE | 2020-02-06 08:26 | PDOC ---
PROGRESS NOTES Chief Complaint Chief Complaint A/P: Hypoxia Severe sepsis Recurrent UTI with possible pyelonephritis and left nonobstructive calculi Thrombocytopenia weakness History of atrial fibrillation on chronic anticoagulation, rate controlled Diabetes-Type II, htn, dm2, lipids Hypothyroidism CKD 3 Recent ILR placement: Medtronic placed due to syncope. 01/28/2020. ILR site with no s/s of infection DEMETRIUS - likely vasomotor nephropathy Hypomagnesemia AFIB RVR: paroxysmal by hx. now rate controlled CAD: past CABG, clincially stable. CP free. 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 Patient had not have a bowel movement for a week. Patient also has nonproductive cough for several days. With elevated creatinine and elevated transaminases lactate 5.7 hypotensive, admitted to ICU Patient was recently admitted to the hospital due to severe sepsis, atrial fibrillation, had a loop recorder placed. Patient had neuropathy in her leg so she been having bilateral legs pain, denies any leg swelling. 02/04: Lactate down from 5.7, LFTs improved creatinine improved. Still somewhat confused Down to 2 L O2 overnight. Lactate down to 2.4. WBC 9.2, afebrile platelets stable at 80 INR 1.5, AST 63. She notes bilateral lower extremity weakness. Plan: Follow-up urine culture Can downgrade to CVC Continue antibiotics and eliquis Vitals Vitals Vital Signs Date Time Temp Pulse Resp B/P (MAP) Pulse Ox O2 Delivery O2 Flow Rate FiO2 02/06/20 07:32 81 20 142/82 (102) 99 Nasal Cannula 2.0 02/06/20 04:00 98.3 98.3 Physical Exam General: Alert, Cooperative, No acute distress Heart: Other (AFIB) Abdomen: Soft Extremities: No cyanosis, No edema Skin: No breakdown Labs LABS Laboratory Tests Test 02/05/20 08:55 02/05/20 09:19 02/05/20 11:49 02/05/20 12:20 Prothrombin Time 23.1 SEC (11.7-14.0) Prothromb Time International Ratio 2.1 (0.8-1.1) Lactic Acid Level 2.5 mmol/L (0.4-2.0) 2.4 mmol/L (0.4-2.0) Glucose (Fingerstick) 99 mg/dL (70-99) 151 mg/dL (70-99) Test 02/05/20 21:53 02/06/20 04:40 Glucose (Fingerstick) 98 mg/dL (70-99) White Blood Count 9.2 x10^3/uL (4.0-11.0) Red Blood Count 3.98 x10^6/uL (3.50-5.40) Hemoglobin 11.5 g/dL (12.0-15.5) Hematocrit 35.4 % (36.0-47.0) Mean Corpuscular Volume 89 fL (79-100) Mean Corpuscular Hemoglobin 29 pg (25-35) Mean Corpuscular Hemoglobin Concent 33 g/dL (31-37) Red Cell Distribution Width 17.4 % (11.5-14.5) Platelet Count 80 x10^3/uL (140-400) Neutrophils (%) (Auto) 72 % (31-73) Lymphocytes (%) (Auto) 19 % (24-48) Monocytes (%) (Auto) 5 % (0-9) Eosinophils (%) (Auto) 4 % (0-3) Basophils (%) (Auto) 1 % (0-3) Neutrophils # (Auto) 6.6 x10^3/uL (1.8-7.7) Lymphocytes # (Auto) 1.7 x10^3/uL (1.0-4.8) Monocytes # (Auto) 0.5 x10^3/uL (0.0-1.1) Eosinophils # (Auto) 0.3 x10^3/uL (0.0-0.7) Basophils # (Auto) 0.0 x10^3/uL (0.0-0.2) Prothrombin Time 17.6 SEC (11.7-14.0) Prothromb Time International Ratio 1.5 (0.8-1.1) Sodium Level 141 mmol/L (136-145) Potassium Level 4.2 mmol/L (3.5-5.1) Chloride Level 108 mmol/L (98-107) Carbon Dioxide Level 23 mmol/L (21-32) Anion Gap 10 (6-14) Blood Urea Nitrogen 24 mg/dL (7-20) Creatinine 1.5 mg/dL (0.6-1.0) Estimated GFR (Cockcroft-Gault) 33.7 BUN/Creatinine Ratio 16 (6-20) Glucose Level 95 mg/dL (70-99) Calcium Level 8.5 mg/dL (8.5-10.1) Total Bilirubin 0.5 mg/dL (0.2-1.0) Aspartate Amino Transf (AST/SGOT) 63 U/L (15-37) Alanine Aminotransferase (ALT/SGPT) 55 U/L (14-59) Alkaline Phosphatase 115 U/L (46-116) Total Protein 6.1 g/dL (6.4-8.2) Albumin 2.5 g/dL (3.4-5.0) Albumin/Globulin Ratio 0.7 (1.0-1.7) Assessment and Plan Assessmemt and Plan Problems Medical Problems: (1) Afib Status: Acute (2) Hypomagnesemia Status: Acute (3) Pneumonia Status: Acute (4) Severe sepsis Status: Acute (5) Suspected 2019-nCoV infection Status: Acute (6) UTI (urinary tract infection) Status: Acute Comment Review of Relevant I have reviewed the following items priyank (where applicable) has been applied. Labs Laboratory Tests Test 02/04/20 08:40 02/04/20 12:10 02/04/20 13:02 02/05/20 05:50 Urine Collection Type U cath Urine Color [place] Urine Clarity Cloudy Urine pH 5.0 (<5.0-8.0) Urine Specific [place] 1.015 (1.000-1.030) Urine Protein 30 mg/dL (NEG-TRACE) Urine Glucose (UA) Negative mg/dL (NEG) Urine Ketones (Stick) Trace mg/dL (NEG) Urine Blood Large (NEG) Urine Nitrite Negative (NEG) Urine Bilirubin Small (NEG) Urine Urobilinogen Dipstick 1.0 mg/dL (0.2 mg/dL) Urine Leukocyte Esterase Small (NEG) Urine RBC 20-40 /HPF (0-2) Urine WBC 1-4 /HPF (0-4) Urine Squamous Epithelial Cells Occ /LPF Urine Bacteria Few /HPF (0-FEW) Urine Hyaline Casts Few /HPF Lactic Acid Level 4.2 mmol/L (0.4-2.0) Glucose (Fingerstick) 173 mg/dL (70-99) White Blood Count 10.6 x10^3/uL (4.0-11.0) Red Blood Count 3.71 x10^6/uL (3.50-5.40) Hemoglobin 10.9 g/dL (12.0-15.5) Hematocrit 32.8 % (36.0-47.0) Mean Corpuscular Volume 89 fL (79-100) Mean Corpuscular Hemoglobin 29 pg (25-35) Mean Corpuscular Hemoglobin Concent 33 g/dL (31-37) Red Cell Distribution Width 16.1 % (11.5-14.5) Platelet Count 70 x10^3/uL (140-400) Sodium Level 142 mmol/L (136-145) Potassium Level 4.0 mmol/L (3.5-5.1) Chloride Level 110 mmol/L (98-107) Carbon Dioxide Level 25 mmol/L (21-32) Anion Gap 7 (6-14) Blood Urea Nitrogen 24 mg/dL (7-20) Creatinine 1.5 mg/dL (0.6-1.0) Estimated GFR (Cockcroft-Gault) 33.7 Glucose Level 107 mg/dL (70-99) Calcium Level 8.0 mg/dL (8.5-10.1) Magnesium Level 2.2 mg/dL (1.8-2.4) Procalcitonin 17.40 ng/mL (0.00-0.10) Test 02/05/20 08:55 02/05/20 09:19 02/05/20 11:49 02/05/20 12:20 Prothrombin Time 23.1 SEC (11.7-14.0) Prothromb Time International Ratio 2.1 (0.8-1.1) Lactic Acid Level 2.5 mmol/L (0.4-2.0) 2.4 mmol/L (0.4-2.0) Glucose (Fingerstick) 99 mg/dL (70-99) 151 mg/dL (70-99) Test 02/05/20 21:53 02/06/20 04:40 Glucose (Fingerstick) 98 mg/dL (70-99) White Blood Count 9.2 x10^3/uL (4.0-11.0) Red Blood Count 3.98 x10^6/uL (3.50-5.40) Hemoglobin 11.5 g/dL (12.0-15.5) Hematocrit 35.4 % (36.0-47.0) Mean Corpuscular Volume 89 fL (79-100) Mean Corpuscular Hemoglobin 29 pg (25-35) Mean Corpuscular Hemoglobin Concent 33 g/dL (31-37) Red Cell Distribution Width 17.4 % (11.5-14.5) Platelet Count 80 x10^3/uL (140-400) Neutrophils (%) (Auto) 72 % (31-73) Lymphocytes (%) (Auto) 19 % (24-48) Monocytes (%) (Auto) 5 % (0-9) Eosinophils (%) (Auto) 4 % (0-3) Basophils (%) (Auto) 1 % (0-3) Neutrophils # (Auto) 6.6 x10^3/uL (1.8-7.7) Lymphocytes # (Auto) 1.7 x10^3/uL (1.0-4.8) Monocytes # (Auto) 0.5 x10^3/uL (0.0-1.1) Eosinophils # (Auto) 0.3 x10^3/uL (0.0-0.7) Basophils # (Auto) 0.0 x10^3/uL (0.0-0.2) Prothrombin Time 17.6 SEC (11.7-14.0) Prothromb Time International Ratio 1.5 (0.8-1.1) Sodium Level 141 mmol/L (136-145) Potassium Level 4.2 mmol/L (3.5-5.1) Chloride Level 108 mmol/L (98-107) Carbon Dioxide Level 23 mmol/L (21-32) Anion Gap 10 (6-14) Blood Urea Nitrogen 24 mg/dL (7-20) Creatinine 1.5 mg/dL (0.6-1.0) Estimated GFR (Cockcroft-Gault) 33.7 BUN/Creatinine Ratio 16 (6-20) Glucose Level 95 mg/dL (70-99) Calcium Level 8.5 mg/dL (8.5-10.1) Total Bilirubin 0.5 mg/dL (0.2-1.0) Aspartate Amino Transf (AST/SGOT) 63 U/L (15-37) Alanine Aminotransferase (ALT/SGPT) 55 U/L (14-59) Alkaline Phosphatase 115 U/L (46-116) Total Protein 6.1 g/dL (6.4-8.2) Albumin 2.5 g/dL (3.4-5.0) Albumin/Globulin Ratio 0.7 (1.0-1.7) Laboratory Tests Test 02/05/20 08:55 02/05/20 09:19 02/05/20 11:49 02/05/20 12:20 Prothrombin Time 23.1 SEC (11.7-14.0) Prothromb Time International Ratio 2.1 (0.8-1.1) Lactic Acid Level 2.5 mmol/L (0.4-2.0) 2.4 mmol/L (0.4-2.0) Glucose (Fingerstick) 99 mg/dL (70-99) 151 mg/dL (70-99) Test 02/05/20 21:53 02/06/20 04:40 Glucose (Fingerstick) 98 mg/dL (70-99) White Blood Count 9.2 x10^3/uL (4.0-11.0) Red Blood Count 3.98 x10^6/uL (3.50-5.40) Hemoglobin 11.5 g/dL (12.0-15.5) Hematocrit 35.4 % (36.0-47.0) Mean Corpuscular Volume 89 fL (79-100) Mean Corpuscular Hemoglobin 29 pg (25-35) Mean Corpuscular Hemoglobin Concent 33 g/dL (31-37) Red Cell Distribution Width 17.4 % (11.5-14.5) Platelet Count 80 x10^3/uL (140-400) Neutrophils (%) (Auto) 72 % (31-73) Lymphocytes (%) (Auto) 19 % (24-48) Monocytes (%) (Auto) 5 % (0-9) Eosinophils (%) (Auto) 4 % (0-3) Basophils (%) (Auto) 1 % (0-3) Neutrophils # (Auto) 6.6 x10^3/uL (1.8-7.7) Lymphocytes # (Auto) 1.7 x10^3/uL (1.0-4.8) Monocytes # (Auto) 0.5 x10^3/uL (0.0-1.1) Eosinophils # (Auto) 0.3 x10^3/uL (0.0-0.7) Basophils # (Auto) 0.0 x10^3/uL (0.0-0.2) Prothrombin Time 17.6 SEC (11.7-14.0) Prothromb Time International Ratio 1.5 (0.8-1.1) Sodium Level 141 mmol/L (136-145) Potassium Level 4.2 mmol/L (3.5-5.1) Chloride Level 108 mmol/L (98-107) Carbon Dioxide Level 23 mmol/L (21-32) Anion Gap 10 (6-14) Blood Urea Nitrogen 24 mg/dL (7-20) Creatinine 1.5 mg/dL (0.6-1.0) Estimated GFR (Cockcroft-Gault) 33.7 BUN/Creatinine Ratio 16 (6-20) Glucose Level 95 mg/dL (70-99) Calcium Level 8.5 mg/dL (8.5-10.1) Total Bilirubin 0.5 mg/dL (0.2-1.0) Aspartate Amino Transf (AST/SGOT) 63 U/L (15-37) Alanine Aminotransferase (ALT/SGPT) 55 U/L (14-59) Alkaline Phosphatase 115 U/L (46-116) Total Protein 6.1 g/dL (6.4-8.2) Albumin 2.5 g/dL (3.4-5.0) Albumin/Globulin Ratio 0.7 (1.0-1.7) Microbiology 02/04/20 Blood Culture - Preliminary, Resulted NO GROWTH AFTER 1 DAY Medications Current Medications Acetaminophen (Tylenol) 1,000 mg 1X ONCE PO Last administered on 02/04/20at 08:25; Start 02/04/20 at 08:15; Stop 02/04/20 at 08:19; Status DC Sodium Chloride 1,000 ml @ 1,000 mls/hr 1X ONCE IV Last administered on 02/04/20at 08:26; Start 02/04/20 at 08:15; Stop 02/04/20 at 09:14; Status DC Ondansetron HCl (Zofran) 4 mg STK-MED ONCE .ROUTE ; Start 02/04/20 at 08:21; Stop 02/04/20 at 08:21; Status DC Sodium Chloride 1,000 ml @ 1,000 mls/hr 1X ONCE IV Last administered on 02/04/20at 08:26; Start 02/04/20 at 08:30; Stop 02/04/20 at 09:29; Status DC Piperacillin Sod/ Tazobactam Sod 3.375 gm/Sodium Chloride 50 ml @ 100 mls/hr 1X ONCE IV Last administered on 02/04/20at 09:34; Start 02/04/20 at 09:00; Stop 02/04/20 at 09:29; Status DC Magnesium Sulfate 50 ml @ 25 mls/hr 1X ONCE IV Last administered on 02/04/20at 11:06; Start 02/04/20 at 10:15; Stop 02/04/20 at 12:14; Status DC Ondansetron HCl (Zofran) 4 mg PRN Q8HRS PRN IV NAUSEA/VOMITING; Start 02/04/20 at 10:15; Stop 02/05/20 at 10:14; Status DC Sodium Chloride 1,000 ml @ 125 mls/hr Q8H IV Last administered on 02/04/20at 11:06; Start 02/04/20 at 10:10; Stop 02/04/20 at 18:35; Status DC Piperacillin Sod/ Tazobactam Sod (Zosyn Per Pharmacy) 1 each PRN DAILY PRN MC SEE COMMENTS; Start 02/04/20 at 10:15 Piperacillin Sod/ Tazobactam Sod 3.375 gm/Sodium Chloride 50 ml @ 100 mls/hr Q6HRS IV Last administered on 02/06/20at 05:52; Start 02/04/20 at 18:00 Zinc Sulfate (Orazinc) 220 mg DAILY PO Last administered on 02/05/20at 09:03; Start 02/04/20 at 14:00 Ascorbic Acid (Vitamin C) 500 mg DAILY PO Last administered on 02/05/20at 09:03; Start 02/04/20 at 14:00 Allopurinol (Zyloprim) 100 mg DAILY PO Last administered on 02/05/20 09:04; Start 02/05/20 at 09:00 Apixaban (Eliquis) 2.5 mg BID PO Last administered on 02/04/20at 20:35; Start 02/04/20 at 21:00; Stop 02/05/20 at 08:45; Status DC Aspirin (Ecotrin) 81 mg DAILY PO Last administered on 02/05/20 11:45; Start 02/05/20 at 09:00 Atorvastatin Calcium (Lipitor) 40 mg QHS PO Last administered on 02/05/20 21:49; Start 02/04/20 at 21:00 Lactobacillus Rhamnosus (Culturelle) 1 cap BID PO Last administered on 02/05/20 21:50; Start 02/04/20 at 21:00 Levothyroxine Sodium (Synthroid) 137 mcg DAILY06 PO Last administered on 02/06/20 05:53; Start 02/05/20 at 06:00 Losartan Potassium (Cozaar) 25 mg DAILY PO ; Start 02/05/20 at 09:00; Stop 02/04/20 at 16:57; Status DC Metoprolol Succinate (Toprol Xl) 50 mg HS PO Last administered on 02/05/20 21:49; Start 02/04/20 at 21:00 Insulin Glargine (Lantus Syringe) 12 unit QHS SQ Last administered on 02/05/20 21:49; Start 02/04/20 at 21:00 Venlafaxine HCl (Effexor) 37.5 mg DAILY PO Last administered on 02/05/20 09:04; Start 02/04/20 at 14:45 Polyethylene Glycol (miraLAX PACKET) 17 gm DAILY PO Last administered on 02/05/20 09:03; Start 02/04/20 at 15:00 Docusate Sodium (Colace) 100 mg DAILY PO Last administered on 02/05/20 09:04; Start 02/05/20 at 09:00 Vancomycin HCl (Vanco Per Pharmacy) 1 each PRN DAILY PRN MC SEE COMMENTS Last administered on 02/05/20 08:39; Start 02/04/20 at 14:15 Enoxaparin Sodium (Lovenox 40mg Syringe) 40 mg BID SQ ; Start 02/04/20 at 14:30; Stop 02/04/20 at 16:21; Status DC Vancomycin HCl 1.75 gm/Sodium Chloride 500 ml @ 250 mls/hr 1X ONCE IV Last administered on 02/04/20at 16:52; Start 02/04/20 at 16:00; Stop 02/04/20 at 17:59; Status DC Phenylephrine HCl 50 mg/Sodium Chloride 255 ml @ 11.475 mls/ hr CONT PRN IV SEE I/O RECORD Last administered on 02/04/20at 17:51; Start 02/04/20 at 17:15 Vancomycin HCl 750 mg/Sodium Chloride 250 ml @ 250 mls/hr Q24H IV Last administered on 02/05/20at 16:53; Start 02/05/20 at 17:00 Vancomycin HCl (Vancomycin Trough Level) 1 each 1X ONCE MC ; Start 02/06/20 at 16:30; Stop 02/06/20 at 16:31 Info (Anti-Coagulation Monitoring By Pharmacy) 1 each PRN DAILY PRN MC SEE C OMMENTS Last administered on 02/05/20at 08:52; Start 02/05/20 at 08:00; Stop 02/05/20 at 12:22; Status DC Apixaban (Eliquis) 5 mg BID PO Last administered on 02/05/20at 09:06; Start 02/05/20 at 09:00; Stop 02/05/20 at 12:21; Status DC Active Scripts Active Culturelle (Lactobacillus Rhamnosus Gg) 1 Each Cap.sprink 1 Cap PO BID 30 Days Reported Klor-Con 10 (Potassium Chloride) 10 Meq Tablet.er 1 Tab PO DAILY 30 Days Furosemide 40 Mg Tablet 40 Mg PO QMWFSA Levothyroxine Sodium 150 Mcg Tablet 1 Tab PO DAILY Eliquis (Apixaban) 5 Mg Tablet 5 Mg PO BID Toprol XL (Metoprolol Succinate) 50 Mg Tab.er.24h 50 Mg PO HS Atorvastatin Calcium 40 Mg Tablet 1 Tab PO QHS Gabapentin 600 Mg Tablet 600 Mg PO HS Lantus Solostar (Insulin Glargine,Hum.rec.anlog) 100 Unit/1 Ml Insuln.pen 12 Unit SQ QHS Allopurinol 100 Mg Tablet 1 Tab PO DAILY Venlafaxine Hcl 37.5 Mg Tablet 1 Tab PO DAILY Aspir 81 (Aspirin) 81 Mg Tablet.dr 1 Tab PO DAILY Vitals/I & O Vital Sign - Last 24 Hours 02/05/20 02/05/20 02/05/20 02/05/20 09:00 10:00 11:00 12:00 Temp 97.9 97.9 Pulse 88 88 88 99 Resp 18 18 18 18 B/P (MAP) 104/58 (73) 106/52 (70) 96/57 (70) 102/55 (71) Pulse Ox 100 100 100 100 O2 Delivery Nasal Cannula Nasal Cannula Nasal Cannula Nasal Cannula O2 Flow Rate 2.0 2.0 2.0 2.0 02/05/20 02/05/20 02/05/20 02/05/20 12:00 13:05 14:17 14:57 Pulse 95 83 91 Resp 18 18 18 B/P (MAP) 96/62 (73) 95/58 (70) 96/58 (71) Pulse Ox 96 94 95 O2 Delivery Nasal Cannula Nasal Cannula Nasal Cannula Nasal Cannula O2 Flow Rate 2.0 2.0 2.0 2.0 02/05/20 02/05/20 02/05/20 02/05/20 16:00 16:00 17:11 18:18 Temp 98.0 98.0 Pulse 89 88 118 Resp 18 18 18 B/P (MAP) 107/62 (77) 95/55 (68) 111/66 (81) Pulse Ox 100 100 100 O2 Delivery Nasal Cannula Nasal Cannula Nasal Cannula Nasal Cannula O2 Flow Rate 2.0 2.0 2.0 2.0 02/05/20 02/05/20 02/05/20 02/05/20 19:04 20:00 20:00 21:00 Temp 98.2 98.2 Pulse 72 114 107 Resp 18 16 20 B/P (MAP) 103/52 (69) 96/64 (75) 98/61 (73) Pulse Ox 100 100 100 O2 Delivery Nasal Cannula Nasal Cannula Nasal Cannula Nasal Cannula O2 Flow Rate 2.0 2.0 2.0 2.0 02/05/20 02/05/20 02/05/20 02/06/20 21:49 22:00 23:00 00:00 Pulse 114 112 102 Resp 20 20 B/P (MAP) 96/64 111/77 (88) 116/70 (85) Pulse Ox 100 100 O2 Delivery Nasal Cannula Nasal Cannula Nasal Cannula O2 Flow Rate 2.0 2.0 2.0 02/06/20 02/06/20 02/06/20 02/06/20 00:00 01:00 02:00 03:00 Temp 98.4 98.4 Pulse 116 95 124 108 Resp 20 16 16 16 B/P (MAP) 127/70 (89) 124/66 (85) 101/60 (74) 118/68 (85) Pulse Ox 100 100 100 100 O2 Delivery Nasal Cannula Nasal Cannula Nasal Cannula Nasal Cannula O2 Flow Rate 2.0 2.0 2.0 2.0 02/06/20 02/06/20 02/06/20 02/06/20 04:00 04:00 05:00 06:00 Temp 98.3 98.3 Pulse 96 99 105 Resp 20 20 16 B/P (MAP) 116/72 (87) 117/66 (83) 108/72 (84) Pulse Ox 99 98 100 O2 Delivery Nasal Cannula Nasal Cannula Nasal Cannula Nasal Cannula O2 Flow Rate 2.0 2.0 2.0 2.0 02/06/20 07:32 Pulse 81 Resp 20 B/P (MAP) 142/82 (102) Pulse Ox 99 O2 Delivery Nasal Cannula O2 Flow Rate 2.0 Intake and Output 02/05/20 02/05/20 02/06/20 15:00 23:00 07:00 Intake Total 530 ml 1644 ml 600 ml Output Total 600 ml 300 ml Balance -70 ml 1344 ml 600 ml Justicifation of Admission Dx: Justifications for Admission: Justification of Admission Dx: Yes Sepsis: Infection RADHA WEBB MD Feb 06, 2020 08:26
--- NOTE | 2020-02-06 08:41 | PDOC ---
PULMONARY PROGRESS NOTES Subjective Davis awake alert no respiratory distress Vitals Vital Signs Date Time Temp Pulse Resp B/P (MAP) Pulse Ox O2 Delivery O2 Flow Rate FiO2 02/06/20 08:31 Nasal Cannula 2.0 02/06/20 08:23 98.3 93 20 114/68 (83) 87 98.3 General: Alert Lungs: Clear Cardiovascular: S1, S2 Abdomen: Soft Neuro Exam: Alert Extremities: No Edema Skin: Warm Labs Laboratory Tests Test 02/04/20 12:10 02/04/20 13:02 02/05/20 05:50 02/05/20 08:55 Lactic Acid Level 4.2 mmol/L (0.4-2.0) 2.5 mmol/L (0.4-2.0) Glucose (Fingerstick) 173 mg/dL (70-99) White Blood Count 10.6 x10^3/uL (4.0-11.0) Red Blood Count 3.71 x10^6/uL (3.50-5.40) Hemoglobin 10.9 g/dL (12.0-15.5) Hematocrit 32.8 % (36.0-47.0) Mean Corpuscular Volume 89 fL (79-100) Mean Corpuscular Hemoglobin 29 pg (25-35) Mean Corpuscular Hemoglobin Concent 33 g/dL (31-37) Red Cell Distribution Width 16.1 % (11.5-14.5) Platelet Count 70 x10^3/uL (140-400) Sodium Level 142 mmol/L (136-145) Potassium Level 4.0 mmol/L (3.5-5.1) Chloride Level 110 mmol/L (98-107) Carbon Dioxide Level 25 mmol/L (21-32) Anion Gap 7 (6-14) Blood Urea Nitrogen 24 mg/dL (7-20) Creatinine 1.5 mg/dL (0.6-1.0) Estimated GFR (Cockcroft-Gault) 33.7 Glucose Level 107 mg/dL (70-99) Calcium Level 8.0 mg/dL (8.5-10.1) Magnesium Level 2.2 mg/dL (1.8-2.4) Procalcitonin 17.40 ng/mL (0.00-0.10) Prothrombin Time 23.1 SEC (11.7-14.0) Prothromb Time International Ratio 2.1 (0.8-1.1) Test 02/05/20 09:19 02/05/20 11:49 02/05/20 12:20 02/05/20 21:53 Glucose (Fingerstick) 99 mg/dL (70-99) 151 mg/dL (70-99) 98 mg/dL (70-99) Lactic Acid Level 2.4 mmol/L (0.4-2.0) Test 02/06/20 04:40 White Blood Count 9.2 x10^3/uL (4.0-11.0) Red Blood Count 3.98 x10^6/uL (3.50-5.40) Hemoglobin 11.5 g/dL (12.0-15.5) Hematocrit 35.4 % (36.0-47.0) Mean Corpuscular Volume 89 fL (79-100) Mean Corpuscular Hemoglobin 29 pg (25-35) Mean Corpuscular Hemoglobin Concent 33 g/dL (31-37) Red Cell Distribution Width 17.4 % (11.5-14.5) Platelet Count 80 x10^3/uL (140-400) Neutrophils (%) (Auto) 72 % (31-73) Lymphocytes (%) (Auto) 19 % (24-48) Monocytes (%) (Auto) 5 % (0-9) Eosinophils (%) (Auto) 4 % (0-3) Basophils (%) (Auto) 1 % (0-3) Neutrophils # (Auto) 6.6 x10^3/uL (1.8-7.7) Lymphocytes # (Auto) 1.7 x10^3/uL (1.0-4.8) Monocytes # (Auto) 0.5 x10^3/uL (0.0-1.1) Eosinophils # (Auto) 0.3 x10^3/uL (0.0-0.7) Basophils # (Auto) 0.0 x10^3/uL (0.0-0.2) Prothrombin Time 17.6 SEC (11.7-14.0) Prothromb Time International Ratio 1.5 (0.8-1.1) Sodium Level 141 mmol/L (136-145) Potassium Level 4.2 mmol/L (3.5-5.1) Chloride Level 108 mmol/L (98-107) Carbon Dioxide Level 23 mmol/L (21-32) Anion Gap 10 (6-14) Blood Urea Nitrogen 24 mg/dL (7-20) Creatinine 1.5 mg/dL (0.6-1.0) Estimated GFR (Cockcroft-Gault) 33.7 BUN/Creatinine Ratio 16 (6-20) Glucose Level 95 mg/dL (70-99) Calcium Level 8.5 mg/dL (8.5-10.1) Total Bilirubin 0.5 mg/dL (0.2-1.0) Aspartate Amino Transf (AST/SGOT) 63 U/L (15-37) Alanine Aminotransferase (ALT/SGPT) 55 U/L (14-59) Alkaline Phosphatase 115 U/L (46-116) Total Protein 6.1 g/dL (6.4-8.2) Albumin 2.5 g/dL (3.4-5.0) Albumin/Globulin Ratio 0.7 (1.0-1.7) Laboratory Tests Test 02/05/20 08:55 02/05/20 09:19 02/05/20 11:49 02/05/20 12:20 Prothrombin Time 23.1 SEC (11.7-14.0) Prothromb Time International Ratio 2.1 (0.8-1.1) Lactic Acid Level 2.5 mmol/L (0.4-2.0) 2.4 mmol/L (0.4-2.0) Glucose (Fingerstick) 99 mg/dL (70-99) 151 mg/dL (70-99) Test 02/05/20 21:53 02/06/20 04:40 Glucose (Fingerstick) 98 mg/dL (70-99) White Blood Count 9.2 x10^3/uL (4.0-11.0) Red Blood Count 3.98 x10^6/uL (3.50-5.40) Hemoglobin 11.5 g/dL (12.0-15.5) Hematocrit 35.4 % (36.0-47.0) Mean Corpuscular Volume 89 fL (79-100) Mean Corpuscular Hemoglobin 29 pg (25-35) Mean Corpuscular Hemoglobin Concent 33 g/dL (31-37) Red Cell Distribution Width 17.4 % (11.5-14.5) Platelet Count 80 x10^3/uL (140-400) Neutrophils (%) (Auto) 72 % (31-73) Lymphocytes (%) (Auto) 19 % (24-48) Monocytes (%) (Auto) 5 % (0-9) Eosinophils (%) (Auto) 4 % (0-3) Basophils (%) (Auto) 1 % (0-3) Neutrophils # (Auto) 6.6 x10^3/uL (1.8-7.7) Lymphocytes # (Auto) 1.7 x10^3/uL (1.0-4.8) Monocytes # (Auto) 0.5 x10^3/uL (0.0-1.1) Eosinophils # (Auto) 0.3 x10^3/uL (0.0-0.7) Basophils # (Auto) 0.0 x10^3/uL (0.0-0.2) Prothrombin Time 17.6 SEC (11.7-14.0) Prothromb Time International Ratio 1.5 (0.8-1.1) Sodium Level 141 mmol/L (136-145) Potassium Level 4.2 mmol/L (3.5-5.1) Chloride Level 108 mmol/L (98-107) Carbon Dioxide Level 23 mmol/L (21-32) Anion Gap 10 (6-14) Blood Urea Nitrogen 24 mg/dL (7-20) Creatinine 1.5 mg/dL (0.6-1.0) Estimated GFR (Cockcroft-Gault) 33.7 BUN/Creatinine Ratio 16 (6-20) Glucose Level 95 mg/dL (70-99) Calcium Level 8.5 mg/dL (8.5-10.1) Total Bilirubin 0.5 mg/dL (0.2-1.0) Aspartate Amino Transf (AST/SGOT) 63 U/L (15-37) Alanine Aminotransferase (ALT/SGPT) 55 U/L (14-59) Alkaline Phosphatase 115 U/L (46-116) Total Protein 6.1 g/dL (6.4-8.2) Albumin 2.5 g/dL (3.4-5.0) Albumin/Globulin Ratio 0.7 (1.0-1.7) Medications Active Scripts Medications Dose Route/Sig Max Daily Dose Days Date Category Eliquis (Apixaban) 2.5 Mg Tablet 2.5 Mg PO BID 30 01/07/20 Rx Cipro (Ciprofloxacin Hcl) 250 Mg Tablet 250 Mg PO BID 5 01/06/20 Rx Toprol XL (Metoprolol Succinate) 50 Mg Tab.er.24h 50 Mg PO HS 12/15/19 Reported Levothyroxine Sodium 137 Mcg Tablet 1 Tab PO DAILY 12/15/19 Reported Culturelle (Lactobacillus Rhamnosus Gg) 1 Each Cap.sprink 1 Cap PO BID 30 11/15/19 Rx Losartan Potassium (Losartan Potassium) 25 Mg Tablet 25 Mg PO DAILY 30 11/15/19 Rx Atorvastatin Calcium 40 Mg Tablet 1 Tab PO QHS 08/08/19 Reported Gabapentin 600 Mg Tablet 600 Mg PO HS 08/08/19 Reported Lantus Solostar (Insulin Glargine,Hum.rec.anlog) 100 Unit/1 Ml Insuln.pen 12 Unit SQ QHS 10/16/18 Reported Allopurinol 100 Mg Tablet 1 Tab PO DAILY 07/30/17 Reported Venlafaxine Hcl 37.5 Mg Tablet 1 Tab PO DAILY 06/21/15 Reported Aspir 81 (Aspirin) 81 Mg Tablet.dr 1 Tab PO DAILY 06/21/15 Reported Impression . IMPRESSION: 1. Acute hypoxemic respiratory failure. 2. Abnormal x-ray, possible pneumonia, gram-negative, possible gram-positive. 3. Leukocytosis. 4. Lactic acidosis from possible sepsis. 5. Metabolic toxic encephalopathy., Improved 6. Fever. 7. COVID-19 suspect. Plan . Awaiting SARS-CoV-2 results IV fluids Empiric antibiotics Check blood cultures, follow-up Advance diet JUSTINE GARCIA MD Feb 06, 2020 08:41
[2020-02-06] MEDS: POLYETHYLENE GLYCOL 3350 17 GM PACKET. PO SCH (09:00)
[2020-02-06] MEDS: DOCUSATE SODIUM 100 MG CAPSULE. PO SCH (10:55)
[2020-02-06] MEDS: LACTOBACILLUS RHAMNOSUS GG 1 CAPSULE. PO SCH ×2 (10:56→21:12)
[2020-02-06] MEDS: ASPIRIN ENTERIC COATED 81 MG TABLET.DR. PO SCH (10:56)
[2020-02-06] MEDS: ASCORBIC ACID 500 MG TABLET PO SCH (10:56)
[2020-02-06] MEDS: ZINC SULFATE 220 MG CAPSULE. PO SCH (10:56)
[2020-02-06] MEDS: VENLAFAXINE 75 MG TABLET. PO SCH (10:56)
[2020-02-06] MEDS: ANTI-COAG MONITOR BY PHARMACY. MC PRN (11:12)
--- NOTE | 2020-02-06 12:25 | NUR ---
SS following up with discharge planning. SS reviewed pt chart and discussed with pt RN. Pt COVID19 test still pending. Pt is currently requiring oxygen. Pt on IV Zosyn. SS will continue to follow for discharge planning.
[2020-02-06] MEDS: ALLOPURINOL 100 MG TABLET. PO SCH (13:35)
[2020-02-06] MEDS: APIXABAN 2.5 MG TABLET. PO SCH ×2 (13:35→21:12)
--- NOTE | 2020-02-06 14:38 | PDOC ---
RAE JENSEN SENIOR ACTUARIAL ANALYST 02/06/20 1438: CARDIO Progress Notes Date and Time Date of Service 02/06/20 Time of Evaluation 1410 Subjective Subjective: No Chest Pain, No Palpitations, No Dizziness Vitals Vitals Vital Signs Date Time Temp Pulse Resp B/P (MAP) Pulse Ox O2 Delivery O2 Flow Rate FiO2 02/06/20 08:31 Nasal Cannula 2.0 02/06/20 08:23 98.3 93 20 114/68 (83) 87 98.3 Weight Weight [ ] Input and Output Intake and Output Intake and Output 02/06/20 07:00 Intake Total 3074 ml Output Total 900 ml Balance 2174 ml Intake Oral 1980 ml IV Total 350 ml Tube Feeding 444 ml Other 300 ml Output Urine Total 900 ml # Voids 4 # Bowel Movements 1 Laboratory Labs Laboratory Tests Test 02/05/20 21:53 02/06/20 04:40 Glucose (Fingerstick) 98 mg/dL (70-99) White Blood Count 9.2 x10^3/uL (4.0-11.0) Red Blood Count 3.98 x10^6/uL (3.50-5.40) Hemoglobin 11.5 g/dL (12.0-15.5) Hematocrit 35.4 % (36.0-47.0) Mean Corpuscular Volume 89 fL (79-100) Mean Corpuscular Hemoglobin 29 pg (25-35) Mean Corpuscular Hemoglobin Concent 33 g/dL (31-37) Red Cell Distribution Width 17.4 % (11.5-14.5) Platelet Count 80 x10^3/uL (140-400) Neutrophils (%) (Auto) 72 % (31-73) Lymphocytes (%) (Auto) 19 % (24-48) Monocytes (%) (Auto) 5 % (0-9) Eosinophils (%) (Auto) 4 % (0-3) Basophils (%) (Auto) 1 % (0-3) Neutrophils # (Auto) 6.6 x10^3/uL (1.8-7.7) Lymphocytes # (Auto) 1.7 x10^3/uL (1.0-4.8) Monocytes # (Auto) 0.5 x10^3/uL (0.0-1.1) Eosinophils # (Auto) 0.3 x10^3/uL (0.0-0.7) Basophils # (Auto) 0.0 x10^3/uL (0.0-0.2) Prothrombin Time 17.6 SEC (11.7-14.0) Prothromb Time International Ratio 1.5 (0.8-1.1) Sodium Level 141 mmol/L (136-145) Potassium Level 4.2 mmol/L (3.5-5.1) Chloride Level 108 mmol/L (98-107) Carbon Dioxide Level 23 mmol/L (21-32) Anion Gap 10 (6-14) Blood Urea Nitrogen 24 mg/dL (7-20) Creatinine 1.5 mg/dL (0.6-1.0) Estimated GFR (Cockcroft-Gault) 33.7 BUN/Creatinine Ratio 16 (6-20) Glucose Level 95 mg/dL (70-99) Calcium Level 8.5 mg/dL (8.5-10.1) Total Bilirubin 0.5 mg/dL (0.2-1.0) Aspartate Amino Transf (AST/SGOT) 63 U/L (15-37) Alanine Aminotransferase (ALT/SGPT) 55 U/L (14-59) Alkaline Phosphatase 115 U/L (46-116) Total Protein 6.1 g/dL (6.4-8.2) Albumin 2.5 g/dL (3.4-5.0) Albumin/Globulin Ratio 0.7 (1.0-1.7) Microbiology Micro Microbiology 02/04/20 Urine Culture - Final, Complete 02/04/20 Blood Culture - Preliminary, Resulted NO GROWTH AFTER 2 DAYS Physical Exam HEENT: Neck Supple W Full Motion Chest: Symmetric Heart: S1S2, irregularly irregular (AFIB, rate controlled) Extremities: Other (trace-1+ bilateral LE edema ) Neurology: alert, oriented, follow commands Assessment Assessment 1. Sepsis/fever/lactic acidosis. Off pressor support. COVID still pending. BC negative so far 2. Recurrent UTI with possible pyelonephritis and left nonobstructive calculi. Urine culture negative. 3. Recent ILR placement: Medtronic placed due to syncope. 01/28/2020. 4. DEMETRIUS 5. Hypomagnesemia; replaced 6. AFIB RVR: paroxysmal by hx. remains in AFIB, rate controlled 7. CAD: past CABG, clincially stable. CP free. 8. Chronic systolic CHF: appears compensated 9. 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 Hx of GLADIS with CPAP use 11. Diabetes, II 12. Hypothyroidism 13. Coagulopathy, thrombocytopenia ; PLT 80 Recommendations Eliquis resumed Continue with ASA. Monitor PLTs Metoprolol for rate control Secondary prevention measures Supportive care Outpatient ILR check Consider for antiarrhythmic therapy, repeat CV on an outpatient basis. Justicifation of Admission Dx: Justifications for Admission: Justification of Admission Dx: Yes Sepsis: Infection MARIE SHARMA MD 02/06/20 1754: CARDIO Progress Notes Plan Plan Pt. seen and examined. Agree with above CHICKEN [employer]ER note. No new cardiac issues. Restarted eliquis for afib. Supportive care. thanks RAE JENSEN APRN Feb 06, 2020 14:38 MARIE SHARMA MD Feb 06, 2020 18:44
[2020-02-06] MEDS: ATORVASTATIN CALCIUM 40 MG TABLET. PO SCH (21:12)
[2020-02-06] MEDS: METOPROLOL SUCC 24HR ER 50 MG TAB.ER.24H. PO SCH (21:12)
[2020-02-06] MEDS: INSULIN GLARGINE SYRINGE. SQ SCH (21:30)
--- NOTE | 2020-02-07 00:09 | NUR ---
Report called to waldo Hernández CVC, patient transferring per w/c and O2, per Deb CHG, patient reports she was calling her family about the transfer.
--- NOTE | 2020-02-07 00:30 | NUR ---
Transferred from ICU to [facility] room 204 via . Alert. Pleasant. Transferred from to bed with Standby assist. Orientated to room and call light. Resting in bed watching TV with call light at hand.
[2020-02-07] MEDS: PIPERACILLIN/TAZOBACTAM 3.375 GM in IV NORMAL SALINE 50ML 50 ML IV SCH ×5 (00:34→23:49)
[2020-02-07 02:57] VITALS: BP 131/66
[2020-02-07 05:31] LABS: CREATININE 1.4 mg/dL (0.6-1.0); GFR 36.5
[2020-02-07] MEDS: LEVOTHYROXINE 137 MCG TABLET PO SCH (05:59)
[2020-02-07 07:00] VITALS: BP 135/76
[2020-02-07] MEDS: ASPIRIN ENTERIC COATED 81 MG TABLET.DR. PO SCH (08:31)
[2020-02-07] MEDS: ASCORBIC ACID 500 MG TABLET PO SCH (08:31)
[2020-02-07] MEDS: DOCUSATE SODIUM 100 MG CAPSULE. PO SCH (08:32)
[2020-02-07] MEDS: ZINC SULFATE 220 MG CAPSULE. PO SCH (08:32)
[2020-02-07] MEDS: ALLOPURINOL 100 MG TABLET. PO SCH (08:32)
[2020-02-07] MEDS: LACTOBACILLUS RHAMNOSUS GG 1 CAPSULE. PO SCH ×2 (08:32→21:56)
[2020-02-07] MEDS: APIXABAN 2.5 MG TABLET. PO SCH ×2 (08:32→21:57)
[2020-02-07] MEDS: POLYETHYLENE GLYCOL 3350 17 GM PACKET. PO SCH (08:32)
[2020-02-07] MEDS: VENLAFAXINE 75 MG TABLET. PO SCH (08:32)
--- NOTE | 2020-02-07 08:40 | PDOC ---
PULMONARY PROGRESS NOTES Subjective She feels better, wishes to go home Vitals Vital Signs Date Time Temp Pulse Resp B/P (MAP) Pulse Ox O2 Delivery O2 Flow Rate FiO2 02/07/20 02:57 97.5 115 20 131/66 (87) 97 Room Air 97.5 02/06/20 23:00 3.0 General: Alert Lungs: Clear Cardiovascular: S1, S2 Abdomen: Soft Neuro Exam: Alert Extremities: No Edema Skin: Warm Labs Laboratory Tests Test 02/05/20 08:55 02/05/20 09:19 02/05/20 11:49 02/05/20 12:20 Prothrombin Time 23.1 SEC (11.7-14.0) Prothromb Time International Ratio 2.1 (0.8-1.1) Lactic Acid Level 2.5 mmol/L (0.4-2.0) 2.4 mmol/L (0.4-2.0) Glucose (Fingerstick) 99 mg/dL (70-99) 151 mg/dL (70-99) Test 02/05/20 21:53 02/06/20 04:40 02/06/20 21:19 02/07/20 04:00 Glucose (Fingerstick) 98 mg/dL (70-99) 88 mg/dL (70-99) White Blood Count 9.2 x10^3/uL (4.0-11.0) Red Blood Count 3.98 x10^6/uL (3.50-5.40) Hemoglobin 11.5 g/dL (12.0-15.5) Hematocrit 35.4 % (36.0-47.0) Mean Corpuscular Volume 89 fL (79-100) Mean Corpuscular Hemoglobin 29 pg (25-35) Mean Corpuscular Hemoglobin Concent 33 g/dL (31-37) Red Cell Distribution Width 17.4 % (11.5-14.5) Platelet Count 80 x10^3/uL (140-400) 86 x10^3/uL (140-400) Neutrophils (%) (Auto) 72 % (31-73) Lymphocytes (%) (Auto) 19 % (24-48) Monocytes (%) (Auto) 5 % (0-9) Eosinophils (%) (Auto) 4 % (0-3) Basophils (%) (Auto) 1 % (0-3) Neutrophils # (Auto) 6.6 x10^3/uL (1.8-7.7) Lymphocytes # (Auto) 1.7 x10^3/uL (1.0-4.8) Monocytes # (Auto) 0.5 x10^3/uL (0.0-1.1) Eosinophils # (Auto) 0.3 x10^3/uL (0.0-0.7) Basophils # (Auto) 0.0 x10^3/uL (0.0-0.2) Prothrombin Time 17.6 SEC (11.7-14.0) Prothromb Time International Ratio 1.5 (0.8-1.1) Sodium Level 141 mmol/L (136-145) Potassium Level 4.2 mmol/L (3.5-5.1) Chloride Level 108 mmol/L (98-107) Carbon Dioxide Level 23 mmol/L (21-32) Anion Gap 10 (6-14) Blood Urea Nitrogen 24 mg/dL (7-20) Creatinine 1.5 mg/dL (0.6-1.0) 1.4 mg/dL (0.6-1.0) Estimated GFR (Cockcroft-Gault) 33.7 36.5 BUN/Creatinine Ratio 16 (6-20) Glucose Level 95 mg/dL (70-99) Calcium Level 8.5 mg/dL (8.5-10.1) Total Bilirubin 0.5 mg/dL (0.2-1.0) Aspartate Amino Transf (AST/SGOT) 63 U/L (15-37) Alanine Aminotransferase (ALT/SGPT) 55 U/L (14-59) Alkaline Phosphatase 115 U/L (46-116) Total Protein 6.1 g/dL (6.4-8.2) Albumin 2.5 g/dL (3.4-5.0) Albumin/Globulin Ratio 0.7 (1.0-1.7) Test 02/07/20 07:42 Glucose (Fingerstick) 83 mg/dL (70-99) Laboratory Tests Test 02/06/20 21:19 02/07/20 04:00 02/07/20 07:42 Glucose (Fingerstick) 88 mg/dL (70-99) 83 mg/dL (70-99) Platelet Count 86 x10^3/uL (140-400) Creatinine 1.4 mg/dL (0.6-1.0) Estimated GFR (Cockcroft-Gault) 36.5 Medications Active Scripts Medications Dose Route/Sig Max Daily Dose Days Date Category Eliquis (Apixaban) 2.5 Mg Tablet 2.5 Mg PO BID 30 01/07/20 Rx Cipro (Ciprofloxacin Hcl) 250 Mg Tablet 250 Mg PO BID 5 01/06/20 Rx Toprol XL (Metoprolol Succinate) 50 Mg Tab.er.24h 50 Mg PO HS 12/15/19 Reported Levothyroxine Sodium 137 Mcg Tablet 1 Tab PO DAILY 12/15/19 Reported Culturelle (Lactobacillus Rhamnosus Gg) 1 Each Cap.sprink 1 Cap PO BID 30 11/15/19 Rx Losartan Potassium (Losartan Potassium) 25 Mg Tablet 25 Mg PO DAILY 30 11/15/19 Rx Atorvastatin Calcium 40 Mg Tablet 1 Tab PO QHS 08/08/19 Reported Gabapentin 600 Mg Tablet 600 Mg PO HS 08/08/19 Reported Lantus Solostar (Insulin Glargine,Hum.rec.anlog) 100 Unit/1 Ml Insuln.pen 12 Unit SQ QHS 10/16/18 Reported Allopurinol 100 Mg Tablet 1 Tab PO DAILY 07/30/17 Reported Venlafaxine Hcl 37.5 Mg Tablet 1 Tab PO DAILY 06/21/15 Reported Aspir 81 (Aspirin) 81 Mg Tablet.dr 1 Tab PO DAILY 06/21/15 Reported Impression . IMPRESSION: 1. Acute hypoxemic respiratory failure. 2. Abnormal x-ray, possible pneumonia, gram-negative, possible gram-positive. 3. Leukocytosis. 4. Lactic acidosis from possible sepsis. 5. Metabolic toxic encephalopathy., Improved 6. Fever. 7. SARS-CoV-2 negative 8. All cultures negative Plan . Respiratory status compensated all cultures negative Possible discharge in the a.m. IV fluids Empiric antibiotics Check blood cultures, follow-up Advance diet JUSTINE GARCIA MD Feb 07, 2020 08:40
--- NOTE | 2020-02-07 08:44 | PDOC ---
PROGRESS NOTES Chief Complaint Chief Complaint A/P: Hypoxia Severe sepsis Recurrent UTI with possible pyelonephritis and left nonobstructive calculi Thrombocytopenia weakness History of atrial fibrillation on chronic anticoagulation, rate controlled Diabetes-Type II, htn, dm2, lipids Hypothyroidism CKD 3 Recent ILR placement: [employer] placed due to syncope. 01/28/2020. ILR site with no s/s of infection DEMETRIUS - likely vasomotor nephropathy Hypomagnesemia AFIB RVR: paroxysmal by hx. now rate controlled CAD: past CABG, clincially stable. CP free. 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 Patient had not have a bowel movement for a week. Patient also has nonproductive cough for several days. With elevated creatinine and elevated transaminases lactate 5.7 hypotensive, admitted to ICU Patient was recently admitted to the hospital due to severe sepsis, atrial fibrillation, had a loop recorder placed. Patient had neuropathy in her leg so she been having bilateral legs pain, denies any leg swelling. 02/04: Lactate down from 5.7, LFTs improved creatinine improved. Still somewhat confused 02/05: Down to 2 L O2 overnight. Lactate down to 2.4. WBC 9.2, afebrile platelets stable at 80 INR 1.5, AST 63. She notes bilateral lower extremity weakness. Urine with no growth. Labs stable. Covid 19 negative. Still pretty weak. Her goal is to go home with home health. Plan: Follow-up urine culture Continue antibiotics and eliquis Vitals Vitals Vital Signs Date Time Temp Pulse Resp B/P (MAP) Pulse Ox O2 Delivery O2 Flow Rate FiO2 02/07/20 02:57 97.5 115 20 131/66 (87) 97 Room Air 97.5 02/06/20 23:00 3.0 Physical Exam General: Alert, Cooperative, No acute distress Heart: Other (AFIB) Lungs: Clear Abdomen: Soft Extremities: No cyanosis, No edema Skin: No breakdown Labs LABS Laboratory Tests Test 02/06/20 21:19 02/07/20 04:00 02/07/20 07:42 Glucose (Fingerstick) 88 mg/dL (70-99) 83 mg/dL (70-99) Platelet Count 86 x10^3/uL (140-400) Creatinine 1.4 mg/dL (0.6-1.0) Estimated GFR (Cockcroft-Gault) 36.5 Assessment and Plan Assessmemt and Plan Problems Medical Problems: (1) Afib Status: Acute (2) Hypomagnesemia Status: Acute (3) Pneumonia Status: Acute (4) Severe sepsis Status: Acute (5) Suspected 2019-nCoV infection Status: Acute (6) UTI (urinary tract infection) Status: Acute Comment Review of Relevant I have reviewed the following items pryiank (where applicable) has been applied. Labs Laboratory Tests Test 02/05/20 08:55 02/05/20 09:19 02/05/20 11:49 02/05/20 12:20 Prothrombin Time 23.1 SEC (11.7-14.0) Prothromb Time International Ratio 2.1 (0.8-1.1) Lactic Acid Level 2.5 mmol/L (0.4-2.0) 2.4 mmol/L (0.4-2.0) Glucose (Fingerstick) 99 mg/dL (70-99) 151 mg/dL (70-99) Test 02/05/20 21:53 02/06/20 04:40 02/06/20 21:19 02/07/20 04:00 Glucose (Fingerstick) 98 mg/dL (70-99) 88 mg/dL (70-99) White Blood Count 9.2 x10^3/uL (4.0-11.0) Red Blood Count 3.98 x10^6/uL (3.50-5.40) Hemoglobin 11.5 g/dL (12.0-15.5) Hematocrit 35.4 % (36.0-47.0) Mean Corpuscular Volume 89 fL (79-100) Mean Corpuscular Hemoglobin 29 pg (25-35) Mean Corpuscular Hemoglobin Concent 33 g/dL (31-37) Red Cell Distribution Width 17.4 % (11.5-14.5) Platelet Count 80 x10^3/uL (140-400) 86 x10^3/uL (140-400) Neutrophils (%) (Auto) 72 % (31-73) Lymphocytes (%) (Auto) 19 % (24-48) Monocytes (%) (Auto) 5 % (0-9) Eosinophils (%) (Auto) 4 % (0-3) Basophils (%) (Auto) 1 % (0-3) Neutrophils # (Auto) 6.6 x10^3/uL (1.8-7.7) Lymphocytes # (Auto) 1.7 x10^3/uL (1.0-4.8) Monocytes # (Auto) 0.5 x10^3/uL (0.0-1.1) Eosinophils # (Auto) 0.3 x10^3/uL (0.0-0.7) Basophils # (Auto) 0.0 x10^3/uL (0.0-0.2) Prothrombin Time 17.6 SEC (11.7-14.0) Prothromb Time International Ratio 1.5 (0.8-1.1) Sodium Level 141 mmol/L (136-145) Potassium Level 4.2 mmol/L (3.5-5.1) Chloride Level 108 mmol/L (98-107) Carbon Dioxide Level 23 mmol/L (21-32) Anion Gap 10 (6-14) Blood Urea Nitrogen 24 mg/dL (7-20) Creatinine 1.5 mg/dL (0.6-1.0) 1.4 mg/dL (0.6-1.0) Estimated GFR (Cockcroft-Gault) 33.7 36.5 BUN/Creatinine Ratio 16 (6-20) Glucose Level 95 mg/dL (70-99) Calcium Level 8.5 mg/dL (8.5-10.1) Total Bilirubin 0.5 mg/dL (0.2-1.0) Aspartate Amino Transf (AST/SGOT) 63 U/L (15-37) Alanine Aminotransferase (ALT/SGPT) 55 U/L (14-59) Alkaline Phosphatase 115 U/L (46-116) Total Protein 6.1 g/dL (6.4-8.2) Albumin 2.5 g/dL (3.4-5.0) Albumin/Globulin Ratio 0.7 (1.0-1.7) Test 02/07/20 07:42 Glucose (Fingerstick) 83 mg/dL (70-99) Laboratory Tests Test 02/06/20 21:19 02/07/20 04:00 02/07/20 07:42 Glucose (Fingerstick) 88 mg/dL (70-99) 83 mg/dL (70-99) Platelet Count 86 x10^3/uL (140-400) Creatinine 1.4 mg/dL (0.6-1.0) Estimated GFR (Cockcroft-Gault) 36.5 Microbiology 02/04/20 Urine Culture - Final, Complete 02/04/20 Blood Culture - Preliminary, Resulted NO GROWTH AFTER 3 DAYS Medications Current Medications Acetaminophen (Tylenol) 1,000 mg 1X ONCE PO Last administered on 02/04/20at 08:25; Start 02/04/20 at 08:15; Stop 02/04/20 at 08:19; Status DC Sodium Chloride 1,000 ml @ 1,000 mls/hr 1X ONCE IV Last administered on 02/04/20at 08:26; Start 02/04/20 at 08:15; Stop 02/04/20 at 09:14; Status DC Ondansetron HCl (Zofran) 4 mg STK-MED ONCE .ROUTE ; Start 02/04/20 at 08:21; Stop 02/04/20 at 08:21; Status DC Sodium Chloride 1,000 ml @ 1,000 mls/hr 1X ONCE IV Last administered on 02/04/20at 08:26; Start 02/04/20 at 08:30; Stop 02/04/20 at 09:29; Status DC Piperacillin Sod/ Tazobactam Sod 3.375 gm/Sodium Chloride 50 ml @ 100 mls/hr 1X ONCE IV Last administered on 02/04/20at 09:34; Start 02/04/20 at 09:00; Stop 02/04/20 at 09:29; Status DC Magnesium Sulfate 50 ml @ 25 mls/hr 1X ONCE IV Last administered on 02/04/20at 11:06; Start 02/04/20 at 10:15; Stop 02/04/20 at 12:14; Status DC Ondansetron HCl (Zofran) 4 mg PRN Q8HRS PRN IV NAUSEA/VOMITING; Start 02/04/20 at 10:15; Stop 02/05/20 at 10:14; Status DC Sodium Chloride 1,000 ml @ 125 mls/hr Q8H IV Last administered on 02/04/20at 11 :06; Start 02/04/20 at 10:10; Stop 02/04/20 at 18:35; Status DC Piperacillin Sod/ Tazobactam Sod (Zosyn Per Pharmacy) 1 each PRN DAILY PRN MC SEE COMMENTS; Start 02/04/20 at 10:15 Piperacillin Sod/ Tazobactam Sod 3.375 gm/Sodium Chloride 50 ml @ 100 mls/hr Q6HRS IV Last administered on 02/07/20at 05:18; Start 02/04/20 at 18:00 Zinc Sulfate (Orazinc) 220 mg DAILY PO Last administered on 02/07/20at 08:32; Start 02/04/20 at 14:00 Ascorbic Acid (Vitamin C) 500 mg DAILY PO Last administered on 02/07/20at 08:31; Start 02/04/20 at 14:00 Allopurinol (Zyloprim) 100 mg DAILY PO Last administered on 02/07/20at 08:32; Start 02/05/20 at 09:00 Apixaban (Eliquis) 2.5 mg BID PO Last administered on 02/04/20at 20:35; Start 02/04/20 at 21:00; Stop 02/05/20 at 08:45; Status DC Aspirin (Ecotrin) 81 mg DAILY PO Last administered on 02/07/20at 08:31; Start 02/05/20 at 09:00 Atorvastatin Calcium (Lipitor) 40 mg QHS PO Last administered on 02/06/20at 21:12; Start 02/04/20 at 21:00 Lactobacillus Rhamnosus (Culturelle) 1 cap BID PO Last administered on 02/07/20at 08:32; Start 02/04/20 at 21:00 Levothyroxine Sodium (Synthroid) 137 mcg DAILY06 PO Last administered on 01/28 at 05:59; Start 02/05/20 at 06:00 Losartan Potassium (Cozaar) 25 mg DAILY PO ; Start 02/05/20 at 09:00; Stop 02/04/20 at 16:57; Status DC Metoprolol Succinate (Toprol Xl) 50 mg HS PO Last administered on 02/06/20at 21:12; Start 02/04/20 at 21:00 Insulin Glargine (Lantus Syringe) 12 unit QHS SQ Last administered on 02/06/20at 21:30; Start 02/04/20 at 21:00 Venlafaxine HCl (Effexor) 37.5 mg DAILY PO Last administered on 02/07/20at 08:32; Start 02/04/20 at 14:45 Polyethylene Glycol (miraLAX PACKET) 17 gm DAILY PO Last administered on 02/05/20at 09:03; Start 02/04/20 at 15:00 Docusate Sodium (Colace) 100 mg DAILY PO Last administered on 02/06/20at 10:55; Start 02/05/20 at 09:00 Vancomycin HCl (Vanco Per Pharmacy) 1 each PRN DAILY PRN MC SEE COMMENTS Last administered on 02/05/20at 08:39; Start 02/04/20 at 14:15; Stop 02/06/20 at 10:54; Status DC Enoxaparin Sodium (Lovenox 40mg Syringe) 40 mg BID SQ ; Start 02/04/20 at 14:30; Stop 02/04/20 at 16:21; Status DC Vancomycin HCl 1.75 gm/Sodium Chloride 500 ml @ 250 mls/hr 1X ONCE IV Last administered on 02/04/20at 16:52; Start 02/04/20 at 16:00; Stop 02/04/20 at 17:59; Status DC Phenylephrine HCl 50 mg/Sodium Chloride 255 ml @ 11.475 mls/ hr CONT PRN IV SEE I/O RECORD Last administered on 02/04/20at 17:51; Start 02/04/20 at 17:15 Vancomycin HCl 750 mg/Sodium Chloride 250 ml @ 250 mls/hr Q24H IV Last administered on 02/05/20at 16:53; Start 02/05/20 at 17:00; Stop 02/06/20 at 10:54; Status DC Vancomycin HCl (Vancomycin Trough Level) 1 each 1X ONCE MC ; Start 02/06/20 at 16:30; Stop 02/06/20 at 11:00; Status DC Info (Anti-Coagulation Monitoring By Pharmacy) 1 each PRN DAILY PRN MC SEE COMMENTS Last administered on 02/05/20at 08:52; Start 02/05/20 at 08:00; Stop 02/05/20 at 12:22; Status DC Apixaban (Eliquis) 5 mg BID PO Last administered on 02/05/20at 09:06; Start 02/05/20 at 09:00; Stop 02/05/20 at 12:21; Status DC Apixaban (Eliquis) 5 mg BID PO Last administered on 02/07/20at 08:32; Start 02/06/20 at 11:30 Info (Anti-Coagulation Monitoring By Pharmacy) 1 each PRN DAILY PRN MC SEE COMMENTS Last administered on 02/06/20at 11:12; Start 02/06/20 at 11:15 Active Scripts Active Culturelle (Lactobacillus Rhamnosus Gg) 1 Each Cap.sprink 1 Cap PO BID 30 Days Reported Klor-Con 10 (Potassium Chloride) 10 Meq Tablet.er 1 Tab PO DAILY 30 Days Furosemide 40 Mg Tablet 40 Mg PO QMWFSA Levothyroxine Sodium 150 Mcg Tablet 1 Tab PO DAILY Eliquis (Apixaban) 5 Mg Tablet 5 Mg PO BID Toprol XL (Metoprolol Succinate) 50 Mg Tab.er.24h 50 Mg PO HS Atorvastatin Calcium 40 Mg Tablet 1 Tab PO QHS Gabapentin 600 Mg Tablet 600 Mg PO HS Lantus Solostar (Insulin Glargine,Hum.rec.anlog) 100 Unit/1 Ml Insuln.pen 12 Unit SQ QHS Allopurinol 100 Mg Tablet 1 Tab PO DAILY Venlafaxine Hcl 37.5 Mg Tablet 1 Tab PO DAILY Aspir 81 (Aspirin) 81 Mg Tablet.dr 1 Tab PO DAILY Vitals/I & O Vital Sign - Last 24 Hours 02/06/20 02/06/20 02/06/20 02/06/20 09:00 10:00 11:00 12:00 Temp 98.7 98.7 Pulse 82 90 92 94 Resp 20 18 21 22 B/P (MAP) 124/75 (91) 121/75 (90) 118/70 (86) 118/78 (91) Pulse Ox 93 96 91 100 O2 Delivery Nasal Cannula Nasal Cannula Nasal Cannula Nasal Cannula O2 Flow Rate 4.0 4.0 4.0 4.0 02/06/20 02/06/20 02/06/20 02/06/20 12:00 13:00 14:00 15:00 Pulse 96 96 96 Resp 16 18 18 B/P (MAP) 136/78 (97) 135/75 (95) 133/77 (95) Pulse Ox 100 100 100 O2 Delivery Nasal Cannula Nasal Cannula Nasal Cannula Nasal Cannula O2 Flow Rate 2.0 2.0 2.0 2.0 02/06/20 02/06/20 02/06/20 02/06/20 16:00 16:00 17:00 18:00 Temp 98.7 98.7 Pulse 70 70 68 Resp 15 13 14 B/P (MAP) 111/56 (74) 134/49 (77) 123/56 (78) Pulse Ox 98 98 97 O2 Delivery Nasal Cannula Nasal Cannula Nasal Cannula Nasal Cannula O2 Flow Rate 2.0 2.0 2.0 2.0 02/06/20 02/06/20 02/06/20 02/06/20 19:25 19:45 21:12 23:00 Temp 98.3 98.3 Pulse 93 93 B/P (MAP) 125/68 (87) 125/68 Pulse Ox 99 99 O2 Delivery Nasal Cannula Nasal Cannula Nasal Cannula O2 Flow Rate 3.0 3.0 3.0 02/07/20 02:57 Temp 97.5 97.5 Pulse 115 Resp 20 B/P (MAP) 131/66 (87) Pulse Ox 97 O2 Delivery Room Air Intake and Output 02/06/20 02/06/20 02/07/20 15:00 23:00 07:00 Intake Total 1015 ml 580 ml 130 ml Output Total 300 ml Balance 1015 ml 580 ml -170 ml Justicifation of Admission Dx: Justifications for Admission: Justification of Admission Dx: Yes Sepsis: Infection RADHA WEBB MD Feb 07, 2020 08:44
[2020-02-07 11:00] VITALS: BP 121/74
--- NOTE | 2020-02-07 12:42 | NUR ---
SS following up with discharge planning. SS reviewed pt chart and discussed with pt RN. Pt is currently requiring oxygen and on IV Zosyn. PT/OT ordered. COVID19 negative. SS will continue to follow for discharge planning.
[2020-02-07] MEDS: ANTI-COAG MONITOR BY PHARMACY. MC PRN (13:00)
[2020-02-07 15:00] VITALS: BP 117/71
--- NOTE | 2020-02-07 17:25 | PDOC ---
CARDIOLOGY PROGRESS NOTE SUBJECTIVE: No acute events overnight. Denies any chest pain or dyspnea. OBJECTIVE: Vital Signs/I&O: Vital Signs Date Time Temp Pulse Resp B/P (MAP) Pulse Ox O2 Delivery O2 Flow Rate FiO2 02/07/20 15:00 98.1 98 117/71 (86) 99 Nasal Cannula 3.0 98.1 02/07/20 02:57 20 l I & O 02/06/20 02/06/20 02/07/20 15:00 23:00 07:00 Intake Total 1015 ml 580 ml 130 ml Output Total 300 ml Balance 1015 ml 580 ml -170 ml Objective: Examination overall unchanged. Irregular heart tones No significant edema Lungs with bilateral rhonchi CURRENT MEDICATIONS: Medications reviewed. Currently on metoprolol and Eliquis DIAGNOSTIC TESTING: Labs reviewed. Labs: Laboratory Tests 02/07/20 04:00 Laboratory Tests Test 02/06/20 21:19 02/07/20 04:00 02/07/20 07:42 02/07/20 12:35 Glucose (Fingerstick) 88 mg/dL (70-99) 83 mg/dL (70-99) 101 mg/dL (70-99) H Platelet Count 86 x10^3/uL (140-400) L Creatinine 1.4 mg/dL (0.6-1.0) H Estimated GFR (Cockcroft-Gault) 36.5 Test 02/07/20 17:06 Glucose (Fingerstick) 82 mg/dL (70-99) ASSESSMENT: 1. Sepsis resolving 2. Atrial fibrillation and coronary artery disease currently stable PLAN: 1. Continue current medical therapy. No further cardiovascular intervention is necessary. She will follow-up with us in the office. Justicifation of Admission Dx: Justifications for Admission: Justification of Admission Dx: Yes Sepsis: Infection MARIE SHARMA MD Feb 07, 2020 17:25
[2020-02-07 19:00] VITALS: BP 131/79
[2020-02-07] MEDS: METOPROLOL SUCC 24HR ER 50 MG TAB.ER.24H. PO SCH (21:57)
[2020-02-07] MEDS: ATORVASTATIN CALCIUM 40 MG TABLET. PO SCH (21:57)
[2020-02-07] MEDS: INSULIN GLARGINE SYRINGE. SQ SCH (22:04)
[2020-02-07 23:00] VITALS: BP 137/80
[2020-02-08 02:48] VITALS: BP 142/68
[2020-02-08] MEDS: LEVOTHYROXINE 137 MCG TABLET PO SCH (06:19)
[2020-02-08] MEDS: PIPERACILLIN/TAZOBACTAM 3.375 GM in IV NORMAL SALINE 50ML 50 ML IV SCH ×2 (06:20→11:52)
[2020-02-08 07:12] VITALS: BP 139/95
[2020-02-08] MEDS: DOCUSATE SODIUM 100 MG CAPSULE. PO SCH (09:00)
[2020-02-08] MEDS: POLYETHYLENE GLYCOL 3350 17 GM PACKET. PO SCH (09:00)
[2020-02-08] MEDS: VENLAFAXINE 75 MG TABLET. PO SCH (09:09)
[2020-02-08] MEDS: ZINC SULFATE 220 MG CAPSULE. PO SCH (09:09)
[2020-02-08] MEDS: ASPIRIN ENTERIC COATED 81 MG TABLET.DR. PO SCH (09:10)
[2020-02-08] MEDS: APIXABAN 2.5 MG TABLET. PO SCH (09:10)
[2020-02-08] MEDS: ASCORBIC ACID 500 MG TABLET PO SCH (09:10)
[2020-02-08] MEDS: ALLOPURINOL 100 MG TABLET. PO SCH (09:10)
[2020-02-08] MEDS: LACTOBACILLUS RHAMNOSUS GG 1 CAPSULE. PO SCH (09:10)
[2020-02-08 09:38] LABS: CREATININE 1.5 mg/dL (0.6-1.0); GFR 33.7
[2020-02-08] MEDS ORDERED: ONDANSETRON PF 4 MG/2 ML VIAL. IVP PRN (09:45)
--- NOTE | 2020-02-08 10:18 | PDOC ---
PULMONARY PROGRESS NOTES Subjective She feels better, sob better, no pain, no cough, has nausea Vitals Vital Signs Date Time Temp Pulse Resp B/P (MAP) Pulse Ox O2 Delivery O2 Flow Rate FiO2 02/08/20 07:12 98.2 110 20 139/95 (110) 94 Nasal Cannula 3.0 98.2 General: Alert Lungs: Clear Cardiovascular: S1, S2 Abdomen: Soft Neuro Exam: Alert Extremities: No Edema Skin: Warm Labs Laboratory Tests Test 02/06/20 21:19 02/07/20 04:00 02/07/20 07:42 02/07/20 12:35 Glucose (Fingerstick) 88 mg/dL (70-99) 83 mg/dL (70-99) 101 mg/dL (70-99) Platelet Count 86 x10^3/uL (140-400) Creatinine 1.4 mg/dL (0.6-1.0) Estimated GFR (Cockcroft-Gault) 36.5 Test 02/07/20 17:06 02/07/20 21:00 02/08/20 07:15 02/08/20 08:50 Glucose (Fingerstick) 82 mg/dL (70-99) 108 mg/dL (70-99) 109 mg/dL (70-99) Creatinine 1.5 mg/dL (0.6-1.0) Estimated GFR (Cockcroft-Gault) 33.7 Laboratory Tests Test 02/07/20 12:35 02/07/20 17:06 02/07/20 21:00 02/08/20 07:15 Glucose (Fingerstick) 101 mg/dL (70-99) 82 mg/dL (70-99) 108 mg/dL (70-99) 109 mg/dL (70-99) Test 02/08/20 08:50 Creatinine 1.5 mg/dL (0.6-1.0) Estimated GFR (Cockcroft-Gault) 33.7 Medications Active Scripts Medications Dose Route/Sig Max Daily Dose Days Date Category Eliquis (Apixaban) 2.5 Mg Tablet 2.5 Mg PO BID 30 01/07/20 Rx Cipro (Ciprofloxacin Hcl) 250 Mg Tablet 250 Mg PO BID 5 01/06/20 Rx Toprol XL (Metoprolol Succinate) 50 Mg Tab.er.24h 50 Mg PO HS 12/15/19 Reported Levothyroxine Sodium 137 Mcg Tablet 1 Tab PO DAILY 12/15/19 Reported Culturelle (Lactobacillus Rhamnosus Gg) 1 Each Cap.sprink 1 Cap PO BID 30 11/15/19 Rx Losartan Potassium (Losartan Potassium) 25 Mg Tablet 25 Mg PO DAILY 30 11/15/19 Rx Atorvastatin Calcium 40 Mg Tablet 1 Tab PO QHS 08/08/19 Reported Gabapentin 600 Mg Tablet 600 Mg PO HS 08/08/19 Reported Lantus Solostar (Insulin Glargine,Hum.rec.anlog) 100 Unit/1 Ml Insuln.pen 12 Unit SQ QHS 10/16/18 Reported Allopurinol 100 Mg Tablet 1 Tab PO DAILY 07/30/17 Reported Venlafaxine Hcl 37.5 Mg Tablet 1 Tab PO DAILY 06/21/15 Reported Aspir 81 (Aspirin) 81 Mg Tablet.dr 1 Tab PO DAILY 06/21/15 Reported Impression . IMPRESSION: 1. Acute hypoxemic respiratory failure. 2. Abnormal x-ray, possible pneumonia, gram-negative, possible gram-positive. 3. Leukocytosis. 4. Lactic acidosis from possible sepsis. 5. Metabolic toxic encephalopathy., Improved 6. Fever. 7. SARS-CoV-2 negative 8. All cultures negative Plan . Respiratory status compensated all cultures negative, on RA Possible discharge in the a.m. IV fluids Empiric antibiotics Check blood cultures, follow-up Advance diet as tolerated CHRIS HAMILTON MD Feb 08, 2020 10:18
[2020-02-08 10:22] VITALS: BP 134/88
[2020-02-08 14:21] VITALS: BP 136/83
[2020-02-08] MEDS ORDERED: AMOX1TAB10 PO (15:18)
--- NOTE | 2020-02-08 15:20 | SNU/HH DC ---
DISCHARGE WITH HOME HEALTH DISCHARGE INFORMATION: Discharge Date: Feb 08, 2020 Final Diagnosis: Problems Medical Problems: (1) Afib Status: Acute (2) Hypomagnesemia Status: Acute (3) Pneumonia Status: Acute (4) Severe sepsis Status: Acute (5) Suspected 2019-nCoV infection Status: Acute (6) UTI (urinary tract infection) Status: Acute Condition on Discharge: Stable CODE STATUS: Code Status: Full HOME HEALTH: Face to Face: I certify this patient is under my care and that I, or a nurse practitioner or physician's family medicine physician assistant working with me, had a face to face encounter that meets the physician face to face encounter requirements with this patient on 02/08/2020. Medical Complications: HTN, Pneumonia RN For Eval/Treatment: Yes Physical Therapy For: Evalulation/Treatment Occupational Therapy For: Evaluation/Treatment Pt Meets Homebound Status: Extreme weakness w/ amb. POST DISCHARGE ORDERS: Activity Instructions for Disc: Activity as tolerated Weight Bearing Status after Di: As tolerated DIET AFTER DISCHARGE: ADA Wound/Incision Care: Keep wound/cast CDI CHECKS AFTER DISCHARGE: Checks after discharge: Check blood press - daily, Check blood sugar, ac/hs FOLLOW-UP: PCP to follow Home Health: Dr Gilma Owens TREATMENT/EQUIPMENT ORDERS: Adaptive Equipment Issued: None CERTIFICATION STATEMENT: Certification Statement: Certification Statement: Based on the above finding, I certify that this patient is confined to the home and needs intermittent long-term care, physical therapy and/or speech therapy, or continues to need occupational therapy.~ This patient is under my care, and I have initiated the establishment of the plan of care.~ This patient will be followed by myself or a community physician who will periodically review the plan of care. Home Meds Active Scripts Amoxicillin/Potassium Clav (AMOX TR-K CLV 500-125 MG TAB) 1 Each Tablet, 1 TAB PO BID for Pneumonia/UTI for 5 Days, #10 TAB Prov:SUSANNEFELRADHA MD 02/08/20 Lactobacillus Rhamnosus Gg (CULTURELLE) 1 Each Cap.sprink, 1 CAP PO BID for SUPPLEMENT for 30 Days, #60 CAP Prov:ELIAS VILLARREAL MD 11/15/19 Reported Medications Potassium Chloride (KLOR-CON 10) 10 Meq Tablet.er, 1 TAB PO DAILY for Lasix Therapy for 30 Days, #30 TAB 0 Refills 02/04/20 Furosemide (FUROSEMIDE) 40 Mg Tablet, 40 MG PO QMWFSA for CHF, TAB 02/04/20 Levothyroxine Sodium (LEVOTHYROXINE SODIUM) 150 Mcg Tablet, 1 TAB PO DAILY for Hypothyroidism, #30 TAB 5 Refills 02/04/20 Apixaban (ELIQUIS) 5 Mg Tablet, 5 MG PO BID for Afib, TAB 02/04/20 Metoprolol Succinate (Toprol XL) 50 Mg Tab.er.24h, 50 MG PO HS for FOR HYPERTENSION, TAB.SR 12/15/19 Atorvastatin Calcium (ATORVASTATIN CALCIUM) 40 Mg Tablet, 1 TAB PO QHS for HLD, #90 TAB 3 Refills 08/08/19 Gabapentin (GABAPENTIN) 600 Mg Tablet, 600 MG PO HS for NEUROGENIC PAIN, TAB 08/08/19 Insulin Glargine,Hum.rec.anlog (LANTUS SOLOSTAR) 100 Unit/1 Ml Insuln.pen, 12 UNIT SQ QHS for DM, #15 ML 3 Refills 10/16/18 Allopurinol (ALLOPURINOL) 100 Mg Tablet, 1 TAB PO DAILY, #30 TAB 5 Refills 07/30/17 Venlafaxine Hcl (VENLAFAXINE HCL) 37.5 Mg Tablet, 1 TAB PO DAILY, #60 TAB 1 Refill 06/21/15 Aspirin (ASPIR 81) 81 Mg Tablet., 1 TAB PO DAILY, #30 TAB 5 Refills 06/21/15 RADHA WEBB MD Feb 08, 2020 15:20
--- NOTE | 2020-02-08 15:25 | PDOC ---
PROGRESS NOTES Chief Complaint Chief Complaint A/P: Hypoxia Severe sepsis Recurrent UTI with possible pyelonephritis and left nonobstructive calculi Thrombocytopenia weakness History of atrial fibrillation on chronic anticoagulation, rate controlled Diabetes-Type II, htn, dm2, lipids Hypothyroidism CKD 3 Recent ILR placement: Medtronic placed due to syncope. 01/28/2020. ILR site with no s/s of infection DEMETRIUS - likely vasomotor nephropathy Hypomagnesemia AFIB RVR: paroxysmal by hx. now rate controlled CAD: past CABG, clincially stable. CP free. 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 Patient had not have a bowel movement for a week. Patient also has nonproductive cough for several days. With elevated creatinine and elevated transaminases lactate 5.7 hypotensive, admitted to ICU Patient was recently admitted to the hospital due to severe sepsis, atrial fibrillation, had a loop recorder placed. Patient had neuropathy in her leg so she been having bilateral legs pain, denies any leg swelling. 02/04: Lactate down from 5.7, LFTs improved creatinine improved. Still somewhat confused 02/05: Down to 2 L O2 overnight. Lactate down to 2.4. WBC 9.2, afebrile platelets stable at 80 INR 1.5, AST 63. She notes bilateral lower extremity weakness. 02/06:Urine with no growth. Labs stable. Covid 19 negative. Still pretty weak. Her goal is to go home with home health. Afebrile off O2. CR 1.5, stable. Ambulating well very scant cough urine culture returned negative transitioned to Augmentin 500 mg twice daily Plan: Home with home health Vitals Vitals Vital Signs Date Time Temp Pulse Resp B/P (MAP) Pulse Ox O2 Delivery O2 Flow Rate FiO2 02/08/20 14:21 98.2 91 20 136/83 (100) 95 Nasal Cannula 3.0 98.2 Physical Exam General: Alert, Cooperative, No acute distress Heart: Other (AFIB) Lungs: Clear Abdomen: Soft Extremities: No cyanosis, No edema Skin: No breakdown Labs LABS Laboratory Tests Test 02/07/20 17:06 02/07/20 21:00 02/08/20 07:15 02/08/20 08:50 Glucose (Fingerstick) 82 mg/dL (70-99) 108 mg/dL (70-99) 109 mg/dL (70-99) Creatinine 1.5 mg/dL (0.6-1.0) Estimated GFR (Cockcroft-Gault) 33.7 Test 02/08/20 11:14 Glucose (Fingerstick) 127 mg/dL (70-99) Assessment and Plan Assessmemt and Plan Problems Medical Problems: (1) Afib Status: Acute (2) Hypomagnesemia Status: Acute (3) Pneumonia Status: Acute (4) Severe sepsis Status: Acute (5) Suspected 2019-nCoV infection Status: Acute (6) UTI (urinary tract infection) Status: Acute Comment Review of Relevant I have reviewed the following items priyank (where applicable) has been applied. Labs Laboratory Tests Test 02/06/20 21:19 02/07/20 04:00 02/07/20 07:42 02/07/20 12:35 Glucose (Fingerstick) 88 mg/dL (70-99) 83 mg/dL (70-99) 101 mg/dL (70-99) Platelet Count 86 x10^3/uL (140-400) Creatinine 1.4 mg/dL (0.6-1.0) Estimated GFR (Cockcroft-Gault) 36.5 Test 02/07/20 17:06 02/07/20 21:00 02/08/20 07:15 02/08/20 08:50 Glucose (Fingerstick) 82 mg/dL (70-99) 108 mg/dL (70-99) 109 mg/dL (70-99) Creatinine 1.5 mg/dL (0.6-1.0) Estimated GFR (Cockcroft-Gault) 33.7 Test 02/08/20 11:14 Glucose (Fingerstick) 127 mg/dL (70-99) Laboratory Tests Test 02/07/20 17:06 02/07/20 21:00 02/08/20 07:15 02/08/20 08:50 Glucose (Fingerstick) 82 mg/dL (70-99) 108 mg/dL (70-99) 109 mg/dL (70-99) Creatinine 1.5 mg/dL (0.6-1.0) Estimated GFR (Cockcroft-Gault) 33.7 Test 02/08/20 11:14 Glucose (Fingerstick) 127 mg/dL (70-99) Microbiology 02/04/20 Urine Culture - Final, Complete 02/04/20 Blood Culture - Preliminary, Resulted NO GROWTH AFTER 4 DAYS Medications Current Medications Acetaminophen (Tylenol) 1,000 mg 1X ONCE PO Last administered on 02/04/20at 08:25; Start 02/04/20 at 08:15; Stop 02/04/20 at 08:19; Status DC Sodium Chloride 1,000 ml @ 1,000 mls/hr 1X ONCE IV Last administered on 02/04/20at 08:26; Start 02/04/20 at 08:15; Stop 02/04/20 at 09:14; Status DC Ondansetron HCl (Zofran) 4 mg STK-MED ONCE .ROUTE ; Start 02/04/20 at 08:21; Stop 02/04/20 at 08:21; Status DC Sodium Chloride 1,000 ml @ 1,000 mls/hr 1X ONCE IV Last administered on 02/04/20at 08:26; Start 02/04/20 at 08:30; Stop 02/04/20 at 09:29; Status DC Piperacillin Sod/ Tazobactam Sod 3.375 gm/Sodium Chloride 50 ml @ 100 mls/hr 1X ONCE IV Last administered on 02/04/20at 09:34; Start 02/04/20 at 09:00; Stop 02/04/20 at 09:29; Status DC Magnesium Sulfate 50 ml @ 25 mls/hr 1X ONCE IV Last administered on 02/04/20at 11:06; Start 02/04/20 at 10:15; Stop 02/04/20 at 12:14; Status DC Ondansetron HCl (Zofran) 4 mg PRN Q8HRS PRN IV NAUSEA/VOMITING; Start 02/04/20 at 10:15; Stop 02/05/20 at 10:14; Status DC Sodium Chloride 1,000 ml @ 125 mls/hr Q8H IV Last administered on 02/04/20at 11:06; Start 02/04/20 at 10:10; Stop 02/04/20 at 18:35; Status DC Piperacillin Sod/ Tazobactam Sod (Zosyn Per Pharmacy) 1 each PRN DAILY PRN MC SEE COMMENTS; Start 02/04/20 at 10:15; Stop 02/08/20 at 15:13; Status DC Piperacillin Sod/ Tazobactam Sod 3.375 gm/Sodium Chloride 50 ml @ 100 mls/hr Q6HRS IV Last administered on 02/08/20at 11:52; Start 02/04/20 at 18:00; Stop 02/08/20 at 15:13; Status DC Zinc Sulfate (Orazinc) 220 mg DAILY PO Last administered on 02/08/20at 09:09; Start 02/04/20 at 14:00 Ascorbic Acid (Vitamin C) 500 mg DAILY PO Last administered on 02/08/20at 09:10; Start 02/04/20 at 14:00 Allopurinol (Zyloprim) 100 mg DAILY PO Last administered on 02/08/20at 09:10; Start 02/05/20 at 09:00 Apixaban (Eliquis) 2.5 mg BID PO Last administered on 02/04/20at 20:35; Start 02/04/20 at 21:00; Stop 02/05/20 at 08:45; Status DC Aspirin (Ecotrin) 81 mg DAILY PO Last administered on 02/08/20at 09:10; Start 02/05/20 at 09:00 Atorvastatin Calcium (Lipitor) 40 mg QHS PO Last administered on 02/07/20at 21:57; Start 02/04/20 at 21:00 Lactobacillus Rhamnosus (Culturelle) 1 cap BID PO Last administered on 02/08/20at 09:10; Start 02/04/20 at 21:00 Levothyroxine Sodium (Synthroid) 137 mcg DAILY06 PO Last administered on 02/08/20at 06:19; Start 02/05/20 at 06:00 Losartan Potassium (Cozaar) 25 mg DAILY PO ; Start 02/05/20 at 09:00; Stop 02/04/20 at 16:57; Status DC Metoprolol Succinate (Toprol Xl) 50 mg HS PO Last administered on 02/07/20at 21:57; Start 02/04/20 at 21:00 Insulin Glargine (Lantus Syringe) 12 unit QHS SQ Last administered on 02/07/20at 22:04; Start 02/04/20 at 21:00 Venlafaxine HCl (Effexor) 37.5 mg DAILY PO Last administered on 02/08/20at 09:09; Start 02/04/20 at 14:45 Polyethylene Glycol (miraLAX PACKET) 17 gm DAILY PO Last administered on 02/05/20at 09:03; Start 02/04/20 at 15:00 Docusate Sodium (Colace) 100 mg DAILY PO Last administered on 02/06/20at 10:55; Start 02/05/20 at 09:00 Vancomycin HCl (Vanco Per Pharmacy) 1 each PRN DAILY PRN MC SEE COMMENTS Last administered on 02/05/20at 08:39; Start 02/04/20 at 14:15; Stop 02/06/20 at 10:54; Status DC Enoxaparin Sodium (Lovenox 40mg Syringe) 40 mg BID SQ ; Start 02/04/20 at 14:30; Stop 02/04/20 at 16:21; Status DC Vancomycin HCl 1.75 gm/Sodium Chloride 500 ml @ 250 mls/hr 1X ONCE IV Last administered on 02/04/20at 16:52; Start 02/04/20 at 16:00; Stop 02/04/20 at 17:59; Status DC Phenylephrine HCl 50 mg/Sodium Chloride 255 ml @ 11.475 mls/ hr CONT PRN IV SEE I/O RECORD Last administered on 02/04/20at 17:51; Start 02/04/20 at 17:15; Stop 02/08/20 at 15:13; Status DC Vancomycin HCl 750 mg/Sodium Chloride 250 ml @ 250 mls/hr Q24H IV Last administered on 02/05/20at 16:53; Start 02/05/20 at 17:00; Stop 02/06/20 at 10:54; Status DC Vancomycin HCl (Vancomycin Trough Level) 1 each 1X ONCE MC ; Start 02/06/20 at 16:30; Stop 02/06/20 at 11:00; Status DC Info (Anti-Coagulation Monitoring By Pharmacy) 1 each PRN DAILY PRN MC SEE COMMENTS Last administered on 02/05/20at 08:52; Start 02/05/20 at 08:00; Stop 02/05/20 at 12:22; Status DC Apixaban (Eliquis) 5 mg BID PO Last administered on 02/05/20at 09:06; Start 02/05/20 at 09:00; Stop 02/05/20 at 12:21; Status DC Apixaban (Eliquis) 5 mg BID PO Last administered on 02/08/20at 09:10; Start 02/06/20 at 11:30 Info (Anti-Coagulation Monitoring By Pharmacy) 1 each PRN DAILY PRN MC SEE COM MENTS Last administered on 02/07/20at 13:00; Start 02/06/20 at 11:15 Ondansetron HCl (Zofran) 4 mg PRN Q6HRS PRN IVP NAUSEA/VOMITING Last administered on 02/08/20at 09:54; Start 02/08/20 at 09:45 Amoxicillin/ Clavulanate Potassium (Augmentin 500/ 125mg) 1 tab BID PO ; Start 02/08/20 at 21:00; Stop 02/13/20 at 20:59 Active Scripts Active Amox Tr-K Clv 500-125 Mg Tab (Amoxicillin/Potassium Clav) 1 Each Tablet 1 Tab PO BID 5 Days Culturelle (Lactobacillus Rhamnosus Gg) 1 Each Cap.sprink 1 Cap PO BID 30 Days Reported Klor-Con 10 (Potassium Chloride) 10 Meq Tablet.er 1 Tab PO DAILY 30 Days Furosemide 40 Mg Tablet 40 Mg PO QMWFSA Levothyroxine Sodium 150 Mcg Tablet 1 Tab PO DAILY Eliquis (Apixaban) 5 Mg Tablet 5 Mg PO BID Toprol XL (Metoprolol Succinate) 50 Mg Tab.er.24h 50 Mg PO HS Atorvastatin Calcium 40 Mg Tablet 1 Tab PO QHS Gabapentin 600 Mg Tablet 600 Mg PO HS Lantus Solostar (Insulin Glargine,Hum.rec.anlog) 100 Unit/1 Ml Insuln.pen 12 Unit SQ QHS Allopurinol 100 Mg Tablet 1 Tab PO DAILY Venlafaxine Hcl 37.5 Mg Tablet 1 Tab PO DAILY Aspir 81 (Aspirin) 81 Mg Tablet.dr 1 Tab PO DAILY Vitals/I & O Vital Sign - Last 24 Hours 02/07/20 02/07/20 02/07/20 02/07/20 19:00 20:03 21:57 23:00 Temp 98.1 97.9 98.1 97.9 Pulse 100 98 92 Resp 17 18 B/P (MAP) 131/79 (96) 117/71 137/80 (99) Pulse Ox 96 97 O2 Delivery Nasal Cannula Room Air Nasal Cannula O2 Flow Rate 3.0 3.0 02/08/20 02/08/20 02/08/20 02/08/20 02:48 07:12 08:00 10:22 Temp 97.7 98.2 98.4 97.7 98.2 98.4 Pulse 109 110 102 Resp 20 20 20 B/P (MAP) 142/68 (92) 139/95 (110) 134/88 (103) Pulse Ox 96 94 97 O2 Delivery Nasal Cannula Nasal Cannula Room Air Nasal Cannula O2 Flow Rate 3.0 3.0 3.0 02/08/20 14:21 Temp 98.2 98.2 Pulse 91 Resp 20 B/P (MAP) 136/83 (100) Pulse Ox 95 O2 Delivery Nasal Cannula O2 Flow Rate 3.0 Intake and Output 02/07/20 02/07/20 02/08/20 15:00 23:00 07:00 Intake Total 120 ml Balance 120 ml Justicifation of Admission Dx: Justifications for Admission: Justification of Admission Dx: Yes Sepsis: Infection RADHA WEBB MD Feb 08, 2020 15:25
--- NOTE | 2020-02-08 15:27 | PDOC3 ---
Discharge Summary Visit Information Date of Admission: Feb 04, 2020 Date of Discharge: Feb 08, 2020 Admitting Diagnosis: Hypoxic respiratory failure Final Diagnosis Problems Medical Problems: (1) Afib Status: Acute (2) Hypomagnesemia Status: Acute (3) Pneumonia Status: Acute (4) Severe sepsis Status: Acute (5) Suspected 2019-nCoV infection Status: Acute (6) UTI (urinary tract infection) Status: Acute Brief Hospital Course Allergies Allergies Coded Allergies Type Severity Reaction Last Updated Verified No Known Drug Allergies 10/03/19 No Vital Signs Vital Signs Date Time Temp Pulse Resp B/P (MAP) Pulse Ox O2 Delivery O2 Flow Rate FiO2 02/08/20 14:21 98.2 91 20 136/83 (100) 95 Nasal Cannula 3.0 98.2 Lab Results Laboratory Tests Test 02/06/20 21:19 02/07/20 04:00 02/07/20 07:42 02/07/20 12:35 Glucose (Fingerstick) 88 mg/dL (70-99) 83 mg/dL (70-99) 101 mg/dL (70-99) Platelet Count 86 x10^3/uL (140-400) Creatinine 1.4 mg/dL (0.6-1.0) Estimated GFR (Cockcroft-Gault) 36.5 Test 02/07/20 17:06 02/07/20 21:00 02/08/20 07:15 02/08/20 08:50 Glucose (Fingerstick) 82 mg/dL (70-99) 108 mg/dL (70-99) 109 mg/dL (70-99) Creatinine 1.5 mg/dL (0.6-1.0) Estimated GFR (Cockcroft-Gault) 33.7 Test 02/08/20 11:14 Glucose (Fingerstick) 127 mg/dL (70-99) Laboratory Tests Test 02/07/20 17:06 02/07/20 21:00 02/08/20 07:15 02/08/20 08:50 Glucose (Fingerstick) 82 mg/dL (70-99) 108 mg/dL (70-99) 109 mg/dL (70-99) Creatinine 1.5 mg/dL (0.6-1.0) Estimated GFR (Cockcroft-Gault) 33.7 Test 02/08/20 11:14 Glucose (Fingerstick) 127 mg/dL (70-99) Brief Hospital Course Ms Prasad is a 79 yo F admit for sepsis, was brought for weakness, confusion, fever, nausea and constipation. Patient had not have a bowel movement for a week. Patient also has nonprodu ctive cough for several days. With elevated creatinine and elevated transaminases lactate 5.7 hypotensive, admitted to ICU Patient was recently admitted to the hospital due to severe sepsis, atrial fibrillation, had a loop recorder placed. Patient had neuropathy in her leg so she been having bilateral legs pain, denies any leg swelling. 02/04: Lactate down from 5.7, LFTs improved creatinine improved. Still somewhat confused 02/05: Down to 2 L O2 overnight. Lactate down to 2.4. WBC 9.2, afebrile platelets stable at 80 INR 1.5, AST 63. She notes bilateral lower extremity weakness. 02/06:Urine with no growth. Labs stable. Covid 19 negative. Still pretty weak. Her goal is to go home with home health. Afebrile off O2. CR 1.5, stable. Ambulating well very scant cough urine culture returned negative transitioned to Augmentin 500 mg twice daily Plan: Home with home health Consults: Cardiology, pulmonology Problem list: Hypoxia - resolved 2/2 pneumonia Severe sepsis Recurrent UTI with possible pyelonephritis and left nonobstructive calculi Thrombocytopenia weakness History of atrial fibrillation on chronic anticoagulation, rate controlled Diabetes-Type II, htn, dm2, lipids Hypothyroidism CKD 3 Recent ILR placement: Medtronic placed due to syncope. 01/28/2020. ILR site with no s/s of infection DEMETRIUS - likely vasomotor nephropathy Hypomagnesemia AFIB RVR: paroxysmal by hx. now rate controlled CAD: past CABG, clincially stable. CP free. 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 GLADIS with CPAP use Greater than 30 minutes spent on d/c Discharge Information Condition at Discharge: Improved Follow Up: Weeks (1) Disposition/Orders: D/C to Home w/ HH Scheduled Allopurinol (Allopurinol) 100 Mg Tablet, 1 TAB PO DAILY, #30 Ref 5 (Reported) Entered as Reported by: JUDAH DO on 07/30/17 1431 Last Action: Reviewed on 02/04/201920 by KIERSTEN MENDOZA Amoxicillin/Potassium Clav (Amox Tr-K Clv 500-125 Mg Tab) 1 Each Tablet, 1 TAB PO BID for Pneumonia/UTI for 5 Days, #10 Prescribed by: RADHA WEBB MD on 02/08/20 1518 Apixaban (Eliquis) 5 Mg Tablet, 5 MG PO BID for Afib, (Reported) Entered as Reported by: KIERSTEN MENDOZA on 02/04/201920 Last Action: New Order on 02/04/201920 by KIERSTEN MENDOZA Aspirin (Aspir 81) 81 Mg Tablet.dr, 1 TAB PO DAILY, #30 Ref 5 (Reported) Entered as Reported by: HORACIO CUELLO on 06/21/151899 Last Action: Reviewed on 02/04/201920 by KIERTSEN MENDOZA Atorvastatin Calcium (Atorvastatin Calcium) 40 Mg Tablet, 1 TAB PO QHS for HLD, #90 Ref 3 (Reported) Entered as Reported by: ELIAS SKY on 08/08/192017 Last Action: Reviewed on 02/04/201920 by KIERSTEN MENDOZA Furosemide (Furosemide) 40 Mg Tablet, 40 MG PO QMWFSA for CHF, (Reported) Entered as Reported by: KIERSTEN MENDOZA on 02/04/201920 Last Action: New Order on 02/04/201920 by KIERSTEN MENDOZA Gabapentin (Gabapentin) 600 Mg Tablet, 600 MG PO HS for NEUROGENIC PAIN, (Reported) Entered as Reported by: ELIAS SKY on 08/08/192017 Last Action: Reviewed on 02/04/201920 by KIERSTEN MENDOZA Insulin Glargine,Hum.rec.anlog (Lantus Solostar) 100 Unit/1 Ml Insuln.pen, 12 UNIT SQ QHS for DM, #15 Ref 3 (Reported) Entered as Reported by: JULIAN IBARRA on 10/16/18 0728 Last Action: Reviewed on 02/04/201920 by KIERSTEN MENDOZA Lactobacillus Rhamnosus Gg (Culturelle) 1 Each Cap.sprink, 1 CAP PO BID for SUPPLEMENT for 30 Days, #60 Prescribed by: ELIAS VILLARREAL MD on 11/15/19 1347 Last Action: Reviewed on 02/04/201920 by KIERSTEN MENDOZA Levothyroxine Sodium (Levothyroxine Sodium) 150 Mcg Tablet, 1 TAB PO DAILY for Hypothyroidism, #30 Ref 5 (Reported) Entered as Reported by: KIERSTEN MENDOZA on 02/04/201920 Last Action: New Order on 02/04/201920 by KIERSTEN MENDOAZ Metoprolol Succinate (Toprol XL) 50 Mg Tab.er.24h, 50 MG PO HS for FOR HYPERTENSION, (Reported) Entered as Reported by: Felix Mims on 12/15/192030 Last Action: Reviewed on 02/04/201920 by KIERSTEN MENDOZA Potassium Chloride (Klor-Con 10) 10 Meq Tablet.er, 1 TAB PO DAILY for Lasix Therapy for 30 Days, #30 Ref 0 (Reported) Entered as Reported by: KIERSTEN MENDOZA on 02/04/201920 Last Action: New Order on 02/04/201920 by KIERSTEN MENDOZA Venlafaxine Hcl (Venlafaxine Hcl) 37.5 Mg Tablet, 1 TAB PO DAILY, #60 Ref 1 (Reported) Entered as Reported by: HORACIO CUELLO on 06/21/151899 Last Action: Reviewed on 02/04/201920 by KIERSTEN MENDOZA Justicifation of Admission Dx: Justifications for Admission: Justification of Admission Dx: Yes Sepsis: Infection RADHA WEBB MD Feb 08, 2020 15:27
--- NOTE | 2020-02-08 16:29 | NUR ---
Discharge Note: SARIKA HOLLEY Discharge instructions and discharge home medications reviewed with Patient and a copy given. All questions have been answered and understanding verbalized. The following instructions and handouts were given: Patient given education regarding new medication and discharge instructions. Discontinued lines and drains: IV removed per protocol. Patient discharged home, picked up by .
[2020-02-08] MEDS ORDERED: AMOXICILLIN/K CLAV 500/125MG TABLET. PO SCH (21:00)
--- NOTE | 2020-02-08 23:17 | PDOC ---
CARDIOLOGY PROGRESS NOTE SUBJECTIVE: No chest pain, dyspnea, orthopnea or PND. Worked well with PT. OBJECTIVE: Vital Signs/I&O: Vital Signs Date Time Temp Pulse Resp B/P (MAP) Pulse Ox O2 Delivery O2 Flow Rate FiO2 02/08/20 14:21 98.2 91 20 136/83 (100) 95 Nasal Cannula 3.0 98.2 I & O 02/07/20 02/07/20 02/08/20 15:00 23:00 07:00 Intake Total 120 ml Balance 120 ml Objective: Irregular heart tones. Normal lungs. Soft abdomen. No edema. CURRENT MEDICATIONS: Current Medications Medications (Trade) Dose Ordered Sig/Ronal Route PRN Reason Start Time Stop Time Status Last Admin Dose Admin Ondansetron HCl (Zofran) 4 mg PRN Q6HRS PRN IVP NAUSEA/VOMITING 02/08/20 09:45 02/08/20 16:31 DC 02/08/20 09:54 DIAGNOSTIC TESTING: Labs: Laboratory Tests 02/08/20 08:50 Laboratory Tests Test 02/08/20 07:15 02/08/20 08:50 02/08/20 11:14 Glucose (Fingerstick) 109 mg/dL (70-99) H 127 mg/dL (70-99) H Creatinine 1.5 mg/dL (0.6-1.0) H Estimated GFR (Cockcroft-Gault) 33.7 ASSESSMENT: 1. Atrial fibrillation 2. HTN 3. Sepsis, resolving PLAN: 1. Continue present meds. Ok to Dc from CV standpoint Justicifation of Admission Dx: Justifications for Admission: Justification of Admission Dx: Yes Sepsis: Infection MARIE SHARMA MD Feb 08, 2020 23:17
== END 2020-02-08 16:20 | disposition home health service (06) | DRG 871 ==
LOC: ER 07:54 → 6 SOUTH 10:15 → 1 WEST ICU 15:32 → 2 NORTH 02-07 00:15
PROVIDERS: ADMIT Internal Medicine; ATTEND Internal Medicine
DX: A41.9 Sepsis, unspecified organism (principal); J96.01 Acute respiratory failure with hypoxia; G92 Toxic encephalopathy; J18.9 Pneumonia, unspecified organism; N17.9 Acute kidney failure, unspecified; D68.9 Coagulation defect, unspecified; I13.0 Hypertensive heart and chronic kidney disease with heart failure and stage 1 through stage 4 chronic kidney disease, or unspecified chronic kidney disease; I48.20 Chronic atrial fibrillation, unspecified; I50.22 Chronic systolic (congestive) heart failure; N39.0 Urinary tract infection, site not specified; D69.6 Thrombocytopenia, unspecified; E03.9 Hypothyroidism, unspecified; E11.22 Type 2 diabetes mellitus with diabetic chronic kidney disease; E78.00 Pure hypercholesterolemia, unspecified; E78.5 Hyperlipidemia, unspecified; E83.42 Hypomagnesemia; G47.33 Obstructive sleep apnea (adult) (pediatric); G62.9 Polyneuropathy, unspecified; I25.10 Atherosclerotic heart disease of native coronary artery without angina pectoris; I25.5 Ischemic cardiomyopathy; K59.00 Constipation, unspecified; N18.3 Chronic kidney disease, stage 3 (moderate); F32.9 Major depressive disorder, single episode, unspecified; K57.90 Diverticulosis of intestine, part unspecified, without perforation or abscess without bleeding; M10.9 Gout, unspecified; M19.90 Unspecified osteoarthritis, unspecified site; R65.20 Severe sepsis without septic shock; Z20.828 Contact with and (suspected) exposure to other viral communicable diseases; Z79.01 Long term (current) use of anticoagulants; Z83.3 Family history of diabetes mellitus; Z87.440 Personal history of urinary (tract) infections; Z87.891 Personal history of nicotine dependence; Z90.710 Acquired absence of both cervix and uterus; Z95.1 Presence of aortocoronary bypass graft; Z90.49 Acquired absence of other specified parts of digestive tract
CPT/HCPCS: 36415; 71045; 74176; 80048; 80053; 81001; 82565; 82962; 83605; 83735; 84145; 84484; 85007; 85025; 85027; 85049; 85610; 85730; 87040; 87086; 93005; 96361; 96365; 96366; 96367; J1815; J2370; J2405; J2543; J3370; J3475; J7030; J7040; J7050; 97116-GP; 97530-GP; 99285-25; G0378; U0003-CS

== ENCOUNTER → 2020-12-23 | Outpatient (CLI) | payer MEDICARE ==
[~2020-12-23] MED LIST changes: -ISOS30TA4 PO; +ISOS30TA68 PO; +LEVO150T5 PO; +NIAC250C16 PO; -NIAC250C2 PO; +POTA10TA12 PO
--- NOTE | 2020-12-23 10:48 | KCIC ---
EXAM: Abdomen sonogram. HISTORY: Elevated liver enzyme laboratory values. Cirrhosis. TECHNIQUE: Sonographic imaging of the abdomen was performed. COMPARISON: 02/04/2020 and 11/15/2019. FINDINGS: There is hepatic steatosis. There is heterogeneous echogenic hepatic parenchyma due to stea tosis and superimposed cirrhosis. No focal hepatic lesion is seen. The common bile duct is upper norm al in caliber for patient age. The gallbladder is surgically absent. The kidneys, spleen, aorta and i nferior vena cava are unremarkable. There is a 1.4 cm hypoechoic lesion along the ventral aspect of t he pancreas. IMPRESSION: 1. Hepatic steatosis and heterogeneous hepatic parenchyma likely due to superimposed cirrhosis. No fo natalia hepatic lesion is seen. 2. Cholecystectomy. 3. 1.4 cm hypoechoic lesion along the ventral aspect of the pancreas. This can be better assessed wit h MRI/MRCP or a pancreatic protocol CT. Electronically signed by: Shanon Sanchez MD (12/23/2020 10:46 AM) [id number]
== END ==
LOC: KCIC US 09:58
PROVIDERS: ATTEND Internal Medicine Gastroenterology
DX: K76.0 Fatty (change of) liver, not elsewhere classified (principal); Z90.49 Acquired absence of other specified parts of digestive tract
CPT/HCPCS: 76700

== ENCOUNTER → 2021-03-18 | Outpatient (CLI) | payer MEDICARE ==
--- NOTE | 2021-03-18 16:34 | KCIC ---
CT HEAD/BRAIN WO History: Reason: ALZHEIMER'S DISEASE W/ LATE ONSET / Spl. 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 Comparison: None. Technique: Noncontrast CT imaging was performed of the head. Exposure: One or more of the following individualized dose reduction techniques were utilized for thi s examination: 1. Automated exposure control 2. Adjustment of the mA and/or kV according to patient size 3. Use of iterative reconstruction technique. Findings: No intracranial hemorrhage. No mass effect. No hydrocephalus. Moderate brain parenchymal volume loss with frontal parietal predominant. Mild foci of decreased atte nuation within the hemispheric white matter, most often due to chronic microvascular ischemia. Imaged orbits are unremarkable. Imaged paranasal sinuses and mastoid air cells are clear. No acute ca lvarial fracture. Impression: 1. No acute intracranial abnormality. 2. Moderate brain parenchymal volume loss with frontoparietal predominance. Electronically signed by: Tj Acuna DO (03/18/2021 4:31 PM) [id number]
== END ==
LOC: KCIC CT 15:14
PROVIDERS: ATTEND Psychiatry & Neurology Neurology with Special Qualifications in Child Neurology
DX: G30.1 Alzheimer's disease with late onset (principal); G31.9 Degenerative disease of nervous system, unspecified; I10 Essential (primary) hypertension
CPT/HCPCS: 70450